=== PATIENT | female | born 1945 | race Caucasian/White ===

== ENCOUNTER → 2017-12-16 12:21 | Outpatient (CLI) | payer OTHER, SELFPAY ==
--- NOTE | 2017-12-16 12:24 | DI.RAD.S_ITS ---
PROCEDURE: XR SHOULDER LT MIN 2V INDICATIONS: 72 year-old female with left shoulder pain. TECHNIQUE: 3 views of the shoulder were acquired. COMPARISON: None. FINDINGS: Bones: No fractures or dislocations. There is minimal acromioclavicular joint degeneration. No suspicious bony lesions. Visualized ribs appear intact. Soft tissues: No suspicious soft tissue calcifications. IMPRESSION: Minimal left acromioclavicular joint degeneration. Dictated by: Adonay Tomlinson M.D. on 12/16/2017 at 12:51 Approved by: Adonay Tomlinson M.D. on 12/16/2017 at 12:53
--- NOTE | 2017-12-16 12:24 | DI.RAD.S_ITS ---
PROCEDURE: XR CERVICAL SPINE 2V OR 3V INDICATIONS: 72 year-old female with neck pain. TECHNIQUE: 3 view(s) of the cervical spine were acquired. COMPARISON: None. FINDINGS: Bones: No fractures or dislocations to the T1 level. The lateral masses of C1 appear intact on the odontoid view. There is mild C4-C5 through C6-C7 disc degeneration. No suspicious bony lesions. Soft tissues: No prevertebral soft tissue swelling. IMPRESSION: Mild mid and lower cervical spine disc degeneration, with normal bony alignment. Dictated by: Adonay Tomlinson M.D. on 12/16/2017 at 12:54 Approved by: Adonay Tomlinson M.D. on 12/16/2017 at 12:55
== END ==
PROVIDERS: PCP Physician Assistant; Visit Provider Physician Assistant
DX: M50.321 Other cervical disc degeneration at C4-C5 level (principal); M19.012 Primary osteoarthritis, left shoulder; M25.512 Pain in left shoulder
CPT/HCPCS: 72040; 73030

== ENCOUNTER → 2018-08-11 15:14 | Outpatient (CLI) | payer OTHER, SELFPAY ==
--- NOTE | 2018-08-11 | DI.MG.S_ITS ---
BILATERAL DIGITAL SCREENING MAMMOGRAM 3D/2D WITH CAD POST LUMPECTOMY: 08/11/2018 CLINICAL: Routine screening. Personal history of right breast cancer. Family history of breast cancer. Comparison is made to exams dated: 07/01/2017 mammogram, 06/19/2016 mammogram, and 06/18/2015 mammogram - [facility]. The tissue of both breasts is heterogeneously dense. This may lower the sensitivity of mammography. Current study was also evaluated with a Computer Aided Detection (CAD) system. There are benign post operative findings in both breasts. No significant masses, calcifications, or other findings are seen in either breast. There has been no significant interval change. IMPRESSION: There is no mammographic evidence of malignancy. A 1 year screening mammogram is recommended. This exam was interpreted at Station ID: [id number]. NOTE: For mammograms, a report in lay terms will be sent to the patient. Approximately 15% of breast malignancies will not be visualized mammographically. In the management of a palpable breast mass, a negative mammogram must not discourage biopsy of a clinically suspicious lesion. Electronically Signed By: Arina calzada/natalie:08/11/2018 16:33:57 letter sent: Normal Exam ACR BI-RADS Category 2: Benign Finding(s) 3342F
== END ==
PROVIDERS: PCP Physician Assistant; Visit Provider Physician Assistant
DX: Z12.31 Encounter for screening mammogram for malignant neoplasm of breast (principal); Z85.3 Personal history of malignant neoplasm of breast; Z80.3 Family history of malignant neoplasm of breast
CPT/HCPCS: 77063; 77067

== ENCOUNTER 2019-08-30 06:29 | Day surgery (SDC) | payer OTHER, SELFPAY ==
--- NOTE | 2019-08-30 | PATH_ITS ---
[facility] Accession Number: [id number] . 01 Material submitted: . gastrointestinal site - POLYP LESIONS OF THE STOMACH . 02 Diagnosis: Stomach, Polyps, Biopsies: Fundic gland polyps. No evidence of Helicobacter organisms on H/E stain. Negative for intestinal metaplasia. Negative for dysplasia and malignancy. [facility] 08/31/2019 1015 Local . 02 Electronically signed: . Tony Gao MD, PhD, Pathologist NPI- [id number] . 01 Gross description: . POLYP LESIONS OF THE STOMACH: Received in formalin are multiple fragment(s) of galvin, soft tissue measuring 0.1 x 0.1 x 0.1 cm to 0.3 x 0.2 x 0.2 cm submitted entirely in 1 cassette(s) [place] [place]/30/2019 1824 Local . 02 Pathologist provided ICD-10: K31.7 . 02 CPT . 225569 Performed at: 01 [facility] [address], [place], [place] [id number] MD Rome Fischer MD Phone: [phone] Performed at: 02 [facility] [address] [place], [place] [id number] MD Asmita Wilkerson MD Phone: [phone]
[2019-08-30 07:17] VITALS: BP 166/86; PULSE 74; RESP 20; TEMP 36.6; O2SAT 98; BMI 20.9
--- NOTE | 2019-08-30 08:17 | PM.PREOP ---
Pre-operative Note Interval Note History & Physical reviewed/Exam performed by Physician: Yes Changes to H&P: Yes H&P completed within 30 days and has changed as indicated here:: Patient had resection of a skin cancer from her nose. Band-Aid in place. ASA Class (for procedural sedation): II
--- NOTE | 2019-08-30 08:38 | PM.OP.ENDO ---
Operative Date/Time/Diagnoses Date of procedure: 08/30/19 Time of procedure: 08:38 Pre-op diagnosis: Upper intestinal epigastric complaints Post-op diagnosis: same (Gastric fundic polyps) Procedure & Clinicians Study performed: EGD with cold biopsy Same procedure as scheduled: Yes Indications: To try to determine cause of patient's symptoms Surgeon: Crispin Calix Procedure Notes SCOAP/Timeout: Perform Procedure in detail: The patient had topical anesthetic applied to oropharynx. She was placed in left lateral decubitus position and underwent IV sedation directed by the surgeon consisting of fentanyl and Versed. A bite block was inserted and the scope was advanced through it into the esophagus. The esophagus was unremarkable. GE junction was noted at 40 cm from the incisors. The stomach insufflated well. There were no lesions seen in the body, antrum or at the incisura except for some polypoid lesions that appeared to be gastric fundic polyps. The pyloric channel was widely patent. The duodenum was unremarkable to the 3rd part. The scope was brought back into the stomach and retroflexed. The proximal stomach normal in appearance. There was no evidence of a hiatal hernia from above or below. Biopsies were taken randomly of several of the polyps to confirm my suspicion that there gastric fundic polyps. The scope was then straightened and brought out through the esophagus again. No lesions were seen. The scope was removed and the patient tolerated the procedure well. Scope withdrawal time: Not applicable Sedation minutes: 10 Findings: polyp (Probable gastric fundic polyps) Specimen(s): other (Polyp biopsies) Complications: none Post-procedure Recommendations: Continue medication(s) Follow up: as needed Disposition: PACU
[2019-08-30] MEDS: MIDAZOLAM 5 MG/ML VIAL IV (08:42)
[2019-08-30 08:43] VITALS: BP 147/66; PULSE 75; RESP 16; TEMP 36.4; O2SAT 96
[2019-08-30] MEDS: fentaNYL 250 MCG/5 ML INJ IV (08:43)
[2019-08-30] MEDS: LIDOCAINE 4% SOLN 50 ML 20 ML TOP (08:45)
[2019-08-30] MEDS: ONDANSETRON 4 MG/2 ML INJ IV (08:47)
[2019-08-30 08:50] VITALS: BP 132/63; PULSE 73; RESP 16; TEMP 36.5; O2SAT 97
== END 2019-08-30 09:04 | disposition home or self-care (01) ==
PROVIDERS: PCP Physician Assistant; Referring Provider Specialist; Visit Provider Specialist
PROC: 0DJ08ZZ Inspection of Upper Intestinal Tract, Via Natural or Artificial Opening Endoscopic (ICD-10-PCS; CPT 43235; principal; 2019-08-30 07:45)
DX: K21.9 Gastro-esophageal reflux disease without esophagitis (principal); K31.7 Polyp of stomach and duodenum
CPT/HCPCS: 43239; 99152; J2250; J2405; J3010

== ENCOUNTER → 2019-08-31 12:19 | Outpatient (CLI) | payer OTHER, SELFPAY ==
[2019-08-31 16:43] LABS: Adenovirus F 40/41 Not Detected (Not Detect); Astrovirus Not Detected (Not Detect); Campylobacter Not Detected (Not Detect); Clostridium difficile toxin AB Not Detected (Not Detect); Cryptosporidium Not Detected (Not Detect); Cyclospora cayetanensis Not Detected (Not Detect); Entamoeba histolytica Not Detected (Not Detect); Enteroaggregative E.coli Not Detected (Not Detect); Enteropathogenic E.coli Not Detected (Not Detect); Enterotoxigenic E.coli It/st Not Detected (Not Detect); Giardia lamblia Not Detected (Not Detect); Norovirus GI/GII Not Detected (Not Detect); Plesiomonsa shigelloides Not Detected (Not Detect); Rotavirus A Not Detected (Not Detect); Salmonella Not Detected (Not Detect); Sapovirus Not Detected (Not Detect); Shiga-like toxin-prod E.coli Not Detected (Not Detect); Shigella/Enteroinvasive E.coli Not Detected (Not Detect); Vibrio Not Detected (Not Detect); Vibrio cholerae Not Detected (Not Detect); Yersinia enterocolitica Not Detected (Not Detect)
== END ==
PROVIDERS: PCP Physician Assistant; Referring Provider Specialist; Visit Provider Specialist
DX: K52.9 Noninfective gastroenteritis and colitis, unspecified (principal)
CPT/HCPCS: 87507

== ENCOUNTER → 2019-09-07 10:31 | Outpatient (CLI) | payer OTHER, SELFPAY ==
--- NOTE | 2019-09-07 10:34 | DI.RAD.S_ITS ---
PROCEDURE: FL BARIUM SWALLOW W SPEECH INDICATIONS: dysphagia, food getting stuck/causing choking TECHNIQUE: Examination was conducted in conjunction with speech pathology per standard protocol. In the lateral projection, filming was performed of the patient swallowing. AP projection filming may also be performed with patient swallowing. COMPARISON: None. FINDINGS: Function: The oral preparatory phase appears normal, with proper containment. The subsequent oral propulsive phase, pharyngeal phase, and esophageal phase of swallowing also appear normal with all proffered substances. Several episodes of slight laryngotracheal penetration of ingested contrast were observed, but no aspiration. No pathologic vallecular pooling. Morphology: No cricopharyngeal bar is identified. No cervical esophageal webs. No Zenker's diverticulum. No strictures. IMPRESSION: Several episodes of slight anterior penetration of ingested contrast were observed but no tracheal aspiration was found. Dictated by: Kole Joseph M.D. on 09/07/2019 at 12:53 Approved by: Kole Joseph M.D. on 09/07/2019 at 12:55
--- NOTE | 2019-09-09 10:57 | ST.SWALLOW ---
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 Calix Reason for Referral dysphagia Setting Setting Outpatient Care Patient Information Identification Type Name,ID Wristband Patient History Precious Gtz was seen for a Modified Barium Swallow Study at the referral of Dr. Calix . According to Precious she has been having difficulty swallowing, at times feeling as though she aspirated. She has a history of GERD, anxiety and asthma for which she is getting treatment. She did note that her GERD was worsening. She also said that she will see a GI specialist in the future. No appointment has been made, she noted. Precious also reported that at times she will regurgitate undigested food into her oropharynx. On 08/29/19, Precious had an esophageal endoscopy procedure . She indicated that there were benign polyps removed, otherwise it was a normal exam . Subjective Observations Precious was seated in the fluoroscopy chair. The directions and description of the procedure were provided. She indicated that she understood and agreed to proceed. Patient Positioning Position View Lateral Imaging Lateral View Textures Administered Trials Presented Thin Liquid via Spoon,Thin Liquid via Cup,Siesta Key Liquid via Spoon,Siesta Key Liquid via Cup,Regular Textures Oral Phase Source: MBSIMP (TM) (C) Bolus Specific Scoring Grid Lip Closure WFL Tongue Control During Bolus Hold WFL Bolus Prep/Mastication WFL Bolus Transport/Lingual Motion Mild Impairment A/P Lingual Propulsion Delay Yes: Premature spillage to the pyriform sinises pre-swallow Number of Seconds Delayed (seconds) 1+sec Oral Residue Minimal Impairment Residue Clearing WFL Nasal Regurgitation No Additional Oral Phase Observations Om exam indicated structures and diadochokinesis to be WNL Pharyngeal Phase Source: MBSIMP (TM) (C) Bolus Specific Scoring Grid Delayed Initiation of Pharyngeal Swallow Yes: Premature spillage to the pyriform sinises pre-swallow Number of Seconds Delayed (seconds) 1+sec Soft Palate Elevation WFL Residue Along the Tongue Base Yes: consistent across all trials Clearance of Residue Along Tongue Base Mild Impairment Laryngeal Elevation WFL Anterior Hyoid Movement WFL Epiglottic Range of Motion Minimal Impairment Vallecular Residue Yes: consistent across all trials Clearance of Vallecular Residue WFL Laryngeal Vestibular Closure Mild Impairment Pharyngeal Stripping Wave WFL Posterior Pharyngeal Wall Residue Yes: Minimal Clearance of Posterior Pharyngeal Wall WFL Residue Upper Esophageal Sphincter Opening Minimal Impairment Residue in the Pyriform Sinuses Yes: consistent across all trials Clearance of Residue in the Pyriform WFL Sinuses Esophageal Clearance Upright Position WFL Pharyngoesophageal Backflow Observed Yes Additional Pharyngeal Phase Observations The swallow response was delayed with premature spillage to the pyriform sinuses pre-swallow. Base of tongue appeared to be weak, resulting in residue in the valeculla. Residue was observed throughout the pharynx and also on the tongue body. Following the initial swallow there was significant pooling within the valeculla and pyriform sinuses as well as thick mucous observed. Most residue was cleared with a second swallow. Small amounts of thin liquid were swallowed with out penetration or aspiration. With larger bolus size (e.g,. cup sip, consecutive swallows ) penetration into the laryngeal vestibule was observed x3. No aspiration observed. Penetration was followed immediately by a cough/throat clear. Penetration also occurred with trial chin tuck with liquids. A/P View Clinical Impressions Dysphagia Type mild oropharyngeal dysphagia Findings The pt presents with a mild dysphagia that can be managed through sip/bite size reduction and not eating fast during meals. The results were discussed with the pt following the study. She was instructed to reduce her liquid boluses and to always follow initial swallows with a second swallow. She c/o PND and feeling a lot of phlegm in her throat. Suggested she drink water throughout the day to thin secretions . It was recommended that she talk to her physician if PND continues . Patient Appropriate for Therapy No Recommendations Diet Liquids Order Thin Diet Order Regular Aspiration Precautions Recommended Precautions Upright at 90 Degrees,Small Bites/Sips
== END ==
PROVIDERS: PCP Family Medicine; Referring Provider Specialist; Visit Provider Specialist
DX: R13.10 Dysphagia, unspecified (principal)
CPT/HCPCS: 74230; 92611

== ENCOUNTER 2020-09-25 10:41 | Emergency (ER) | payer OTHER, SELFPAY ==
[2020-09-25] VITALS (11 sets, daily range): BP systolic 127–154; BP diastolic 57–68; PULSE 65–76; RESP 14–25; TEMP 36.5–36.7; O2SAT 95–99
--- NOTE | 2020-09-25 11:06 | DI.CT.S_ITS ---
PROCEDURE: CT HEAD/BRAIN WO CON INDICATIONS: word searching, headache, difficulty sequencing events. TECHNIQUE: Noncontrast 4.5 mm thick angled axial sections acquired from the foramen magnum to the vertex, with coronal and sagittal reformats. For radiation dose reduction, the following was used: automated exposure control, adjustment of mA and/or kV according to patient size. COMPARISON: None. FINDINGS: Image quality: Excellent. CSF spaces: Basal cisterns are patent. No extra-axial fluid collections. Brain: N there is a large 6.3 x 6.5 by 5.9 centimeter mixed solid-cystic mass in the left frontal lobe. Lesion is causing local mass effect with approximately 1.6 centimeters of [id number] frontal subfalcine herniation. Small 8 millimeter hyperdense focus is associated with the posterior-lateral margin of the left frontal mass concerning for acute intratumoral hemorrhage. Smaller, slightly hyperdense foci are identified in central and posterior solid components of the left frontal mass concerning for subacute intratumoral hemorrhage. There is cerebral volume loss for age, with resultant ventricular and sulcal prominence. There are periventricular and deep white matter chronic small vessel ischemic changes. There is intracranial internal carotid artery atherosclerosis. Skull and face: Calvarium and visualized facial bones appear intact, without suspicious lesions. Sinuses: Visualized sinuses and mastoids are clear. IMPRESSION: 1. 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 Recommend MRI of the brain with and without contrast when clinically feasible. 2. Probable small intratumoral hemorrhage associated with left frontal mass. 3. Approximately 1.6 centimeters of [id number] subfalcine herniation. Recommend neurosurgical consultation. Findings recommendations discussed with Dr. Storm on September 25, 2020 at 11:35 a.m.. Dictated by: Jolene Brown MD, PhD on 09/25/2020 at 11:30 Approved by: Jolene Brown MD, PhD on 09/25/2020 at 11:37
[2020-09-25 11:18] LABS: Add Manual Diff / Slide Review NO; Basophils Absolute Auto 100 /uL (0-100); Eosinophils Absolute Auto 600 /uL (0-450); Eosinophils Percent Auto 8.6 % (2-4); Hematocrit 43.4 % (36-46); Hemoglobin 14.4 g/dL (12.0-16.0); Lymphocytes Absolute Auto 2300 /uL (1100-4500); Lymphocytes Percent Auto 32.2 % (25-40); Mean Corpuscular HGB Conc 33.3 % (30-36); Mean Corpuscular Hemoglobin 29.3 PG (26-34); Mean Corpuscular Volume 88.1 fL (80-100); Monocytes Absolute Auto 400 /uL (0-900); Monocytes Percent Auto 5.1 % (3-14); Neutrophils Absolute Auto 3700 /uL (1500-7000); Neutrophils Percent Auto 53.1 % (50-75); Platelet Count 222 X10^3/uL (150-400); Red Blood Cell Count 4.92 X10^6/uL (4.0-5.2); Red Cell Distribution Width 13.6 % (11.6-14.8)
[2020-09-25 11:23] LABS: Prothrombin Time 11.5 SECONDS (10.1-12.7)
[2020-09-25 11:25] LABS: PTT Partial Thromboplastin Tim 26 SECONDS (26.4-36.2)
[2020-09-25 11:26] LABS: Alanine Aminotransferase 26 IU/L (<35); Albumin 4.5 g/dL (3.5-5.0); Albumin Globulin Ratio 1.7 (1.0-2.8); Alkaline Phosphatase 67 U/L (38-126); Aspartate Aminotransferase 38 IU/L (14-36); BUN Creatinine Ratio 30.9 (6-22); Bilirubin Total 1.1 mg/dL (0.2-1.3); Blood Urea Nitrogen 25 mg/dL (7-17); Calcium 9.7 mg/dL (8.4-10.2); Carbon Dioxide 27 mmol/L (22-32); Chloride 107 mmol/L (98-107); Creatine Kinase 165 U/L (30-135); Estimated Glomerular Filt Rate > 60.0 mL/min (>60); Globulin 2.6 g/dL (1.7-4.1); Glucose 94 mg/dL (80-110); HEMOLYSIS < 15 (0-50); Potassium 4.3 mmol/L (3.4-5.1); Sodium 140 mmol/L (137-145); Total Protein 7.1 g/dL (6.3-8.2)
[2020-09-25 11:35] LABS: COVID19 -Nasal RAPID Negative (Negative)
[2020-09-25 11:38] LABS: Troponin I < 0.012 ng/mL (0.01-0.034)
[2020-09-25 11:42] LABS: CKMB % Relative Index 1.7 % (1.5-5.0); Creatine Kinase MB 2.76 ng/mL (<2.37)
--- NOTE | 2020-09-25 11:45 | ED.AMS ---
HPI - Altered Mental Status General Chief Complaint: Altered Mental Status Stated Complaint: headaches blood coming out nose/ Time Seen by Provider: 09/25/20 11:07 Source: patient and family Mode of arrival: Ambulatory Limitations: altered mental status History of Present Illness HPI narrative: Patient is a 75-year-old female history of hypertension hyperlipidemia and DCIS presenting with 3 weeks of headaches and behavior change. has noticed that she has had difficulty with sequencing events such as getting dressed. He says this morning and took her over an hour just to get dressed. He has noticed some change in her behavior like that is well worried about early onset dementia however couple weeks ago she was at her baseline. He says over the last 2 days it has gotten significantly worse. She has not had any nausea or vomiting he has noticed that yesterday she had a nosebleed but is not on any blood thinners. She has no weakness numbness tingling. No fever chills or sign of infection. MD complaint: altered mental status Related Data Home Medications Medication Instructions Recorded Confirmed montelukast 10 mg tablet 10 mg PO QPM 09/20/18 06/11/20 triamcinolone acetonide 55 mcg 2 spray NASAL DAILY 11/03/18 06/11/20 nasal spray aerosol fluticasone propionate 44 1 inh INHALATION g 06/11/20 06/11/20 mcg/actuation HFA aerosol inhaler mometasone-formoterol HFA 200 1 puff INHALATION BID g 06/11/20 06/11/20 mcg-5 mcg/actuation aerosol inhaler Previous Rx's Medication Instructions Recorded lisinopril 20 mg tablet 20 mg PO DAILY #90 tab 10/24/19 buspirone 10 mg tablet 10 mg PO BID #180 tab 12/27/19 Allergies Allergy/AdvReac Type Severity Reaction Status Date / Time estradiol [ESTRADIOL] AdvReac Severe blood clots Verified 09/25/20 11:12 fluoxetine [FLUOXETINE] AdvReac Severe Nausea, Verified 09/25/20 11:12 vomiting, blurry vision, made IBS worse citalopram AdvReac Intermediate Nausea Verified 09/25/20 11:12 Review of Systems Review of Systems ROS Unobtainable: All systems reviewed & are unremarkable except as noted in HPI and below Constitutional Constitutional: Denies chills, Denies fever(s), Denies lethargy and Denies weakness ENT Ears, Nose, Mouth, and Throat: Reports epistaxis (Yesterday now resolved), Denies nasal congestion and Denies post nasal drip Cardiovascular Cardiovascular: Denies chest pain, Denies irregular heart rhythm, Denies lightheadedness, Denies palpitations, Denies dyspnea, Denies dyspnea on exertion and Denies orthopnea Respiratory Respiratory: Denies cough, Denies dyspnea, Denies dyspnea on exertion and Denies wheezing Gastrointestinal Gastrointestinal: Denies abdominal pain, Denies change in bowel habits, Denies diarrhea, Denies nausea and Denies vomiting Neurologic Neurologic: Denies weakness Endocrine Endocrine: Denies palpitations Allergic/Immunologic Allergic/Immunologic: Denies wheezing Patient History Medical History (Updated 09/25/20 @ 12:13 by Anahy Storm DO) Actinic keratosis Asthma Colon polyps (12/2013) Ductal carcinoma in situ (DCIS) of right breast (2000) GERD (gastroesophageal reflux disease) Hyperlipidemia (11/11/10) Irritable bowel syndrome with diarrhea Mixed anxiety depressive 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) Osteopenia of multiple sites Perineal discomfort in female Rosacea Surgical History (Updated 03/20/18 @ 10:07 by Lucia Darnell LPN) History of tonsillectomy and adenoidectomy (1949) Hx of colonoscopy with polypectomy (12/2013) Hx of left breast biopsy (12/2010) Hx of surgical procedure (2006) Status post breast lumpectomy (2000) Status post cholecystectomy (2004) Status post hysterectomy (1993) Status post knee surgery (1992) Family History (Updated 03/20/18 @ 10:09 by Lucia Darnell LPN) Mother Asthma Sister Age: 71 Diabetes mellitus Hypertension Thyroid disease Sister Age: 70 Asthma Glaucoma Sister Age: 68 Asthma Father No problems noted. Grandfather Stroke Grandmother Cancer Social History (Updated 08/09/19 @ 14:33 by Mindy Navarrete RN) household members: spouse and significant other Smoking Status: Never smoker second hand exposure: No alcohol intake: current substance use type: does not use Smoking Status: Never smoker alcohol intake frequency: 0-2 drinks per day Substance Use Type: does not use Exam Initial Vital Signs Initial Vital Signs: Vital Signs Pulse Rate 76 09/25/20 11:02 Respiratory Rate 21 09/25/20 11:02 Pulse Oximetry 98 09/25/20 11:02 GENERAL: Alert pleasant 75-year-old female and in [no acute] distress. HEENT: Head atraumatic,EOMI, pupils reactive, face symmetric, [moist] mucous membranes CARDIOVASCULAR: Regular rate and rhythm without murmurs, rubs or gallops. RESPIRATORY: Breath sounds equal bilaterally, no wheezes rales or rhonchi. ABDOMEN: Soft, nontender. Normoactive bowel sounds all 4 quadrants. No guarding or rebound. EXTREMITIES: Normal range of motion, no clubbing or edema. Neurovascularly intact NEUROLOGICAL: Alert and oriented x3.Normal gait and speech. Cranial nerves II through XII grossly intact. [Good tylhtx-yp-lacf, good rkmk-jl-aued, strength equal bilaterally, no dysarthria or aphasia, sensation in tact to soft touch bilaterally, no visual changes, no facial droop] able to name objects without difficulty confused on the year SKIN: Warm, dry, no laceration, no petechiae, no rashes or lesions. Scores NIH Stroke Scale Level of Conciousness: Alert, keenly responsive Ask month/age: Answers both questions correctly. Open/close eyes, close hand: Performs both tasks correctly Best gaze horizontal: Normal Visual hogan: No visual loss Facial palsy: Normal symetrical movement Left arm drift: No drift for full 10 sec Right arm drift: No drift for full 10 sec Left leg drift: No drift for full 5 sec Right leg drift: No drift for full 5 sec Limb ataxia: Absent Sensory on face/arms/legs: Normal, no sensory loss Best language: No aphasia, normal Dysarthria: Normal Extinction or inattention: No abnormality Total NIH Stroke scale score: 0 Course Orders Ordered: ED Orders 09/25/20 11:06 CT head/brain wo con Stat EKG-12 Lead Stat 09/25/20 11:07 COVID19 -Nasal swab/Pre-Proc Stat Complete Blood Count AUTO DIFF Stat Comprehensive Metabolic Panel Stat Partial Thromboplastin Time Stat Prothrombin Time INR Stat Troponin & CK Cardiac Panel Stat Vital Signs Vital signs: Vital Signs - 8 hr 09/25/20 11:02 09/25/20 11:03 09/25/20 11:09 Temperature 98.1 F Pulse Rate 76 73 65 Respiratory Rate 21 19 18 Blood Pressure 147/68 H 147/68 H Pulse Oximetry 98 99 09/25/20 11:13 09/25/20 11:19 09/25/20 11:20 Temperature 97.7 F Pulse Rate 69 68 Respiratory Rate 24 24 Blood Pressure 154/68 H Pulse Oximetry 96 98 09/25/20 11:30 09/25/20 11:45 09/25/20 12:00 Temperature Pulse Rate 68 69 69 Respiratory Rate 14 21 24 Blood Pressure 131/63 127/61 136/62 Pulse Oximetry 97 96 95 09/25/20 12:15 09/25/20 12:30 Temperature Pulse Rate 70 69 Respiratory Rate 24 25 H Blood Pressure 134/57 L 137/63 Pulse Oximetry 96 96 MDM - Altered Mental Status Lab Data Attestation: I reviewed the patient's lab results. Result diagrams: 09/25/20 11:07 09/25/20 11:07 Labs: Lab Results 09/25/20 09/25/20 09/25/20 Range/Units 11:07 11:07 11:07 WBC 7.0 (4.5-11.0) X10^3/uL RBC 4.92 (4.0-5.2) X10^6/uL Hgb 14.4 (12.0-16.0) g/dL Hct 43.4 (36-46) % MCV 88.1 (80-100) fL MCH 29.3 (26-34) PG MCHC 33.3 (30-36) % RDW 13.6 (11.6-14.8) % Plt Count 222 (150-400) X10^3/uL Neut % (Auto) 53.1 (50-75) % Lymph % (Auto) 32.2 (25-40) % Spalding % (Auto) 5.1 (3-14) % Eos % (Auto) 8.6 H (2-4) % Baso % (Auto) 1.0 (0-2) % Neut # (Auto) 3700 (1845-6212) /uL Lymph # (Auto) 2300 (6552-9634) /uL Spalding # (Auto) 400 (0-900) /uL Eos # (Auto) 600 H (0-450) /uL Baso # (Auto) 100 (0-100) /uL PT 11.5 (10.1-12.7) SECONDS INR 1.0 (0.9-1.3) APTT 26 L (26.4-36.2) SECONDS Sodium 140 (137-145) mmol/L Potassium 4.3 (3.4-5.1) mmol/L Chloride 107 (98-107) mmol/L Carbon Dioxide 27 (22-32) mmol/L BUN 25 H (7-17) mg/dL Creatinine 0.81 (0.52-1.04) mg/dL Estimated GFR > 60.0 (>60) mL/min BUN/Creatinine Ratio 30.9 H (6-22) Glucose 94 (80-110) mg/dL Calcium 9.7 (8.4-10.2) mg/dL Total Bilirubin 1.1 (0.2-1.3) mg/dL AST 38 H (14-36) IU/L ALT 26 (<35) IU/L Alkaline Phosphatase 67 (38-126) U/L Total Creatine Kinase 165 H (30-135) U/L CK-MB (CK-2) 2.76 H (<2.37) ng/mL CK-MB (CK-2) Rel Index 1.7 (1.5-5.0) % Troponin I < 0.012 (0.01-0.034) ng/mL Total Protein 7.1 (6.3-8.2) g/dL Albumin 4.5 (3.5-5.0) g/dL Globulin 2.6 (1.7-4.1) g/dL Albumin/Globulin Ratio 1.7 (1.0-2.8) SARS-CoV-2 (PCR) (Negative) 09/25/20 Range/Units 11:07 WBC (4.5-11.0) X10^3/uL RBC (4.0-5.2) X10^6/uL Hgb (12.0-16.0) g/dL Hct (36-46) % MCV (80-100) fL MCH (26-34) PG MCHC (30-36) % RDW (11.6-14.8) % Plt Count (150-400) X10^3/uL Neut % (Auto) (50-75) % Lymph % (Auto) (25-40) % Spalding % (Auto) (3-14) % Eos % (Auto) (2-4) % Baso % (Auto) (0-2) % Neut # (Auto) (8933-3176) /uL Lymph # (Auto) (4832-0303) /uL Spalding # (Auto) (0-900) /uL Eos # (Auto) (0-450) /uL Baso # (Auto) (0-100) /uL PT (10.1-12.7) SECONDS INR (0.9-1.3) APTT (26.4-36.2) SECONDS Sodium (137-145) mmol/L Potassium (3.4-5.1) mmol/L Chloride (98-107) mmol/L Carbon Dioxide (22-32) mmol/L BUN (7-17) mg/dL Creatinine (0.52-1.04) mg/dL Estimated GFR (>60) mL/min BUN/Creatinine Ratio (6-22) Glucose (80-110) mg/dL Calcium (8.4-10.2) mg/dL Total Bilirubin (0.2-1.3) mg/dL AST (14-36) IU/L ALT (<35) IU/L Alkaline Phosphatase (38-126) U/L Total Creatine Kinase (30-135) U/L CK-MB (CK-2) (<2.37) ng/mL CK-MB (CK-2) Rel Index (1.5-5.0) % Troponin I (0.01-0.034) ng/mL Total Protein (6.3-8.2) g/dL Albumin (3.5-5.0) g/dL Globulin (1.7-4.1) g/dL Albumin/Globulin Ratio (1.0-2.8) SARS-CoV-2 (PCR) Negative (Negative) Imaging Data CT scan - head: Radiologist's Impression: PROCEDURE: CT HEAD/BRAIN WO CON INDICATIONS: word searching, headache, difficulty sequencing events. TECHNIQUE: Noncontrast 4.5 mm thick angled axial sections acquired from the foramen magnum to the vertex, with coronal and sagittal reformats. For radiation dose reduction, the following was used: automated exposure control, adjustment of mA and/or kV according to patient size. COMPARISON: None. FINDINGS: Image quality: Excellent. CSF spaces: Basal cisterns are patent. No extra-axial fluid collections. Brain: N there is a large 6.3 x 6.5 by 5.9 centimeter mixed solid-cystic mass in the left frontal lobe. Lesion is causing local mass effect with approximately 1.6 centimeters of flew-lw-ypkww frontal subfalcine herniation. Small 8 millimeter hyperdense focus is associated with the posterior-lateral margin of the left frontal mass concerning for acute intratumoral hemorrhage. Smaller, slightly hyperdense foci are identified in central and posterior solid components of the left frontal mass concerning for subacute intratumoral hemorrhage. There is cerebral volume loss for age, with resultant ventricular and sulcal prominence. There are periventricular and deep white matter chronic small vessel ischemic changes. There is intracranial internal carotid artery atherosclerosis. Skull and face: Calvarium and visualized facial bones appear intact, without suspicious lesions. Sinuses: Visualized sinuses and mastoids are clear. IMPRESSION: 1. 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 Recommend MRI of the brain with and without contrast when clinically feasible. 2. Probable small intratumoral hemorrhage associated with left frontal mass. 3. Approximately 1.6 centimeters of fhie-rf-hxeml subfalcine herniation. Recommend neurosurgical consultation. Findings recommendations discussed with Dr. Storm on September 25, 2020 at 11:35 a.m.. Dictated by: Jolene Brown MD, PhD on 09/25/2020 at 11:30 ECG Data Attestation: I personally reviewed and interpreted this ECG as follows: Prior ECG tracings: available for review Interpretation: Normal sinus rhythm rate 67 p.r. interval 158 QRS [address] changes or ischemic changes MDM Narrative Medical decision making narrative: Patient is confused with flat affect but otherwise neurologically intact. Most history is obtained from the . Radiology called to report large frontal mass with hemorrhage. 11:50 Dr. Saint Monk ER physician at [facility] is updated patient's symptoms and test results agrees with emergent transfer. She has herniation and acute bleeding. Due to patient's sign of herniation in active bleeding decision for air lift, and patient agreed. [facility]ane has been updated on patient's symptoms and agrees in approves of transfer to [facility] Critical Care Time Critical Care Time Critical Care Time: Yes Total Critical Care Time: 45 Attestation: The high probability of a clinically significant, sudden or life threatening deterioration of the [cardiovascular] system(s) required my full and direct attention, intervention and personal management. The aggregate critical care time was [45] minutes. This time is in addition to time spent performing reported procedures but includes the following: [x] Data Review and interpretation [x] Patient assessment and monitoring of vital signs [x] Documentation [x] Medication orders and management Discharge Plan Departure Patient Disposition: [facility] Clinical Impression: Brain mass Prescriptions: No Action montelukast [Singulair] 10 mg tablet 10 mg PO QPM RF: 0 lisinopril 20 mg tablet 20 mg PO DAILY Qty: 90 RF: 3 buspirone 10 mg tablet 10 mg PO BID Qty: 180 RF: 1 triamcinolone acetonide [Nasacort] 55 mcg aerosol,spray 2 spray NASAL DAILY RF: 0 Flovent HFA 44 mcg/actuation HFA aerosol inhaler 1 inh inhalation RF: 0 Dulera 200-5 mcg/actuation HFA aerosol inhaler 1 puff INHALATION BID RF: 0 Referrals: Crispin Washington, [Primary Care Provider] -
== END 2020-09-25 12:55 | disposition short-term general hospital (02) ==
PROVIDERS: Emergency Provider Emergency Medicine; PCP Family Medicine
DX: G93.89 Other specified disorders of brain (principal); F03.90 Unspecified dementia, unspecified severity, without behavioral disturbance, psychotic disturbance, mood disturbance, and anxiety; Z20.822 Contact with and (suspected) exposure to COVID-19
CPT/HCPCS: 36415; 70450; 80053; 82550; 82553; 84484; 85025; 85610; 85730; 87635; 93005; 93010; 99284; 99291; C9803

== ENCOUNTER 2020-10-07 14:20 | Emergency (ER) | payer OTHER, SELFPAY ==
[2020-10-07] VITALS (7 sets, daily range): BP systolic 147–188; BP diastolic 65–84; PULSE 67–73; RESP 16–20; TEMP 37.1; O2SAT 97–98; BMI 20.9
--- NOTE | 2020-10-07 14:22 | ED.AMS ---
HPI - Altered Mental Status General Chief Complaint: Neuro Symptoms/Deficit Stated Complaint: Headache & increase confusion Time Seen by Provider: 10/07/20 14:20 Source: patient and family (Has been) Mode of arrival: EMS Limitations: altered mental status History of Present Illness HPI narrative: This is a 75-year-old female comes to the emergency department. Patient comes via EMS with her . Patient was diagnosed with a brain tumor on September 25, she had emergent surgery on the for excision. She spent 3 days in ICU, 3 days on the floor at [facility] and then was transferred home. Patient since then has continued to have short-term memory issues. Patient's states she has been able to ambulate with assistance. Patient has had a headache for several days but is a little bit worse today. Her gave her 2 Tylenol earlier. She describes it is 5/10 in defers any additional medication. Patient was noted to be little bit more confused today. Her describes sort of undulating. He states that she also required a little bit more assistance and is perhaps a little more off balance. She is requiring more verbal direction in how to perform activities which has been worse in the last day. Patient has not had any fevers. Her incision has been healing well. No chest pain, shortness of breath. She has not had any nausea or vomiting. She denies any new issues with bowel movements or urination. Neither or patient appreciate any new weakness, numbness or tingling in your extremities. Patient has not had a formal diagnosis as of the source of her tumor. Her pathology is supposed to be returning in the next week. Dr. Herbert Goldman was her neurosurgeon and she was treated at [facility]. Patient's does note that her heart stopped during the procedure. He is unclear if she had CPR he does states that he was told the restarted her heart. Related Data Home Medications Medication Instructions Recorded Confirmed montelukast 10 mg tablet 10 mg PO QPM 09/20/18 06/11/20 triamcinolone acetonide 55 mcg 2 spray NASAL DAILY 11/03/18 06/11/20 nasal spray aerosol fluticasone propionate 44 1 inh INHALATION g 06/11/20 06/11/20 mcg/actuation HFA aerosol inhaler mometasone-formoterol HFA 200 1 puff INHALATION BID g 06/11/20 06/11/20 mcg-5 mcg/actuation aerosol inhaler Previous Rx's Medication Instructions Recorded lisinopril 20 mg tablet 20 mg PO DAILY #90 tab 10/24/19 buspirone 10 mg tablet 10 mg PO BID #180 tab 12/27/19 dexamethasone 2 mg PO TID #10 tab 10/07/20 Allergies Allergy/AdvReac Type Severity Reaction Status Date / Time estradiol [ESTRADIOL] AdvReac Severe blood clots Verified 09/25/20 11:12 fluoxetine [FLUOXETINE] AdvReac Severe Nausea, Verified 09/25/20 11:12 vomiting, blurry vision, made IBS worse citalopram AdvReac Intermediate Nausea Verified 09/25/20 11:12 Review of Systems Review of Systems ROS Unobtainable: All systems reviewed & are unremarkable except as noted in HPI and below Patient History Medical History Actinic keratosis Asthma Colon polyps (12/2013) Ductal carcinoma in situ (DCIS) of right breast (2000) GERD (gastroesophageal reflux disease) Hyperlipidemia (11/11/10) Irritable bowel syndrome with diarrhea Mixed anxiety depressive 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) Osteopenia of multiple sites Perineal discomfort in female Rosacea Surgical History History of tonsillectomy and adenoidectomy (1949) Hx of colonoscopy with polypectomy (12/2013) Hx of left breast biopsy (12/2010) Hx of surgical procedure (2006) Status post breast lumpectomy (2000) Status post cholecystectomy (2004) Status post hysterectomy (1993) Status post knee surgery (1992) Family History (Updated 03/20/18 @ 10:09 by Lucia Darnell LPN) Mother Asthma Sister Age: 71 Diabetes mellitus Hypertension Thyroid disease Sister Age: 70 Asthma Glaucoma Sister Age: 68 Asthma Father No problems noted. Grandfather Stroke Grandmother Cancer Social History household members: spouse and significant other Smoking Status: Never smoker second hand exposure: No alcohol intake: current substance use type: does not use Smoking Status: Never smoker alcohol intake frequency: 0-2 drinks per day Substance Use Type: does not use Exam Narrative Exam Narrative: GEN: well nourished, well appearing female, alert, patient appears to be in mild distress. Patient tells me the year is 2012, when asked where she is she knows she is [place] but believe she is at and a [facility] which is 1 of the local medical offices. states this is not atypical currently. HEENT: Atraumatic, patient does have a large incision with multiple deidra that appears healing, clean dry and intact. Pupils are equal round reactive to light, extraocular movements are intact, nares are clear, TMs are clear with no fluid, there is no conjunctival pallor. Throat is clear without any exudates, erythema, tonsillar enlargement or uvular deviation HEART: Regular rate and rhythm without murmur, clicks, rubs. No carotid bruits, pulses are equal in upper and lower extremities LUNGS:Lungs clear to auscultation, no wheezes, rales, crackles, chest moves symmetrically ABD:bowel sounds normal, soft, non-tender, no guarding, rebound, rigidity, no masses noted, no hepatosplenomegaly MSCL: Non-tender, no muscle atrophy, muscles strength 5/5 upper and lower extremities, full range of motion, normal gait NEURO:CN 2-12 intact, sensation normal, reflexes 2/4 upper and lower extremities. finger nose finger test normal, heel kc test normal Initial Vital Signs Initial Vital Signs: Vital Signs Temperature 98.8 F 10/07/20 14:23 Pulse Rate 69 10/07/20 14:23 Respiratory Rate 16 10/07/20 14:23 Blood Pressure 147/65 H 10/07/20 14:23 Pulse Oximetry 97 10/07/20 14:23 Scores NIH Stroke Scale Level of Conciousness: Alert, keenly responsive Ask month/age: Answers neither question correctly, aphasic, stuporous, coma Open/close eyes, close hand: Performs both tasks correctly Best gaze horizontal: Normal Visual hogan: No visual loss Facial palsy: Normal symetrical movement Left arm drift: No drift for full 10 sec Right arm drift: No drift for full 10 sec Left leg drift: No drift for full 5 sec Right leg drift: No drift for full 5 sec Limb ataxia: Absent Sensory on face/arms/legs: Normal, no sensory loss Best language: No aphasia, normal Dysarthria: Normal Extinction or inattention: No abnormality Total NIH Stroke scale score: 2 Course Orders Ordered: ED Orders 10/07/20 14:21 CT head/brain wo con Stat Urine Drug Screen, Rapid Stat EKG-12 Lead Stat 10/07/20 14:50 Complete Blood Count AUTO DIFF Stat Comprehensive Metabolic Panel Stat Partial Thromboplastin Time Stat Prothrombin Time INR Stat 10/07/20 16:42 Urine Microscopic Stat Discontinued Medications Sodium Chloride (Normal Saline 0.9%) 1,000 mls @ 150 mls/hr IV CONT MARE Last Infusion: 10/07/20 17:45 Dose: 0 mls/hr Documented by: Admin: 10/07/20 14:54 Dose: 150 mls/hr Documented by: MALA Consultations Consultation #1: Spoke with neurosurgery from [facility]. They were able to review patient's films, she has had improvement in the amount of blood on her head CT. She still has swelling but no increase in no signs of midline shift. Patient appears to have pathology which shows glioblastoma from our discussion. She is currently taking Keppra and they would like to make sure she is still taking this. She is currently on a dexamethasone taper. He reviewed her medication list and recommends increasing her from her 2 mg b.i.d. up to 2 mg t.i.d.. Patient has follow-up on Thursday and they will address her dosage then. We did review her sodium which is 134 today. He asked that they restrict her water to 1.5 L daily. We also discussed her mental changes that the 's appreciating and he states that these are not entirely unexpected in that she can have some waxing and waning of her ability to follow commands and activities. Signs that are concerning are altered mental status, unresponsiveness, seizure activity, acute stroke-like changes or acute neurologic deficits. Vital Signs Vital signs: Vital Signs - 8 hr 10/07/20 14:23 10/07/20 15:00 10/07/20 15:30 Temperature 98.8 F Pulse Rate 69 67 68 Respiratory Rate 16 18 18 Blood Pressure 147/65 H 163/74 H 166/73 H Pulse Oximetry 97 98 97 10/07/20 16:00 10/07/20 16:30 10/07/20 17:00 Temperature Pulse Rate 67 69 70 Respiratory Rate 18 20 18 Blood Pressure 173/76 H 163/71 H 170/74 H Pulse Oximetry 98 98 97 10/07/20 17:30 Temperature Pulse Rate 73 Respiratory Rate 18 Blood Pressure 188/84 H Pulse Oximetry 97 MDM - Altered Mental Status Lab Data Attestation: I reviewed the patient's lab results. Result diagrams: 10/07/20 14:50 10/07/20 14:50 Labs: Lab Results 10/07/20 10/07/20 10/07/20 Range/Units 14:50 14:50 14:50 WBC 14.7 H (4.5-11.0) X10^3/uL RBC 4.12 (4.0-5.2) X10^6/uL Hgb 12.0 (12.0-16.0) g/dL Hct 36.4 (36-46) % MCV 88.3 (80-100) fL MCH 29.1 (26-34) PG MCHC 32.9 (30-36) % RDW 13.8 (11.6-14.8) % Plt Count 277 (150-400) X10^3/uL Neut % (Auto) 88.2 H (50-75) % Lymph % (Auto) 7.5 L (25-40) % [place] % (Auto) 4.0 (3-14) % Eos % (Auto) 0.1 L (2-4) % Baso % (Auto) 0.2 (0-2) % Neut # (Auto) 64350 H (5138-4815) /uL Lymph # (Auto) 1100 (9044-0203) /uL [place] # (Auto) 600 (0-900) /uL Eos # (Auto) 0 (0-450) /uL Baso # (Auto) 0 (0-100) /uL PT 11.9 (10.1-12.7) SECONDS INR 1.1 (0.9-1.3) APTT 21 L D (26.4-36.2) SECONDS Sodium 134 L (137-145) mmol/L Potassium 4.0 (3.4-5.1) mmol/L Chloride 102 (98-107) mmol/L Carbon Dioxide 25 (22-32) mmol/L BUN 15 (7-17) mg/dL Creatinine 0.61 (0.52-1.04) mg/dL Estimated GFR > 60.0 (>60) mL/min BUN/Creatinine Ratio 24.6 H (6-22) Glucose 109 (80-110) mg/dL Calcium 9.3 (8.4-10.2) mg/dL Total Bilirubin 1.0 (0.2-1.3) mg/dL AST 24 (14-36) IU/L ALT 46 H (<35) IU/L Alkaline Phosphatase 70 (38-126) U/L Total Protein 6.2 L (6.3-8.2) g/dL Albumin 3.8 (3.5-5.0) g/dL Globulin 2.4 (1.7-4.1) g/dL Albumin/Globulin Ratio 1.6 (1.0-2.8) Urine Dip Bedside Urine Glucose Negative Bedside Urine Bilirubin - Negative Bedside Urine Ketone - Negative Urine Specific [place] 1.015 Bedside Urine Occult Blood - Negative Bedside Urine pH 7.0 Bedside Urine Protein - Negative Bedside Urine Urobilinogen - Negative Bedside Urine Nitrite - Negative Bedside Urine Leukocytes - Negative Esterase Imaging Data CT scan - head: Radiologist's Impression: [address] [id number] Scan ReportSigned Patient: Precious Gtz SMR#: [id number]: [id number]:[id number]/Sex: 75 / FDate of Service: 10/07/20Loc: EDAccession Number: [id number] Procedure: CT head/brain wo con Ordering Provider: Marva Leary D.O. PROCEDURE: CT HEAD/BRAIN WO CON INDICATIONS: burgos, change in mental status, hx tumor excised 09/26 at [facility] TECHNIQUE: Noncontrast 4.5 mm thick angled axial sections acquired from the foramen magnum to the vertex, with coronal and sagittal reformats. For radiation dose reduction, the following was used: automated exposure control, adjustment of mA and/or kV according to patient size. COMPARISON: [facility], CT, CT HEAD/BRAIN WO CON, 09/25/2020, 11:14. FINDINGS: Image quality: Excellent. CSF spaces: Basal cisterns are patent. Extra-axial fluid can be seen on the left, which is primarily low-density and considered to be chronic, measuring up to 1.4 cm in thickness. A small amount of extra-axial hemorrhage is also seen. The ventricles are symmetric in size and shape. Brain: Interval resection changes can be seen involving the left frontal lobe, with hemorrhage seen within the postsurgical bed. Mass effect can be seen, although the mass effect is reduced since the prior examination, now with midline shift of 6-7 mm. There is cerebral volume loss for age, with resultant ventricular and sulcal prominence. There are periventricular and deep white matter chronic small vessel ischemic changes. There is intracranial internal carotid artery atherosclerosis. Skull and face: Interval left frontal craniotomy change can be seen. Calvarium and visualized facial bones appear intact, without suspicious lesions. Sinuses: Visualized sinuses and mastoids are clear. IMPRESSION: Interval postsurgical change of the left frontal lobe. There is hemorrhage seen within the postoperative bed, which is felt most likely be related to the surgery. However, differential diagnosis includes subsequent, acute hemorrhage into the postoperative bed. If clinically appropriate, please consider short-term follow-up. Correlation with prior postoperative films would also be helpful (not available at the time of this dictation). Reduced mass effect since the preoperative examination, now with midline shift of 6-7 mm. There is no hydrocephalus. Note: Findings and recommendations discussed by telephone with Dr. Leary at 1:47 p.m. [place] time on October 07, 2020. Dictated by: Chai Obando M.D. on 10/07/2020 at 13:44 Approved by: Chai Obando M.D. on 10/07/2020 at 13:49 ECG Data Attestation: I personally reviewed and interpreted this ECG as follows: Interpretation: Sinus rhythm rate of 68 MI 154 QRS of 92 and QTC of 397 MDM Narrative Medical decision making narrative: This is a pleasant 75-year-old female accompanied by her with excision of brain tumor, prelim pathology appears to be a glioblastoma according to Neurosurgery. Patient had excision of the tumor on September 26 and was discharged home approximately week later. Over the last 3 days she has had some increasing headache, some sort of undulating symptoms in terms of difficulty following commands. Patient's was concerned and was brought for evaluation. Head CT does have some postoperative changes and these were reviewed with neuro surgery was able to view the images comparison with her own and she has had improved but does continue to have swelling present. They asked that we confirm she is continuing her Keppra which she is. They also ask us to bump up her dexamethasone from 2 mg b.i.d. to 2 mg t.i.d.. Patient's has her medications with her she is taking 1 mg tablets. Patient was given additional prescription. We also reviewed her sodium is very slightly low. They would like her to restrict her free fluids to 1.5 L daily and I did discuss this with the patient's . We had reviewed exactly how much water this would be. Discharge Plan Departure Patient Disposition: Home Clinical Impression: S/P craniotomy Activity Restrictions/Additional Instructions: Follow up with your neurosurgeon at your appointment on Thursday. The neurosurgeon compared your CT images from today with prior and there has been decrease in amount of blood, there is continued swelling and this is likely related to patients symptoms today. This is not unexpected this shortly after surgery. Increase your dexamethasone from 2mg (2 tablets) twice daily, increase to 2 mg (2 tablets) every 8 hours. Prescription sent to [facility] in [place]. Patient is to continue Keppra and your additional home medications. 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, rapid speech changes, persistent vomiting or other new or concerning changes Prescriptions: New dexamethasone 2 mg tablet 2 mg PO TID Qty: 10 RF: 0 No Action montelukast [Singulair] 10 mg tablet 10 mg PO QPM RF: 0 lisinopril 20 mg tablet 20 mg PO DAILY Qty: 90 RF: 3 buspirone 10 mg tablet 10 mg PO BID Qty: 180 RF: 1 triamcinolone acetonide [Nasacort] 55 mcg aerosol,spray 2 spray NASAL DAILY RF: 0 Flovent HFA 44 mcg/actuation HFA aerosol inhaler 1 inh inhalation RF: 0 Dulera 200-5 mcg/actuation HFA aerosol inhaler 1 puff INHALATION BID RF: 0 Referrals: Crispin Washington, [Primary Care Provider] -
[2020-10-07] MEDS: SODIUM CHLORIDE 0.9% 1,000 ML 150 ML IV (14:54)
[2020-10-07 15:00] LABS: Add Manual Diff / Slide Review NO; Basophils Absolute Auto 0 /uL (0-100); Basophils Percent Auto 0.2 % (0-2); Eosinophils Absolute Auto 0 /uL (0-450); Eosinophils Percent Auto 0.1 % (2-4); Hematocrit 36.4 % (36-46); Lymphocytes Absolute Auto 1100 /uL (1100-4500); Lymphocytes Percent Auto 7.5 % (25-40); Mean Corpuscular HGB Conc 32.9 % (30-36); Mean Corpuscular Hemoglobin 29.1 PG (26-34); Mean Corpuscular Volume 88.3 fL (80-100); Monocytes Absolute Auto 600 /uL (0-900); Neutrophils Absolute Auto 12900 /uL (1500-7000); Neutrophils Percent Auto 88.2 % (50-75); Platelet Count 277 X10^3/uL (150-400); Red Blood Cell Count 4.12 X10^6/uL (4.0-5.2); Red Cell Distribution Width 13.8 % (11.6-14.8); White Blood Cell Count 14.7 X10^3/uL (4.5-11.0)
[2020-10-07 15:07] LABS: INR 1.1 (0.9-1.3); Prothrombin Time 11.9 SECONDS (10.1-12.7)
[2020-10-07 15:09] LABS: PTT Partial Thromboplastin Tim 21 SECONDS (26.4-36.2)
[2020-10-07 15:10] LABS: Alanine Aminotransferase 46 IU/L (<35); Albumin 3.8 g/dL (3.5-5.0); Albumin Globulin Ratio 1.6 (1.0-2.8); Alkaline Phosphatase 70 U/L (38-126); Aspartate Aminotransferase 24 IU/L (14-36); BUN Creatinine Ratio 24.6 (6-22); Blood Urea Nitrogen 15 mg/dL (7-17); Calcium 9.3 mg/dL (8.4-10.2); Carbon Dioxide 25 mmol/L (22-32); Chloride 102 mmol/L (98-107); Estimated Glomerular Filt Rate > 60.0 mL/min (>60); Globulin 2.4 g/dL (1.7-4.1); Glucose 109 mg/dL (80-110); HEMOLYSIS < 15 (0-50); Sodium 134 mmol/L (137-145); Total Protein 6.2 g/dL (6.3-8.2)
== END 2020-10-07 17:55 | disposition home or self-care (01) ==
PROVIDERS: Emergency Provider Emergency Medicine; PCP Family Medicine
DX: C71.9 Malignant neoplasm of brain, unspecified (principal); R51.9 Headache, unspecified; R41.0 Disorientation, unspecified; Z98.890 Other specified postprocedural states
CPT/HCPCS: 36415; 70450; 80053; 81003; 85025; 85610; 85730; 93005; 96360; 96361; 99284

== ENCOUNTER 2020-10-15 15:45 | Observation (INO) | payer OTHER, SELFPAY ==
[2020-10-15] VITALS (34 sets, daily range): BP systolic 102–139; BP diastolic 52–69; PULSE 61–90; RESP 14–27; TEMP 36.7; O2SAT 96–100; BMI 18.0
--- NOTE | 2020-10-15 15:52 | DI.RAD.S_ITS ---
PROCEDURE: XR CHEST 1V INDICATIONS: Possible stroke TECHNIQUE: One view of the chest was acquired. COMPARISON: None. FINDINGS: Surgical changes and devices: None. Lungs and pleura: Peripherally dense, centrally lucent, ovoid nodule projects over the right mid lung measuring roughly 10 mm. Lungs are otherwise clear. No pleural effusions or pneumothorax. Mediastinum: Mediastinal contours appear normal. Heart size is normal. Bones and chest wall: No suspicious bony lesions. Overlying soft tissues appear unremarkable. IMPRESSION: 1. No acute process. 2. Peripherally dense, centrally lucent nodule projecting over the right mid lung of uncertain etiology. When the patient's acute illness resolves, chest CT is recommended on a routine basis. Dictated by: Claudia Chong M.D. on 10/15/2020 at 15:17 Approved by: Claudia Chong M.D. on 10/15/2020 at 15:19
--- NOTE | 2020-10-15 15:52 | DI.CT.S_ITS ---
PROCEDURE: CT STROKE INDICATIONS: worsening weakness, garbled speech TECHNIQUE: Noncontrast 4.5 mm thick angled axial sections acquired from the foramen magnum to the vertex, with coronal reformats. For radiation dose reduction, the following was used: automated exposure control, adjustment of mA and/or kV according to patient size. COMPARISON: [facility], CT, CT HEAD/BRAIN WO CON, 10/07/2020, 14:25. FINDINGS: Image quality: Excellent. CSF spaces: Basal cisterns are patent. No extra-axial fluid collections. The ventricles are symmetric in size and shape. Brain: Surgical resection cavity left frontal lobe is stable. Hemorrhage at the surgical resection cavity is undergone expected evolution interval since prior exam obtained March 09, 2021. No new intracranial hemorrhage identified. Local mass effect in the region of the left frontal surgical resection cavity is noted causing approximately 6 millimeters of vhxf-vu-uvwga frontal subfalcine herniation which is not significantly changed compared to October 07, 2020. There is cerebral volume loss for age, with resultant ventricular and sulcal prominence. There are periventricular and deep white matter chronic small vessel ischemic changes. There is intracranial internal carotid artery atherosclerosis. Skull and face: Postsurgical changes compatible with left frontal-temporal craniotomy stable compared to October 07, 2020 point visualized facial bones appear intact, without suspicious lesions. Sinuses: Visualized sinuses and mastoids are clear. IMPRESSION: 1. Stable postsurgical changes compared to October 07, 2020. 2. Intracranial hemorrhage at the left frontal lobe surgical site has undergone expected evolution in the interval since prior exam obtained October 07, 2020. No new intracranial hemorrhage identified. Findings telephoned to Dr. Molina on October 16, 2019 at 4:18 a.m.. This study fulfills neurological imaging criteria for inclusion or exclusion of acute stroke therapies based on available published neurological guidelines. Dictated by: Jolene Brown MD, PhD on 10/15/2020 at 16:14 Approved by: Jolene Brown MD, PhD on 10/15/2020 at 16:21
--- NOTE | 2020-10-15 16:07 | DI.CT.S_ITS ---
PROCEDURE: CT ANGIO HEAD AND NECK INDICATIONS: right sided weakness/ code stroke TECHNIQUE: Noncontrast images were performed earlier in the day and not repeated. After the administration of intravenous contrast, 1 mm thick sections acquired from the aortic arch through the [place] of [place]. Post-contrast 4.5 mm thick sections then re-acquired from the foramen magnum to the vertex. 3-dimensional wfwdaju-rzpqpftxh-clbxyxvwwz (MIP) and/or volume rendering reformats were acquired of the central intracranial vasculature and neck separately. COMPARISON: [facility], CT, CT HEAD/BRAIN WO CON, 10/07/2020, 14:25. [facility], CT, CT HEAD/BRAIN WO CON, 09/25/2020, 11:14. [facility], CT, CT STROKE, 10/15/2020, 15:49. FINDINGS: Image quality: Excellent. BRAIN: CSF spaces: Ventricles are normal in size and shape. Basal cisterns are patent. 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 Brain: A volume loss can be seen involving the left frontal lobe anteriorly, as previously demonstrated. No midline shift. No intracranial bleeds or masses. [place]-white matter interface appears intact. Skull and face: Left frontal craniotomy changes are seen. Calvarium and facial bones appear intact, without suspicious lesions. Orbits appear normal. Sinuses: Sinuses and mastoids are clear. HEAD CT ANGIOGRAPHY: Anterior circulation: Intracranial internal carotid arteries are normal in size and flow. The flow within the paired anterior cerebral arteries is normal and symmetric. The flow within the middle cerebral arteries is normal and symmetric. The anterior communicating artery is seen. No aneurysms are seen. Posterior circulation: Visualized portions of the vertebral arteries demonstrate normal caliber, and join to form a normal appearing basilar artery. Flow within the posterior cerebral arteries is normal and symmetric. No aneurysms are seen. NECK CT ANGIOGRAPHY: Carotid system: The great vessels demonstrate a conventional anatomy as they arise from the aortic arch. The origins of the common carotid arteries appear patent. The common carotid arteries demonstrate normal caliber and courses. The bifurcation regions are both widely patent. The internal carotid arteries demonstrate normal calibers and courses. Posterior circulation: The origins of the vertebral arteries both appear widely patent. The more superior extracranial portions of both vertebral arteries also demonstrate normal courses and calibers. They join to form a normal appearing basilar artery. Soft tissues: Visualized neck soft tissues demonstrate no suspicious abnormalities. Bones: No suspicious bony lesions. Visualized cervical spine appears normally aligned. Age-appropriate bony degenerative changes are seen. A IMPRESSION: No significant intracranial arterial abnormality is seen. Within the arteries of the neck, no hemodynamically significant stenosis can be seen. Stable left frontal subdural hygroma. Stable left frontal lobe post resection changes. Any quantitative measurements of stenosis were performed using NASCET criteria. Dictated by: Chai Obando M.D. on 10/15/2020 at 15:31 Approved by: Chai Obando M.D. on 10/15/2020 at 15:34
--- NOTE | 2020-10-15 16:17 | ED.NEUROSD ---
HPI - Neuro Symptoms/Deficit <Bettye Molina MD - Last Filed: 10/15/20 17:41> General Chief Complaint: Neuro Symptoms/Deficit Stated Complaint: R side weakness Time Seen by Provider: 10/15/20 15:50 Source: patient and EMS Mode of arrival: EMS History of Present Illness HPI Narrative: 75-year-old woman presents to the emergency department with slurred speech since 02:30 this afternoon. She has also had somewhat slowed responses over the last 24 hours. Her history is significant for recently diagnosed brain tumor are on September 25 with emergency surgery on September 26 for excision. This was done at [facility] and follow-up neurosurgical visit was done on Thursday with sutures removed. She was seen again on October 07 with altered mental status. Workup at that time showed some postoperative changes that were reviewed with Neurosurgery. Was confirmed that she was taking her Keppra and her dexamethasone was increased from 2 b.i.d. up to 2 t.i.d.. She was slightly hyponatremic at the time and was asked to restrict free fluids to 1.5 L per day. She comes in today with concerns for progressive symptoms. Her has been trying to schedule an appointment with [facility] for continued care. The decision as to chemotherapy and radiation verses palliative care and hospice has not been made and is awaiting consultation with Oncology first. On Anticoagulants: No Related Data Home Medications Medication Instructions Recorded Confirmed montelukast 10 mg tablet 10 mg PO QPM 09/20/18 10/15/20 triamcinolone acetonide 55 mcg 2 spray NASAL DAILY 11/03/18 10/15/20 nasal spray aerosol fluticasone propionate 44 1 inh INHALATION DAILY g 06/11/20 10/15/20 mcg/actuation HFA aerosol inhaler mometasone-formoterol HFA 200 1 puff INHALATION BID g 06/11/20 10/15/20 mcg-5 mcg/actuation aerosol inhaler levetiracetam 1,000 mg PO BID 10/15/20 10/15/20 Previous Rx's Medication Instructions Recorded lisinopril 20 mg tablet 20 mg PO DAILY #90 tab 10/24/19 buspirone 10 mg tablet 10 mg PO BID #180 tab 12/27/19 dexamethasone 2 mg PO TID #10 tab 10/07/20 Allergies Allergy/AdvReac Type Severity Reaction Status Date / Time estradiol [ESTRADIOL] AdvReac Severe blood clots Verified 10/15/20 16:10 fluoxetine [FLUOXETINE] AdvReac Severe Nausea, Verified 10/15/20 16:10 vomiting, blurry vision, made IBS worse citalopram AdvReac Intermediate Nausea Verified 10/15/20 16:10 Review of Systems <Bettye Molina MD - Last Filed: 10/15/20 17:41> Constitutional Constitutional: Reports fatigue, Reports headache(s), Reports lethargy and Reports weakness (Increasing on the right side with difficulty with transfers) ENT Ears, Nose, Mouth, and Throat: Reports headache(s) Cardiovascular Cardiovascular: Reports system reviewed and no additional complaints, except as documented Respiratory Respiratory: Reports system reviewed and no additional complaints, except as documented Gastrointestinal Gastrointestinal: Reports other (Decreased appetite) Genitourinary Genitourinary: Reports system reviewed and no additional complaints, except as documented Musculoskeletal Musculoskeletal: Reports muscle weakness Comments: Easy bruising Neurologic Neurologic: Reports behavioral changes, Reports headache(s) and Reports weakness (Increasing on the right side with difficulty with transfers) Psychiatric Psychiatric: Reports behavioral changes Endocrine Endocrine: Reports fatigue Hematologic/Lymphatic On Anticoagulants: No Patient History <Bettye Molina MD - Last Filed: 10/15/20 17:41> Medical History Actinic keratosis Asthma Colon polyps (12/2013) Ductal carcinoma in situ (DCIS) of right breast (2000) GERD (gastroesophageal reflux disease) Hyperlipidemia (11/11/10) Irritable bowel syndrome with diarrhea 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 Grandfather Stroke Grandmother Cancer Social History household members: spouse and significant other Smoking Status: Never smoker second hand exposure: No alcohol intake: current substance use type: does not use Smoking Status: Never smoker alcohol intake frequency: 0-2 drinks per day Substance Use Type: does not use Exam <Bettye Molina MD - Last Filed: 10/15/20 17:41> Narrative Exam Narrative: General: Healthy appearing, flat affect and in no acute distress. HEENT: Moist mucous membranes, normal sclera with reactive pupils, craniotomy incision is healing nicely Neck: supple Respiratory: Lungs are clear to auscultation, no wheezing no rales no rhonchi. Full and symmetrical air movement Cardiac: Regular rate and rhythm no murmurs no bruits Abdomen: Soft, nontender, good bowel tones, no flank pain Skin: Warm and dry, no rashes, multiple bruises over extremities in various stages of healing Neurologic: Slight right-sided weakness, some word-finding difficulties. Very careful enunciation to avoid dysarthria, Extremities: No trauma, well perfused Psych: Flat affect Initial Vital Signs Initial Vital Signs: Vital Signs Pulse Rate 65 10/15/20 16:02 Respiratory Rate 14 10/15/20 16:02 Blood Pressure 139/62 10/15/20 16:02 Pulse Oximetry 99 10/15/20 16:02 <Sanket Jones DO - Last Filed: 10/16/20 00:57> Initial Vital Signs Initial Vital Signs: Vital Signs Pulse Rate 65 10/15/20 16:02 Respiratory Rate 14 10/15/20 16:02 Blood Pressure 139/62 10/15/20 16:02 Pulse Oximetry 99 10/15/20 16:02 Course <Bettye Molina MD - Last Filed: 10/15/20 17:41> Orders Ordered: ED Orders 10/15/20 16:07 CT angio head and neck Stat 10/15/20 16:16 C-Reactive Protein Quant Stat COVID19 -Nasal swab/Pre-Proc Stat Complete Blood Count AUTO DIFF Stat Comprehensive Metabolic Panel Stat Erythrocyte Sedimentation Rate Stat Partial Thromboplastin Time Stat Prothrombin Time INR Stat Troponin & CK Cardiac Panel Stat 10/15/20 18:47 COVID19 - ADMIT (CENTER DIRECTOR swab/PCR) Stat Aspirin (Aspirin Ec 81 Mg Tablet) 81 mg PO DAILY [facility] Atorvastatin Calcium (Atorvastatin 20 Mg Tablet) 20 mg PO BEDTIME [facility] Bisacodyl (Bisacodyl 10 Mg Supp) 10 mg IN DAILY PRN PRN Reason: Constipation Buspirone HCl (Buspirone 5 Mg Tablet) 10 mg PO BID [facility] Last Admin: 10/15/20 22:04 Dose: 10 mg Documented by: MAGGIE Dexamethasone (Dexamethasone 1 Mg Tablet) 2 mg PO TID [facility] Last Admin: 10/15/20 22:01 Dose: 2 mg Documented by: MAGGIE Enoxaparin Sodium (Enoxaparin 40 Mg/0.4 Ml Syringe) 40 mg SUBCUT DAILY [facility] Fluticasone Propionate (Fluticasone 44 Mcg Hfa 120 Puff Inh) 1 puff INH RTBID [facility] Sodium Chloride (Normal Saline 0.9%) 1,000 mls @ 125 mls/hr IV CONT [facility] Last Admin: 10/15/20 22:01 Dose: 125 mls/hr Documented by: MAGGIE Levetiracetam (Levetiracetam 250 Mg Tablet) 1,000 mg PO BID [facility] Last Admin: 10/15/20 22:59 Dose: 1,000 mg Documented by: MAGGIE Lisinopril (Lisinopril 20 Mg Tablet) 20 mg PO DAILY [facility] Morphine Sulfate (Morphine 2 Mg/Ml Inj) 2 mg IV Q4HR PRN PRN Reason: Pain, Moderate (4-6) Morphine Sulfate (Morphine 4 Mg/Ml Inj) 4 mg IV Q4HR PRN PRN Reason: Pain, Severe (7-10) Naloxone HCl (Naloxone 0.4 Mg/Ml Vial) 0.2 mg IV Q2MIN PRN PRN Reason: Opiate Reversal Mometasone- Formoterol [Dulera] 200-5 Mcg/Actuation Hfa Aerosol I 1 puff INH BID [facility] Ondansetron HCl (Ondansetron 4 Mg/2 Ml Inj) 4 mg IV Q8HR PRN PRN Reason: Nausea And Vomiting Vital Signs Vital signs: Vital Signs - 8 hr 10/15/20 17:00 10/15/20 17:05 10/15/20 17:10 Temperature Pulse Rate 61 61 61 Respiratory Rate 24 24 24 Blood Pressure 125/60 115/55 L 117/59 L Pulse Oximetry 99 99 99 10/15/20 17:15 10/15/20 17:20 10/15/20 17:25 Temperature Pulse Rate 61 64 61 Respiratory Rate 24 24 23 Blood Pressure 113/59 L 116/56 L 113/66 Pulse Oximetry 99 98 98 10/15/20 17:30 10/15/20 17:35 10/15/20 17:40 Temperature Pulse Rate 72 61 62 Respiratory Rate 22 24 25 H Blood Pressure 117/53 L 110/55 L 103/52 L Pulse Oximetry 99 99 98 10/15/20 17:45 10/15/20 18:00 10/15/20 18:15 Temperature Pulse Rate 62 62 61 Respiratory Rate 24 24 24 Blood Pressure 113/54 L 110/57 L 125/61 Pulse Oximetry 98 99 99 10/15/20 18:20 10/15/20 18:30 10/15/20 18:40 Temperature Pulse Rate 61 62 62 Respiratory Rate 26 H 24 19 Blood Pressure 118/58 L 108/58 L Pulse Oximetry 99 98 99 10/15/20 18:45 10/15/20 19:00 10/15/20 19:15 Temperature Pulse Rate 61 61 61 Respiratory Rate 25 H 24 24 Blood Pressure 125/58 L Pulse Oximetry 98 98 98 10/15/20 19:20 10/15/20 19:30 10/15/20 19:40 Temperature Pulse Rate 61 62 61 Respiratory Rate 21 25 H 24 Blood Pressure 115/56 L 113/58 L Pulse Oximetry 98 98 99 10/15/20 19:45 10/15/20 20:20 Temperature 98.0 F Pulse Rate 61 63 Respiratory Rate 19 18 Blood Pressure 117/69 Pulse Oximetry 98 97 <Sanket Jones, DO - Last Filed: 10/16/20 00:57> Course Course Narrative: I have received patient in sign-out from daytime provider. I have performed an independent history and physical exam. Patient has had various right-sided neurologic symptoms including facial weakness, slurred speech, right upper extremity weakness and right lower extremity weakness over the past few days. She has multiple contraindications to tPA including outside the window, recent neurosurgical procedure, and resolution of symptoms. I have spoken with the neurosurgical team at [facility] and I have reviewed the case, labs and imaging and states there is no change in imaging, no evidence of a need for intervention and no need for transfer. Additionally, I have spoken with oncology from [facility] and they state the patient is on the books for a consultation next week and nothing in today story would warrant the need for immediate intervention. Patient will stay here at [facility] and undergo traditional TIA workup including echo and MRI Orders Ordered: ED Orders 10/15/20 16:07 CT angio head and neck Stat 10/15/20 16:16 C-Reactive Protein Quant Stat COVID19 -Nasal swab/Pre-Proc Stat Complete Blood Count AUTO DIFF Stat Comprehensive Metabolic Panel Stat Erythrocyte Sedimentation Rate Stat Partial Thromboplastin Time Stat Prothrombin Time INR Stat Troponin & CK Cardiac Panel Stat 10/15/20 18:47 COVID19 - ADMIT (CENTER DIRECTOR swab/PCR) Stat Aspirin (Aspirin Ec 81 Mg Tablet) 81 mg PO DAILY [facility] Atorvastatin Calcium (Atorvastatin 20 Mg Tablet) 20 mg PO BEDTIME [facility] Bisacodyl (Bisacodyl 10 Mg Supp) 10 mg IN DAILY PRN PRN Reason: Constipation Buspirone HCl (Buspirone 5 Mg Tablet) 10 mg PO BID [facility] Last Admin: 10/15/20 22:04 Dose: 10 mg Documented by: MAGGIE Dexamethasone (Dexamethasone 1 Mg Tablet) 2 mg PO TID [facility] Last Admin: 10/15/20 22:01 Dose: 2 mg Documented by: MAGGIE Enoxaparin Sodium (Enoxaparin 40 Mg/0.4 Ml Syringe) 40 mg SUBCUT DAILY [facility] Fluticasone Propionate (Fluticasone 44 Mcg Hfa 120 Puff Inh) 1 puff INH RTBID [facility] Sodium Chloride (Normal Saline 0.9%) 1,000 mls @ 125 mls/hr IV CONT [facility] Last Admin: 10/15/20 22:01 Dose: 125 mls/hr Documented by: MAGGIE Levetiracetam (Levetiracetam 250 Mg Tablet) 1,000 mg PO BID [facility] Last Admin: 10/15/20 22:59 Dose: 1,000 mg Documented by: MAGGIE Lisinopril (Lisinopril 20 Mg Tablet) 20 mg PO DAILY [facility] Morphine Sulfate (Morphine 2 Mg/Ml Inj) 2 mg IV Q4HR PRN PRN Reason: Pain, Moderate (4-6) Morphine Sulfate (Morphine 4 Mg/Ml Inj) 4 mg IV Q4HR PRN PRN Reason: Pain, Severe (7-10) Naloxone HCl (Naloxone 0.4 Mg/Ml Vial) 0.2 mg IV Q2MIN PRN PRN Reason: Opiate Reversal Mometasone- Formoterol [Dulera] 200-5 Mcg/Actuation Hfa Aerosol I 1 puff INH BID [facility] Ondansetron HCl (Ondansetron 4 Mg/2 Ml Inj) 4 mg IV Q8HR PRN PRN Reason: Nausea And Vomiting Vital Signs Vital signs: Vital Signs - 8 hr 10/15/20 17:00 10/15/20 17:05 10/15/20 17:10 Temperature Pulse Rate 61 61 61 Respiratory Rate 24 24 24 Blood Pressure 125/60 115/55 L 117/59 L Pulse Oximetry 99 99 99 10/15/20 17:15 10/15/20 17:20 10/15/20 17:25 Temperature Pulse Rate 61 64 61 Respiratory Rate 24 24 23 Blood Pressure 113/59 L 116/56 L 113/66 Pulse Oximetry 99 98 98 10/15/20 17:30 10/15/20 17:35 10/15/20 17:40 Temperature Pulse Rate 72 61 62 Respiratory Rate 22 24 25 H Blood Pressure 117/53 L 110/55 L 103/52 L Pulse Oximetry 99 99 98 10/15/20 17:45 10/15/20 18:00 10/15/20 18:15 Temperature Pulse Rate 62 62 61 Respiratory Rate 24 24 24 Blood Pressure 113/54 L 110/57 L 125/61 Pulse Oximetry 98 99 99 10/15/20 18:20 10/15/20 18:30 10/15/20 18:40 Temperature Pulse Rate 61 62 62 Respiratory Rate 26 H 24 19 Blood Pressure 118/58 L 108/58 L Pulse Oximetry 99 98 99 10/15/20 18:45 10/15/20 19:00 10/15/20 19:15 Temperature Pulse Rate 61 61 61 Respiratory Rate 25 H 24 24 Blood Pressure 125/58 L Pulse Oximetry 98 98 98 10/15/20 19:20 10/15/20 19:30 10/15/20 19:40 Temperature Pulse Rate 61 62 61 Respiratory Rate 21 25 H 24 Blood Pressure 115/56 L 113/58 L Pulse Oximetry 98 98 99 10/15/20 19:45 10/15/20 20:20 Temperature 98.0 F Pulse Rate 61 63 Respiratory Rate 19 18 Blood Pressure 117/69 Pulse Oximetry 98 97 MDM - Neuro Symptoms/Deficit <Bettye Molina MD - Last Filed: 10/15/20 17:41> Medical Records Attestation: I reviewed the patient's medical records. Lab Data Attestation: I reviewed the patient's lab results. Result diagrams: 10/15/20 16:16 10/15/20 16:16 Labs: Lab Results 10/15/20 10/15/20 10/15/20 Range/Units 16:16 16:16 16:16 WBC 10.3 (4.5-11.0) X10^3/uL RBC 3.69 L (4.0-5.2) X10^6/uL Hgb 11.0 L (12.0-16.0) g/dL Hct 32.8 L (36-46) % MCV 89.0 (80-100) fL MCH 29.8 (26-34) PG MCHC 33.5 (30-36) % RDW 14.0 (11.6-14.8) % Plt Count 172 (150-400) X10^3/uL Neut % (Auto) 87.3 H (50-75) % Lymph % (Auto) 7.4 L (25-40) % [place] % (Auto) 4.9 (3-14) % Eos % (Auto) 0.1 L (2-4) % Baso % (Auto) 0.3 (0-2) % Neut # (Auto) 9000 H (2770-5298) /uL Lymph # (Auto) 800 L (8208-6142) /uL [place] # (Auto) 500 (0-900) /uL Eos # (Auto) 0 (0-450) /uL Baso # (Auto) 0 (0-100) /uL ESR (0-20) MM/HR PT 12.4 (10.1-12.7) SECONDS INR 1.1 (0.9-1.3) APTT 22 L (26.4-36.2) SECONDS Sodium 131 L (137-145) mmol/L Potassium 4.7 (3.4-5.1) mmol/L Chloride 101 (98-107) mmol/L Carbon Dioxide 26 (22-32) mmol/L BUN 34 H (7-17) mg/dL Creatinine 0.73 (0.52-1.04) mg/dL Estimated GFR > 60.0 (>60) mL/min BUN/Creatinine Ratio 46.6 H (6-22) Glucose 106 (80-110) mg/dL Calcium 8.8 (8.4-10.2) mg/dL Magnesium (1.6-2.3) mg/dL Total Bilirubin 0.5 (0.2-1.3) mg/dL AST 15 (14-36) IU/L ALT 19 (<35) IU/L Alkaline Phosphatase 79 (38-126) U/L Total Creatine Kinase < 20 L (30-135) U/L CK-MB (CK-2) TNP CK-MB (CK-2) Rel Index TNP Troponin I < 0.012 (0.01-0.034) ng/mL C-Reactive Protein (<1.0) mg/dL Total Protein 5.2 L (6.3-8.2) g/dL Albumin 3.0 L (3.5-5.0) g/dL Globulin 2.2 (1.7-4.1) g/dL Albumin/Globulin Ratio 1.4 (1.0-2.8) SARS-CoV-2 (PCR) (Negative) 10/15/20 10/15/20 10/15/20 Range/Units 16:16 16:16 16:16 WBC (4.5-11.0) X10^3/uL RBC (4.0-5.2) X10^6/uL Hgb (12.0-16.0) g/dL Hct (36-46) % MCV (80-100) fL MCH (26-34) PG MCHC (30-36) % RDW (11.6-14.8) % Plt Count (150-400) X10^3/uL Neut % (Auto) (50-75) % Lymph % (Auto) (25-40) % [place] % (Auto) (3-14) % Eos % (Auto) (2-4) % Baso % (Auto) (0-2) % Neut # (Auto) (3133-6337) /uL Lymph # (Auto) (7686-5461) /uL [place] # (Auto) (0-900) /uL Eos # (Auto) (0-450) /uL Baso # (Auto) (0-100) /uL ESR 5 (0-20) MM/HR PT (10.1-12.7) SECONDS INR (0.9-1.3) APTT (26.4-36.2) SECONDS Sodium (137-145) mmol/L Potassium (3.4-5.1) mmol/L Chloride (98-107) mmol/L Carbon Dioxide (22-32) mmol/L BUN (7-17) mg/dL Creatinine (0.52-1.04) mg/dL Estimated GFR (>60) mL/min BUN/Creatinine Ratio (6-22) Glucose (80-110) mg/dL Calcium (8.4-10.2) mg/dL Magnesium (1.6-2.3) mg/dL Total Bilirubin (0.2-1.3) mg/dL AST (14-36) IU/L ALT (<35) IU/L Alkaline Phosphatase (38-126) U/L Total Creatine Kinase (30-135) U/L CK-MB (CK-2) CK-MB (CK-2) Rel Index Troponin I (0.01-0.034) ng/mL C-Reactive Protein < 0.5 (<1.0) mg/dL Total Protein (6.3-8.2) g/dL Albumin (3.5-5.0) g/dL Globulin (1.7-4.1) g/dL Albumin/Globulin Ratio (1.0-2.8) SARS-CoV-2 (PCR) Negative (Negative) 10/15/20 10/15/20 Range/Units 16:16 18:47 WBC (4.5-11.0) X10^3/uL RBC (4.0-5.2) X10^6/uL Hgb (12.0-16.0) g/dL Hct (36-46) % MCV (80-100) fL MCH (26-34) PG MCHC (30-36) % RDW (11.6-14.8) % Plt Count (150-400) X10^3/uL Neut % (Auto) (50-75) % Lymph % (Auto) (25-40) % [place] % (Auto) (3-14) % Eos % (Auto) (2-4) % Baso % (Auto) (0-2) % Neut # (Auto) (7205-5108) /uL Lymph # (Auto) (5220-3324) /uL [place] # (Auto) (0-900) /uL Eos # (Auto) (0-450) /uL Baso # (Auto) (0-100) /uL ESR (0-20) MM/HR PT (10.1-12.7) SECONDS INR (0.9-1.3) APTT (26.4-36.2) SECONDS Sodium (137-145) mmol/L Potassium (3.4-5.1) mmol/L Chloride (98-107) mmol/L Carbon Dioxide (22-32) mmol/L BUN (7-17) mg/dL Creatinine (0.52-1.04) mg/dL Estimated GFR (>60) mL/min BUN/Creatinine Ratio (6-22) Glucose (80-110) mg/dL Calcium (8.4-10.2) mg/dL Magnesium 2.2 (1.6-2.3) mg/dL Total Bilirubin (0.2-1.3) mg/dL AST (14-36) IU/L ALT (<35) IU/L Alkaline Phosphatase (38-126) U/L Total Creatine Kinase (30-135) U/L CK-MB (CK-2) CK-MB (CK-2) Rel Index Troponin I (0.01-0.034) ng/mL C-Reactive Protein (<1.0) mg/dL Total Protein (6.3-8.2) g/dL Albumin (3.5-5.0) g/dL Globulin (1.7-4.1) g/dL Albumin/Globulin Ratio (1.0-2.8) SARS-CoV-2 (PCR) Negative (Negative) Point of Care Testing Glucose POC 125 Urine Dip Bedside Urine Glucose Negative Bedside Urine Bilirubin - Negative Bedside Urine Ketone - Negative Urine Specific [place] 1.015 Bedside Urine Occult Blood - Negative Bedside Urine pH 6 Bedside Urine Protein - Negative Bedside Urine Urobilinogen - Negative Bedside Urine Nitrite - Negative Bedside Urine Leukocytes - Negative Esterase MDM Narrative Medical decision making narrative: Care is reveiwed with Dr Kojuri, oncology at [facility]. Pt has new oncology apt 10/[address] Carroll. Path: glioblastoma Apt is appropriate 4 weeks post op. Will need chemo and radiation. Dr Chinchilla will do radiation consult today to see if concurrent visits can be arranged. Asked about increased weakness and difficulties with transfers, he recommended home health and physical therapy. He returns call after having had an opportunity did look through recent imaging studies and records. Last MRI was just after her surgery. He recommended contacting the Neuro Surgical group, Dr. Herbert Goldman was the original neurosurgeon. Will discuss progression of symptoms and see what suggestions they have regarding workup. In discussing home health and care with her , he does have eaten home health arranged with home health nursing she has already had occupational therapy evaluation and physical therapy evaluation. He does have a gait belt but still notes that transfers are getting more and more difficult with her increasing weakness and then seeming pain as he tries to lift her. 532pm Neurosurgery through [facility] has been paged [phone] neurosurgical PA return the call. She requested an ESR/CRP. She will review imaging. Not entirely clear that there was neurosurgical options are suggestions to add. May still need hospital admission simply for weakness and may need earlier hospice consult. <Sanket Jones, DO - Last Filed: 10/16/20 00:57> Lab Data Labs: Lab Results 10/15/20 10/15/20 10/15/20 Range/Units 16:16 16:16 16:16 WBC 10.3 (4.5-11.0) X10^3/uL RBC 3.69 L (4.0-5.2) X10^6/uL Hgb 11.0 L (12.0-16.0) g/dL Hct 32.8 L (36-46) % MCV 89.0 (80-100) fL MCH 29.8 (26-34) PG MCHC 33.5 (30-36) % RDW 14.0 (11.6-14.8) % Plt Count 172 (150-400) X10^3/uL Neut % (Auto) 87.3 H (50-75) % Lymph % (Auto) 7.4 L (25-40) % [place] % (Auto) 4.9 (3-14) % Eos % (Auto) 0.1 L (2-4) % Baso % (Auto) 0.3 (0-2) % Neut # (Auto) 9000 H (1185-1368) /uL Lymph # (Auto) 800 L (6726-2134) /uL [place] # (Auto) 500 (0-900) /uL Eos # (Auto) 0 (0-450) /uL Baso # (Auto) 0 (0-100) /uL ESR (0-20) MM/HR PT 12.4 (10.1-12.7) SECONDS INR 1.1 (0.9-1.3) APTT 22 L (26.4-36.2) SECONDS Sodium 131 L (137-145) mmol/L Potassium 4.7 (3.4-5.1) mmol/L Chloride 101 (98-107) mmol/L Carbon Dioxide 26 (22-32) mmol/L BUN 34 H (7-17) mg/dL Creatinine 0.73 (0.52-1.04) mg/dL Estimated GFR > 60.0 (>60) mL/min BUN/Creatinine Ratio 46.6 H (6-22) Glucose 106 (80-110) mg/dL Calcium 8.8 (8.4-10.2) mg/dL Magnesium (1.6-2.3) mg/dL Total Bilirubin 0.5 (0.2-1.3) mg/dL AST 15 (14-36) IU/L ALT 19 (<35) IU/L Alkaline Phosphatase 79 (38-126) U/L Total Creatine Kinase < 20 L (30-135) U/L CK-MB (CK-2) TNP CK-MB (CK-2) Rel Index TNP Troponin I < 0.012 (0.01-0.034) ng/mL C-Reactive Protein (<1.0) mg/dL Total Protein 5.2 L (6.3-8.2) g/dL Albumin 3.0 L (3.5-5.0) g/dL Globulin 2.2 (1.7-4.1) g/dL Albumin/Globulin Ratio 1.4 (1.0-2.8) SARS-CoV-2 (PCR) (Negative) 10/15/20 10/15/20 10/15/20 Range/Units 16:16 16:16 16:16 WBC (4.5-11.0) X10^3/uL RBC (4.0-5.2) X10^6/uL Hgb (12.0-16.0) g/dL Hct (36-46) % MCV (80-100) fL MCH (26-34) PG MCHC (30-36) % RDW (11.6-14.8) % Plt Count (150-400) X10^3/uL Neut % (Auto) (50-75) % Lymph % (Auto) (25-40) % [place] % (Auto) (3-14) % Eos % (Auto) (2-4) % Baso % (Auto) (0-2) % Neut # (Auto) (4598-1804) /uL Lymph # (Auto) (7762-1729) /uL [place] # (Auto) (0-900) /uL Eos # (Auto) (0-450) /uL Baso # (Auto) (0-100) /uL ESR 5 (0-20) MM/HR PT (10.1-12.7) SECONDS INR (0.9-1.3) APTT (26.4-36.2) SECONDS Sodium (137-145) mmol/L Potassium (3.4-5.1) mmol/L Chloride (98-107) mmol/L Carbon Dioxide (22-32) mmol/L BUN (7-17) mg/dL Creatinine (0.52-1.04) mg/dL Estimated GFR (>60) mL/min BUN/Creatinine Ratio (6-22) Glucose (80-110) mg/dL Calcium (8.4-10.2) mg/dL Magnesium (1.6-2.3) mg/dL Total Bilirubin (0.2-1.3) mg/dL AST (14-36) IU/L ALT (<35) IU/L Alkaline Phosphatase (38-126) U/L Total Creatine Kinase (30-135) U/L CK-MB (CK-2) CK-MB (CK-2) Rel Index Troponin I (0.01-0.034) ng/mL C-Reactive Protein < 0.5 (<1.0) mg/dL Total Protein (6.3-8.2) g/dL Albumin (3.5-5.0) g/dL Globulin (1.7-4.1) g/dL Albumin/Globulin Ratio (1.0-2.8) SARS-CoV-2 (PCR) Negative (Negative) 10/15/20 10/15/20 Range/Units 16:16 18:47 WBC (4.5-11.0) X10^3/uL RBC (4.0-5.2) X10^6/uL Hgb (12.0-16.0) g/dL Hct (36-46) % MCV (80-100) fL MCH (26-34) PG MCHC (30-36) % RDW (11.6-14.8) % Plt Count (150-400) X10^3/uL Neut % (Auto) (50-75) % Lymph % (Auto) (25-40) % [place] % (Auto) (3-14) % Eos % (Auto) (2-4) % Baso % (Auto) (0-2) % Neut # (Auto) (2086-1982) /uL Lymph # (Auto) (3711-0743) /uL [place] # (Auto) (0-900) /uL Eos # (Auto) (0-450) /uL Baso # (Auto) (0-100) /uL ESR (0-20) MM/HR PT (10.1-12.7) SECONDS INR (0.9-1.3) APTT (26.4-36.2) SECONDS Sodium (137-145) mmol/L Potassium (3.4-5.1) mmol/L Chloride (98-107) mmol/L Carbon Dioxide (22-32) mmol/L BUN (7-17) mg/dL Creatinine (0.52-1.04) mg/dL Estimated GFR (>60) mL/min BUN/Creatinine Ratio (6-22) Glucose (80-110) mg/dL Calcium (8.4-10.2) mg/dL Magnesium 2.2 (1.6-2.3) mg/dL Total Bilirubin (0.2-1.3) mg/dL AST (14-36) IU/L ALT (<35) IU/L Alkaline Phosphatase (38-126) U/L Total Creatine Kinase (30-135) U/L CK-MB (CK-2) CK-MB (CK-2) Rel Index Troponin I (0.01-0.034) ng/mL C-Reactive Protein (<1.0) mg/dL Total Protein (6.3-8.2) g/dL Albumin (3.5-5.0) g/dL Globulin (1.7-4.1) g/dL Albumin/Globulin Ratio (1.0-2.8) SARS-CoV-2 (PCR) Negative (Negative) Point of Care Testing Glucose POC 125 Urine Dip Bedside Urine Glucose Negative Bedside Urine Bilirubin - Negative Bedside Urine Ketone - Negative Urine Specific [place] 1.015 Bedside Urine Occult Blood - Negative Bedside Urine pH 6 Bedside Urine Protein - Negative Bedside Urine Urobilinogen - Negative Bedside Urine Nitrite - Negative Bedside Urine Leukocytes - Negative Esterase Discharge Plan Departure Patient Disposition: Admitted as Observation Clinical Impression: Brain TIA Admit Date/Time: 10/15/20 20:30 Admit Provider: Sadiq Sharif
[2020-10-15 16:30] LABS: Add Manual Diff / Slide Review NO; Basophils Absolute Auto 0 /uL (0-100); Basophils Percent Auto 0.3 % (0-2); Eosinophils Absolute Auto 0 /uL (0-450); Eosinophils Percent Auto 0.1 % (2-4); Hematocrit 32.8 % (36-46); Lymphocytes Absolute Auto 800 /uL (1100-4500); Lymphocytes Percent Auto 7.4 % (25-40); Mean Corpuscular HGB Conc 33.5 % (30-36); Mean Corpuscular Hemoglobin 29.8 PG (26-34); Monocytes Absolute Auto 500 /uL (0-900); Monocytes Percent Auto 4.9 % (3-14); Neutrophils Absolute Auto 9000 /uL (1500-7000); Neutrophils Percent Auto 87.3 % (50-75); Platelet Count 172 X10^3/uL (150-400); Red Blood Cell Count 3.69 X10^6/uL (4.0-5.2); White Blood Cell Count 10.3 X10^3/uL (4.5-11.0)
[2020-10-15 16:38] LABS: COVID19 -Nasal RAPID Negative (Negative)
[2020-10-15 16:42] LABS: INR 1.1 (0.9-1.3); Prothrombin Time 12.4 SECONDS (10.1-12.7)
[2020-10-15 16:44] LABS: PTT Partial Thromboplastin Tim 22 SECONDS (26.4-36.2)
[2020-10-15 16:50] LABS: Alanine Aminotransferase 19 IU/L (<35); Albumin Globulin Ratio 1.4 (1.0-2.8); Alkaline Phosphatase 79 U/L (38-126); Aspartate Aminotransferase 15 IU/L (14-36); BUN Creatinine Ratio 46.6 (6-22); Bilirubin Total 0.5 mg/dL (0.2-1.3); Blood Urea Nitrogen 34 mg/dL (7-17); Calcium 8.8 mg/dL (8.4-10.2); Carbon Dioxide 26 mmol/L (22-32); Chloride 101 mmol/L (98-107); Creatine Kinase < 20 U/L (30-135); Estimated Glomerular Filt Rate > 60.0 mL/min (>60); Globulin 2.2 g/dL (1.7-4.1); Glucose 106 mg/dL (80-110); HEMOLYSIS < 15 (0-50); Potassium 4.7 mmol/L (3.4-5.1); Sodium 131 mmol/L (137-145); Total Protein 5.2 g/dL (6.3-8.2)
[2020-10-15 17:02] LABS: Troponin I < 0.012 ng/mL (0.01-0.034)
[2020-10-15 17:58] LABS: C-Reactive Protein Quant < 0.5 mg/dL (<1.0)
[2020-10-15 18:14] LABS: Erythrocyte Sedimentation Rate 5 MM/HR (0-20)
[2020-10-15 19:43] LABS: COVID19 - ADMIT (NP swab/PCR) Negative (Negative)
--- NOTE | 2020-10-15 21:20 | DI.ECHO.S_ITS ---
[place] +---------+ Hospital +---------+ : : [address] : : : : [id number] : : : : Phone: [phone] Echocardiogram Report + + :Name: FRANCESCA BLUM Study Date: 10/16/2020 Height: 67 in : :[facility] ReadingLocation: Weight: 120 lb : : Gender: Female BSA: 1.6 m2 : :: 1945 Age: 75 yrs BP: 114/65 mmHg: :Reason For Study: TIA : :Ordering Physician: SARY, : :ENOC Performed By: Sejal Estrada : :Referring: ENOC OKEEFE : + + Interpretation Summary Sinus rhythm with heart rate fluctuating between 54 up to 61 bpm. Normal LV size with mild concentric LVH. Normal wall motion and left ventricular systolic function. Ejection fraction is 60-65%. Normal chamber sizes. No significant valvular abnormalities. No source of embolism identified. There is no evidence of PFO based on color flow Doppler. No prior study available for comparison. Procedure: A two-dimensional transthoracic echocardiogram with color flow and Doppler was performed. The study quality was technically adequate. There is no prior echocardiogram noted for this patient. The patient was in sinus bradycardia with heart rates between 54-61 bpm during the exam. Left Ventricle: The left ventricle is normal in size. There is mild concentric left ventricular hypertrophy. The ejection fraction is estimated to be 60-65%. Right Ventricle: The right ventricle is normal in size and function. Atria: The left atrial size is normal. Right atrial size is normal. There is no Doppler evidence for an interatrial shunt. Mitral Valve: The mitral valve is normal in structure and function. There is trace mitral regurgitation. Aortic Valve: The aortic valve is trileaflet. The aortic valve opens well. There is no aortic valve stenosis. No aortic regurgitation is present. Tricuspid Valve: The tricuspid valve is normal in structure and function. There is mild to moderate tricuspid regurgitation. Pulmonic Valve: The pulmonic valve is not well seen, but is grossly normal. There is no pulmonic valvular regurgitation. Great Vessels: The aortic root is normal size. The ascending aorta could not be visualized. The IVC is of normal diameter and collapses greater than 50% with a sniff. This suggests a low right atrial pressure of 3 mm Hg. Pericardium/ Pleura There is no pericardial effusion. There is no pleural effusion. MMode/2D Measurements & Calculations LVIDd: 3.8 cm LVOT diam: 2.0 cm LVIDs: 2.4 cm Ao root diam: 3.1 cm FS: 38.4 % IVSd: 1.1 cm LVPWd: 1.0 cm LV brantley. diameter/BSA (cm/m^2): 2.4 LV sys. diameter/BSA (cm/m^2): 1.5 LA A2 area: 14.0 cm2 RA long axis: 4.3 cm LA A4 area: 13.6 cm2 RA area: 13.3 cm2 LA length (vol): 4.5 cm RA vol: 35.0 ml LA vol: 36.3 ml RA : 21.5 ml/m2 LA vol index: 22.3 ml/m2 IVC diam: 1.5 cm RVD1 (basal): 2.5 cm TAPSE: 2.0 cm Doppler Measurements & Calculations Ao V2 max: 128.4 cm/sec LVOT Max Nnamdi: 116.4 cm/sec Ao V2 mean: 89.6 cm/sec LV V1 max P.4 mmHg Ao max P.6 mmHg LV V1 VTI: 24.6 cm Ao mean P.6 mmHg WES(I,D): 2.6 cm2 Ao V2 VTI: 28.7 cm WES(V,D): 2.8 cm2 sev ratio: 0.86 WES indexed to BSA (cm^2/m^2): 1.6 MV E max nnamdi: 93.6 cm/sec TR max nnamdi: 253.1 cm/sec MV A max nnamdi: 90.3 cm/sec TR max P.6 mmHg MV E/A: 1.0 PA V2 max: 96.7 cm/sec Med Peak E' Nnamdi: 6.4 cm/sec PA V2 mean: 73.0 cm/sec E/E' med: 14.6 PA mean P.3 mmHg Lat Peak E' Nnamdi: 7.7 cm/sec PA pr(Accel): 37.9 mmHg E/E' lat: 12.2 E/e' average: 13.4 MV dec time: 0.25 sec SV(FABIEN): 75.6 ml Electronically signed by: Sherry Chao M.D. on Reading Physician:10/16/2020 12:50 PM
[2020-10-15 21:31] LABS: Magnesium 2.2 mg/dL (1.6-2.3)
[2020-10-15] MEDS: SODIUM CHLORIDE 0.9% 1,000 ML 125 ML IV (22:01)
[2020-10-15] MEDS: dexAMETHasone 1 MG TABLET 2 MG PO (22:01)
[2020-10-15] MEDS: BUSPIRONE 5 MG TABLET 10 MG PO (22:04)
--- NOTE | 2020-10-15 22:43 | P.HP_ITS ---
History of Present Illness History of Present Illness Date Patient Seen: 10/15/20 Time Patient Seen: 22:27 Chief complaint: R side weakness Narrative: Ms. Precious Gtz is a 75-year-old female with past medical history of brain cancer status post resection at [facility] (09/26/2020), breast cancer, hypertension, hyperlipidemia, GERD, irritable bowel syndrome and anxiety with depression presents to the ER with her significant other with Devon with complaints worsening right-sided weakness. The patient underwent a brain tumor resection 3 weeks ago at [facility] number presents with a residual right-sided weakness at baseline. The patient reports experiencing increased weakness noticed by her significant other Devon at approximately 2:30 p.m. today. The patient appeared to be more confused and was not noticing the change and had garbled speech and facial droop. It appears the patient has had a waxing and waning course since her surgery evaluated [facility] ER on 10/07/2020 with some similar clinical features and then again today. The patient's symptoms were improving upon arrival to the emergency department. The patient denies complaints of fevers or chills, headaches or dizziness. Patient states she has sustained no falls or trauma. Denies complaints of neck or back pain has no chest pain, palpitations, shortness of breath, cough or wheezing. She denies epigastric or abdominal pain and reports no nausea or vomiting. She reports no change and bowel or bladder habits and has no urgency, frequency or burning on voiding. When asked the patient states she is not quite at her baseline. Upon arrival the patient is afebrile with temperature of 98.0?, heart rate of 65, blood pressure 139/62, respirations 14 saturating 99% on room air. A CT the head brain stroke protocols obtain finding stable postsurgical changes, intracranial hemorrhage at the left frontal load surgical site has undergone expected evolution in the interval since prior exam obtained October 07, 2020, no new intracranial hemorrhage identified. A CT angio of the head finds no significant intracranial arterial abnormalities, no hemodynamically significant stenoses are seen in the arteries neck, stable left frontal subdural hydroma, stable left frontal lobe post resection changes. Chest x-ray is obtained finding no acute process, noting peripherally dense central lucid nodule projecting over the right lung of uncertain etiology. On laboratory analysis he has white count 6.3, hemoglobin of 11.0 and hematocrit of 32.8 with platelets 172. Neutrophils ordered mildly elevated at 9000. Her coags are within normal limits. Her chemistry significant for hyponatremia at 131. She has a BUN of 34 and a creatinine of 0.73 with a BUN creatinine ratio 46.6. Her nonfasting glucose is 106. Her liver functions are also within normal limits and she has an albumin of 3.0. Her total CK is less than 20, troponin is unremarkable and CRP is less than 0.5. For COVID screening is negative. NH is documented by nursing at 3:52 p.m. at 0. The ER provider consulted [facility] who both reviewed imaging and felt there was no acute change or need for intervention and or transfer. The patient is admitted to the hospitalist service for TIA. Neuro surgery: Dr. 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 Grandfather Stroke Grandmother Cancer Social History: household members spouse,significant other Safety & Behavioral: Feels Safe in Current Yes Environment Been Physically Hurt or No Threatened By a Person Suicidal Ideation Description None Suicide Plan Description No Plan Tobacco & Substance use: Smoking Status Never smoker alcohol intake current alcohol intake frequency 0-2 drinks per day Substance Use Type does not use Meds Home Medications and Allergies Home Medications Medication Instructions Recorded Confirmed Type montelukast 10 mg tablet 10 mg PO QPM 09/20/18 10/15/20 History triamcinolone acetonide 55 mcg 2 spray NASAL DAILY 11/03/18 10/15/20 History nasal spray aerosol lisinopril 20 mg tablet 20 mg PO DAILY #90 tab 10/24/19 10/15/20 Rx buspirone 10 mg tablet 10 mg PO BID #180 tab 12/27/19 10/15/20 Rx fluticasone propionate 44 1 inh INHALATION DAILY g 06/11/20 10/15/20 History mcg/actuation HFA aerosol inhaler mometasone-formoterol HFA 200 1 puff INHALATION BID g 06/11/20 10/15/20 History mcg-5 mcg/actuation aerosol inhaler dexamethasone 2 mg PO TID #10 tab 10/07/20 10/15/20 Rx levetiracetam 1,000 mg PO BID 10/15/20 10/15/20 History Allergies Allergy/AdvReac Type Severity Reaction Status Date / Time estradiol [ESTRADIOL] AdvReac Severe blood clots Verified 10/15/20 16:10 fluoxetine [FLUOXETINE] AdvReac Severe Nausea, Verified 10/15/20 16:10 vomiting, blurry vision, made IBS worse citalopram AdvReac Intermediate Nausea Verified 10/15/20 16:10 Review of Systems Review of Systems ROS: Yes All systems reviewed with the patient and are negative except as otherwise documented Exam Vital Signs (past 8 hours): - 10/15/20 16:02 10/15/20 16:15 10/15/20 16:27 Temperature Pulse Rate 65 62 62 Respiratory Rate 14 27 H Blood Pressure 139/62 139/62 117/59 L Pulse Oximetry 99 99 99 10/15/20 16:30 10/15/20 16:31 10/15/20 16:35 Temperature Pulse Rate 71 90 61 Respiratory Rate 25 H 24 24 Blood Pressure 133/60 124/60 Pulse Oximetry 99 99 10/15/20 16:40 10/15/20 16:45 10/15/20 16:50 Temperature Pulse Rate 61 62 61 Respiratory Rate 24 24 24 Blood Pressure 135/63 125/58 L 119/58 L Pulse Oximetry 99 99 100 10/15/20 16:55 10/15/20 17:00 10/15/20 17:05 Temperature Pulse Rate 68 61 61 Respiratory Rate 24 24 24 Blood Pressure 102/53 L 125/60 115/55 L Pulse Oximetry 98 99 99 10/15/20 17:10 10/15/20 17:15 10/15/20 17:20 Temperature Pulse Rate 61 61 64 Respiratory Rate 24 24 24 Blood Pressure 117/59 L 113/59 L 116/56 L Pulse Oximetry 99 99 98 10/15/20 17:25 10/15/20 17:30 10/15/20 17:35 Temperature Pulse Rate 61 72 61 Respiratory Rate 23 22 24 Blood Pressure 113/66 117/53 L 110/55 L Pulse Oximetry 98 99 99 10/15/20 17:40 10/15/20 17:45 10/15/20 18:00 Temperature Pulse Rate 62 62 62 Respiratory Rate 25 H 24 24 Blood Pressure 103/52 L 113/54 L 110/57 L Pulse Oximetry 98 98 99 10/15/20 18:15 10/15/20 18:20 10/15/20 18:30 Temperature Pulse Rate 61 61 62 Respiratory Rate 24 26 H 24 Blood Pressure 125/61 118/58 L Pulse Oximetry 99 99 98 10/15/20 18:40 10/15/20 18:45 10/15/20 19:00 Temperature Pulse Rate 62 61 61 Respiratory Rate 19 25 H 24 Blood Pressure 108/58 L 125/58 L Pulse Oximetry 99 98 98 10/15/20 19:15 10/15/20 19:20 10/15/20 19:30 Temperature Pulse Rate 61 61 62 Respiratory Rate 24 21 25 H Blood Pressure 115/56 L Pulse Oximetry 98 98 98 10/15/20 19:40 10/15/20 19:45 10/15/20 20:20 Temperature 98.0 F Pulse Rate 61 61 63 Respiratory Rate 24 19 18 Blood Pressure 113/58 L 117/69 Pulse Oximetry 99 98 97 10/15/20 21:20 Temperature Pulse Rate Respiratory Rate Blood Pressure Pulse Oximetry 96 Oxygen Delivery Method Room Air Oxygen Flow Rate 0 Narrative Exam Narrative: GENERAL APPEARANCE: well developed, well nourished, in no acute distress. HEENT: Right facial droop, no ptosis, PERRLA, conjunctiva clear, EOMs intact without nystagmus, no rhinorrhea, dysarthria, mucous membranes are moist and pink NECK/THYROID: neck supple, no JVD, no carotid bruit, no thyromegaly, trachea midline. LYMPH NODES: no cervical or supraclavicular lymphadenopathy. SKIN: [place], warm and dry, multiple bruising of extremities. HEART: regular rate and rhythm, S1-S2, no murmur, no rubs or gallops, brisk capillary refill, no edema LUNGS: clear to auscultation bilaterally, no coarseness crackles or wheezing, no cough present CHEST: Symmetrical movement, no accessory muscle use, good tidal volume. ABDOMEN: Soft, no distention, no abdominal tenderness, no organomegaly, no fla nk or suprapubic tenderness, active bowel tones. EXTREMITIES: moves all extremities, strength is 5/5 and symmetrical, no deformities or joint effusions, no clubbing or cyanosis. NEUROLOGIC: AAO to person and place, difficulty with multiple step directions, slow verbal karma, dysarthria, right facial droop, no ptosis, no extremity drift or ataxia, sensation is intact symmetrically without extinction. PSYCH: Good eye contact, flat affect, cooperative Objective Labs Result Diagrams: 10/15/20 16:16 10/15/20 16:16 Labs: Laboratory Results - last 24 hr 10/15/20 10/15/20 10/15/20 16:16 16:16 16:16 WBC 10.3 RBC 3.69 L Hgb 11.0 L Hct 32.8 L MCV 89.0 MCH 29.8 MCHC 33.5 RDW 14.0 Plt Count 172 Neut % (Auto) 87.3 H Lymph % (Auto) 7.4 L [place] % (Auto) 4.9 Eos % (Auto) 0.1 L Baso % (Auto) 0.3 Neut # (Auto) 9000 H Lymph # (Auto) 800 L [place] # (Auto) 500 Eos # (Auto) 0 Baso # (Auto) 0 ESR PT 12.4 INR 1.1 APTT 22 L Sodium 131 L Potassium 4.7 Chloride 101 Carbon Dioxide 26 BUN 34 H Creatinine 0.73 Estimated GFR > 60.0 BUN/Creatinine Ratio 46.6 H Glucose 106 Calcium 8.8 Magnesium Total Bilirubin 0.5 AST 15 ALT 19 Alkaline Phosphatase 79 Total Creatine Kinase < 20 L CK-MB (CK-2) TNP CK-MB (CK-2) Rel Index TNP Troponin I < 0.012 C-Reactive Protein Total Protein 5.2 L Albumin 3.0 L Globulin 2.2 Albumin/Globulin Ratio 1.4 SARS-CoV-2 (PCR) 10/15/20 10/15/20 10/15/20 16:16 16:16 16:16 WBC RBC Hgb Hct MCV MCH MCHC RDW Plt Count Neut % (Auto) Lymph % (Auto) [place] % (Auto) Eos % (Auto) Baso % (Auto) Neut # (Auto) Lymph # (Auto) [place] # (Auto) Eos # (Auto) Baso # (Auto) ESR 5 PT INR APTT Sodium Potassium Chloride Carbon Dioxide BUN Creatinine Estimated GFR BUN/Creatinine Ratio Glucose Calcium Magnesium Total Bilirubin AST ALT Alkaline Phosphatase Total Creatine Kinase CK-MB (CK-2) CK-MB (CK-2) Rel Index Troponin I C-Reactive Protein < 0.5 Total Protein Albumin Globulin Albumin/Globulin Ratio SARS-CoV-2 (PCR) Negative 10/15/20 10/15/20 16:16 18:47 WBC RBC Hgb Hct MCV MCH MCHC RDW Plt Count Neut % (Auto) Lymph % (Auto) [place] % (Auto) Eos % (Auto) Baso % (Auto) Neut # (Auto) Lymph # (Auto) [place] # (Auto) Eos # (Auto) Baso # (Auto) ESR PT INR APTT Sodium Potassium Chloride Carbon Dioxide BUN Creatinine Estimated GFR BUN/Creatinine Ratio Glucose Calcium Magnesium 2.2 Total Bilirubin AST ALT Alkaline Phosphatase Total Creatine Kinase CK-MB (CK-2) CK-MB (CK-2) Rel Index Troponin I C-Reactive Protein Total Protein Albumin Globulin Albumin/Globulin Ratio SARS-CoV-2 (PCR) Negative Assessment & Plan Assessment & Plan narrative: This is a 75-year-old female with past medical history of brain cancer status post resection at [facility] (09/26/2020), breast cancer, hypertension, hyperlipidemia, GERD, irritable bowel syndrome and anxiety with depression presents to the ER with increased right-si ded weakness over her baseline weakness following craniotomy for brain cancer. 1. TIA, present on admission, active -patient with a acute symptoms improving upon arrival to the ER and resolving completely and back to her baseline function. Upon arrival to the floor the patient presents with dysarthria and right facial droop with no further manifestation of right-sided weakness. NIH score is 2. The patient endorses that she does not believe she has back to baseline. Patient presented previou sly with similar neurological features following her surgery. -ER physician consulted with [facility] who reviewed images and both felt the patient was stable with no need for intervention or transfer. -CT of identifies intracranial hemorrhage the left frontal lobe surgical site undergoing expected evolution since prior exam on October 07, 2020, CTA finds no hemodynamically significant stenoses than the arteries the neck or intracranial abnormalities. In considering of the specialist review of the aforementioned imaging will not order MRI at this time. -Patient's symptoms are felt to be postsurgical sequelae and not related to and atherosclerotic process will obtain a lipid panel but will defer at this time on statin therapy. -in light of the intracranial hemorrhage will defer aspirin therapy. -ordered TSH and hemoglobin A1c. -request PT, OT and ST to consult, evaluate and treat. 2. Status post craniotomy, resection of brain tumor, stable -patient with well-healing craniotomy wound, no complaints of headaches. -pathology is not yet available. -will continue Keppra 1 g p.o. twice daily. -will continue dexamethasone 2 mg 3 times daily. 3. Hyponatremia, acute, present on admission, active -believed to be related to dehydration. -serum sodium is 131, BUN is 3 4 with a creatinine 0.73 with a BUN creatinine ratio 46.6. -ordered normal saline 125 cc decreased down to 75 cc/hour 4. Hypertension, chronic, stable -patient with a blood pressure 139/62 upon admission to the ER. -will continue lisinopril 20 mg daily. 5. Asthma, unknown persistence, chronic, stable -ordered Flovent 2 puffs twice daily. -ordered albuterol MDI 2 puffs every 4 hours as needed. -requested RT to consult, evaluate and treat 6. Anxiety and depression, chronic, stable. -continue home regimen of buspirone 10 mg twice daily. VTE prophylaxis: Enoxaparin IV fluid: Normal saline 75 cc/hour Diet: Regular with Ensure Code status: Patient states her wish to be full code and designates her significant other Devon to be her surrogate decision maker. The patient is admitted to the hospital related to the severity of her symptoms and need for further evaluation and monitoring to prevent complications or adverse events. The patient is admitted as observation with expected length of stay to be less than 2 midnights. COVID-19 COVID-19 status: Negative Result date/Date tested (Pos, Neg/Pending): 10/15/20 Scores GCS [place] coma scale eye opening: Spontaneous Anyi coma scale verbal response: Confused Anyi coma scale motor response: Obey commands Anyi coma scale total score: 14 NIHSS Level of Conciousness: Alert, keenly responsive Ask month/age: Answers both questions correctly. Open/close eyes, close hand: Performs both tasks correctly Best gaze horizontal: Normal Visual hogan: No visual loss Facial palsy: Minor paralysis, flattened nasolabial fold, asymmetry on smiling Left arm drift: No drift for full 10 sec Right arm drift: No drift for full 10 sec Left leg drift: No drift for full 5 sec Right leg drift: No drift for full 5 sec Limb ataxia: Absent Sensory on face/arms/legs: Normal, no sensory loss Best language: No aphasia, normal Dysarthria: Mild to mod,some slurring Extinction or inattention: No abnormality Total NIH Stroke scale score: 2 Quality VTE Deep Vein Thrombosis/Pulmonary Embolism Present on Admission: No MIPS - Admit I confirm the patient?s Advance Care Plan is present, Code status is documented, Surrogate decision maker is in patient?s record [If Yes, STOP here]: Yes
[2020-10-15] MEDS: levETIRAcetam 250 MG TABLET 1000 MG PO (22:59)
--- NOTE | 2020-10-15 23:25 | PC.NURSE ---
Pt arrived from [facility] @2019 Denies discomfort at this time. ' Pt A/O, Presents w/healing scar on top of head, Some bruising to lower extremities. IVF infusing into RAC as per orders. SpO2 98% RA Call light w/in reach, bed alarm on for pt safety. Continue w/plan of care.
[2020-10-16] VITALS: BP 108/70; PULSE 59; RESP 16; TEMP 36.4; O2SAT 99
[2020-10-16 05:00] VITALS: BP 108/61; PULSE 57; RESP 16; TEMP 36; O2SAT 100
[2020-10-16 05:32] LABS: Add Manual Diff / Slide Review NO; Basophils Absolute Auto 0 /uL (0-100); Eosinophils Absolute Auto 0 /uL (0-450); Eosinophils Percent Auto 0.1 % (2-4); Hematocrit 34.2 % (36-46); Hemoglobin 11.3 g/dL (12.0-16.0); Lymphocytes Absolute Auto 800 /uL (1100-4500); Lymphocytes Percent Auto 10.4 % (25-40); Mean Corpuscular HGB Conc 33.1 % (30-36); Mean Corpuscular Hemoglobin 29.4 PG (26-34); Mean Corpuscular Volume 88.8 fL (80-100); Monocytes Absolute Auto 300 /uL (0-900); Monocytes Percent Auto 3.1 % (3-14); Neutrophils Absolute Auto 7000 /uL (1500-7000); Neutrophils Percent Auto 86.4 % (50-75); Platelet Count 161 X10^3/uL (150-400); Red Blood Cell Count 3.85 X10^6/uL (4.0-5.2); Red Cell Distribution Width 13.7 % (11.6-14.8); White Blood Cell Count 8.1 X10^3/uL (4.5-11.0)
[2020-10-16 05:49] LABS: BUN Creatinine Ratio 41.1 (6-22); Blood Urea Nitrogen 23 mg/dL (7-17); Calcium 8.7 mg/dL (8.4-10.2); Carbon Dioxide 25 mmol/L (22-32); Chloride 106 mmol/L (98-107); Cholesterol 205 mg/dL (140-199); Estimated Glomerular Filt Rate > 60.0 mL/min (>60); Glucose 96 mg/dL (80-110); HDL Cholesterol 54 mg/dL (40-60); HEMOLYSIS < 15 (0-50); LDL Cholesterol Calculated 132 mg/dL (<100); Potassium 4.5 mmol/L (3.4-5.1); Sodium 134 mmol/L (137-145); Triglycerides 95 mg/dL (35-150)
[2020-10-16 05:52] LABS: Hemoglobin A1C% w Est Avg Glu 5.2 % (4.0-6.0)
[2020-10-16 06:28] LABS: TSH w/ Reflex to FT4 0.92 uIU/mL (0.47-4.68)
[2020-10-16] MEDS: SODIUM CHLORIDE 0.9% 1,000 ML 75 ML IV (06:40)
[2020-10-16 07:30] VITALS: BP 114/65; PULSE 67; RESP 19; TEMP 36.3; O2SAT 97
--- NOTE | 2020-10-16 07:53 | DI.MRI.S_ITS ---
PROCEDURE: MR HEAD/BRAIN WO CON INDICATIONS: TIA? TECHNIQUE: Non-contrast axial T1 spin echo, axial T2 fast spin echo, sagittal and axial FLAIR, coronal T2 fast spin echo, axial gradient echo, axial diffusion and ADC through the brain. COMPARISON: [facility], CT, CT HEAD/BRAIN WO CON, 09/25/2020, 11:14. [facility], CT, CT ANGIO HEAD AND NECK, 10/15/2020, 16:08. [facility], CT, CT STROKE, 10/15/2020, 15:49. [facility], CT, CT HEAD/BRAIN WO CON, 10/07/2020, 14:25. FINDINGS: Image quality: Excellent. CSF spaces: Grossly stable appearance of the ventricles, there is mild 4 mm of rightward midline shift which is grossly unchanged since CT dated yesterday. Brain: Postsurgical changes again noted involving the anterior left frontal lobe. There is surrounding hemosiderin rim, although at the posterior margin, there is a focus of T1/T2 hyperintensity demonstrating restricted diffusion which is confirmed on the ADC map. Additional smaller satellite areas of similar signal changes are present along the posterior margin of the operative bed. Surrounding white matter edema. Skull and face: Calvarial bone marrow is normal in signal. Orbits are normal. Sinuses: Sinuses and mastoids are clear. IMPRESSION: Subcentimeter focus of acute ischemia involving the medial left parietal lobe Left anterior frontal lobe postoperative changes. At the posterior margin of the operative bed, prominent signal changes probably reflect evolving blood products/hematoma. Especially, given the similar shape and configuration of the acute blood seen on the prior CT from 10/07/20, and the hypointense appearance on the gradient echo pulse sequence. However, differential includes infected hematoma/abscess, infarct or residual active tumor. Further evaluation with contrast-enhanced examination could be performed as clinically warranted, and or continued surveillance with serial head CT. Unchanged rightward midline shift Dictated by: Jorge Carroll M.D. on 10/16/2020 at 10:16 Approved by: Jorge Carroll M.D. on 10/16/2020 at 10:36
--- NOTE | 2020-10-16 08:17 | PC.NURSE ---
Day shift: Pt off unit for MRI at approx 0815.
[2020-10-16 09:06] VITALS: BP 114/64; PULSE 83
[2020-10-16] MEDS: dexAMETHasone 1 MG TABLET 2 MG PO ×2 (09:06→14:23)
[2020-10-16] MEDS: lisinopriL 20 MG TABLET PO (09:06)
[2020-10-16] MEDS: levETIRAcetam 250 MG TABLET 1000 MG PO (09:09)
[2020-10-16] MEDS: BUSPIRONE 5 MG TABLET 10 MG PO (09:09)
--- NOTE | 2020-10-16 10:05 | PT.IIE ---
Surgical History (Last Reviewed 10/16/20 @ 00:59 by BLAS Sue) History of tonsillectomy and adenoidectomy (1949) Hx of colonoscopy with polypectomy (12/2013) Hx of left breast biopsy (12/2010) Hx of surgical procedure (2006) Status post breast lumpectomy (2000) Status post cholecystectomy (2004) Status post hysterectomy (1993) Status post knee surgery (1992) Medical History (Last Reviewed 10/16/20 @ 00:59 by BLAS Sue) Actinic keratosis Asthma Colon polyps (12/2013) Ductal carcinoma in situ (DCIS) of right breast (2000) GERD (gastroesophageal reflux disease) Hyperlipidemia (11/11/10) Irritable bowel syndrome with diarrhea Mixed anxiety depressive 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) Osteopenia of multiple sites Perineal discomfort in female Rosacea Physical Therapy Inpatient Evaluation/Re-Eval M1 PT/OT-IP Prior Functional Status Start: 10/16/20 13:20 Freq: NEEDED Status: Active Protocol: Document 10/16/20 10:05 AB (Rec: 10/16/20 13:37 AB [id number]) Medical Review Prior Functional Status Medical History Reviewed Yes Communication able to answer questions but needs time to respond Mobility and Gait spouse stated that prior to craniotomy, pt was indpeendent with all mobilities and ambulation without AD; pt s/p craniotomy september 26 and spouse stated that since that time, pt was needing max A with mobility and towards the end, pt was having R sided weakness and increase R sided leaning and he has to lift pt up to transfer to a chair. Social History Household Members spouse Living Arrangements House Number of Floors (Floors) One Floor Number of Stairs To Enter/Railing? 16 steps R rail ascending Home Environment Standard Height Toilet,Walk in Shower Home Equipment Raised Toilet Seat w/Armrests, Shower Seat without Backrest, Hand Held Shower,Grab Bars In Shower Additional Social History Comment spouse stated that he ordered a bed cane and will install on L side of bed M2 PT-IP Current Condition Start: 10/16/20 13:20 Freq: NEEDED Status: Active Protocol: Document 10/16/20 10:05 AB (Rec: 10/16/20 13:37 AB [id number]) Physical Therapy Current Condition Current Condition Evaluation Date 10/16/20 Treatment Diagnosis brain TIA; s/p craniotomy; difficulty in walking Onset Date 10/15/20 Precautions Other Precautions falls M3 PT-IP Subjective Start: 10/16/20 13:20 Freq: NEEDED Status: Active Protocol: Document 10/16/20 10:05 AB (Rec: 10/16/20 13:37 AB [id number]) Subjective Physical Therapy Visit Type Type Initial Evaluation Visit Start Time 10:05 Visit Stop Time 10:56 Total Visit Minutes 33 Notes pt seen for split visits: 1005am to 1014 am and 1032 am to 1056 am Number of FUNCTIONAL ANALYST Visits 0 Physical Therapy Visit Comments Patient Comments pt is agreeable to do PT; requested to use the toilet Therapy Pain Assessment Pain Present Pain Present Denied Pain M4 PT-IP Mobility and Gait Start: 10/16/20 13:20 Freq: NEEDED Status: Active Protocol: Document 10/16/20 10:05 AB (Rec: 10/16/20 13:37 AB [id number]) PT-Bed Mobility Assessment Supine to Sit Supine to Sit Contact Guard Assistance,1 Person Assistance PT-Transfer Assessment Sit to and From Stand Sit to and from Stand Contact Guard Assistance,1 Person Assistance Equipment Transfer Assistive Device Gait Belt,Front Wheeled Walker Orthotic/Prosthetic Devices or Brace: No Transfers Transfer Destination Toilet Transfer Technique ambulated using FWW Transfer Ability Level of Assist Contact Guard Assistance,1 Person Assistance,Use of Upper Extremities Comments Mobility Comments completed supine to sit CGA. pt was able to sit on EOB CGA. completed sit to stand CGA and ambulated to the toilet using FWW CGA. pt with increase R sided leaning on the toilet after a few minutes of sitting and cues to correct and able to but after a few minutes drifts to the R again. spouse has questions regarding pt care and how to assist pt with transfers when pt is needing more assistance. stated that pt was doing fine and able to stand with assist but was then having increase R sided leaning and arm falling on R and unable to stand and was still transferring pt to a chair with max to total A. informed pt that if that happens, he is to call the doctor or emergency since it is a big change in status. informed spouse on how to transfer pt if needing increase assistance but it is not time for training him with said technique since pt is only requiring CGA at this time with use of FWW. also informed spouse that HHPT can also do training with him if needed and should be more appropriate considering pt's level and home environment set up. NAC assist pt with toileting needs. pt agreed to sit up on chair and ambulated using FWW to the chair. positioned pt on chair. call light and table placed within reach. Gait Assessment Gait Gait Assistance Required: Contact Guard Assist Distance (Feet) 20 Able to Maintain Weight Bearing Status Yes During Gait Assistive Devices Assistive Device Gait Belt,Front Wheeled Walker Orthotic/Prosthetic Devices or Brace: No Factors Limiting Gait Function Factors Limiting Gait Function Poor Balance,Poor Safety Awareness PT-Balance Assessment Sitting Balance and Reactions Static Sitting Balance Ability Good Dynamic Sitting Balance Ability Good Standing Balance and Reactions Static Standing Balance Ability Fair Dynamic Standing Balance Ability Fair Device Used FWW M5 PT-IP Objective Assessments Start: 10/16/20 13:20 Freq: NEEDED Status: Active Protocol: Document 10/16/20 10:05 AB (Rec: 10/16/20 13:37 AB [id number]) Orientation Orientation/Cognition Level of Alertness Alert Orientation Name,Place,Situation Safety Awareness Decreased Safety Awareness Memory Description Short Term Impaired Comments needs increase timet o respond to questions Gross Range of Motion Lower Extremity ROM Assessment Within Functional Limits Strength Lower Extremity Strength Assessment Within Functional Limits Muscle Tone Muscle Tone WNL Yes M6 PT-IP Treatment Start: 10/16/20 13:20 Freq: NEEDED Status: Active Protocol: Document 10/16/20 10:05 AB (Rec: 10/16/20 13:37 AB [id number]) Physical Therapy Treatment Education Education Provided Safety M7 PT-IP Assessment and Plan Start: 10/16/20 13:20 Freq: NEEDED Status: Active Protocol: Document 10/16/20 10:05 AB (Rec: 10/16/20 13:37 AB [email or web address]) PT Summary Assessment and Plan Potential Rehabilitation Potential Good Status of Condition at Evaluation Stable Summary Impairments Pain,ROM,Strength,Balance, Coordination,Sensation,Tone, Cognition,Bed Mobility, Transfers,Gait,Activity Tolerance Assessment Summary pt requiring CGA with mobility using FWW. will conduct caregiver training when appropriate. will continue to assess progress. pt will benefit from HHPT and eventually out pt PT. Goals Bed Mobility Goal Independent Transfer Goal Independent,Front Wheeled Walker Gait Goal Independent,Front Wheel Walker Gait Distance 100 Other Goals improve ambulation using least restrictive AD/without AD 150 ft SBA up/down 16 steps R rail SBA Days to Meet Goals 10 Frequency of Treatment Frequency Of Treatment Once a Day Treatment Plan Physical Therapy Treatment Plan Bed Mobility Training,Transfer Training,Gait Training, Therapeutic Exercise,Balance Retraining,Discharge Planning, Neuromuscular Re-ed, Coordination Retraining Precautions Other Precautions falls Recommendations To Nursing Amount of Assist Needed 1 Person Assist Discharge Recommendations PT Discharge Recommendations Home with 02/02 Assist Available,Home Health, Outpatient PT Equipment Needed for Home Before FWW if not safe without AD Discharge Transportation Needs at Discharge Private Vehicle
[2020-10-16] MEDS: FLUTICASONE 44 MCG HFA 120 PUFF INH INH (11:06)
--- NOTE | 2020-10-16 11:17 | ST.IPSCREEN ---
Screened pt's swallowing during breakfast meal. No overt s/sx dysphagia. WIll return for assessment of language.
--- NOTE | 2020-10-16 11:40 | OT.IP.EVAL ---
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) Osteopenia of multiple sites Perineal discomfort in female Rosacea Surgical History (Last Reviewed 10/16/20 @ 00:59 by BLAS Sue) History of tonsillectomy and adenoidectomy (1949) Hx of colonoscopy with polypectomy (12/2013) Hx of left breast biopsy (12/2010) Hx of surgical procedure (2006) Status post breast lumpectomy (2000) Status post cholecystectomy (2004) Status post hysterectomy (1993) Status post knee surgery (1992) Occupational Therapy Inpatient Evaluation/Re-Eval M1 PT/OT-IP Prior Functional Status Start: 10/16/20 14:45 Freq: NEEDED Status: Active Protocol: Document 10/16/20 14:46 [facility] (Rec: 10/16/20 15:01 [facility] [id number]) Medical Review Prior Functional Status Medical History Reviewed Yes Communication able to answer questions but needs time to respond Mobility and Gait spouse stated that prior to craniotomy, pt was indpeendent with all mobilities and ambulation without AD; pt s/p craniotomy september 26 and spouse stated that since that time, pt was needing max A with mobility and towards the end, pt was having R sided weakness and increase R sided leaning and he has to lift pt up to transfer to a chair. Activities of Daily Living and IADL's Prior pt;s assist for all ADl and IADl needs. Social History Household Members spouse Living Arrangements House Number of Floors (Floors) One Floor Number of Stairs To Enter/Railing? 16 steps R rail ascending Home Environment Standard Height Toilet,Walk in Shower Home Equipment Raised Toilet Seat w/Armrests, Shower Seat without Backrest, Hand Held Shower,Grab Bars In Shower Additional Social History Comment spouse stated that he ordered a bed cane and will install on L side of bed M2 OT-IP Current Condition Start: 10/16/20 14:45 Freq: Status: Active Protocol: Document 10/16/20 14:46 [facility] (Rec: 10/16/20 15:01 [facility] [id number]) Occupational Therapy Current Condition Current Condition Evaluation Date 10/16/20 Treatment Diagnosis Ari TIA/CVA, s/p craniotomy Diagnosis Onset Date 10/15/20 M3 OT- IP Subjective and Pain Start: 10/16/20 14:45 Freq: Status: Active Protocol: Document 10/16/20 14:46 [facility] (Rec: 10/16/20 15:01 [facility] [id number]) OT- Subjective Occupational Therapy Visit Type Type Initial Evaluation Visit Start Time 10:55 Visit Stop Time 11:40 Total Visit Minutes 45 Occupational Therapy Visit Comments Patient Comments Pt after encouragement from her agreed to shower. Patient/Caregiver Goals TO go home. OT Pain Assessment Pain When Pain Assessed At Rest Pain Present Pain Present Denied Pain M4 OT- IP ADL's Start: 10/16/20 14:45 Freq: Status: Active Protocol: Document 10/16/20 14:46 [facility] (Rec: 10/16/20 15:01 [facility] [id number]) OT [id number] Comments OT Self-Feeding Comments Not at meal time. OT ADL-Grooming General Evaluation Grooming Ability Moderate Assistance Areas Needing Assistance Retrieving/Set-up of Grooming Items,Combing/Brushing Hair Comments OT Grooming Comments Assist to brush her hair for completeness. OT ADL-Oral Care Comments Oral Care Comments NOt performed. OT ADL-Dressing General Eval Upper Body Dressing Ability Moderate Assistance Lower Body Dressing Ability Moderate Assistance,Maximum Assistance Areas Needing Assistance Pull-Over Shirt,Underpants/ Brief,Socks,Shoes Comments OT Dressing Comments Assist to get shirt sleeves untwisted. Pt needing orientation for underwear as initially putting it on backwards, and assist to help get over her feet. Assist for socks and slip on shoes. OT ADL-Toileting Comments OT Toileting Comments Pt already went earlier. OT ADL-Bathing Bathing Type Bathing Type Shower General Evaluation Bathing Ability Minimal Assistance Areas Needing Assistance Wash/Dry Back Comments OT Bathing Comments Pt able to do most of her shower seated. Pt has a shower stool at home and has been assisting her at home for showers. M5 OT- IP IADL's Start: 10/16/20 14:45 Freq: Status: Active Protocol: Document 10/16/20 14:46 [facility] (Rec: 10/16/20 15:01 [facility] [id number]) OT-Instrumental Activities of Daily Living Deficits IADL Deficits Identified Deficits Home Safety Awareness Awareness of Need for Assistance at Home Decreased Awareness Ability to Problem Solve Emergency Unable to Problem Solve Situations Medication Management Medication Management Caregiver Administers Money Management Money Management Caregiver Provides Assistance Meal Preparation Meal Preparation Caregiver Provides Assist Pharmaceutical Physician Pharmaceutical Physician Caregiver Provides Assist Driving Driving Comments Pt's aware no driving but pt has decreased insight and states will drive again after she gets stronger. M6 OT- IP Functional Cognition Start: 10/16/20 14:45 Freq: Status: Active Protocol: Document 10/16/20 14:46 [facility] (Rec: 10/16/20 15:01 [facility] [id number]) Cognitive Factors Limiting Selfcare Function Cognitive Ability Level of Alertness Alert Patient Orientation Name Attention Span Ability Capable of Focused Attention, Capable of Sustained Attention Ability to Follow Commands Able to Follow One Step Commands with Increased Time, Able to Follow One Step Commands with Repetition Memory Description Short Term Impaired,Working Impaired Safety Awareness Underestimates Need for Assistance Problem Solving Ability Unable to Identify Errors, Needs Assist to Identify Solutions Cognitive Comments Cognitive Assessment Comments Pt having difficulty with initiation of tasks. Pt having trouble with orientation of clothing items during dressing needs. Pt has decreased insight of her situation and needs. OT- Vision and Hearing OT- Hearing Assessment OT- Hearing Assessment WFL OT- Vision Assessment Vision Assessment Comments Pt states not seeing well at this time. Pt states vision is blurred at times. M7 OT- IP Mobility and Balance Start: 10/16/20 14:45 Freq: Status: Active Protocol: Document 10/16/20 14:46 [facility] (Rec: 10/16/20 15:01 [facility] [id number]) OT-Transfer Assessment Sit to and From Stand Sit to and from Stand Contact Guard Assistance, Minimal Assistance Transfers Transfer Ability Contact Guard Assistance, Minimal Assistance Technique Transfer Destination Bed,Chair,Shower Stall Transfer Technique Stand Step Pivot Devices Transfer Assistive Devices None,Gait Belt,Front Wheeled Walker Comments Mobility Comments Pt needing more assist for balance when stepping over the threshold of the shower for balance. Pt at times needing increased time for right hand to place on the handle of FWW. OT- Balance Assessment Sitting Balance and Reactions Static Sitting Balance Ability Good Dynamic Sitting Balance Ability Good Standing Balance and Reactions Static Standing Balance Ability Fair M8 OT- IP Objective Assessments Start: 10/16/20 14:45 Freq: Status: Active Protocol: Document 10/16/20 14:46 [facility] (Rec: 10/16/20 15:01 [facility] [id number]) OT Gross Range of Motion Upper Extremity Range of Motion ROM Impairments grossly WFL OT Strength Upper Extremity Strength Assessment Right Impaired OT-Muscle Tone Assessment Muscle Tone WNL Yes M9 OT- IP Assessment and Plan Start: 10/16/20 14:45 Freq: Status: Active Protocol: Document 10/16/20 14:46 [facility] (Rec: 10/16/20 15:01 [facility] [id number]) OT Summary Assessment and Plan Potential Rehabilitation Potential Good Analytic Complexity at Evaluation Low Summary OT Impairments Strength,Balance,Coordination, Functional Cognition, Functional Mobility,Self- Feeding,Grooming,Dressing, Toileting,Bathing,Toilet Transfers,Shower Transfers, Activity Tolerance Progress Towards Goals Progressing Toward Goals Assessment Summary Pt low complexity and here due to subcentimeter focus of acute ischemia involving medial left partietal lobe. Pt has a very supportive that is able to safely assist to for all needs. Pt would also benefit from home health. Only concerns is pt's states that pt if lifted up the stairs in order to get into the house. Goals Grooming Goal Standby Assistance Dressing Goal Standby Assistance Toileting Goal Standby Assistance Bathing Goal Standby Assistance Toilet Transfer Goal Standby Assistance Shower Transfer Goal Standby Assistance Days to Meet Goals 7 Frequency of Treatment Frequency Of Treatment Once a Day Treatment Plan OT Treatment Plan ADL Training,Functional Cognition Training,Functional Mobility Discharge Recommendations OT Discharge Recommendations Home with 02/02 Assist Available,Home Health Transportation Needs at Discharge Private Vehicle
--- NOTE | 2020-10-16 12:28 | CM.DPNOTE ---
DCP HH Planning JUANPABLO called [facility] and confirmed that they are open with pt currently for RN/PT/OT/PROCESSING ASSISTANT. JUANPABLO faxed H&P to [facility] to review and alerted them that pt may be stable for d/c back to home later today pending MRI results. Per ST, initially were recommending HH ST for discharge but after more indepth conversation with pt, her prognosis is guarded and Oncologist discussed with cancer tx she may only have 2-12 months. Therefore pt remains agreeable for PT/OT for strengthening but declines ST at this time. JUANPABLO updated [facility] on ST discussion and [facility] will follow up with pt after discharge to confirm she still is not interested in ST at this time. No new order placed for ST as pt declines ST at home. PT and OT to work with ambulation and showering today. Per MD, having MRI reviewed by neurology to determine if new changes to her scan since brain surgery a few weeks ago. Plan: SW to follow closely for possible plan of d/c home later today via spouse POV and Resume [facility] and any further identified discharge planning needs. Gillian Angeles MSW
--- NOTE | 2020-10-16 13:47 | CM.DANOTE ---
Addendum entered by Jenny Cruz 10/16/20 15:06: aluminum container tester met with patient and spouse at bedside. Spouse reports he has raised bed rails, transfer chair, and wheelchair at home for patient. Patient has upcoming outpatient appt. Per RN and MD, patient is medically stable to discharge home. Per PT and OT, patient is safe to d/c with HH. Gillian NEWELL provided patient and spouse with senior guide book and discussed caregiver options. Patient and spouse were agreeable and understood, and will move forward with d/c with HH. Spouse reported that they have 15 stairs at home and patient and spouse will rely on family and friend support with assisting patient up the stairs. Plan: patient will d/c to home today with [facility]. REECE Cherry Original Note: Patient is 75 female with [employer]. Patient present at hospital due to right side weakness and possible TIA. aluminum container tester met with patient and spouse Devon during bedside rounds. Patient presents as A/Ox4. Per RN, patient is back to baseline and ate breakfast. Patient's spouse reports that patient is set up with [facility]. Spouse reports concerns of when patient falls and her weakness on her right side and he has to pick her up when she falls. Spouse states that they have a transfer chair at home. Patient is awaiting MRI results Plan: follow OT and PT eval, d/c to home with [facility] when medically stable. REECE Cherry Discharge Planning/Care Management CM Discharge Assessment Start: 10/16/20 13:43 Freq: Status: Active Protocol: Document 10/16/20 13:43 LN (Rec: 10/16/20 13:46 LN [id number]) Discharge Planning Assessment Assigned Credit Administrator REECE Cherry Advance Directives? Yes Advance Directives on File No History Provided By Patient Has Patient been admitted in last 30 No days? Prior Living Arrangements House Household Members spouse Type of transporation used prior to Relies on Others admit Independent with ADL's Yes Is patient alert and oriented? Yes Patient/Family Preference Home with Home Health Discharge Plan Home with Home Health Community [facility] Physical Therapy,Occupational Therapy,Home Health Nurse, Social Work Transportation Arrangement Spouse Referrals Initiated Home Health Additional Comment Spouse set up [facility] prior to [facility] stay. SNF/HH Preference Patient is already set up with [facility] Please Provide Date Initial DC 10/16/20 Assessment Was Performed
[2020-10-16] MEDS: ASPIRIN EC 81 MG TABLET PO (14:08)
[2020-10-16] MEDS: BISACODYL 10 MG SUPP PR (14:16)
--- NOTE | 2020-10-16 14:17 | PC.NURSE ---
Day shift: Per Pt's spouse she has not had a BM in 3 days. At this time will give SUP per MAR and continue to monitor.
--- NOTE | 2020-10-16 14:32 | ST.IPSLE ---
Visit Care Team Role Provider Type Crispin Washington DO Primary Care Provider Physician Specialty: Family Practice Address: [address] [place] [address], [id number] Email: [email or web address] Sanket Jones DO Emergency Provider Physician Specialty: Emergency Medicine Address: [address] [place] [address], [id number] Email: [email or web address] BLAS Sue Admit Provider Physician Attending Provider Specialty: Internal Medicine Address: [address] [place] [address], [id number] Email: [email or web address] Past Medical History (Last Reviewed 10/16/20 @ 00:59 by BLAS Sue) Actinic keratosis (Medical) Asthma (Medical) Colon polyps (Medical 12/2013) 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) GERD (gastroesophageal reflux disease) (Medical) Hyperlipidemia (Medical 11/11/10) Irritable bowel syndrome with diarrhea (Medical) Mixed anxiety depressive disorder (Medical 09/04/15) Resolved December 2015 Osteopenia of multiple sites (Medical) Perineal discomfort in female (Medical) Rosacea (Medical) Speech-Language Pathology Speech/Language Eval FACSIMILE OPERATOR Adult Cognitive Linguistic Eval Start: 10/16/20 13:06 Freq: Status: Active Protocol: Document 10/16/20 13:07 KISHOREK (Rec: 10/16/20 13:34 KISHOREK [email or web address]) Adult Cognitive Linguistic Evaluation Session Time Visit Start Time 11:45 Visit Stop Time 12:15 Total Visit Minutes 30 Setting Assessment Location Acute Care Visit Type Note Type Initial evaluation Patient Information Identification Type Name,Wristband Medical History Ms. Precious Gtz is a 75-year- old female with past medical history of brain cancer status post resection at [facility] (2020). She presented to the ER with her significant other with Devon with complaints worsening right-sided weakness . The patient underwent a brain tumor resection 3 weeks ago at [facility] and presents with a residual right-sided weakness at baseline. The patient reports experiencing increased weakness noticed by her significant other Devon at approximately 2:30 p.m. today. The patient appeared to be more confused and was not noticing the change and had garbled speech and facial droop. It appears the patient has had a waxing and waning course since her surgery evaluated [facility] ER on 10/07/2020 with some similar clinical features and then again today. The patient 's symptoms were improving upon arrival to the emergency department. Assessment Oral Motor Examination Completed No: Informal observation indicated OM structures/ function WFL Informal Assessment Receptive Language Normal No: Slow processing, confusion Receptive Language Impairment(s) Following 3-step commands, Comprehension of conversation Expressive Language Normal No: mild word-finding difficulty Pragmatic Language Normal No: Flat affect Pragmatic Language Impairment(s) Flat affect Cognitive Impairment(s) Attention,Executive functioning Formal Assessment Results Informal assessment of pt's language secondary to discussion with the pt's significant other, Devon. According to Devon, the pt and he were told the medical options following her brain tumor removel. According to Devon, the pt's surgeon told them that the pt has between 2 -12 months to live even with treatment.They are meeting with the oncologist and radiologist next week to discuss the pt's options. Devon reported that he and the pt had discussed these options, but he was unsure of her processing and understanding of the information. When asked if she could list the options and what the DrLacey's prognosis meant, Precious stated that in 12 months I will start my treatment. Findings/Results Cognitive Function Mild-moderately impaired Findings The information gathered dueing the informal assessment indicated that there was auditory/linguistic processing deficits. This was presented to the pt who stated that she did not want speech therapy, stating I would not want that to happen. She was clear in her statement which was corroborated by her spouse, Devon. Cognitive Communication Deficits Self-awareness of Cognitive- Situational awareness ( Communication Deficits recognition of problem in context;in real time) Impact on Functioning Activity Limits/Particip.Rest. Mild: Household Tasks Interpersonal Interactions Safety Risks Mod: Being Left Alone at Home Reacting to Emergency Managing Medication Traveling Alone in Community Plan of Care Speech-Language Treatment No Patient/Caregiver Education Described results of evaluation,Patient expressed understanding of evaluation, Family/caregivers expressed understanding of evaluation, Patient expressed understanding of eval, but refused treatment Discharge Recommendations Home with Home Health
--- NOTE | 2020-10-16 15:53 | PC.NURSE ---
Discharge orders recieved. HL D/C'd intact. ' Home instructuion given to pt & spouse w/understanding. Pt escorted via W/C by staff to waiting vehicle. D/C'd in stable condition.
--- NOTE | 2020-10-16 21:36 | PM.DS.1 ---
History of Present Illness History of Present Illness Chief complaint: R side weakness Narrative: Per H and P by Sadiq Sharif on 10/15/20: Ms. Precious Gtz is a 75-year-old female with past medical history of brain cancer status post resection at [facility] (09/26/2020), breast cancer, hypertension, hyperlipidemia, GERD, irritable bowel syndrome and anxiety with depression presents to the ER with her significant other with Devon with complaints worsening right-sided weakness. The patient underwent a brain tumor resection 3 weeks ago at [facility] number presents with a residual right-sided weakness at baseline. The patient reports experiencing increased weakness noticed by her significant other Devon at approximately 2:30 p.m. today. The patient appeared to be more confused and was not noticing the change and had garbled speech and facial droop. It appears the patient has had a waxing and waning course since her surgery evaluated [facility] ER on 10/07/2020 with some similar clinical features and then again today. The patient's symptoms were improving upon arrival to the emergency department. The patient denies complaints of fevers or chills, headaches or dizziness. Patient states she has sustained no falls or trauma. Denies complaints of neck or back pain has no chest pain, palpitations, shortness of breath, cough or wheezing. She denies epigastric or abdominal pain and reports no nausea or vomiting. She reports no change and bowel or bladder habits and has no urgency, frequency or burning on voiding. When asked the patient states she is not quite at her baseline. Upon arrival the patient is afebrile with temperature of 98.0?, heart rate of 65, blood pressure 139/62, respirations 14 saturating 99% on room air. A CT the head brain stroke protocols obtain finding stable postsurgical changes, intracranial hemorrhage at the left frontal load surgical site has undergone expected evolution in the interval since prior exam obtained October 07, 2020, no new intracranial hemorrhage identified. A CT angio of the head finds no significant intracranial arterial abnormalities, no hemodynamically significant stenoses are seen in the arteries neck, stable left frontal subdural hydroma, stable left frontal lobe post resection changes. Chest x-ray is obtained finding no acute process, noting peripherally dense central lucid nodule projecting over the right lung of uncertain etiology. On laboratory analysis he has white count 6.3, hemoglobin of 11.0 and hematocrit of 32.8 with platelets 172. Neutrophils ordered mildly elevated at 9000. Her coags are within normal limits. Her chemistry significant for hyponatremia at 131. She has a BUN of 34 and a creatinine of 0.73 with a BUN creatinine ratio 46.6. Her nonfasting glucose is 106. Her liver functions are also within normal limits and she has an albumin of 3.0. Her total CK is less than 20, troponin is unremarkable and CRP is less than 0.5. For COVID screening is negative. NH is documented by nursing at 3:52 p.m. at 0. The ER provider consulted [facility] Neurology and [facility] neuro surgery who both reviewed imaging and felt there was no acute change or need for intervention and or transfer. The patient is admitted to the hospitalist service for TIA. Neuro surgery: Dr. Herbert Goldman at [facility] Discharge Providers Provider Date of admission: 10/15/20 20:30 Discharge Date: 10/16/20 Primary care physician: Crispin Washington DO Consults: 10/15/20 21:20 Consult to Occupational Therapy Evaluate & Treat Comment: Physician Instructions: Evaluate and treat Consult to Physical Therapy Evaluate & Treat Comment: Physician Instructions: Evaluate and Treat Consult to Speech Therapy Evaluate & Treat Comment: TIA, status post resection brain CA, swallow eval Physician Instructions: Evaluate and treat 10/15/20 22:40 Consult to Dietitian, Adult Routine Comment: Reason For Exam: Brain cancer, BMI 18.1 10/16/20 01:23 Consult to Respiratory Therapy Evaluate & Treat Comment: Asthma Physician Instructions: Evaluate and treat 10/16/20 14:58 Consult to Home Health Routine Comment: brain resection/brain cancer, TIA Reason For Exam: Resume Torrie JONES RN/PT/OT/CENTRAL OFFICE OPERATOR SUPERVISOR for d/c home today Discharge provider: Tab Cleaning MD Summary Hospital Course Discharge Diagnosis: 1. Acute ischemic parietal CVA 2. s/p craniotomy, stable 3. Hyponatremia 4. Hypertension 5. Hyperlipidemia 6. Asthma 7. Chronic anxiety and depression 8. Lung nodule Hospital Course: Ms. Gtz was admitted with worsening R sided weakness. This resolved while in the hospital. She worked with PT and was recommended outpatient PT/OT. Imaging initially with CT head showed chronic changes from recent craniotomy for a brain mass. MRI head was then done that showed a small ischemic stroke. Discussion with [facility] and neurosurgery recommended she be started on aspirin. Did discuss with patient benefits of ischemic stroke reduction, but risk of bleeding, especially with recent craniotomy. They agreed to start with aspirin. She also had elevated lipids and was started on high dose atorvastatin. She was noted to have a questionable right lung nodule on chest xray and should be followed as an outpatient with PCP for resolution or changes. ECHO showed no acute process. She is recommended to have outpatient holter monitor to eval for possible arrhythmia, but did not have any evidence of arrhythmia on cardiac monitoring. The rest of her medical issues were stable in the hospital. Status at Discharge Cognitive/behavioral status at discharge: oriented Functional status at discharge: uses cane/walker Overall status at discharge: patient is back to baseline Time Spent with Patient Time spent: Greater than 30 minutes Exam Vital Signs (past 8 hours): Oxygen Delivery Method Room Air Oxygen Flow Rate 0 Narrative Exam Narrative: GENERAL APPEARANCE: well developed, well nourished, in no acute distress. HEENT: Right facial droop, no ptosis, PERRLA, conjunctiva clear, EOMs intact without nystagmus, no rhinorrhea, dysarthria, mucous membranes are moist and pink SKIN: Heber, warm and dry, multiple bruising of extremities. HEART: regular rate and rhythm, S1-S2, no murmur, no rubs or gallops, brisk capillary refill, no edema LUNGS: clear to auscultation bilaterally, no coarseness crackles or wheezing, no cough present CHEST: Symmetrical movement, no accessory muscle use, good tidal volume. ABDOMEN: Soft, no distention, no abdominal tenderness, no organomegaly, no flank or suprapubic tenderness, active bowel tones. EXTREMITIES: moves all extremities, strength is 5/5 and symmetrical, no deformities or joint effusions, no clubbing or cyanosis. NEUROLOGIC: AAO to person and place, difficulty with multiple step directions, slow verbal karma, dysarthria, right facial droop, no ptosis, no extremity drift or ataxia, sensation is intact symmetrically without extinction. PSYCH: Good eye contact, flat affect, cooperative Objective Labs Result Diagrams: 10/16/20 05:00 10/16/20 05:00 Labs: Laboratory Results - last 24 hr 10/16/20 10/16/20 10/16/20 05:00 05:00 05:00 WBC 8.1 RBC 3.85 L Hgb 11.3 L Hct 34.2 L MCV 88.8 MCH 29.4 MCHC 33.1 RDW 13.7 Plt Count 161 Neut % (Auto) 86.4 H Lymph % (Auto) 10.4 L [place] % (Auto) 3.1 Eos % (Auto) 0.1 L Baso % (Auto) 0.0 Neut # (Auto) 7000 Lymph # (Auto) 800 L [place] # (Auto) 300 Eos # (Auto) 0 Baso # (Auto) 0 Sodium 134 L Potassium 4.5 Chloride 106 Carbon Dioxide 25 BUN 23 H Creatinine 0.56 Estimated GFR > 60.0 BUN/Creatinine Ratio 41.1 H Glucose 96 Hemoglobin A1c 5.2 Calcium 8.7 Triglycerides 95 Cholesterol 205 H LDL Cholesterol, Calc 132 H HDL Cholesterol 54 TSH 10/16/20 05:00 WBC RBC Hgb Hct MCV MCH MCHC RDW Plt Count Neut % (Auto) Lymph % (Auto) [place] % (Auto) Eos % (Auto) Baso % (Auto) Neut # (Auto) Lymph # (Auto) [place] # (Auto) Eos # (Auto) Baso # (Auto) Sodium Potassium Chloride Carbon Dioxide BUN Creatinine Estimated GFR BUN/Creatinine Ratio Glucose Hemoglobin A1c Calcium Triglycerides Cholesterol LDL Cholesterol, Calc HDL Cholesterol TSH 0.92 [facility] Medical History Actinic keratosis Asthma Colon polyps (12/2013) Ductal carcinoma in situ (DCIS) of right breast (2000) GERD (gastroesophageal reflux disease) Hyperlipidemia (11/11/10) Irritable bowel syndrome with diarrhea 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 Grandfather Stroke Grandmother Cancer Social History household members: spouse Smoking Status: Never smoker second hand exposure: No alcohol intake: current substance use type: does not use Discharge Plan Discharge Plan Patient Disposition: Home Provider Discharge Comment: Ms. Gtz was admitted with worse weakness on her right side. She was found on MRI of the brain to have a small stroke. She had slightly high cholesterol. She was started on aspirin and atorvastatin to prevent another stroke. She had a small abnormality noted on her chest xray which was unclear in cause. She should have a follow up image of her chest to see if it is gone or if there are any changes. She should have an outpatient holter monitor to look for abnormal heart rhythms that may have increase the risk of stroke. Her echocardiogram and satellite project site monitor in the hospital showed no abnormal rhythms. Discharge orders & Medications Prescriptions: New atorvastatin [Lipitor] 20 mg Tablet 80 mg PO BEDTIME 30 Days RF: 0 aspirin 81 mg Tablet,Delayed Release (Dr/Ec) 81 mg PO DAILY 30 Days RF: 0 Continued montelukast [Singulair] 10 mg tablet 10 mg PO QPM RF: 0 lisinopril 20 mg tablet 20 mg PO DAILY Qty: 90 RF: 3 buspirone 10 mg tablet 10 mg PO BID Qty: 180 RF: 1 triamcinolone acetonide [Nasacort] 55 mcg aerosol,spray 2 spray NASAL DAILY RF: 0 fluticasone propionate 44 mcg/actuation HFA aerosol inhaler 1 inh inhalation DAILY RF: 0 Dulera 200-5 mcg/actuation HFA aerosol inhaler 1 puff INHALATION BID RF: 0 dexamethasone 2 mg tablet 2 mg PO TID Qty: 10 RF: 0 levetiracetam 1,000 mg tablet 1,000 mg PO BID RF: 0 Follow up/Referrals: Crispin Washington, [Primary Care Provider] - Diet/Activity/Treatments Diet: Low-cholesterol Visit Report/Discharge Packet Instructions: DI for Stroke-Ischemic Discharge Data Primary Care Provider: Crispin Washington Attending Provider: Sadiq Sharif VTE Deep Vein Thrombosis/Pulmonary Embolism Present on Admission: No
== END 2020-10-16 15:55 | disposition home or self-care (01) ==
LOC: ED 18:16 → AC 20:31
PROVIDERS: Emergency Medicine; Admitting Provider Nurse Practitioner Adult Health; Emergency Provider Emergency Medicine; PCP Family Medicine; Visit Provider Nurse Practitioner Adult Health
DX: I63.89 Other cerebral infarction (principal); R53.1 Weakness; C71.9 Malignant neoplasm of brain, unspecified; E87.1 Hypo-osmolality and hyponatremia; I10 Essential (primary) hypertension; E78.5 Hyperlipidemia, unspecified; J45.909 Unspecified asthma, uncomplicated; F41.9 Anxiety disorder, unspecified; F32.9 Major depressive disorder, single episode, unspecified; R91.1 Solitary pulmonary nodule; K21.9 Gastro-esophageal reflux disease without esophagitis; K58.9 Irritable bowel syndrome, unspecified; Z98.890 Other specified postprocedural states; Z20.822 Contact with and (suspected) exposure to COVID-19
CPT/HCPCS: 36415; 70450; 70496; 70498; 70551; 71045; 80048; 80053; 80061; 81003; 82550; 82962; 83036; 83735; 84443; 84484; 85025; 85610; 85651; 85730; 86140; 87635; 92523; 93005; 93306; 94640; 97162; 97165; 97535; 99285; C9803; G0378; A9270

== ENCOUNTER → 2021-01-02 13:36 | Outpatient (CLI) | payer OTHER, SELFPAY ==
[2020-10-15 20:40] VITALS: BMI 18.0
[2021-01-02 13:43] LABS: Bacteria Urine None Seen; WBC Urine None Seen (0-5/HPF)
[2021-01-02 14:17] LABS: Basophils Percent Auto 0.9 % (0-2); Eosinophils Percent Auto 3.9 % (2-4); Hematocrit 39.8 % (36-46); Hemoglobin 13.4 g/dL (12.0-16.0); Lymphocytes Percent Auto 21.4 % (25-40); Mean Corpuscular HGB Conc 33.8 % (30-36); Mean Corpuscular Hemoglobin 29.5 PG (26-34); Mean Corpuscular Volume 87.4 fL (80-100); Monocytes Percent Auto 7.9 % (3-14); Neutrophils Percent Auto 65.9 % (50-75); Platelet Count 202 X10^3/uL (150-400); Red Blood Cell Count 4.55 X10^6/uL (4.0-5.2); Red Cell Distribution Width 13.4 % (11.6-14.8); White Blood Cell Count 5.8 X10^3/uL (4.5-11.0)
[2021-01-02 14:18] LABS: Add Manual Diff / Slide Review NO; Basophils Absolute Auto 100 /uL (0-100); Eosinophils Absolute Auto 200 /uL (0-450); Lymphocytes Absolute Auto 1200 /uL (1100-4500); Monocytes Absolute Auto 500 /uL (0-900); Neutrophils Absolute Auto 3800 /uL (1500-7000)
[2021-01-02 15:34] LABS: Appearance Urine UA CLEAR; Bilirubin Urine UA 2+ (NEGATIVE); Color Urine UA YELLOW; Glucose Urine UA NEGATIVE (Negative); Ketones Urine UA 1+ (NEGATIVE); Leukocyte Esterase Urine UA NEGATIVE (NEGATIVE); Nitrite Urine UA NEGATIVE (Negative); Occult Blood Urine UA 1+ (Negative); Protein Urine UA 3+ (Negative); Specific Gravity Urine UA >=1.030 (1.000-1.035)
[2021-01-02 16:04] LABS: Ictotest Urine Negative (Negative); Squamous Epithelial Cell Urine 0-1 /HPF (0-5/HPF)
[2021-01-02 16:05] LABS: Calcium Oxalate Crystals Urine Few; Culture Indicated Urine Cult Not Indicated; RBC Urine 0-1/HPF (0-5/HPF); Uric Acid Crystals Urine Moderate
== END ==
PROVIDERS: PCP Family Medicine; Referring Provider Family Medicine; Visit Provider Family Medicine
DX: R10.9 Unspecified abdominal pain (principal)
CPT/HCPCS: 36415; 81001; 85025

== ENCOUNTER → 2021-01-21 07:27 | Outpatient (CLI) | payer OTHER, SELFPAY ==
[2020-10-15 20:40] VITALS: BMI 18.0
--- NOTE | 2021-01-21 07:29 | DI.MRI.S_ITS ---
PROCEDURE: MR HEAD/BRAIN WO/W CON INDICATIONS: 75-year-old female with intracranial neoplasm resected September 2020 TECHNIQUE: Noncontrast axial T1 spin echo, axial T2 fast spin echo, sagittal and axial FLAIR, coronal T2 fast spin echo, axial gradient echo, axial diffusion and ADC through the brain. After the administration of contrast, axial and coronal T1 spin echo with fat saturation through the brain. COMPARISON: Outside Film, CT, CT HEAD WITHOUT CONTRAST, 09/26/2020, 15:37. Outside Film, MR, MR BRAIN WITH/WITHOUT CONTRAST, 09/26/2020, 4:04. [facility], MR, MR HEAD/BRAIN WO CON, 10/16/2020, 8:18. FINDINGS: Cerebrum, Cerebellum and Brainstem: Left frontal resection cavity is similar in size, and layering blood products have contracted dependently in the cavity. Just deep to the resection cavity, there are 2 separate enhancing 6 mm nodules with adjacent edema, consistent with recurrent or residual disease. There is a 3rd focus of enhancement along the resection capsule measuring 1.8 x 0.6 x 1.2 cm, also suspicious for neoplastic disease. Enhancement of the external capsule is otherwise largely linear. No significant mass effect or midline shift present. Old left frontal lacunar infarct noted near the precentral gyrus. Ventricles: Appropriate in size and position. No hydrocephalus. Skull Base: The bony sella, pituitary gland and infundibulum are unremarkable. Clivus and craniovertebral relationships are appropriate. Visualized portions of the seventh and eighth cranial nerve complexes and internal auditory canals are within normal limits. Scalp and Calvarium: Left frontal craniotomy secured with round plate. Remaining calvarium has an appropriate marrow signal. Paranasal Sinuses: Visualized sinuses are clear. Mastoids: Unremarkable as visualized. No mastoid effusion present. Orbits: Bilateral intraocular lens replacements noted. The orbits, globes and ocular muscles are otherwise unremarkable. IMPRESSION: 1. Evidence of nodular enhancing recurrent or residual disease. There are 3 separate foci of nodular enhancement along the left frontal resection capsule consistent with recurrence or residual neoplastic disease. 2. Left frontal resection cavity with layering old blood products is similar in size to the prior 3. Old left frontal white matter lacunar infarct. Dictated by: Anibal Almaraz M.D. on 01/21/2021 at 9:49 Approved by: Anibal Almaraz M.D. on 01/21/2021 at 10:36
== END ==
PROVIDERS: PCP Family Medicine; Referring Provider Radiology Radiation Oncology; Visit Provider Radiology Radiation Oncology
DX: C71.1 Malignant neoplasm of frontal lobe (principal); Z86.73 Personal history of transient ischemic attack (TIA), and cerebral infarction without residual deficits
CPT/HCPCS: 70553

== ENCOUNTER → 2021-01-22 10:00 | Outpatient (CLI) | payer OTHER, SELFPAY ==
[2020-10-15 20:40] VITALS: BMI 18.0
[2021-01-22 10:38] LABS: Alanine Aminotransferase 20 IU/L (<35); Albumin 3.9 g/dL (3.5-5.0); Albumin Globulin Ratio 1.7 (1.0-2.8); Alkaline Phosphatase 55 U/L (38-126); Aspartate Aminotransferase 21 IU/L (14-36); BUN Creatinine Ratio 13.8 (6-22); Bilirubin Total 0.6 mg/dL (0.2-1.3); Blood Urea Nitrogen 8 mg/dL (7-17); Calcium 9.6 mg/dL (8.4-10.2); Carbon Dioxide 25 mmol/L (22-32); Chloride 108 mmol/L (98-107); Cholesterol 205 mg/dL (140-199); Estimated Glomerular Filt Rate > 60.0 mL/min (>60); Globulin 2.3 g/dL (1.7-4.1); Glucose 102 mg/dL (80-110); HDL Cholesterol 61 mg/dL (40-60); HEMOLYSIS < 15 (0-50); LDL Cholesterol Calculated 125 mg/dL (<100); Potassium 3.9 mmol/L (3.4-5.1); Sodium 141 mmol/L (137-145); Total Protein 6.2 g/dL (6.3-8.2); Triglycerides 93 mg/dL (35-150)
[2021-01-22 11:18] LABS: Thyroid Stimulating Hormone 2.55 uIU/mL (0.47-4.68)
[2021-01-22 12:00] LABS: Hemoglobin 12.6 g/dL (12.0-16.0); Mean Corpuscular Hemoglobin 29.6 PG (26-34); Mean Corpuscular Volume 89.6 fL (80-100); Platelet Count 124 X10^3/uL (150-400); Red Blood Cell Count 4.24 X10^6/uL (4.0-5.2); Red Cell Distribution Width 13.8 % (11.6-14.8); White Blood Cell Count 3.1 X10^3/uL (4.5-11.0)
[2021-01-22 12:01] LABS: Lymphocytes Percent Auto 30.7 % (25-40); Neutrophils Percent Auto 61.4 % (50-75)
[2021-01-22 12:02] LABS: Add Manual Diff / Slide Review NO; Basophils Absolute Auto 0 /uL (0-100); Basophils Percent Auto 0.5 % (0-2); Eosinophils Absolute Auto 0 /uL (0-450); Eosinophils Percent Auto 2.4 % (2-4); Lymphocytes Absolute Auto 1 /uL (1100-4500); Monocytes Absolute Auto 0 /uL (0-900); Neutrophils Absolute Auto 2 /uL (1500-7000)
== END ==
PROVIDERS: PCP Family Medicine; Referring Provider Family Medicine; Visit Provider Family Medicine
DX: E78.5 Hyperlipidemia, unspecified (principal)
CPT/HCPCS: 36415; 80053; 80061; 84443; 85025

== ENCOUNTER → 2021-01-23 09:37 | Outpatient (CLI) | payer OTHER, SELFPAY ==
[2020-10-15 20:40] VITALS: BMI 18.0
--- NOTE | 2021-01-23 10:35 | DI.CT.S_ITS ---
PROCEDURE: CT ABDOMEN PELVIS W CON INDICATIONS: Abdominal pain. TECHNIQUE: After the administration of oral and intravenous contrast, axial sections were acquired from the lung bases to the pubic symphysis. Coronal and sagittal reformats were performed. For radiation dose reduction, the following was used: automated exposure control, adjustment of mA and/or kV according to patient size. COMPARISON:[facility], CT, ABDOMEN/PELVIS WITH CONTRAST, 03/09/2017, 9:42. CT, KIDNEY/ URETER/BLADDER, 05/29/2017, 20:25. Outside Film, CT, CT CHEST ABDOMEN PELVIS WITH CONTRAST, 09/25/2020, 17:28. [facility], MR, MR HEAD/BRAIN WO/W CON, 01/21/2021, 8:01. [facility], MR, MR HEAD/BRAIN WO CON, 10/16/2020, 8:18. FINDINGS: Image quality: Excellent. Lung bases: Bibasilar scars and atelectasis. Heart: Heart size is normal. There is a small pericardial effusion or mild pericardial thickening. ABDOMEN: Liver: There is a 7 mm low-density nodule in the posterior segment of the right hepatic lobe near hepatic dome, most likely a cyst. It was present on 03/09/2017 and appears unchanged. Gallbladder: Gallbladder is surgically absent Biliary ducts: Mild intrahepatic biliary dilation. Common bile duct is normal in caliber. Pancreas: Unremarkable. Spleen: Unremarkable. Adrenal Glands: There is a 7 mm left adrenal nodule. Kidneys and Ureters: Unremarkable. Stomach and Bowel: Stomach, small bowel loops, and colon are unremarkable. There is a large amount of stool in colon. Few colonic diverticula are present in sigmoid colon. No diverticulitis. Peritoneum: No abnormal intraperitoneal fluid. No free air. Ventral Wall: No hernia. Abdominal Nodes: No retroperitoneal or mesenteric adenopathy by size criteria. Vessels: Aorta and inferior vena cava are normal in size. PELVIS: Pelvic Organs: Unremarkable. Bladder: Unremarkable. Pelvic Nodes: No enlarged lymph nodes. Miscellaneous: No inguinal hernias are seen. Bones: There is grade 1 anterolisthesis of L4 on L5. Degenerative disc and facet disease in the lower lumbar spine. IMPRESSION: 1. No acute abnormalities in abdomen or pelvis. 2. A large amount of stool in colon. 3. Mild diverticulosis without diverticulitis. 4. Small pericardial effusion or mild pericardial thickening. Dictated by: Yash Batista M.D. on 01/23/2021 at 15:46 Approved by: Yash Batista M.D. on 01/23/2021 at 17:40
== END ==
PROVIDERS: PCP Family Medicine; Referring Provider Family Medicine; Visit Provider Family Medicine
DX: R10.84 Generalized abdominal pain (principal); K57.30 Diverticulosis of large intestine without perforation or abscess without bleeding; E27.9 Disorder of adrenal gland, unspecified; M43.16 Spondylolisthesis, lumbar region; M51.36 Other intervertebral disc degeneration, lumbar region
CPT/HCPCS: 74177; Q9967

== ENCOUNTER → 2021-01-26 10:28 | Outpatient (CLI) | payer OTHER, SELFPAY ==
[2020-10-15 20:40] VITALS: BMI 18.0
[2021-01-26 12:05] LABS: COVID19 -Nasal RAPID Negative (Negative)
== END ==
PROVIDERS: PCP Family Medicine; Visit Provider Physician Assistant
DX: Z01.812 Encounter for preprocedural laboratory examination (principal); Z20.822 Contact with and (suspected) exposure to COVID-19
CPT/HCPCS: 87635

== ENCOUNTER → 2021-05-24 17:10 | Outpatient (CLI) | payer OTHER, SELFPAY ==
[2020-10-15 20:40] VITALS: BMI 18.0
[2021-05-24 17:58] LABS: COVID19 -Nasal RAPID Negative (Negative)
== END ==
PROVIDERS: PCP Family Medicine; Visit Provider Physician Assistant
DX: Z20.822 Contact with and (suspected) exposure to COVID-19 (principal)
CPT/HCPCS: 87635

== ENCOUNTER 2021-05-24 17:33 | Emergency (ER) | payer OTHER, SELFPAY ==
[2020-10-15 20:40] VITALS: BMI 18.0
[2021-05-24 17:40] VITALS: BP 168/79; PULSE 85; RESP 15; TEMP 36.9; O2SAT 98; BMI 16.4
--- NOTE | 2021-05-24 17:48 | DI.RAD.S_ITS ---
PROCEDURE: XR CHEST 2V INDICATIONS: cough TECHNIQUE: 2 views of the chest were acquired. COMPARISON: [facility], CR, XR CHEST 1V, 10/15/2020, 15:54. FINDINGS: Surgical changes and devices: Left chest wall Port-A-Cath tip is in SVC. Lungs and pleura: Lungs are clear. Mild hyperinflation is seen. No pleural effusions or pneumothorax. Mediastinum: Mediastinal contours are normal. Heart size is normal. Bones and chest wall: No suspicious bony abnormalities. Soft tissues appear unremarkable. IMPRESSION: Mild hyperinflation. No focal infiltrate, pleural effusion or pneumothorax. Dictated by: Fredrick Batres M.D. on 05/24/2021 at 18:07 Approved by: Fredrick Batres M.D. on 05/24/2021 at 18:07
[2021-05-24 20:52] VITALS: BP 198/92; PULSE 94; O2SAT 97
--- NOTE | 2021-05-24 21:03 | PC.NURSE ---
Patient was staying in a home with a pellet stove and developed a cough which was initially with sputum production but has now improved and is a dry cough. Also early on had some nausea with vomiting but patient reports might have been related to cancer treatment more than cough and illness. Denies chest pain or shortness of breath.
--- NOTE | 2021-05-24 22:08 | ED_ITS ---
HPI - General Adult General Chief complaint: Upper Respiratory Symptoms Stated complaint: LOW OXYGEN Time Seen by Provider: 05/24/21 21:27 Source: patient Mode of arrival: Ambulatory Limitations: no limitations History of Present Illness HPI narrative: 76-year-old woman with a history of a glioblastoma post surgical resection, chemotherapy and radiation, hypertension, with history of mild intermittent asthma was visiting family and exposed to smoke for a fireplace to heat the home and began having more coughing and nasal discharge. She and her came home to make sure that she did get worse and present today for COVID testing. She is vaccinated. She has been having slight cough, no fevers no productivity. Minor nasal discharge without loss of taste. No chest pain, palpitations or orthopnea. No abdominal pain or diarrhea. Related Data Home Medications Medication Instructions Recorded Confirmed triamcinolone acetonide 55 mcg 2 spray NASAL DAILY 11/03/18 05/24/21 nasal spray aerosol (Nasacort) fluticasone propionate 44 1 inh INHALATION DAILY g 06/11/20 05/24/21 mcg/actuation HFA aerosol inhaler mometasone-formoterol HFA 200 1 puff INHALATION BID g 06/11/20 05/24/21 mcg-5 mcg/actuation aerosol inhaler (Dulera) ondansetron HCl 8 mg tablet 8 mg PO PRN tab 11/06/20 05/24/21 lisinopril 10 mg tablet 10 mg PO DAILY tab 01/02/21 05/24/21 temozolomide 100 mg capsule 200 mg PO cap 01/02/21 05/24/21 temozolomide 20 mg capsule 40 mg PO cap 01/02/21 05/24/21 Previous Rx's Medication Instructions Recorded sulfamethoxazole 800 1 tab PO BID #14 tab 01/04/21 mg-trimethoprim 160 mg tablet (Bactrim DS) Allergies Allergy/AdvReac Type Severity Reaction Status Date / Time estradiol [ESTRADIOL] AdvReac Severe blood clots Verified 05/24/21 17:43 fluoxetine [FLUOXETINE] AdvReac Severe Nausea, Verified 05/24/21 17:43 vomiting, blurry vision, made IBS worse citalopram AdvReac Intermediate Nausea Verified 05/24/21 17:43 Review of Systems Review of Systems Narrative: Remainder of complete review of systems is otherwise unremarkable except for that included in the HPI. 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 Grandfather Stroke Grandmother Cancer Social History household members: spouse Smoking Status: Never smoker second hand exposure: No alcohol intake: current substance use type: does not use Smoking Status: Never smoker alcohol intake frequency: holidays/special occasions only Substance Use Type: does not use Exam Narrative Exam Narrative: General: Healthy appearing, in no acute distress. Able to give a complete and coherent history. Well-nourished well-developed HEENT: Moist mucous membranes, normal sclera with reactive pupils, Respiratory: Lungs are clear to auscultation, no wheezing no rales no rhonchi. Full and symmetrical air movement Cardiac: Regular rate and rhythm no murmurs no bruits Abdomen: Soft, nontender, good bowel tones, no flank pain Skin: Warm and dry, no rashes Neurologic: Grossly neurologically intact with no obvious asymmetries or abnormalities Extremities: No trauma, well perfused Psych: Cooperative, appropriate insight and affect Initial Vital Signs Initial Vital Signs: Vital Signs Temperature 98.5 F 05/24/21 17:40 Pulse Rate 85 05/24/21 17:40 Respiratory Rate 15 11/12/21 17:40 Blood Pressure 168/79 H 05/24/21 17:40 Pulse Oximetry 98 05/24/21 17:40 Course Orders Ordered: ED Orders 05/24/21 17:48 Chest [XR chest 2V] Stat Vital Signs Vital signs: Vital Signs - 8 hr 05/24/21 17:40 05/24/21 20:52 Temperature 98.5 F Pulse Rate 85 94 H Respiratory Rate 15 Blood Pressure 168/79 H 198/92 H Pulse Oximetry 98 97 Medical Decision Making Imaging Data Chest x-ray: Radiologist's Impression: FINDINGS:? ? Surgical changes and devices:? Left chest wall Port-A-Cath tip is in SVC. ? Lungs and pleura:? Lungs are clear.? Mild hyperinflation is seen.? No pleural effusions or pneumothorax.? ? Mediastinum:? Mediastinal contours are normal.? Heart size is normal.? ? Bones and chest wall:? No suspicious bony abnormalities.? Soft tissues appear unremarkable.? ? IMPRESSION:? Mild hyperinflation.? No focal infiltrate, pleural effusion or pneumothorax. ? ? Dictated by: Fredrick Batres M.D. on 05/24/2021 at 18:07 ? ? [facility] Narrative Medical decision making narrative: 76-year-old woman with history of glioblastoma and mild cough for the last couple of days. COVID test is unremarkable. Chest x-ray is equally unremarkable. I believe she has a mild upper respiratory infection there is no evidence of pneumonia, significant respiratory distress, acute coronary syndrome or sepsis. Findings reviewed with her. She did feel that her cough was symptomatic enough to warrant a prescription for Tessalon Perles. She and her are reassured and she is safe for home discharge Discharge Plan Departure Patient Disposition: Home Clinical Impression: URI (upper respiratory infection) Instructions: DI for Viral Upper Respiratory Infection -- Adult Activity Restrictions/Additional Instructions: Thank you for coming in today Fortunately your COVID test is negative and your chest x-ray is reassuring. Your clinical exam does not suggest an acute pneumonia and your oxygen levels are in the normal range. I suspect that this is some minor irritation from a virus and that is causing the cough is well as the slight production. Reasons to return for additional evaluation would be fevers, a change to what you are coughing up, increasing pain in her chest or significant shortness of breath. Prescriptions: No Action temozolomide 20 mg capsule 40 mg PO RF: 0 sulfamethoxazole-trimethoprim [Bactrim DS] 800-160 mg tablet 1 tab PO BID Qty: 14 RF: 0 triamcinolone acetonide [Nasacort] 55 mcg aerosol,spray 2 spray NASAL DAILY RF: 0 lisinopril 10 mg tablet 10 mg PO DAILY RF: 0 fluticasone propionate 44 mcg/actuation HFA aerosol inhaler 1 inh inhalation DAILY RF: 0 ondansetron HCl 8 mg tablet 8 mg PO PRN (Reason: nausea and vomiting) RF: 0 temozolomide 100 mg capsule 200 mg PO RF: 0 Dulera 200-5 mcg/actuation HFA aerosol inhaler 1 puff INHALATION BID RF: 0 Referrals: Crispin Washington, [Primary Care Provider] -
[2021-05-24 22:19] VITALS: BP 175/75; PULSE 78; RESP 20; O2SAT 96
== END 2021-05-24 22:20 | disposition home or self-care (01) ==
PROVIDERS: Emergency Provider Emergency Medicine; PCP Family Medicine
DX: J06.9 Acute upper respiratory infection, unspecified (principal); Z20.822 Contact with and (suspected) exposure to COVID-19
CPT/HCPCS: 71046; 87635; 99283

== ENCOUNTER → 2021-06-03 11:34 | Outpatient (CLI) | payer OTHER, SELFPAY ==
[2020-10-15 20:40] VITALS: BMI 18.0
--- NOTE | 2021-06-03 11:35 | DI.MRI.S_ITS ---
PROCEDURE: MR HEAD/BRAIN WO/W CON INDICATIONS: Malignant neoplasm of frontal lobe TECHNIQUE: Noncontrast axial T1 spin echo, axial T2 fast spin echo, sagittal and axial FLAIR, coronal T2 fast spin echo, axial gradient echo, axial diffusion and ADC through the brain. After the administration of contrast, axial and coronal T1 spin echo with fat saturation through the brain. COMPARISON: [facility], MR, MR BRAIN WITH/WITHOUT CONTRAST, 03/28/2021, 12:46. [facility], MR, MR BRAIN WITH/WITHOUT CONTRAST, 09/26/2020, 4:04. Outside Film, MR, MR BRAIN WITH/WITHOUT CONTRAST, 09/26/2020, 21:36. [facility], MR, MR HEAD/BRAIN WO/W CON, 01/21/2021, 8:01. [facility], MR, MR HEAD/BRAIN WO CON, 10/16/2020, 8:18. [facility], CT, CT STROKE, 10/15/2020, 15:49. [facility], CT, CT HEAD/BRAIN WO CON, 10/07/2020, 14:25. Outside Film, CT, CT HEAD WITHOUT CONTRAST, 09/26/2020, 22:09. FINDINGS: Image quality: Excellent. CSF spaces: Basal cisterns are patent. No extra-axial fluid collections. Ventricles are normal in size and shape. Brain: Left anterior frontal lobe resection changes are seen. Surrounding encephalomalacia can be seen. A mild degree of hemosiderin deposition can be seen along the margins of the resection cavity. On prior scans, there was a small amount of enhancement seen along the posterior margin of the resection cavity. On the current study, there is a slight minimal amount of enhancement seen, as on series 13 image 113, which is similar to the prior examination. No midline shift. There is cerebral volume loss for age. There is periventricular white matter chronic small vessel ischemic change. The brainstem appears normal. Diffusion-weighted images demonstrate no acute ischemic insults. No chronic ischemic insults. Normal intravascular flow voids are present. Skull and face: Left-sided craniotomy changes are seen. Calvarial marrow is normal in signal. Orbits appear normal. Note is made of bilateral lens replacements. Sinuses: Moderate mucosal thickening is seen involving the right maxillary sinus, with [id number] mucosal thickening seen elsewhere within the paranasal sinuses. No abnormal fluid is seen within the mastoid air cells. IMPRESSION: Left frontal resection change. Along the posterior margin of the resection cavity, there is a slight minimal amount of parenchymal enhancement seen, which is stable compared to the prior examination. No new masses or areas of abnormal enhancement can be seen. No findings of acute or subacute infarction can be seen. Focal right maxillary sinus disease. Dictated by: Chai Obando M.D. on 06/03/2021 at 12:42 Approved by: Chai Obando M.D. on 06/03/2021 at 12:45
== END ==
PROVIDERS: PCP Family Medicine; Referring Provider Internal Medicine Hematology & Oncology; Visit Provider Internal Medicine Hematology & Oncology
DX: C71.1 Malignant neoplasm of frontal lobe (principal); J32.0 Chronic maxillary sinusitis
CPT/HCPCS: 70553; A9579

== ENCOUNTER → 2021-08-15 08:50 | Outpatient (CLI) | payer OTHER, SELFPAY ==
[2020-10-15 20:40] VITALS: BMI 18.0
--- NOTE | 2021-08-15 | DI.MRI.S_ITS ---
PROCEDURE: MR HEAD/BRAIN WO/W CON INDICATIONS: Malignant neoplasm of frontal lobe TECHNIQUE: Noncontrast axial T1 spin echo, axial T2 fast spin echo, sagittal and axial FLAIR, coronal T2 fast spin echo, axial gradient echo, axial diffusion and ADC through the brain. After the administration of contrast, axial and coronal 3D VIBE or T1 spin echo with fat saturation through the brain. COMPARISON: [facility], MR, MR BRAIN WITH/WITHOUT CONTRAST, 03/28/2021, 12:46. [facility], MR, MR HEAD/BRAIN WO/W CON, 06/03/2021, 11:54. FINDINGS: Postsurgical changes of left frontal craniectomy for resection left frontal lobe mass. The resection cavity is unchanged in size. No suspicious enhancement along the margin of the resection cavity. Mildly increased conspicuity and extent of FLAIR signal hyperintensity in the white matter adjacent to the resection cavity, most notably in the genu of the corpus callosum and in the right deep and periventricular white matter adjacent to the frontal horn. There is also slightly increase in white matter within the left superior braden radiata (series 7, image 16). No restricted diffusion to indicate recent ischemia. The major intracranial vascular flow-related signal voids are maintained. No new or unexpected intracranial susceptibility. There is no evidence of mass effect or midline shift. Moderate global cerebral volume loss and chronic microvascular ischemic changes. Paranasal sinuses and mastoid air cells are clear. IMPRESSION: No suspicious enhancement in the resection cavity or along the resection cavity margin to suggest disease recurrence. No suspicious intracranial enhancement otherwise. Mildly increased conspicuity and extent of nonenhancing FLAIR signal abnormality adjacent to the resection cavity and also in the right frontal lobe deep white matter, genu of the corpus callosum, and left superior braden radiata. These findings could be related to progression of chronic microvascular ischemic change or radiation changes, although they raise concern for nonenhancing tumor disease progression. Dictated by: Latrell Perez M.D. on 08/15/2021 at 9:40 Approved by: Latrell Perez M.D. on 08/15/2021 at 9:44
== END ==
PROVIDERS: PCP Family Medicine; Referring Provider Internal Medicine Hematology & Oncology; Visit Provider Internal Medicine Hematology & Oncology
DX: C71.1 Malignant neoplasm of frontal lobe (principal)
CPT/HCPCS: 70553; A9579

== ENCOUNTER → 2021-08-22 15:45 | Outpatient (CLI) | payer OTHER, SELFPAY ==
[2020-10-15 20:40] VITALS: BMI 18.0
--- NOTE | 2021-08-22 15:49 | DI.MG.S_ITS ---
BILATERAL DIGITAL SCREENING MAMMOGRAM 3D/2D WITH CAD: 08/22/2021 CLINICAL: Routine screening. Personal history of right breast cancer. Family history of breast cancer. Comparison is made to exams dated: 08/11/2018 mammogram, 07/01/2017 mammogram, and 06/19/2016 mammogram - [facility]. The tissue of both breasts is heterogeneously dense. This may lower the sensitivity of mammography. Current study was also evaluated with a Computer Aided Detection (CAD) system. There are benign post operative findings in both breasts. No significant masses, calcifications, or other findings are seen in either breast. There has been no significant interval change. IMPRESSION: BENIGN There is no mammographic evidence of malignancy. A 1 year screening mammogram is recommended. This exam was interpreted at Station ID: [id number]. NOTE: For mammograms, a report in lay terms will be sent to the patient. Approximately 15% of breast malignancies will not be visualized mammographically. In the management of a palpable breast mass, a negative mammogram must not discourage biopsy of a clinically suspicious lesion. Electronically Signed By: Latrell Perez M.D., jr/natalie:08/22/2021 16:53:36 letter sent: Normal Exam ACR BI-RADS Category 2: Benign Finding(s) [id number]
== END ==
PROVIDERS: PCP Family Medicine; Referring Provider Family Medicine; Visit Provider Family Medicine
DX: Z12.31 Encounter for screening mammogram for malignant neoplasm of breast (principal); Z85.3 Personal history of malignant neoplasm of breast; Z80.3 Family history of malignant neoplasm of breast
CPT/HCPCS: 77063; 77067

== ENCOUNTER → 2021-09-27 11:29 | Outpatient (CLI) | payer OTHER, SELFPAY ==
[2020-10-15 20:40] VITALS: BMI 18.0
== END ==
PROVIDERS: PCP Family Medicine; Referring Provider Family Medicine; Visit Provider Family Medicine
DX: M81.0 Age-related osteoporosis without current pathological fracture (principal); Z78.0 Asymptomatic menopausal state
CPT/HCPCS: 77080

== ENCOUNTER 2021-11-06 13:18 | Emergency (ER) | payer OTHER, SELFPAY ==
[2020-10-15 20:40] VITALS: BMI 18.0
[2021-11-06 13:25] VITALS: BP 149/64; PULSE 83; RESP 16; TEMP 36.7; O2SAT 94; BMI 17.2
--- NOTE | 2021-11-06 13:29 | DI.RAD.S_ITS ---
PROCEDURE: XR CHEST 1V INDICATIONS: chest pain TECHNIQUE: One view of the chest was acquired. COMPARISON: [facility], CR, XR CHEST 2V, 05/24/2021, 17:43. FINDINGS: Surgical changes and devices: Left Port-A-Cath is unchanged. Lungs and pleura: Lungs are clear. No pleural effusions or pneumothorax. Mediastinum: Mediastinal contours appear normal. Heart size is normal. Bones and chest wall: No suspicious bony lesions. Overlying soft tissues appear unremarkable. IMPRESSION: No acute pulmonary process. Dictated by: Veronika Madison M.D. on 11/06/2021 at 13:55 Approved by: Veronika Madison M.D. on 11/06/2021 at 13:55
[2021-11-06 13:52] LABS: Add Manual Diff / Slide Review NO; Basophils Absolute Auto 0 /uL (0-100); Basophils Percent Auto 0.6 % (0-2); Eosinophils Absolute Auto 200 /uL (0-450); Eosinophils Percent Auto 3.8 % (2-4); Hematocrit 38.1 % (36-46); Hemoglobin 12.6 g/dL (12.0-16.0); Lymphocytes Absolute Auto 1100 /uL (1100-4500); Lymphocytes Percent Auto 21.1 % (25-40); Mean Corpuscular HGB Conc 33.2 % (30-36); Mean Corpuscular Hemoglobin 30.2 PG (26-34); Mean Corpuscular Volume 91.2 fL (80-100); Monocytes Absolute Auto 300 /uL (0-900); Monocytes Percent Auto 5.7 % (3-14); Neutrophils Absolute Auto 3700 /uL (1500-7000); Neutrophils Percent Auto 68.8 % (50-75); Platelet Count 156 X10^3/uL (150-400); Red Blood Cell Count 4.18 X10^6/uL (4.0-5.2); Red Cell Distribution Width 13.7 % (11.6-14.8); White Blood Cell Count 5.4 X10^3/uL (4.5-11.0)
--- NOTE | 2021-11-06 13:58 | DI.CT.S_ITS ---
PROCEDURE: CT HEAD/BRAIN WO CON INDICATIONS: Hx of glioblastoma with presyncope TECHNIQUE: Noncontrast 4.5 mm thick angled axial sections acquired from the foramen magnum to the vertex, with coronal and sagittal reformats. For radiation dose reduction, the following was used: automated exposure control, adjustment of mA and/or kV according to patient size. COMPARISON: [facility], MR, MR HEAD/BRAIN WO/W CON, 06/03/2021, 11:54. [facility], MR, MR BRAIN WITH/WITHOUT CONTRAST, 03/28/2021, 12:46. [facility], CT, CT STROKE, 10/15/2020, 15:49. [facility], CT, CT HEAD/BRAIN WO CON, 10/07/2020, 14:25. FINDINGS: Image quality: Excellent. CSF spaces: Basal cisterns are patent. No extra-axial fluid collections. The ventricles are symmetric in size and shape. Brain: Again noted are postop changes from left anterior frontal resection with surrounding encephalomalacia not significantly changed from recent CT and MR studies. No intracranial bleeds or masses. There is cerebral volume loss for age, with resultant ventricular and sulcal prominence. There are periventricular and deep white matter chronic small vessel ischemic changes. There is intracranial internal carotid artery atherosclerosis. Skull and face: Postsurgical changes are seen in left frontal calvarium. No acute skull fracture. No gross facial bone abnormalities. Sinuses: Visualized sinuses and mastoids are clear. IMPRESSION: 1. No CT evidence of acute intracranial abnormalities. 2. No significant changes from recent MRI study. Dictated by: Fredrick Batres M.D. on 11/06/2021 at 14:15 Approved by: Fredrick Batres M.D. on 11/06/2021 at 14:21
--- NOTE | 2021-11-06 13:58 | ED_ITS ---
HPI - General Adult General Chief complaint: Syncope Stated complaint: Near syncope Time Seen by Provider: 11/06/21 13:40 Source: patient Mode of arrival: EMS History of Present Illness HPI narrative: Patient is a 76-year-old female. Has a history of glioblastoma. Has had surgery. Is currently under the care of Oncology but is not receiving immunotherapy nor chemotherapy. Has had a TIA in the past. Not on anticoagulation. Patient states that earlier today she had an episode where she became very lightheaded. She was unsure exactly how long it lasted but she thought that it was approximately 30 minutes. She denied any chest pain or shortness of breath nor vision changes at the time. Has some nausea but no vomiting. When the patient's partner arrived in the room he stated that it was a little more involved than that. He states that the patient was taking a shower. When she came out of the shower she was standing next to the bed when she visibly became very unsteady on her feet. He laid her down on the bed. She did have an episode of bowel incontinence. After she had been on the bed for period of time he helped her up to go to the bathroom to get her cleaned up when she was very unsteady on her feet and slumped onto the ground. She did not fall. She did not hit her head. There is no reports of any loss of consciousness. Patient's partner stated that he helped her get back into bed. The whole event lasted a couple hours. Patient feels like she is back to normal again. Related Data Home Medications Medication Instructions Recorded Confirmed triamcinolone acetonide 55 mcg 2 spray NASAL DAILY 11/03/18 05/24/21 nasal spray aerosol (Nasacort) fluticasone propionate 44 1 inh INHALATION DAILY g 06/11/20 05/24/21 mcg/actuation HFA aerosol inhaler mometasone-formoterol HFA 200 1 puff INHALATION BID g 06/11/20 05/24/21 mcg-5 mcg/actuation aerosol inhaler (Dulera) ondansetron HCl 8 mg tablet 8 mg PO PRN tab 11/06/20 05/24/21 lisinopril 10 mg tablet 10 mg PO DAILY tab 01/02/21 05/24/21 temozolomide 100 mg capsule 200 mg PO cap 01/02/21 05/24/21 temozolomide 20 mg capsule 40 mg PO cap 01/02/21 05/24/21 Previous Rx's Medication Instructions Recorded sulfamethoxazole 800 1 tab PO BID #14 tab 01/04/21 mg-trimethoprim 160 mg tablet (Bactrim DS) clopidogrel 75 mg tablet (Plavix) 75 mg PO DAILY 21 Days #21 tab 11/06/21 Allergies Allergy/AdvReac Type Severity Reaction Status Date / Time estradiol [ESTRADIOL] AdvReac Severe blood clots Verified 11/06/21 13:30 fluoxetine [FLUOXETINE] AdvReac Severe Nausea, Verified 11/06/21 13:30 vomiting, blurry vision, made IBS worse citalopram AdvReac Intermediate Nausea Verified 11/06/21 13:30 Review of Systems Constitutional Constitutional: Denies fatigue, Denies fever(s) and Denies headache(s) Eyes Eyes: Denies change in vision ENT Ears, Nose, Mouth, and Throat: Denies vertigo, Reports dizziness, Denies headache(s), Reports disequilibrium and Denies sore throat Cardiovascular Cardiovascular: Denies chest pain, Denies rapid heart rate, Reports lightheadedness and Denies dyspnea Respiratory Respiratory: Denies cough and Denies dyspnea Gastrointestinal Gastrointestinal: Denies abdominal pain, Reports diarrhea, Reports nausea and Denies vomiting Genitourinary Genitourinary: Denies dysuria Musculoskeletal Comments: No joint pain or back pain Integumentary/Breasts Comments: No rashes Neurologic Neurologic: Denies vertigo, Reports dizziness, Denies headache(s), Reports lack of coordination, Denies convulsions and Reports disequilibrium Endocrine Endocrine: Denies fatigue Hematologic/Lymphatic On Anticoagulants: No Allergic/Immunologic Allergic/Immunologic: Reports system reviewed and no additional complaints, e xcept as documented Patient History Medical History Abdominal pain Actinic keratosis Asthma Colon polyps (12/2013) Ductal carcinoma in situ (DCIS) of right breast (2000) GERD (gastroesophageal reflux disease) Glioblastoma multiforme of brain Hyperlipidemia (11/11/10) Hypertension Irritable bowel syndrome with diarrhea 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 Grandfather Stroke Grandmother Cancer Social History household members: spouse Smoking Status: Never smoker second hand exposure: No alcohol intake: current substance use type: does not use Smoking Status: Never smoker alcohol intake frequency: holidays/special occasions only Substance Use Type: does not use Exam Initial Vital Signs Initial Vital Signs: Vital Signs Temperature 98.1 F 11/06/21 13:25 Pulse Rate 83 11/06/21 13:25 Respiratory Rate 16 11/06/21 13:25 Blood Pressure 149/64 H 11/06/21 13:25 Pulse Oximetry 94 11/06/21 13:25 Const General: cooperative, healthy appearing and comfortable HENW[place] Head: normal to inspection and normocephalic Face and sinus: normal facial exam Mouth: oral mucosae normal Eyes Pupils: PERRL EOM: EOM intact bilaterally Resp Effort & Inspection: normal respiratory effort Auscultation: clear to auscultation bilaterally Cardio Rate: regular rate Rhythm: regular rhythm GI Palpation: soft and No tender Skin General: no rashes or lesions noted Neuro General: patient alert, patient awake, patient oriented x3 and moves all extremities Cranial Nerves: CN's II-XI intact bilaterally Cognition: normal cognition Speech: speech normal Motor: muscle tone normal throughout Sensory Exam: no sensory deficits noted Extrem General: normal to inspection and capillary refill normal Psych Appearance: grossly normal and well kempt Scores ABCD2 Age >= 60 years: yes Initial BP. Either SBP >= 140 or DBP >= 90.: yes Clinical features of the TIA: unilateral weakness Duration of symptoms: >= 60 minutes History of diabetes: no ABCD2 Score: 6 GCS Schaller coma scale eye opening: Spontaneous Schaller coma scale verbal response: Orientated Schaller coma scale motor response: Obey commands Anyi coma scale total score: 15 Course Orders Ordered: ED Orders 11/06/21 13:29 XR chest 1V Stat EKG-12 Lead Stat 11/06/21 13:40 Complete Blood Count AUTO DIFF Stat Comprehensive Metabolic Panel Stat Lipase Stat Magnesium Stat Partial Thromboplastin Time Stat Prothrombin Time INR Stat Troponin & CK Cardiac Panel Stat 11/06/21 13:58 CT head/brain wo con Stat 11/06/21 14:54 MR stroke Stat Discontinued Medications Aspirin (Aspirin 325 Mg Tablet) 325 mg PO NOW ONE Stop: 11/06/21 17:01 Last Admin: 11/06/21 17:24 Dose: 325 mg Documented by: RUT Clopidogrel Bisulfate (Clopidogrel 75 Mg Tablet) 300 mg PO NOW ONE Stop: 11/06/21 17:01 Last Admin: 11/06/21 17:23 Dose: 300 mg Documented by: RUT Vital Signs Vital signs: Vital Signs - 8 hr 11/06/21 13:25 11/06/21 18:56 Temperature 98.1 F Pulse Rate 83 69 Respiratory Rate 16 18 Blood Pressure 149/64 H 142/77 H Pulse Oximetry 94 97 Medical Decision Making Lab Data Lab results reviewed: Yes I reviewed the patient's lab results. Result diagrams: 11/06/21 13:40 11/06/21 13:40 Labs: Lab Results 11/06/21 11/06/21 11/06/21 Range/Units 13:40 13:40 13:40 WBC 5.4 (4.5-11.0) X10^3/uL RBC 4.18 (4.0-5.2) X10^6/uL Hgb 12.6 (12.0-16.0) g/dL Hct 38.1 (36-46) % MCV 91.2 (80-100) fL MCH 30.2 (26-34) PG MCHC 33.2 (30-36) % RDW 13.7 (11.6-14.8) % Plt Count 156 (150-400) X10^3/uL Neut % (Auto) 68.8 (50-75) % Lymph % (Auto) 21.1 L (25-40) % Paul[place] % (Auto) 5.7 (3-14) % Eos % (Auto) 3.8 (2-4) % Baso % (Auto) 0.6 (0-2) % Neut # (Auto) 3700 (6658-9654) /uL Lymph # (Auto) 1100 (5187-2366) /uL Paul[place] # (Auto) 300 (0-900) /uL Eos # (Auto) 200 (0-450) /uL Baso # (Auto) 0 (0-100) /uL PT 11.3 (10.1-12.7) SECONDS INR 1.0 (0.9-1.3) APTT 26 L D (26.4-36.2) SECONDS Sodium 141 (137-145) mmol/L Potassium 4.5 (3.4-5.1) mmol/L Chloride 110 H (98-107) mmol/L Carbon Dioxide 24 (22-32) mmol/L BUN 21 H (7-17) mg/dL Creatinine 0.87 (0.52-1.04) mg/dL Estimated GFR > 60 (>60) mL/min BUN/Creatinine Ratio 24.1 H (6-22) Glucose 95 (80-110) mg/dL Calcium 9.2 (8.4-10.2) mg/dL Magnesium 2.1 (1.6-2.3) mg/dL Total Bilirubin 0.8 (0.2-1.3) mg/dL AST 31 (14-36) IU/L ALT 37 H (<35) IU/L Alkaline Phosphatase 69 (38-126) U/L Total Creatine Kinase 37 (30-135) U/L CK-MB (CK-2) TNP CK-MB (CK-2) Rel Index TNP Troponin I < 0.012 (0.01-0.034) ng/mL Total Protein 6.3 (6.3-8.2) g/dL Albumin 3.9 (3.5-5.0) g/dL Globulin 2.4 (1.7-4.1) g/dL Albumin/Globulin Ratio 1.6 (1.0-2.8) Lipase 106 (23-300) U/L Imaging Data Chest x-ray: Radiologist's Impression: [address] [address] XRay Report Signed Patient: Precious Gtz MR#: [id number] : 1945 Acct:[id number] Age/Sex: 76 / F Date of Service: 11/06/21 Loc: ED Accession Number: [id number] ?? Procedure: XR chest 1V Ordering Provider: Freddie Sanchez D.O. PROCEDURE:? XR CHEST 1V ? INDICATIONS:? chest pain ? TECHNIQUE:? One view of the chest was acquired.? ? COMPARISON:? [facility], CR, XR CHEST 2V, 05/24/2021, 17:43. ? FINDINGS:? ? Surgical changes and devices:? Left Port-A-Cath is unchanged. ? Lungs and pleura:? Lungs are clear.? No pleural effusions or pneumothorax.? ? Mediastinum:? Mediastinal contours appear normal.? Heart size is normal.? ? Bones and chest wall:? No suspicious bony lesions.? Overlying soft tissues appear unremarkable.? ? IMPRESSION:? No acute pulmonary process. ? ? Dictated by: Veronika Madison M.D. on 11/06/2021 at 13:55 ? ? Approved by: Veronika Madison M.D. on 11/06/2021 at 13:55 CT scan - head: Radiologist's Impression: [place] [address] CT Scan Report Signed Patient: Precious Gtz MR#: [id number] : 1945 Acct:[id number] Age/Sex: 76 / F Date of Service: 11/06/21 Loc: ED Accession Number: [id number] ?? Procedure: CT head/brain wo con Ordering Provider: Freddie Sanchez D.O. PROCEDURE:? CT HEAD/BRAIN WO CON ? INDICATIONS:? Hx of glioblastoma with presyncope ? TECHNIQUE:? Noncontrast 4.5 mm thick angled axial sections acquired from the foramen magnum to the vertex, with coronal and sagittal reformats.? For radiation dose reduction, the following was used:? automated exposure control, adjustment of mA and/or kV according to patient size.? ? COMPARISON:? [facility], MR, MR HEAD/BRAIN WO/W CON, 06/03/2021, 11:54.? [facility], MR, MR BRAIN WITH/WITHOUT CONTRAST, 03/28/2021, 12:46.? [facility], CT, CT STROKE, 10/15/2020, 15:49.? [facility], CT, CT HEAD/BRAIN WO CON, 10/07/2020, 14:25. ? FINDINGS:? Image quality:? Excellent.? ? CSF spaces:? Basal cisterns are patent.? No extra-axial fluid collections.? The ventricles are symmetric in size and shape.? ? Brain:? Again noted are postop changes from left anterior frontal resection with surrounding encephalomalacia not significantly changed from recent CT and MR studies.? No intracranial bleeds or masses.? There is cerebral volume loss for age, with resultant ventricular and sulcal prominence.? There are periventricular and deep white matter chronic small vessel ischemic changes.? There is intracranial internal carotid artery atherosclerosis.? ? Skull and face:? Postsurgical changes are seen in left frontal calvarium.? No acute skull fracture.? No gross facial bone abnormalities. ? Sinuses:? Visualized sinuses and mastoids are clear.? ? IMPRESSION:? 1. No CT evidence of acute intracranial abnormalities. 2.? No significant changes from recent MRI study.? ? ? Dictated by: Fredrick Batres M.D. on 11/06/2021 at 14:15 ? ? Approved by: Fredrick Batres M.D. on 11/06/2021 at 14:21? MRi stroke: Radiologist's Impression: [place] [address] Magnetic Resonance Report Signed Patient: Precious Gtz MR#: [id number] : 1945 Acct:[id number] Age/Sex: 76 / F Date of Service: 11/06/21 Loc: ED Accession Number: [id number] ?? Procedure: MR stroke Ordering Provider: Freddie Sanchez D.O. PROCEDURE:? MR STROKE Pre- and post-contrast brain MRI, non-contrast brain MR angiogram, pre- and postcontrast neck MR angiogram ? INDICATIONS:? stroke ? TECHNIQUE:? Brain:? Noncontrast axial T1 spin echo, axial T2 fast spin echo, sagittal and axial FLAIR, coronal T2 fast spin echo, axial gradient echo, axial diffusion and ADC through the brain.? After the administration of contrast, axial 3D VIBE of the cranial vasculature and brain.? Brain MRA:? Non-contrast 3-D time of flight MR angiogram, with multiple jpnojmi-twptdcyxq-icoatovahw (MIP) reformats performed.? Neck MRA:? Axial and sagittal TruFISP through the neck.? Coronal dynamic MR angiogram during administration of contrast in the arterial and venous phases, with 3- dimenstional idgscgi-gffjuvqbc-jcfqncezri (MIP) reformats constructed from subtraction images.? ? COMPARISON:? [facility], MR, MR BRAIN WITH/WITHOUT CONTRAST, 03/28/2021, 12:46.? [facility], MR, MR HEAD/BRAIN WO/W CON, 01/21/2021, 8:01.? [facility], CT, CT HEAD/BRAIN WO CON, 11/06/2021, 14:04.? [facility], MR, MR HEAD/BRAIN WO/W CON, 08/15/2021, 9:12.? [facility], MR, MR HEAD/BRAIN WO/W CON, 06/03/2021, 11:54. ? FINDINGS:? Image quality:? Excellent.? ? BRAIN:? CSF spaces:? Ventricles are normal in size and shape.? Basal cisterns are patent.? No extra-axial fluid collections.? Brain:? Remote left frontal resection change can be seen, with volume loss and encephalomalacia.? No abnormal enhancement can be seen along the margins of the resection cavity.? No intracranial bleeds or mass effects.? Lemos-white matter interface is normal.? Diffusion weighted images show no acute ischemic insults.? Brainstem appears normal.? Normal intravascular flow voids are present.? No abnormal intracranial enhancement.? Skull and face:? Left frontal craniotomy changes are seen. Note is made of bilateral lens replacements.? Calvarial marrow signal is normal.? Orbits appear normal.? Sinuses:? Sinuses and mastoids are clear.? ? BRAIN MR ANGIOGRAM:? Anterior circulation:? Intracranial internal carotid arteries are normal in size and enhancement.? The flow within the paired anterior cerebral arteries is normal and symmetric.? The flow within the middle cerebral arteries is normal and symmetric.? The anterior communicating artery is seen.? No stenoses, occlusions, or aneurysms.? Posterior circulation:? The visualized portions of the vertebral arteries demonstrate normal caliber, and join to form a normal appearing basilar artery. There is a prominent right posterior communicating artery seen, with an accompanying diminutive right P1 segment. This is attributed to a type origin of the right posterior cerebral artery, which is considered to be a normal developmental variant of typically no clinical consequence.? The flow within the posterior cerebral arteries is normal and symmetric.? No stenoses, occlusions, or aneurysms.? ? NECK MR ANGIOGRAM:? Carotids:? Great vessels demonstrate a conventional anatomy as they arise from the aortic arch.? The origins of the common carotid arteries appear patent.? The calibers and courses of both common carotid arteries are normal.? The bifurcation regions appear normal bilaterally.? The internal carotid arteries demonstrate normal course and caliber. ? Posterior circulation:? The origins of the vertebral arteries appear patent.? More superior portions of both vertebral arteries demonstrate normal course and caliber.? The left vertebral artery is dominant to the right. Miscellaneous:? Subclavian arteries appear patent.? Pre-contrast images through the neck show no soft tissue abnormalities.? ? ? IMPRESSION:? ? BRAIN MRI:? Stable left frontal resection change. ? No abnormal enhancement can be seen adjacent to the resection cavity. ? No findings of acute or subacute infarction can be seen. ? ? BRAIN MR ANGIOGRAM:? No significant intracranial arterial abnormality is seen.? ? ? NECK MR ANGIOGRAM:? Within the arteries of the neck, no hemodynamically significant stenosis can be seen. ? ? ? Dictated by: Chai Obnado M.D. on 11/06/2021 at 15:23 ? ? Approved by: Chai Obando M.D. on 11/06/2021 at 15:27? MDM Narrative Medical decision making narrative: Patient's symptoms have resolved. Head CT and MRI brain showed no acute findings. ABCD 2 score is 6 so will start on aspirin and Plavix. Low suspicion for seizure. No signs of CVA. I do suspect this was TIA. Patient has had TIA in the past after a surgery and presented very similar to symptoms she had today. An e-mail was sent to the patient's primary doctor and also her oncologist to let them know of the findings here in the emergency department and for follow-up. The patient and her partner were given return precautions. They expressed understanding and agreement. Discharge Plan Departure Patient Disposition: Home Clinical Impression: Brain TIA Instructions: Transient Ischemic Attack Activity Restrictions/Additional Instructions: I do recommend that you continue to take all of your medications as directed. I also recommend that you start taking 2 baby aspirin a day and also the Plavix as directed for the next 21 days. Tomorrow contact your primary doctor's office for follow-up. Return to the emergency department for any new or worsening symptoms. Prescriptions: New clopidogrel [Plavix] 75 mg tablet 75 mg PO DAILY 21 Days Qty: 21 0RF No Action temozolomide 20 mg capsule 40 mg PO 0RF Rx Instructions: 240mg total x5 days/month sulfamethoxazole-trimethoprim [Bactrim DS] 800-160 mg tablet 1 tab PO BID Qty: 14 0RF triamcinolone acetonide [Nasacort] 55 mcg aerosol,spray 2 spray NASAL DAILY 0RF lisinopril 10 mg tablet 10 mg PO DAILY 0RF Rx Instructions: Do not take if BP below 120 fluticasone propionate 44 mcg/actuation HFA aerosol inhaler 1 inh inhalation DAILY 0RF ondansetron HCl 8 mg tablet 8 mg PO PRN (Reason: nausea and vomiting) 0RF temozolomide 100 mg capsule 200 mg PO 0RF Rx Instructions: 240 mg total x5 days/month Dulera 200-5 mcg/actuation HFA aerosol inhaler 1 puff INHALATION BID 0RF Referrals: Crispin Washington, [Primary Care Provider] -
[2021-11-06 14:03] LABS: Alanine Aminotransferase 37 IU/L (<35); Albumin 3.9 g/dL (3.5-5.0); Albumin Globulin Ratio 1.6 (1.0-2.8); Alkaline Phosphatase 69 U/L (38-126); Aspartate Aminotransferase 31 IU/L (14-36); BUN Creatinine Ratio 24.1 (6-22); Bilirubin Total 0.8 mg/dL (0.2-1.3); Blood Urea Nitrogen 21 mg/dL (7-17); Calcium 9.2 mg/dL (8.4-10.2); Carbon Dioxide 24 mmol/L (22-32); Chloride 110 mmol/L (98-107); Creatine Kinase 37 U/L (30-135); Estimated Glomerular Filt Rate > 60 mL/min (>60); Globulin 2.4 g/dL (1.7-4.1); Glucose 95 mg/dL (80-110); HEMOLYSIS < 15 (0-50); Lipase 106 U/L (23-300); Magnesium 2.1 mg/dL (1.6-2.3); Potassium 4.5 mmol/L (3.4-5.1); Sodium 141 mmol/L (137-145); Total Protein 6.3 g/dL (6.3-8.2)
[2021-11-06 14:05] LABS: Prothrombin Time 11.3 SECONDS (10.1-12.7)
[2021-11-06 14:08] LABS: PTT Partial Thromboplastin Tim 26 SECONDS (26.4-36.2)
[2021-11-06 14:14] LABS: Troponin I < 0.012 ng/mL (0.01-0.034)
--- NOTE | 2021-11-06 14:54 | DI.MRI.S_ITS ---
PROCEDURE: MR STROKE Pre- and post-contrast brain MRI, non-contrast brain MR angiogram, pre- and postcontrast neck MR angiogram INDICATIONS: stroke TECHNIQUE: Brain: Noncontrast axial T1 spin echo, axial T2 fast spin echo, sagittal and axial FLAIR, coronal T2 fast spin echo, axial gradient echo, axial diffusion and ADC through the brain. After the administration of contrast, axial 3D VIBE of the cranial vasculature and brain. Brain MRA: Non-contrast 3-D time of flight MR angiogram, with multiple yztqtez-pzgdjbzek-tdtcbfjsxc (MIP) reformats performed. Neck MRA: Axial and sagittal TruFISP through the neck. Coronal dynamic MR angiogram during administration of contrast in the arterial and venous phases, with 3-dimenstional brugmid-lweampzqp-fsksnvktkp (MIP) reformats constructed from subtraction images. COMPARISON: [facility], MR, MR BRAIN WITH/WITHOUT CONTRAST, 03/28/2021, 12:46. [facility], MR, MR HEAD/BRAIN WO/W CON, 01/21/2021, 8:01. [facility], CT, CT HEAD/BRAIN WO CON, 11/06/2021, 14:04. [facility], MR, MR HEAD/BRAIN WO/W CON, 08/15/2021, 9:12. [facility], MR, MR HEAD/BRAIN WO/W CON, 06/03/2021, 11:54. FINDINGS: Image quality: Excellent. BRAIN: CSF spaces: Ventricles are normal in size and shape. Basal cisterns are patent. No extra-axial fluid collections. Brain: Remote left frontal resection change can be seen, with volume loss and encephalomalacia. No abnormal enhancement can be seen along the margins of the resection cavity. No intracranial bleeds or mass effects. Lmeos-white matter interface is normal. Diffusion weighted images show no acute ischemic insults. Brainstem appears normal. Normal intravascular flow voids are present. No abnormal intracranial enhancement. Skull and face: Left frontal craniotomy changes are seen. Note is made of bilateral lens replacements. Calvarial marrow signal is normal. Orbits appear normal. Sinuses: Sinuses and mastoids are clear. BRAIN MR ANGIOGRAM: Anterior circulation: Intracranial internal carotid arteries are normal in size and enhancement. The flow within the paired anterior cerebral arteries is normal and symmetric. The flow within the middle cerebral arteries is normal and symmetric. The anterior communicating artery is seen. No stenoses, occlusions, or aneurysms. Posterior circulation: The visualized portions of the vertebral arteries demonstrate normal caliber, and join to form a normal appearing basilar artery. There is a prominent right posterior communicating artery seen, with an accompanying diminutive right P1 segment. This is attributed to a type origin of the right posterior cerebral artery, which is considered to be a normal developmental variant of typically no clinical consequence. The flow within the posterior cerebral arteries is normal and symmetric. No stenoses, occlusions, or aneurysms. NECK MR ANGIOGRAM: Carotids: Great vessels demonstrate a conventional anatomy as they arise from the aortic arch. The origins of the common carotid arteries appear patent. The calibers and courses of both common carotid arteries are normal. The bifurcation regions appear normal bilaterally. The internal carotid arteries demonstrate normal course and caliber. Posterior circulation: The origins of the vertebral arteries appear patent. More superior portions of both vertebral arteries demonstrate normal course and caliber. The left vertebral artery is dominant to the right. Miscellaneous: Subclavian arteries appear patent. Pre-contrast images through the neck show no soft tissue abnormalities. IMPRESSION: BRAIN MRI: Stable left frontal resection change. No abnormal enhancement can be seen adjacent to the resection cavity. No findings of acute or subacute infarction can be seen. BRAIN MR ANGIOGRAM: No significant intracranial arterial abnormality is seen. NECK MR ANGIOGRAM: Within the arteries of the neck, no hemodynamically significant stenosis can be seen. Dictated by: Chai Obando M.D. on 11/06/2021 at 15:23 Approved by: Chai Obando M.D. on 11/06/2021 at 15:27
[2021-11-06] MEDS: CLOPIDOGREL 75 MG TABLET 300 MG PO (17:23)
[2021-11-06] MEDS: ASPIRIN 325 MG TABLET PO (17:24)
[2021-11-06 18:56] VITALS: BP 142/77; PULSE 69; RESP 18; O2SAT 97
== END 2021-11-06 18:56 | disposition home or self-care (01) ==
PROVIDERS: Emergency Provider Emergency Medicine; PCP Family Medicine
DX: G45.9 Transient cerebral ischemic attack, unspecified (principal); I10 Essential (primary) hypertension
CPT/HCPCS: 70450; 70548; 70553; 71045; 80053; 82550; 83690; 83735; 84484; 85025; 85610; 85730; 93005; 99283; 99284; A9579

== ENCOUNTER → 2022-01-16 08:28 | Outpatient (CLI) | payer OTHER, SELFPAY ==
[2020-10-15 20:40] VITALS: BMI 18.0
--- NOTE | 2022-01-16 08:29 | DI.US.S_ITS ---
PROCEDURE: US ABDOMEN COMPLETE INDICATIONS: Persistent palpable and positional left upper quadrant abdom TECHNIQUE: Real-time scanning was performed of the abdominal and retroperitoneal organs, with image documentation. COMPARISON: [facility], CT, CT ABDOMEN PELVIS W CON, 01/23/2021, 10:49. [facility], US, ABDOMEN COMPLETE, 02/12/2010, 9:30. FINDINGS: Liver: Liver is normal in size and homogeneous in echotexture. Gallbladder: Absent. Biliary ducts: Intrahepatic bile ducts are non-dilated. Extrahepatic bile duct caliber measures 5 mm. Normal is 6-7 mm or less in diameter, or 10 mm or less post-cholecystectomy. Pancreas: Visualized portions of the pancreas are sonographically normal where visualized. Spleen: Spleen is normal in size and homogeneous in echotexture. Kidneys: Kidneys are normal in size and echotexture. Right kidney measures 10.2 cm long; left kidney measures 9.2 cm long. No hydronephrosis or nephrolithiasis. Echogenic focus at the left kidney superior pole measuring 1 cm. Right kidney inferior pole simple cyst measuring 0.9 cm. Aorta: Visualized aorta is normal in caliber at less than 3 cm. Iliacs: Proximal common iliac arteries are normal in caliber at less than 2.5 cm. IVC: Intrahepatic inferior vena cava is patent. IMPRESSION: 1. No abnormality identified in the region of pain in the left upper quadrant. 2. No hydronephrosis. 3. Left kidney superior pole echogenic focus measuring 1 cm. This could represent a AML or complicated cyst. It is difficult to exclude other neoplasm. This is not seen on the prior CT from 2020. Consider further evaluation with renal MRI. Recommend follow-up ultrasound in 6-12 months. Dictated by: Ambrocio Reyez M.D. on 01/16/2022 at 9:44 Approved by: Ambrocio Reyez M.D. on 01/16/2022 at 10:11
== END ==
PROVIDERS: PCP Family Medicine; Referring Provider Family Medicine; Visit Provider Family Medicine
DX: R10.9 Unspecified abdominal pain (principal)
CPT/HCPCS: 76700

== ENCOUNTER → 2022-02-03 11:36 | Outpatient (CLI) | payer OTHER, SELFPAY ==
[2020-10-15 20:40] VITALS: BMI 18.0
--- NOTE | 2022-02-03 11:38 | DI.MRI.S_ITS ---
PROCEDURE: MR ABDOMEN WO/W CON INDICATIONS: GLIOBLASTOMA;RENAL MASS TECHNIQUE: Coronal HASTE through abdomen and pelvis; axial 2D FLASH in- and [id number] (with and without fat saturation), and breath-hold T2 FSE from the hepatic dome to the bottom of the kidneys. Coronal HASTE MR urogram of kidneys and bladder. Dynamic coronal VIBE during IV gadolinium administration; postgadolinium axial VIBE or 2D FLASH with fat saturation from the hepatic dome through the kidneys. COMPARISON: , US, US ABDOMEN COMPLETE, 01/16/2022, 8:47. 01/16/2022 ultrasound FINDINGS: Image quality: Genitourinary system: No hydronephrosis. Right lower pole cyst. Right renal simple cysts are present. There are also subcentimeter left renal cysts. No lymphadenopathy. No enhancing mass identified in the kidneys. Other solid organs: Scattered liver cysts. Gallbladder is absent. Pancreas, spleen, adrenals are unremarkable. Biliary tree is unremarkable. Nodes and vessels: No lymphadenopathy. No abdominal aortic aneurysm. The renal veins are patent. Bowel and peritoneum: No obstruction. No significant ascites. Lung bases: Unremarkable Bones and soft tissues: Suspected vertebral hemangiomas. IMPRESSION: No renal mass identified. There are small renal cysts. Other incidental findings above. Dictated by: Devon Chris M.D. on 02/03/2022 at 13:43 Approved by: Devon Chris M.D. on 02/03/2022 at 13:56
--- NOTE | 2022-02-03 11:38 | DI.MRI.S_ITS ---
PROCEDURE: MR HEAD/BRAIN WO/W CON INDICATIONS: GLIOBLASTOMA;RENAL MASS TECHNIQUE: Noncontrast axial T1 spin echo, axial T2 fast spin echo, sagittal and axial FLAIR, coronal T2 fast spin echo, axial gradient echo, axial diffusion and ADC through the brain. After the administration of contrast, axial and coronal and sagittal T1 spin echo with fat saturation through the brain. COMPARISON: [facility], MR, MR HEAD/BRAIN WO/W CON, 08/15/2021, 9:12. [facility], MR, MR HEAD/BRAIN WO/W CON, 06/03/2021, 11:54. [facility], MR, MR BRAIN WITH/WITHOUT CONTRAST, 03/28/2021, 12:46. [facility], CT, CT HEAD/BRAIN WO CON, 11/06/2021, 14:04. [facility], MR, MR STROKE, 11/06/2021, 15:09. FINDINGS: Image quality: Excellent. CSF spaces: Basal cisterns are patent. No extra-axial fluid collections. Ventricles are normal in size and shape. Brain: Left frontal lobe resection change is seen anteriorly. Encephalomalacia can be seen adjacent to the resection cavity and there is mild FLAIR signal seen involving the anterior aspects of both frontal lobes, as before. There is hemosiderin deposition seen along the margins of the resection cavity, which is similar to the prior. Scrutiny is given to the margins of the left frontal lobe resection cavity. There is a small amount of enhancement seen within this region within the left basal ganglia, as on series 21 images 84-96. This enhancement is new compared to the 11/06/2021 examination. No new masses are seen elsewhere within the brain. No midline shift. There is cerebral volume loss for age. There is periventricular white matter chronic small vessel ischemic change. The brainstem appears normal. Diffusion-weighted images demonstrate no acute ischemic insults. Normal intravascular flow voids are present. Skull and face: Left frontal craniotomy changes are seen. Calvarial marrow is normal in signal. Orbits appear normal. Note is made of bilateral lens replacements. Sinuses: Sinuses and mastoids appear clear. IMPRESSION: Prior left frontal lobe resection, with abnormal enhancement seen adjacent to the resection cavity within the left basal ganglia. The appearance is highly suspicious for local recurrence. Dictated by: Chai Obando M.D. on 02/03/2022 at 12:07 Approved by: Chai Obando M.D. on 02/03/2022 at 12:11
== END ==
PROVIDERS: PCP Family Medicine; Referring Provider Internal Medicine Hematology & Oncology; Visit Provider Family Medicine
DX: C71.1 Malignant neoplasm of frontal lobe (principal); G93.89 Other specified disorders of brain; N28.89 Other specified disorders of kidney and ureter; N28.1 Cyst of kidney, acquired
CPT/HCPCS: 70553; 74183; A9579

== ENCOUNTER → 2022-03-31 08:33 | Outpatient (CLI) | payer OTHER, SELFPAY ==
[2020-10-15 20:40] VITALS: BMI 18.0
--- NOTE | 2022-03-31 | DI.MRI.S_ITS ---
PROCEDURE: MR HEAD/BRAIN WO/W CON INDICATIONS: GLIOBLASTOMA MULTIFORME OF FRONTAL LOBE TECHNIQUE: Noncontrast axial T1 spin echo, axial T2 fast spin echo, sagittal and axial FLAIR, coronal T2 fast spin echo, axial gradient echo, axial diffusion and ADC through the brain. After the administration of contrast, axial and coronal and sagittal T1 spin echo with fat saturation through the brain. COMPARISON: [facility], MR, MR HEAD/BRAIN WO/W CON, 02/03/2022, 11:46. [facility], MR, MR STROKE, 11/06/2021, 15:09. [facility], MR, MR HEAD/BRAIN WO/W CON, 06/03/2021, 11:54. [facility], MR, MR HEAD/BRAIN WO/W CON, 08/15/2021, 9:12. FINDINGS: Image quality: Excellent. CSF spaces: Basal cisterns are patent. No extra-axial fluid collections. Ventricles are normal in size and shape. Brain: Left frontal resection changes are seen. Hemosiderin deposition can be seen along the margins of the resection cavity. Adjacent to the resection cavity, there is a minimal amount of enhancement seen, which is clearly improved compared to the prior examination. Along the dura adjacent to the resection cavity, there is a [id number] amount enhancement seen, which is similar to the prior examination. No new masses or areas of abnormal enhancement can be seen elsewhere. No midline shift. There is cerebral volume loss for age. There is periventricular white matter chronic small vessel ischemic change. The brainstem appears normal. Diffusion-weighted images demonstrate no acute ischemic insults. Normal intravascular flow voids are present. Skull and face: Left frontal craniotomy changes are seen. Calvarial marrow is normal in signal. Orbits appear normal. Note is made of bilateral lens replacements. Sinuses: Sinuses and mastoids appear clear. IMPRESSION: The abnormal enhancement seen within the brain parenchyma adjacent to the left frontal resection cavity is clearly improved compared to the 02/03/2022 examination. Stable enhancement of the dura adjacent to the resection cavity. No new masses or areas of abnormal enhancement can be seen. Dictated by: Chai Obando M.D. on 03/31/2022 at 9:25 Approved by: Chai Obando M.D. on 03/31/2022 at 9:29
== END ==
PROVIDERS: PCP Family Medicine; Referring Provider Internal Medicine Hematology & Oncology; Visit Provider Internal Medicine Hematology & Oncology
DX: C71.1 Malignant neoplasm of frontal lobe (principal)
CPT/HCPCS: 70553

== ENCOUNTER → 2022-07-29 12:23 | Outpatient (CLI) | payer OTHER, SELFPAY ==
[2020-10-15 20:40] VITALS: BMI 18.0
--- NOTE | 2022-07-29 12:27 | DI.MRI.S_ITS ---
PROCEDURE: MR HEAD/BRAIN WO/W CON INDICATIONS: Malignant neoplasm of frontal lobe TECHNIQUE: Noncontrast axial T1 spin echo, axial T2 fast spin echo, sagittal and axial FLAIR, coronal T2 fast spin echo, axial gradient echo, axial diffusion and ADC through the brain. After the administration of contrast, axial and coronal and sagittal T1 spin echo with fat saturation through the brain. COMPARISON: [facility], MR, MR HEAD/BRAIN WO/W CON, 02/03/2022, 11:46. [facility], MR, MR STROKE, 11/06/2021, 15:09. [facility], MR, MR HEAD/BRAIN WO/W CON, 08/15/2021, 9:12. [facility], MR, MR HEAD/BRAIN WO/W CON, 06/03/2021, 11:54. [facility], MR, MR BRAIN WITH/WITHOUT CONTRAST, 03/28/2021, 12:46. [facility], MR, MR HEAD/BRAIN WO/W CON, 01/21/2021, 8:01. FINDINGS: Image quality: Excellent. CSF spaces: Basal cisterns are patent. No extra-axial fluid collections. Ventricles are normal in size and shape. Brain: Postoperative changes are seen, with resection of the anterior left frontal lobe. Volume loss and adjacent encephalomalacia can be seen. Hemosiderin deposition can be seen along the margins of the resection cavity. Along the posterior aspect of the resection cavity there is again seen a small focus of enhancement within the adjacent brain parenchyma measuring 3-4 mm, as on series 13, image 94. This is not significantly changed compared to the prior examination. There is stable enhancement seen along the dural lateral to the resection cavity. No new areas of enhancement are seen. No new masses. No midline shift. There is cerebral volume loss for age. There is periventricular white matter chronic small vessel ischemic change. The brainstem appears normal. Diffusion-weighted images demonstrate no acute ischemic insults. Normal intravascular flow voids are present. Skull and face: Prior left-sided craniotomy changes are seen. Calvarial marrow is normal in signal. Note is made of bilateral lens replacements. Both globes appear somewhat elongated. Sinuses: Sinuses and mastoids appear clear. IMPRESSION: There is a stable mild focus of parenchymal enhancement seen posterior to the resection cavity within the left frontal lobe, which is not significantly changed compared to the prior MRI. Stable dural enhancement can be seen, which is attributed to a normal postoperative finding. No new masses are seen. No new areas of enhancement can be seen. Dictated by: Chai Obando M.D. on 07/29/2022 at 13:59 Approved by: Chai Obando M.D. on 07/29/2022 at 14:02
== END ==
PROVIDERS: PCP Family Medicine; Referring Provider Internal Medicine Hematology & Oncology; Visit Provider Internal Medicine Hematology & Oncology
DX: C71.1 Malignant neoplasm of frontal lobe (principal)
CPT/HCPCS: 70553; A9579

== ENCOUNTER 2022-08-15 14:40 | Inpatient (IN) | payer OTHER, SELFPAY ==
[2020-10-15 20:40] VITALS: BMI 18.0
[2022-08-15] VITALS (21 sets, daily range): BP systolic 158–225; BP diastolic 74–100; PULSE 76–98; RESP 15–28; TEMP 36.9–38.5; O2SAT 95–97; BMI 17.7
--- NOTE | 2022-08-15 14:54 | ED_ITS ---
HPI - General Adult General Chief complaint: Weakness Stated complaint: Lethargy Time Seen by Provider: 08/15/22 14:47 Source: patient and EMS Mode of arrival: EMS Limitations: altered mental status History of Present Illness HPI narrative: Patient is a 77-year-old female. Has a history of a glioblastoma. Is brought in by EMS for evaluation of mental status changes. Is reported by EMS that the patient does live by herself. Unsure how they were contacted today but fairly the patient has not been as active nor answering questions as readily as she has been in the past. Here in the emergency department patient has no specific complaints although she does not answer all of the HPI or review of systems ques tions. She did denied chest pain and shortness of breath. She denied any pain in her arms or legs. There is no signs of trauma. Related Data Home Medications Medication Instructions Recorded Confirmed triamcinolone acetonide 55 mcg 2 spray intranasal DAILY 11/03/18 12/13/21 nasal spray aerosol (Nasacort) fluticasone propionate 44 1 inh inhalation DAILY 06/11/20 12/13/21 mcg/actuation HFA aerosol inhaler mometasone-formoterol HFA 200 1 puff inhalation BID 06/11/20 12/13/21 mcg-5 mcg/actuation aerosol inhaler (Dulera) ondansetron HCl 8 mg tablet 8 mg PO PRN nausea and vomiting 11/06/20 12/13/21 aspirin 81 mg tablet,delayed 81 mg PO DAILY 12/13/21 12/13/21 release (Adult Aspirin Regimen) Previous Rx's Medication Instructions Recorded lidocaine 5 % topical patch 1 patch topical DAILY #30 ea 02/19/22 Allergies Allergy/AdvReac Type Severity Reaction Status Date / Time estradiol [ESTRADIOL] AdvReac Severe blood clots Verified 08/15/22 14:50 fluoxetine [FLUOXETINE] AdvReac Severe Nausea, Verified 08/15/22 14:50 vomiting, blurry vision, made IBS worse citalopram AdvReac Intermediate Nausea Verified 08/15/22 14:50 Review of Systems Review of Systems Narrative: See HPI, somewhat limited secondary to patient's ability/willingness to answer questions. 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 Grandfather Stroke Grandmother Cancer Social History household members: spouse Smoking Status: Never smoker second hand exposure: No alcohol intake: current substance use type: does not use Smoking Status: Never smoker alcohol intake frequency: holidays/special occasions only Substance Use Type: does not use Exam Initial Vital Signs Initial Vital Signs: Vital Signs Temperature 100.8 F H 08/15/22 14:45 Pulse Rate 95 H 08/15/22 14:45 Respiratory Rate 15 08/15/22 14:45 Blood Pressure 215/100 H 08/15/22 14:45 Pulse Oximetry 96 08/15/22 14:45 Oxygen Delivery Method 08/15/22 14:45 Const General: comfortable and No ill appearing [facility] Head: normal to inspection and normocephalic Resp Effort & Inspection: normal respiratory effort Auscultation: clear to auscultation bilaterally Cardio Rate: regular rate Rhythm: regular rhythm GI Palpation: soft, No firm and No tender Skin General: no rashes or lesions noted Neuro General: patient alert, patient awake, patient oriented x3 and moves all extremities Extrem General: normal to inspection and capillary refill normal Psych Appearance: well kempt Scores GCS Anyi coma scale eye opening: Spontaneous Conway coma scale verbal response: Words Anyi coma scale motor response: Obey commands Conway coma scale total score: 13 Course Orders Ordered: ED Orders 08/15/22 14:56 CT head/brain wo con Stat XR chest 1V Stat 08/15/22 14:57 Urine Drug Screen, Rapid Stat 08/15/22 15:00 Complete Blood Count AUTO DIFF Stat Comprehensive Metabolic Panel Stat Ethanol (ETOH) Stat Lactate (Lactic Acid) Stat Lipase Stat Magnesium Stat Procalcitonin Stat Troponin & CK Cardiac Panel Stat 08/15/22 15:41 COVID19 -Nasal RAPID/Pre-Proc Stat 08/15/22 15:47 Blood Culture Stat EKG-12 Lead Stat Sodium Chloride (Normal Saline 0.9%) 1,000 mls @ 125 mls/hr IV CONT MARE Last Admin: 08/15/22 16:23 Dose: 125 mls/hr Documented By: AT Discontinued Medications Ceftriaxone Sodium 1,000 mg/ (Sodium Chloride) 100 mls @ 200 mls/hr IV NOW ONE Stop: 08/15/22 15:56 Last Infusion: 08/15/22 16:55 Dose: 0 mls/hr Documented By: Admin: 08/15/22 16:23 Dose: 200 mls/hr Documented By: AT Vital Signs Vital signs: Vital Signs - 8 hr 08/15/22 14:45 08/15/22 14:46 08/15/22 14:46 Temperature 100.8 F H Pulse Rate 95 H 95 H Respiratory Rate 15 Blood Pressure 215/100 H 215/100 H Pulse Oximetry 96 Oxygen Delivery Method Room Air 08/15/22 15:00 08/15/22 15:00 08/15/22 15:30 Temperature Pulse Rate 90 Respiratory Rate 23 Blood Pressure 201/91 H 215/94 H Pulse Oximetry 95 Oxygen Delivery Method Room Air 08/15/22 16:00 08/15/22 16:30 08/15/22 17:00 Temperature Pulse Rate 89 89 91 H Respiratory Rate 22 19 Blood Pressure 189/88 H 187/90 H 187/90 H Pulse Oximetry 96 96 96 Oxygen Delivery Method Room Air Room Air Room Air 08/15/22 17:30 Temperature Pulse Rate 98 H Respiratory Rate 28 H Blood Pressure 184/88 H Pulse Oximetry Oxygen Delivery Method Medical Decision Making Medical Records Medical records reviewed: Yes I reviewed the patient's medical records. Lab Data Lab results reviewed: Yes I reviewed the patient's lab results. 08/15/22 15:00 08/15/22 15:00 Labs: Lab Results 08/15/22 08/15/22 08/15/22 Range/Units 15:00 15:00 15:00 WBC 4.0 L (4.5-11.0) X10^3/uL RBC 4.62 (4.0-5.2) X10^6/uL Hgb 13.7 (12.0-16.0) g/dL Hct 41.0 (36-46) % MCV 88.8 (80-100) fL MCH 29.6 (26-34) PG MCHC 33.4 (30-36) % RDW 13.0 (11.6-14.8) % Plt Count 116 L (150-400) X10^3/uL Neut % (Auto) 74.5 (50-75) % Lymph % (Auto) 15.9 L (25-40) % Sumter % (Auto) 9.1 (3-14) % Eos % (Auto) 0.0 L (2-4) % Baso % (Auto) 0.5 (0-2) % Neut # (Auto) 3000 (9740-9592) /uL Lymph # (Auto) 600 L (7314-9580) /uL Sumter # (Auto) 400 (0-900) /uL Eos # (Auto) 0 (0-450) /uL Baso # (Auto) 0 (0-100) /uL Sodium 134 L (137-145) mmol/L Potassium 4.2 (3.4-5.1) mmol/L Chloride 101 (98-107) mmol/L Carbon Dioxide 24 (22-32) mmol/L BUN 12 (7-17) mg/dL Creatinine 0.59 (0.52-1.04) mg/dL Estimated GFR > 60 (>60) mL/min BUN/Creatinine Ratio 20.3 (6-22) Glucose 86 (80-110) mg/dL Lactate 0.8 (0.7-2.1) mmol/L Calcium 8.5 (8.4-10.2) mg/dL Magnesium 1.7 (1.6-2.3) mg/dL Total Bilirubin 0.9 (0.2-1.3) mg/dL AST 40 H (14-36) IU/L ALT 40 H (<35) IU/L Alkaline Phosphatase 71 (38-126) U/L Total Creatine Kinase 58 (30-135) U/L CK-MB (CK-2) TNP CK-MB (CK-2) Rel Index TNP Troponin I < 0.012 (0.01-0.034) ng/mL Total Protein 6.2 L (6.3-8.2) g/dL Albumin 3.7 (3.5-5.0) g/dL Globulin 2.5 (1.7-4.1) g/dL Albumin/Globulin Ratio 1.5 (1.0-2.8) Lipase 103 (23-300) U/L Procalcitonin 0.07 (<0.5) ng/mL Ethyl Alcohol < 10 ( - 10) mg/dL SARS-CoV-2 (PCR) (Negative) 08/15/22 Range/Units 15:41 WBC (4.5-11.0) X10^3/uL RBC (4.0-5.2) X10^6/uL Hgb (12.0-16.0) g/dL Hct (36-46) % MCV (80-100) fL MCH (26-34) PG MCHC (30-36) % RDW (11.6-14.8) % Plt Count (150-400) X10^3/uL Neut % (Auto) (50-75) % Lymph % (Auto) (25-40) % Sumter % (Auto) (3-14) % Eos % (Auto) (2-4) % Baso % (Auto) (0-2) % Neut # (Auto) (1932-6784) /uL Lymph # (Auto) (1410-4998) /uL Sumter # (Auto) (0-900) /uL Eos # (Auto) (0-450) /uL Baso # (Auto) (0-100) /uL Sodium (137-145) mmol/L Potassium (3.4-5.1) mmol/L Chloride (98-107) mmol/L Carbon Dioxide (22-32) mmol/L BUN (7-17) mg/dL Creatinine (0.52-1.04) mg/dL Estimated GFR (>60) mL/min BUN/Creatinine Ratio (6-22) Glucose (80-110) mg/dL Lactate (0.7-2.1) mmol/L Calcium (8.4-10.2) mg/dL Magnesium (1.6-2.3) mg/dL Total Bilirubin (0.2-1.3) mg/dL AST (14-36) IU/L ALT (<35) IU/L Alkaline Phosphatase (38-126) U/L Total Creatine Kinase (30-135) U/L CK-MB (CK-2) CK-MB (CK-2) Rel Index Troponin I (0.01-0.034) ng/mL Total Protein (6.3-8.2) g/dL Albumin (3.5-5.0) g/dL Globulin (1.7-4.1) g/dL Albumin/Globulin Ratio (1.0-2.8) Lipase (23-300) U/L Procalcitonin (<0.5) ng/mL Ethyl Alcohol ( - 10) mg/dL SARS-CoV-2 (PCR) Positive H (Negative) Imaging Data Chest x-ray: Radiologist's Impression: [place] [address] XRay Report Signed Patient: Precious Gtz MR#: [id number] : 1945 Acct:[id number] Age/Sex: 77 / F Date of Service: 08/15/22 Loc: ED Accession Number: [id number] ?? Procedure: XR chest 1V Ordering Provider: Freddie Sanchez D.O. PROCEDURE:? XR CHEST 1V ? INDICATIONS:? Eval for pneumonia ? TECHNIQUE:? One view of the chest was acquired.? ? COMPARISON:? [facility], , XR CHEST 1V, 11/06/2021, 13:29. ? FINDINGS:? ? Surgical changes and devices:? Left-sided Port-A-Cath tip in the mid SVC ? Lungs and pleura:? Lungs are clear.? No pleural effusions or pneumothorax.? Hyperinflation chronic interstitial changes present. ? Mediastinum:? Mediastinal contours appear normal.? Heart size is normal.? Generalized decrease in osseous mineralization noted. ? Bones and chest wall:? No suspicious bony lesions.? Overlying soft tissues appear unremarkable.? ? IMPRESSION:? ? Hyperinflation without acute cardiopulmonary findings ? ? ? Approved by: Anibal Almaraz M.D. on 08/15/2022 at 14:51? CT scan - head: Radiologist's Impression: [address] [address] [address] Scan Report Signed Patient: Precious Gtz MR#: [id number] : 1945 Acct:[id number] Age/Sex: 77 / F Date of Service: 08/15/22 Loc: ED Accession Number: [id number] ?? Procedure: CT head/brain wo con Ordering Provider: Freddie Sanchez D.O. PROCEDURE:? CT HEAD/BRAIN WO CON ? INDICATIONS:? 77-year-old female with altered mental status and history of glioblastoma ? TECHNIQUE:? Noncontrast 4.5 mm thick angled axial sections acquired from the foramen magnum to the vertex, with coronal and sagittal reformats.? For radiation dose reduction, the following was used:? automated exposure control, adjustment of mA and/or kV according to patient size.? ? COMPARISON:? [facility], MR, MR HEAD/BRAIN WO/W CON, 07/29/2022, 12:39.? [facility], CT, CT HEAD/BRAIN WO CON, 11/06/2021, 14:04. ? FINDINGS:? Image quality:? Excellent.? ? CSF spaces:? Basal cisterns are patent.? No extra-axial fluid collections.? Ventricles are normal in size and shape.? ? Brain:? There has been resection of the inferior left frontal lobe associated with peripheral gliosis and dystrophic punctate calcification, without change from the prior exam.? No mass effect or midline shift.? No evidence of parenchymal hemorrhage. ? Skull and face:? Left frontal craniotomy secured by 4 round and 1 dog bone straight plates. ? Sinuses:? Visualized sinuses and mastoids are clear.? ? IMPRESSION:? ? No acute findings.? No intracranial hemorrhage or mass effect ? Stable left frontal lobe resection without evidence of recurrent or residual disease ? ? ? Approved by: Anibal Almaraz M.D. on 08/15/2022 at 14:47? ECG Data Attestation: I personally reviewed and interpreted this ECG as follows: Interpretation: Sinus rhythm Ventricular rate 90 Left axis deviation Normal QRS Normal QTC No ST T changes MDM Narrative Medical decision making narrative: Patient did arrive by EMS. She was able to follow commands but was confused and just saying words when asked about her HPI and review of systems. She is COVID positive. Potentially this has been the result of her decline over the past couple days. Family friends eventually arrived at bedside and stated that the patient does have home Health but they check on her frequently and she is been declining over the past couple days. There is no signs of any trauma. Her head CT is unremarkable. She was febrile but is also positive for COVID. We were unable to get a urine sample as she urinated as they were putting in the Becker catheter. Blood cultures were obtained. She was given Rocephin. Has not been hypotensive. She is not at her baseline mental status per her family friends at bedside. She does not have any localizing signs would make me concern for CVA. Given presentation and labs and altered mental status and COVID status will admit to the hospital for further evaluation. Discussed case with Dr. Cabello on- call with hospitalist who will admit for further evaluation and treatment. Discuss the need for admission with the patient and family friends at bedside. They expressed understanding agreement as well. Discharge Plan Departure Patient Disposition: Admitted As Inpatient Clinical Impression: COVID-19, Altered mental status Admit Date/Time: 08/15/22 17:59 Admit Provider: Tony Cabello
--- NOTE | 2022-08-15 14:56 | DI.RAD.S_ITS ---
PROCEDURE: XR CHEST 1V INDICATIONS: Eval for pneumonia TECHNIQUE: One view of the chest was acquired. COMPARISON: [facility], CR, XR CHEST 1V, 11/06/2021, 13:29. FINDINGS: Surgical changes and devices: Left-sided Port-A-Cath tip in the mid SVC Lungs and pleura: Lungs are clear. No pleural effusions or pneumothorax. Hyperinflation chronic interstitial changes present. Mediastinum: Mediastinal contours appear normal. Heart size is normal. Generalized decrease in osseous mineralization noted. Bones and chest wall: No suspicious bony lesions. Overlying soft tissues appear unremarkable. IMPRESSION: Hyperinflation without acute cardiopulmonary findings Approved by: Anibal Almaraz M.D. on 08/15/2022 at 14:51
--- NOTE | 2022-08-15 14:56 | DI.CT.S_ITS ---
PROCEDURE: CT HEAD/BRAIN WO CON INDICATIONS: 77-year-old female with altered mental status and history of glioblastoma TECHNIQUE: Noncontrast 4.5 mm thick angled axial sections acquired from the foramen magnum to the vertex, with coronal and sagittal reformats. For radiation dose reduction, the following was used: automated exposure control, adjustment of mA and/or kV according to patient size. COMPARISON: [facility], MR, MR HEAD/BRAIN WO/W CON, 07/29/2022, 12:39. [facility], CT, CT HEAD/BRAIN WO CON, 11/06/2021, 14:04. FINDINGS: Image quality: Excellent. CSF spaces: Basal cisterns are patent. No extra-axial fluid collections. Ventricles are normal in size and shape. Brain: There has been resection of the inferior left frontal lobe associated with peripheral gliosis and dystrophic punctate calcification, without change from the prior exam. No mass effect or midline shift. No evidence of parenchymal hemorrhage. Skull and face: Left frontal craniotomy secured by 4 round and 1 dog bone straight plates. Sinuses: Visualized sinuses and mastoids are clear. IMPRESSION: No acute findings. No intracranial hemorrhage or mass effect Stable left frontal lobe resection without evidence of recurrent or residual disease Approved by: Anibal Almaraz M.D. on 08/15/2022 at 14:47
[2022-08-15 15:16] LABS: Add Manual Diff / Slide Review NO; Basophils Absolute Auto 0 /uL (0-100); Basophils Percent Auto 0.5 % (0-2); Eosinophils Absolute Auto 0 /uL (0-450); Hemoglobin 13.7 g/dL (12.0-16.0); Lymphocytes Absolute Auto 600 /uL (1100-4500); Lymphocytes Percent Auto 15.9 % (25-40); Mean Corpuscular HGB Conc 33.4 % (30-36); Mean Corpuscular Hemoglobin 29.6 PG (26-34); Mean Corpuscular Volume 88.8 fL (80-100); Monocytes Absolute Auto 400 /uL (0-900); Monocytes Percent Auto 9.1 % (3-14); Neutrophils Absolute Auto 3000 /uL (1500-7000); Neutrophils Percent Auto 74.5 % (50-75); Platelet Count 116 X10^3/uL (150-400); Red Blood Cell Count 4.62 X10^6/uL (4.0-5.2)
[2022-08-15 15:31] LABS: Alanine Aminotransferase 40 IU/L (<35); Albumin 3.7 g/dL (3.5-5.0); Albumin Globulin Ratio 1.5 (1.0-2.8); Alkaline Phosphatase 71 U/L (38-126); Aspartate Aminotransferase 40 IU/L (14-36); BUN Creatinine Ratio 20.3 (6-22); Bilirubin Total 0.9 mg/dL (0.2-1.3); Blood Urea Nitrogen 12 mg/dL (7-17); Calcium 8.5 mg/dL (8.4-10.2); Carbon Dioxide 24 mmol/L (22-32); Chloride 101 mmol/L (98-107); Creatine Kinase 58 U/L (30-135); Estimated Glomerular Filt Rate > 60 mL/min (>60); Ethanol (ETOH) < 10 mg/dL; Globulin 2.5 g/dL (1.7-4.1); Glucose 86 mg/dL (80-110); HEMOLYSIS < 15 (0-50); Lipase 103 U/L (23-300); Magnesium 1.7 mg/dL (1.6-2.3); Potassium 4.2 mmol/L (3.4-5.1); Sodium 134 mmol/L (137-145); Total Protein 6.2 g/dL (6.3-8.2)
[2022-08-15 15:43] LABS: Troponin I < 0.012 ng/mL (0.01-0.034)
[2022-08-15 15:47] LABS: Procalcitonin 0.07 ng/mL (<0.5)
[2022-08-15] MEDS: cefTRIAXone 1,000 MG in SODIUM CHLORIDE 0.9% 100 ML 200 MG IV (16:23)
[2022-08-15] MEDS: SODIUM CHLORIDE 0.9% 1,000 ML 125 ML IV (16:23)
[2022-08-15 16:34] LABS: COVID19 -Nasal RAPID POSITIVE (Negative)
--- NOTE | 2022-08-15 16:35 | PC.NURSE ---
Patient friends who called EMS are at bedside, they have notes from the caregivers which report pt fell yesterday at 0300 and has become less responsive since, speaking in shorter sentences, now only answering basic, yes and no questions. Pt has also new onset incontinence in the past couple days. Dr. Sanchez notified.
[2022-08-15 16:41] LABS: Lactate (Lactic Acid) 0.8 mmol/L (0.7-2.1)
[2022-08-15 20:56] LABS: Appearance Urine UA CLEAR; Bilirubin Urine UA NEGATIVE (NEGATIVE); Color Urine UA YELLOW; Glucose Urine UA NEGATIVE (Negative); Ketones Urine UA 2+ (NEGATIVE); Leukocyte Esterase Urine UA NEGATIVE (NEGATIVE); Nitrite Urine UA NEGATIVE (Negative); Occult Blood Urine UA 2+ (Negative); Protein Urine UA 2+ (Negative); Specific Gravity Urine UA >=1.030 (1.000-1.035); Urobilinogen Urine UA 0.2 E.U./dL (0.2)
[2022-08-15] MEDS: HEPARIN 5,000 UNIT/ML VIAL 5000 UNIT SUBCUT (20:58)
[2022-08-15 21:00] LABS: UR Morphine/Opiate cutoff 300 Negative (Negative); Ur Creatinine Normal (Normal); Ur Specific Gravity Normal (Normal); Urine Amphetamines Negative (Negative); Urine Barbiturates Negative (Negative); Urine Benzodiazepines Negative (Negative); Urine Cocaine Negative (Negative); Urine MDMA Negative (Negative); Urine Methadone Negative (Negative); Urine Methamphetamines Negative (Negative); Urine Oxycodone Negative (Negative); Urine Phencyclidine Negative (Negative); Urine Tetrahydrocannabinol Negative (Negative); Urine Tricyclic Antidepressant Negative (Negative); Urine pH Normal (Normal)
[2022-08-15 21:07] LABS: Bacteria Urine None Seen; Culture Indicated Urine Cult Not Indicated; RBC Urine 0-1/HPF (0-5/HPF); Squamous Epithelial Cell Urine 0-1 /HPF (0-5/HPF); WBC Urine None Seen (0-5/HPF)
[2022-08-15] MEDS: LABETALOL 20 MG/4 ML SYRINGE 10 MG IV (21:47)
--- NOTE | 2022-08-15 21:55 | P.HP_ITS ---
History of Present Illness History of Present Illness Date Patient Seen: 08/15/22 Time Patient Seen: 21:56 Chief complaint: Lethargy Narrative: Precious Gtz is a 77 y.o. female undergoing monitoring for a glioblastoma reportedly brought into the ED for evaluation of mental status changes. Per the ED provider's notes, Is reported by EMS that the patient does live by herself.? Unsure how they were contacted today but fairly the patient has not been as active nor answering questions as readily as she has been in the past.? Here in the emergency department patient has no specific complaints although she does not answer all of the HPI or review of systems questions.? She did denied chest pain and shortness of breath.? She denied any pain in her arms or legs.? There is no signs of trauma. Patient is unable to provide a meaningful history or review of systems. She is under the care of Dr. Arreola oncologist, appearing to having seen him last in October of last year. Chest x-ray was negative for any acute cardiopulmonary process. Head CT did not identify any acute findings noted a stable left frontal lobe resection without evidence of recurrent or residual disease. She is febrile with a T-max of 101.3? blood pressure 196/96 heart rate 76 respiratory rate 19 oxygen saturation of 97% on room air she weighs 48 kg with a BMI of 17.7 WBC is actually low at 4.0 platelet count 116 she has lymphopenia sodium was 134 AST 40 ALT 40 UA was negative for UTI and COVID-19 PCR is positive. She was administered a prophylactic dose of IV ceftriaxone in the case that she developed a positive UA which turns out it is negative. 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 Grandfather Stroke Grandmother Cancer Social History: household members spouse Safety & Behavioral: Feels Safe in Current Yes Environment Been Physically Hurt or No Threatened By a Person Tobacco & Substance use: Smoking Status Never smoker alcohol intake current alcohol intake frequency holiday/special occasion Substance Use Type does not use Meds Home Medications and Allergies Home Medications Medication Instructions Recorded Confirmed Type triamcinolone acetonide 55 mcg 2 spray intranasal DAILY 11/03/18 12/13/21 History nasal spray aerosol (Nasacort) fluticasone propionate 44 1 inh inhalation DAILY 06/11/20 12/13/21 History mcg/actuation HFA aerosol inhaler mometasone-formoterol HFA 200 1 puff inhalation BID 06/11/20 12/13/21 History mcg-5 mcg/actuation aerosol inhaler (Dulera) ondansetron HCl 8 mg tablet 8 mg PO PRN nausea and vomiting 11/06/20 12/13/21 History aspirin 81 mg tablet,delayed 81 mg PO DAILY 12/13/21 12/13/21 History release (Adult Aspirin Regimen) lidocaine 5 % topical patch 1 patch topical DAILY #30 ea 02/19/22 02/19/22 Rx Allergies Allergy/AdvReac Type Severity Reaction Status Date / Time estradiol [ESTRADIOL] AdvReac Severe blood clots Verified 08/15/22 14:50 fluoxetine [FLUOXETINE] AdvReac Severe Nausea, Verified 08/15/22 14:50 vomiting, blurry vision, made IBS worse citalopram AdvReac Intermediate Nausea Verified 08/15/22 14:50 Review of Systems Review of Systems ROS: Yes unobtainable due to mental status Exam Vital Signs (past 8 hours): - 08/15/22 14:45 08/15/22 14:46 08/15/22 14:46 Temperature 100.8 F H Pulse Rate 95 H 95 H Respiratory Rate 15 Blood Pressure 215/100 H 215/100 H Pulse Oximetry 96 Oxygen Delivery Method Room Air Oxygen Flow Rate 08/15/22 15:00 08/15/22 15:00 08/15/22 15:30 Temperature Pulse Rate 90 Respiratory Rate 23 Blood Pressure 201/91 H 215/94 H Pulse Oximetry 95 Oxygen Delivery Method Room Air Oxygen Flow Rate 08/15/22 16:00 08/15/22 16:30 08/15/22 17:00 Temperature Pulse Rate 89 89 91 H Respiratory Rate 22 19 Blood Pressure 189/88 H 187/90 H 187/90 H Pulse Oximetry 96 96 96 Oxygen Delivery Method Room Air Room Air Room Air Oxygen Flow Rate 08/15/22 17:30 08/15/22 18:00 08/15/22 18:30 Temperature Pulse Rate 98 H 93 H 92 H Respiratory Rate 28 H 21 22 Blood Pressure 184/88 H 188/92 H 181/91 H Pulse Oximetry Oxygen Delivery Method Oxygen Flow Rate 08/15/22 19:00 08/15/22 18:00 08/15/22 20:15 Temperature 98.5 F 101.3 F H Pulse Rate 93 H 91 H Respiratory Rate 18 21 Blood Pressure 179/82 H 207/98 H Pulse Oximetry 97 Oxygen Delivery Method Oxygen Flow Rate 0 08/15/22 21:47 Temperature Pulse Rate Respiratory Rate Blood Pressure 225/100 H Pulse Oximetry Oxygen Delivery Method Oxygen Flow Rate Oxygen Delivery Method Room Air Oxygen Flow Rate 0 Narrative Exam Narrative: Gen: Arousable and very thin 77 y.o. female, she appears uncomfortable HEENT: normocephalic, atraumatic, conjunctiva clear, sclera non-icteric, oral mucosa pink and moist Neck: supple, full ROM, no JVD, trachea is midline Resp: Lungs CTA, non-labored breathing Chest: She has a port on the left side of her chest appears to be intact with no signs of infection CV: RRR, no murmur or rubs Abd: soft, non-tender, normoactive BTs Skin: no lesions or rashes, dry and intact Neuro: Lethargic with slow verbal response. GCS of 13 Extremities: moves all 4 extremities, is ambulatory, negative Aristeo?s sign Psyche: Depressed affect Objective Labs 08/15/22 15:00 08/15/22 15:00 Labs: Laboratory Results - last 24 hr 08/15/22 08/15/2208/15/23 15:00 15:00 15:00 WBC 4.0 L RBC 4.62 Hgb 13.7 Hct 41.0 MCV 88.8 MCH 29.6 MCHC 33.4 RDW 13.0 Plt Count 116 L Neut % (Auto) 74.5 Lymph % (Auto) 15.9 L [place] % (Auto) 9.1 Eos % (Auto) 0.0 L Baso % (Auto) 0.5 Neut # (Auto) 3000 Lymph # (Auto) 600 L [place] # (Auto) 400 Eos # (Auto) 0 Baso # (Auto) 0 Sodium 134 L Potassium 4.2 Chloride 101 Carbon Dioxide 24 BUN 12 Creatinine 0.59 Estimated GFR > 60 BUN/Creatinine Ratio 20.3 Glucose 86 Lactate 0.8 Calcium 8.5 Magnesium 1.7 Total Bilirubin 0.9 AST 40 H ALT 40 H Alkaline Phosphatase 71 Total Creatine Kinase 58 CK-MB (CK-2) TNP CK-MB (CK-2) Rel Index TNP Troponin I < 0.012 Total Protein 6.2 L Albumin 3.7 Globulin 2.5 Albumin/Globulin Ratio 1.5 Lipase 103 Procalcitonin 0.07 Urine Color Urine Appearance Urine pH Ur Specific Sarah Urine Protein Urine Glucose (UA) Urine Ketones Urine Occult Blood Urine Nitrate Urine Bilirubin Urine Urobilinogen Ur Leukocyte Esterase Urine RBC Urine WBC Ur Squamous Epith Cells Urine Bacteria Ur Culture Indicated? U Opiates 300ng/mL cut Ur Oxycodone Screen Urine Methadone Screen Ur Barbiturates Screen U Tricyclic Antidepress Ur Phencyclidine Scrn Ur Amphetamines Screen U Methamphetamines Scrn Ur MDMA Scrn (Ecstasy) U Benzodiazepines Scrn Urine Cocaine Screen U Marijuana (THC) Screen Ethyl Alcohol < 10 SARS-CoV-2 (PCR) 08/15/22 08/15/22 08/15/22 15:41 20:50 20:50 WBC RBC Hgb Hct MCV MCH MCHC RDW Plt Count Neut % (Auto) Lymph % (Auto) [place] % (Auto) Eos % (Auto) Baso % (Auto) Neut # (Auto) Lymph # (Auto) [place] # (Auto) Eos # (Auto) Baso # (Auto) Sodium Potassium Chloride Carbon Dioxide BUN Creatinine Estimated GFR BUN/Creatinine Ratio Glucose Lactate Calcium Magnesium Total Bilirubin AST ALT Alkaline Phosphatase Total Creatine Kinase CK-MB (CK-2) CK-MB (CK-2) Rel Index Troponin I Total Protein Albumin Globulin Albumin/Globulin Ratio Lipase Procalcitonin Urine Color Yellow Urine Appearance Clear Urine pH 6.0 Ur Specific Sarah >=1.030 H Urine Protein 2+ H Urine Glucose (UA) Negative Urine Ketones 2+ H Urine Occult Blood 2+ H Urine Nitrate Negative Urine Bilirubin Negative Urine Urobilinogen 0.2 Ur Leukocyte Esterase Negative Urine RBC 0-1/hpf Urine WBC None seen Ur Squamous Epith Cells 0-1 /hpf Urine Bacteria None seen Ur Culture Indicated? Cult not indicated U Opiates 300ng/mL cut Negative Ur Oxycodone Screen Negative Urine Methadone Screen Negative Ur Barbiturates Screen Negative U Tricyclic Antidepress Negative Ur Phencyclidine Scrn Negative Ur Amphetamines Screen Negative U Methamphetamines Scrn Negative Ur MDMA Scrn (Ecstasy) Negative U Benzodiazepines Scrn Negative Urine Cocaine Screen Negative U Marijuana (THC) Screen Negative Ethyl Alcohol SARS-CoV-2 (PCR) Positive H Assessment & Plan Assessment & Plan narrative: Chioma Gtz is is placed into an observation bed for further evaluation of what appears to be some level of encephalopathy from her baseline. Acute encephalopathy, present on admission * Patient has a very slow verbal response and speaks in one-word phrases, does not complete or spontaneously speak in sentences. * Suspect may have something to do with her glioblastoma and will contact Dr. Carroll in the morning to advise of her admission * Repeat labs and procalcitonin to see if she is developed any more obvious sign of infection History of glioblastoma unknown if acute or chronic * See above will contact her oncologist for further evaluation * It was recommended the patient undergo an MRI of her head however there was 1 done on July 29 of this year which indicated a ?stable mild focus of parenchymal enhancement seen posterior to the resection cavity within the left frontal lobe which is not significantly changed compared to prior MRI. ? No new masses or lesions seen. Hypertensive urgency, acute, present on admission * Her blood pressure is currently 196/96 and has been given IV hydralazine * She is also ordered for troponin series Other independent historians: None Discussion of results, plan of care with independent HCP/other daytime hospitalist Reviewed outside records: Oncology notes and outpatient notes VTE Prophylaxis: Wells risk score 2.5 she is written for heparin 5000 units subQ twice daily X Bilateral SCDs Patient is placed into observation as her stay is not expected to exceed 2 midnights. FEN: IV fluids: NS at 125 ml/hr, diet: general when she is more awake, labs: CBC, C/BMP, liver enzymes, Mag, PT/INR Consultants None, but will contact oncology in the am Social determinants of health: unknown Dispo: probable d/c to home Code status: full code [X] I have utilized all available immediate resources to obtain, update, or review of the patient's current medications VTE Deep Vein Thrombosis/Pulmonary Embolism Present on Admission: No COVID-19 COVID-19 status: Positive Result date/Date tested (Pos, Neg/Pending): 08/15/22 Time Spent With Patient Critical Care time: I spent a total of [] minutes of critical care time on this patient's care today; this time is exclusive of procedural time. Scores GCS Rives coma scale eye opening: Spontaneous Rives coma scale verbal response: Words Anyi coma scale motor response: Obey commands Anyi coma scale total score: 13 Wells' Criteria for PE Clinical signs and symptoms of DVT: No PE is #1 Dx or equally likely: No Heart rate > 100: No Immobilization at least 3 days or surg in previous 4 weeks: Yes History of PE or DVT: No Hemoptysis: No Malignancy w/Treatment within 6 months or palliative: Yes Wells' PE Score total: 2.5 Quality VTE Deep Vein Thrombosis/Pulmonary Embolism Present on Admission: No MIPS - Admit The patient?s Advance Care plan is not present because I confirmed today that t he patient does not wish or was not able to name a surrogate decision maker or provide an Advance Care Plan.: Yes MIPS - DC The patient has a history of heart transplant or Left Ventricular Assist Device (LVAD). If yes, STOP here.: No
[2022-08-15] MEDS: ACETAMINOPHEN 650 MG SUPP PR (23:02)
[2022-08-15] MEDS: HYDRALAZINE 20 MG/ML VIAL 10 MG IV (23:03)
[2022-08-15] MEDS: KETOROLAC 30 MG/ML VIAL 15 MG IV (23:04)
[2022-08-15 23:31] LABS: Add Manual Diff / Slide Review NO; Basophils Absolute Auto 0 /uL (0-100); Basophils Percent Auto 0.6 % (0-2); Eosinophils Absolute Auto 0 /uL (0-450); Eosinophils Percent Auto 0.3 % (2-4); Hematocrit 39.8 % (36-46); Hemoglobin 13.4 g/dL (12.0-16.0); Lymphocytes Absolute Auto 800 /uL (1100-4500); Lymphocytes Percent Auto 23.1 % (25-40); Mean Corpuscular HGB Conc 33.6 % (30-36); Mean Corpuscular Hemoglobin 29.7 PG (26-34); Mean Corpuscular Volume 88.6 fL (80-100); Monocytes Absolute Auto 300 /uL (0-900); Monocytes Percent Auto 8.6 % (3-14); Neutrophils Absolute Auto 2400 /uL (1500-7000); Neutrophils Percent Auto 67.4 % (50-75); Platelet Count 101 X10^3/uL (150-400); Red Blood Cell Count 4.49 X10^6/uL (4.0-5.2); Red Cell Distribution Width 12.6 % (11.6-14.8); White Blood Cell Count 3.6 X10^3/uL (4.5-11.0)
[2022-08-15 23:43] LABS: Alanine Aminotransferase 36 IU/L (<35); Albumin 3.3 g/dL (3.5-5.0); Albumin Globulin Ratio 1.4 (1.0-2.8); Alkaline Phosphatase 62 U/L (38-126); Aspartate Aminotransferase 38 IU/L (14-36); Bilirubin Total 0.8 mg/dL (0.2-1.3); Blood Urea Nitrogen 11 mg/dL (7-17); Calcium 7.9 mg/dL (8.4-10.2); Carbon Dioxide 22 mmol/L (22-32); Chloride 104 mmol/L (98-107); Estimated Glomerular Filt Rate > 60 mL/min (>60); Globulin 2.3 g/dL (1.7-4.1); Glucose 86 mg/dL (80-110); HEMOLYSIS < 15 (0-50); Sodium 133 mmol/L (137-145); Total Protein 5.6 g/dL (6.3-8.2)
[2022-08-16] VITALS (63 sets, daily range): BP systolic 148–242; BP diastolic 65–116; PULSE 65–89; RESP 12–29; TEMP 36.5–37.8; O2SAT 90–97
[2022-08-16] LABS: Procalcitonin 0.07 ng/mL (<0.5)
[2022-08-16 04:23] LABS: Add Manual Diff / Slide Review NO; Basophils Absolute Auto 0 /uL (0-100); Basophils Percent Auto 0.5 % (0-2); Eosinophils Absolute Auto 0 /uL (0-450); Eosinophils Percent Auto 0.1 % (2-4); Hematocrit 36.9 % (36-46); Hemoglobin 12.4 g/dL (12.0-16.0); Lymphocytes Absolute Auto 900 /uL (1100-4500); Lymphocytes Percent Auto 29.3 % (25-40); Mean Corpuscular HGB Conc 33.7 % (30-36); Mean Corpuscular Hemoglobin 29.9 PG (26-34); Mean Corpuscular Volume 88.8 fL (80-100); Monocytes Absolute Auto 300 /uL (0-900); Monocytes Percent Auto 9.8 % (3-14); Neutrophils Absolute Auto 1800 /uL (1500-7000); Neutrophils Percent Auto 60.3 % (50-75); Platelet Count 102 X10^3/uL (150-400); Red Blood Cell Count 4.15 X10^6/uL (4.0-5.2); Red Cell Distribution Width 13.1 % (11.6-14.8); White Blood Cell Count 3.1 X10^3/uL (4.5-11.0)
[2022-08-16 04:39] LABS: Alanine Aminotransferase 34 IU/L (<35); Albumin 2.9 g/dL (3.5-5.0); Albumin Globulin Ratio 1.3 (1.0-2.8); Alkaline Phosphatase 56 U/L (38-126); Aspartate Aminotransferase 35 IU/L (14-36); BUN Creatinine Ratio 18.5 (6-22); Bilirubin Total 0.7 mg/dL (0.2-1.3); Blood Urea Nitrogen 12 mg/dL (7-17); Calcium 7.9 mg/dL (8.4-10.2); Carbon Dioxide 24 mmol/L (22-32); Chloride 105 mmol/L (98-107); Estimated Glomerular Filt Rate > 60 mL/min (>60); Globulin 2.2 g/dL (1.7-4.1); Glucose 76 mg/dL (80-110); HEMOLYSIS < 15 (0-50); Magnesium 1.7 mg/dL (1.6-2.3); Potassium 3.8 mmol/L (3.4-5.1); Sodium 134 mmol/L (137-145); Total Protein 5.1 g/dL (6.3-8.2)
--- NOTE | 2022-08-16 06:24 | PC.NURSE ---
Pt BG on morning labs 76, rechecked on glucometer BG 70. Pt NPO following failed bedside swallow eval, awaiting speech consult. Provider notified of BG 70, recommended D50 amp or D5 fluids, no new orders.
[2022-08-16] MEDS: SODIUM CHLORIDE 0.45% 1,000 ML 125 ML IV (06:37)
[2022-08-16] MEDS: ENALAPRILAT 2.5 MG/ 2 ML VIAL 0.625 MG IV ×2 (06:37→11:54)
[2022-08-16] MEDS: DEXTROSE 5%-0.45% NS 1,000 ML 125 ML IV (07:00)
[2022-08-16] MEDS: HEPARIN 5,000 UNIT/ML VIAL 5000 UNIT SUBCUT ×2 (08:19→20:52)
[2022-08-16] MEDS: DEXTROSE 50 % IN WATER 25 GM/50 ML SYRINGE IV (08:20)
[2022-08-16] MEDS: REMDESIVIR 200 MG in SODIUM CHLORIDE 0.9% 210 ML 250 MG IV (09:12)
[2022-08-16] MEDS: TETRACAINE/BENZOCAINE/BUTAMBEN (CETACAINE) BOTTLE 1 SPRAY TOP (11:46)
[2022-08-16] MEDS: MAGNESIUM SULFATE 2 GM/50 ML PIGGYBACK IV (11:53)
[2022-08-16] MEDS: LABETALOL 20 MG/4 ML SYRINGE 10 MG IV ×2 (13:15→18:07)
--- NOTE | 2022-08-16 14:04 | SLP.IPNOTE ---
TREE GIRDLER attempted swallow evaluation 08/16/22 at ~1:20pm. Pt was extremely somnolent with limited response to commands or TREE GIRDLER questions, and presented with very wet vocal quality/ wet respiratory sounds. TREE GIRDLER determined she is inappropriate for PO trials at this time due to aspiration risk. Recommended to nursing and physician that suctioning be available to remove secretions from the oral cavity as they are expelled. Plan is to re-evaluate pt status on Thursday to determine if appropriate for swallow evaluation with PO trials.
--- NOTE | 2022-08-16 15:19 | CM.DANOTE ---
Initial DCP Assessment Note Pt is a 77 yo female, resident of [place] , undergoing monitoring for a glioblastoma reportedly brought into the ED for evaluation of mental status changes. Inpatient status per UR review today PCP: Crispin Washington Payer: [facility] Patient w/known COVID + infection. This initial assessment completed w/data available on the chart and from conversation w/ VALVE MECHANICZEINAB Ascencio. Additional information needed from DPOA/sister Angle Bonita [phone] re PLOF, home environment, caregivers etc According to ZEINAB Ascencio, upon patient's admission to the acute care floor, RN received multiple calls from friends and family members checking in on patient's welfare. ZEINAB Ascencio anticipates patient will return home w/friends and family to assist. Silva further explains patient appears to have made all recent medical appts and seems to be well cared for at home. Patient's SO Devon of a sudden NH w/in the last 6 months, patient currently living alone. CM team will plan to follow closely, assess needs further and assist in coordination of DCP as needed REECE Olivares Discharge Planning/Care Management CM Discharge Assessment Start: 08/16/22 14:41 Freq: Status: Active Protocol: Document 08/16/22 14:41 LISSETT (Rec: 08/16/22 15:19 LISSETT [id number]) Discharge Planning Assessment Assigned Arts Therapist REECE Vides DPSHAHNAZ/Assigned Designee Name Angle Randhawa, sister ([place]) Contact Information [phone] Advance Directives? Yes: DPOA Angle Randhawa Advance Directives on File Yes: Scanned History Provided By Medical Record Prior Living Arrangements House Household Members none Comment Has friends and caregivers that assist Type of transporation used prior to Relies on Others admit Independent with ADL's No Is patient alert and oriented? No Comment Information about PLOF needed from family, possibly from friend at bedside Caregiver for Another No Patient/Family Preference Home with Home Health Barriers to Discharge No Comment Anticipate home w/friends, family, caregivers, r/o need for HH Discharge Plan Home with Home Health Transportation Arrangement Friends, family or caregiver Referrals Initiated Home Health Additional Comment hx w/nidia HH
--- NOTE | 2022-08-16 16:01 | P.PN_ITS ---
Subjective Subjective Date Patient Seen: 08/16/22 Interval history: 77 year old female admitted with lethargy, decreased swallow. She complains of sore throat today, slightly improved with cetacaine spray. She remains hypertensive. NIH 0 today. Exam Vital Signs (past 8 hours): Oxygen Delivery Method Room Air Oxygen Flow Rate 0 Narrative Exam Narrative: Gen: Arousable and very thin 77 y.o. female, she appears uncomfortable HEENT: normocephalic, atraumatic, conjunctiva clear, sclera non-icteric, oral mucosa pink and moist. Posterior pharyngeal erythema. Neck: supple, full ROM, no JVD, trachea is midline. R tender supraclavicular lymphadenopathy. Resp: Lungs CTA, non-labored breathing Chest: She has a port on the left side of her chest appears to be intact with no signs of infection CV: RRR, no murmur or rubs Abd: soft, non-tender, normoactive BTs Skin: no lesions or rashes, dry and intact Neuro: Lethargic with slow verbal response, but appropriate and appears due to sore throat today. Tremulous. Extremities: moves all 4 extremities, is ambulatory, negative Aristeo?s sign Psyche: Depressed affect Objective Labs 08/16/22 04:15 08/16/22 04:15 Labs: Laboratory Results - last 24 hr 08/15/22 08/15/22 08/15/22 15:00 15:41 20:50 WBC RBC Hgb Hct MCV MCH MCHC RDW Plt Count Neut % (Auto) Lymph % (Auto) Yell % (Auto) Eos % (Auto) Baso % (Auto) Neut # (Auto) Lymph # (Auto) Yell # (Auto) Eos # (Auto) Baso # (Auto) Sodium Potassium Chloride Carbon Dioxide BUN Creatinine Estimated GFR BUN/Creatinine Ratio Glucose Lactate 0.8 Calcium Magnesium Total Bilirubin AST ALT Alkaline Phosphatase Total Protein Albumin Globulin Albumin/Globulin Ratio Procalcitonin Urine Color Yellow Urine Appearance Clear Urine pH 6.0 Ur Specific [place] >=1.030 H Urine Protein 2+ H Urine Glucose (UA) Negative Urine Ketones 2+ H Urine Occult Blood 2+ H Urine Nitrate Negative Urine Bilirubin Negative Urine Urobilinogen 0.2 Ur Leukocyte Esterase Negative Urine RBC 0-1/hpf Urine WBC None seen Ur Squamous Epith Cells 0-1 /hpf Urine Bacteria None seen Ur Culture Indicated? Cult not indicated U Opiates 300ng/mL cut Ur Oxycodone Screen Urine Methadone Screen Ur Barbiturates Screen U Tricyclic Antidepress Ur Phencyclidine Scrn Ur Amphetamines Screen U Methamphetamines Scrn Ur MDMA Scrn (Ecstasy) U Benzodiazepines Scrn Urine Cocaine Screen U Marijuana (THC) Screen SARS-CoV-2 (PCR) Positive H 08/15/22 08/15/22 08/15/22 20:50 23:26 23:26 WBC 3.6 L RBC 4.49 Hgb 13.4 Hct 39.8 MCV 88.6 MCH 29.7 MCHC 33.6 RDW 12.6 Plt Count 101 L Neut % (Auto) 67.4 Lymph % (Auto) 23.1 L Yell % (Auto) 8.6 Eos % (Auto) 0.3 L Baso % (Auto) 0.6 Neut # (Auto) 2400 Lymph # (Auto) 800 L Yell # (Auto) 300 Eos # (Auto) 0 Baso # (Auto) 0 Sodium 133 L Potassium 4.0 Chloride 104 Carbon Dioxide 22 BUN 11 Creatinine 0.58 Estimated GFR > 60 BUN/Creatinine Ratio 19.0 Glucose 86 Lactate Calcium 7.9 L Magnesium Total Bilirubin 0.8 AST 38 H ALT 36 H Alkaline Phosphatase 62 Total Protein 5.6 L Albumin 3.3 L Globulin 2.3 Albumin/Globulin Ratio 1.4 Procalcitonin 0.07 Urine Color Urine Appearance Urine pH Ur Specific [place] Urine Protein Urine Glucose (UA) Urine Ketones Urine Occult Blood Urine Nitrate Urine Bilirubin Urine Urobilinogen Ur Leukocyte Esterase Urine RBC Urine WBC Ur Squamous Epith Cells Urine Bacteria Ur Culture Indicated? U Opiates 300ng/mL cut Negative Ur Oxycodone Screen Negative Urine Methadone Screen Negative Ur Barbiturates Screen Negative U Tricyclic Antidepress Negative Ur Phencyclidine Scrn Negative Ur Amphetamines Screen Negative U Methamphetamines Scrn Negative Ur MDMA Scrn (Ecstasy) Negative U Benzodiazepines Scrn Negative Urine Cocaine Screen Negative U Marijuana (THC) Screen Negative SARS-CoV-2 (PCR) 08/16/22 08/16/22 04:15 04:15 WBC 3.1 L RBC 4.15 Hgb 12.4 Hct 36.9 MCV 88.8 MCH 29.9 MCHC 33.7 RDW 13.1 Plt Count 102 L Neut % (Auto) 60.3 Lymph % (Auto) 29.3 Yell % (Auto) 9.8 Eos % (Auto) 0.1 L Baso % (Auto) 0.5 Neut # (Auto) 1800 Lymph # (Auto) 900 L Yell # (Auto) 300 Eos # (Auto) 0 Baso # (Auto) 0 Sodium 134 L Potassium 3.8 Chloride 105 Carbon Dioxide 24 BUN 12 Creatinine 0.65 Estimated GFR > 60 BUN/Creatinine Ratio 18.5 Glucose 76 L Lactate Calcium 7.9 L Magnesium 1.7 Total Bilirubin 0.7 AST 35 ALT 34 Alkaline Phosphatase 56 Total Protein 5.1 L Albumin 2.9 L Globulin 2.2 Albumin/Globulin Ratio 1.3 Procalcitonin Urine Color Urine Appearance Urine pH Ur Specific [place] Urine Protein Urine Glucose (UA) Urine Ketones Urine Occult Blood Urine Nitrate Urine Bilirubin Urine Urobilinogen Ur Leukocyte Esterase Urine RBC Urine WBC Ur Squamous Epith Cells Urine Bacteria Ur Culture Indicated? U Opiates 300ng/mL cut Ur Oxycodone Screen Urine Methadone Screen Ur Barbiturates Screen U Tricyclic Antidepress Ur Phencyclidine Scrn Ur Amphetamines Screen U Methamphetamines Scrn Ur MDMA Scrn (Ecstasy) U Benzodiazepines Scrn Urine Cocaine Screen U Marijuana (THC) Screen SARS-CoV-2 (PCR) [facility] Medical History Abdominal pain Actinic keratosis Asthma Colon polyps (12/2013) Ductal carcinoma in situ (DCIS) of right breast (2000) GERD (gastroesophageal reflux disease) Glioblastoma multiforme of brain Hyperlipidemia (11/11/10) Hypertension Impaired cognition Irritable bowel syndrome with diarrhea 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 Grandfather Stroke Grandmother Cancer Social History household members: none Smoking Status: Never smoker second hand exposure: No alcohol intake: current substance use type: does not use Assessment & Plan Assessment & Plan narrative: 77 year old female admitted with an acute encephalopathy and hypertension, encephalopathy likely in the setting of COVID 19 infeciton. Acute encephalopathy, present on admission - improved today with fluids, likely in setting of underlying glioblastoma with prior brain resection, cognitive impairment based on outpatient records. - likely COVID contributing to encephalopathy. Also she was mildly hypoglycemic which was contributory. - continue treatments noted below COVID 19 infection - patient with inability to swallow, has difficulties at baseline and now with sore throat in setting of COVID infection. If difficulties with swallow continue, will obtain MRI of her brain to rule out infarct or new disease from her glioblastoma. NIH is currently 0 and CVA highly unlikely based on exam today. - started on remdesevir for 3 days to see if faster improvement, hospital does not have alternative therapies in stock and she is unable to tolerate oral intake. No respiratory failure. History of glioblastoma unknown if acute or chronic * from outpatient records, disease has been stable, most recent MRI form 07/29 showed no new processes and stable disease. * consider MRI depending on symptom progress. Hypertensive urgency, acute, present on admission * continue IV enalapril as prn labetalol given inability to tolerate oral intake currently. Thrombocytopenia, acute on chronic - suspect in setting of infection with COVID 19, continue to monitor. Hypogylcemia - CBG of 70 this AM. started on D5 1/2 NS. Reviewed outside records: Oncology notes and outpatient notes VTE Prophylaxis: Wells risk score 2.5 she is written for heparin 5000 units subQ twice daily X Bilateral SCDs Dispo: inpatient. patient with ongoing encephalopathy, stay is expected to exceed two midnights. PT/OT will be needed prior to discharge. Surrogate DPOA is listed as friend Martin Scott. Code status: full code COVID-19 COVID-19 status: Positive Result date/Date tested (Pos, Neg/Pending): 08/15/22 Time Spent With Patient Critical Care time: I spent a total of [] minutes of critical care time on this patient's care today; this time is exclusive of procedural time. Quality VTE Deep Vein Thrombosis/Pulmonary Embolism Present on Admission: No MIPS - Admit I confirm the patient?s Advance Care Plan is present, Code status is documented, Surrogate decision maker is in patient?s record [If Yes, STOP here]: Yes
--- NOTE | 2022-08-16 17:13 | PC.NURSE ---
NIH 0 at 0800, patient waxes & wanes but A&Ox4. Delayed responses and tremulous, patient states tremors are worse than baseline presently. HTN, continued PRN labetalol & scheduled vasotec. RA. [place]. BM x2. Update given to daughter and sister, POA.
[2022-08-17] VITALS (47 sets, daily range): BP systolic 146–204; BP diastolic 71–108; PULSE 70–93; RESP 17–20; TEMP 37.2–37.9; O2SAT 90–96
[2022-08-17] MEDS: DEXTROSE 5%-0.45% NS 1,000 ML 125 ML IV ×3 (01:42→18:28)
[2022-08-17 05:46] LABS: Add Manual Diff / Slide Review NO; Basophils Absolute Auto 0 /uL (0-100); Basophils Percent Auto 0.4 % (0-2); Eosinophils Absolute Auto 0 /uL (0-450); Hematocrit 39.1 % (36-46); Hemoglobin 13.4 g/dL (12.0-16.0); Lymphocytes Absolute Auto 1300 /uL (1100-4500); Lymphocytes Percent Auto 19.6 % (25-40); Mean Corpuscular HGB Conc 34.3 % (30-36); Mean Corpuscular Hemoglobin 29.9 PG (26-34); Mean Corpuscular Volume 87.2 fL (80-100); Monocytes Absolute Auto 300 /uL (0-900); Monocytes Percent Auto 5.2 % (3-14); Neutrophils Absolute Auto 4800 /uL (1500-7000); Neutrophils Percent Auto 74.8 % (50-75); Platelet Count 94 X10^3/uL (150-400); Red Blood Cell Count 4.48 X10^6/uL (4.0-5.2); Red Cell Distribution Width 12.9 % (11.6-14.8); White Blood Cell Count 6.5 X10^3/uL (4.5-11.0)
[2022-08-17 05:51] LABS: Alanine Aminotransferase 37 IU/L (<35); Albumin 2.7 g/dL (3.5-5.0); Albumin Globulin Ratio 1.2 (1.0-2.8); Alkaline Phosphatase 52 U/L (38-126); Aspartate Aminotransferase 57 IU/L (14-36); BUN Creatinine Ratio 21.2 (6-22); Bilirubin Total 0.5 mg/dL (0.2-1.3); Blood Urea Nitrogen 11 mg/dL (7-17); Calcium 7.4 mg/dL (8.4-10.2); Carbon Dioxide 26 mmol/L (22-32); Chloride 102 mmol/L (98-107); Estimated Glomerular Filt Rate > 60 mL/min (>60); Globulin 2.3 g/dL (1.7-4.1); Glucose 98 mg/dL (80-110); HEMOLYSIS 34 (0-50); Magnesium 1.9 mg/dL (1.6-2.3); Potassium 3.4 mmol/L (3.4-5.1); Sodium 132 mmol/L (137-145)
--- NOTE | 2022-08-17 06:10 | PC.NURSE ---
shift commander: Plt count 102 2/4. Discussed with TAMMY Carroll and heparin subQ continued per order.
[2022-08-17] MEDS: REMDESIVIR 100 MG in SODIUM CHLORIDE 0.9% 230 ML 250 MG IV (08:46)
[2022-08-17] MEDS: POTASSIUM CHLORIDE IN WATER 10 MEQ/100 ML PIGGYBACK 100 MEQ IV ×4 (08:46→12:16)
[2022-08-17] MEDS: HEPARIN 5,000 UNIT/ML VIAL 5000 UNIT SUBCUT ×2 (08:46→20:25)
[2022-08-17] MEDS: ENALAPRILAT 2.5 MG/ 2 ML VIAL 0.625 MG IV (09:45)
--- NOTE | 2022-08-17 13:00 | PC.NURSE ---
Addendum entered by Lissa Prince R.N. 08/17/22 15:11: Pt daughter Vida updated on pt day Original Note: Dayshift note: Pt continues to have an extremely sore throat, unable/unwilling to swallow, failed speech eval yesterday, will return to re-evaluate on thursday. Per Dr Edward if pt is still not able to swallow on Thursday he will order an MRI to further investigate. Pt sister Angle updated on pt. Bed low and locked, call light within reach will continue to monitor.
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
--- NOTE | 2022-08-17 14:22 | P.PN_ITS ---
Subjective Subjective Date Patient Seen: 08/17/22 Interval history: 77 year old female admitted with lethargy, decreased swallow. She complains of sore throat today, slightly improved with cetacaine spray. She remains hypertensive. Exam Vital Signs (past 8 hours): - 08/17/22 07:00 08/17/22 09:45 08/17/22 06:30 Temperature 99.0 F Pulse Rate 78 78 Respiratory Rate 20 Blood Pressure 204/83 H Pulse Oximetry 96 95 Oxygen Delivery Method Room Air Oxygen Flow Rate 0 08/17/22 07:00 08/17/22 07:30 08/17/22 08:00 Temperature Pulse Rate 82 79 75 Respiratory Rate Blood Pressure Pulse Oximetry 95 95 94 Oxygen Delivery Method Oxygen Flow Rate 08/17/22 08:30 08/17/22 09:00 08/17/22 09:30 Temperature Pulse Rate 77 83 78 Respiratory Rate Blood Pressure Pulse Oximetry 95 94 96 Oxygen Delivery Method Oxygen Flow Rate 08/17/22 09:42 08/17/22 09:42 08/17/22 10:00 Temperature Pulse Rate 78 74 Respiratory Rate Blood Pressure 204/83 H Pulse Oximetry 96 92 Oxygen Delivery Method Oxygen Flow Rate 08/17/22 10:30 08/17/22 11:00 08/17/22 11:07 Temperature Pulse Rate 70 70 Respiratory Rate Blood Pressure 178/78 H Pulse Oximetry 93 94 Oxygen Delivery Method Oxygen Flow Rate 08/17/22 11:07 08/17/22 11:24 08/17/22 11:24 Temperature Pulse Rate 74 77 Respiratory Rate Blood Pressure 179/82 H Pulse Oximetry 93 95 Oxygen Delivery Method Oxygen Flow Rate 08/17/22 11:22 08/17/22 11:00 Temperature 99.6 F Pulse Rate 77 Respiratory Rate Blood Pressure 179/82 H Pulse Oximetry 95 Oxygen Delivery Method Oxygen Flow Rate 0 Oxygen Delivery Method Room Air Oxygen Flow Rate 0 Narrative Exam Narrative: Gen: Arousable and very thin 77 y.o. female, she appears uncomfortable HEENT: normocephalic, atraumatic, conjunctiva clear, sclera non-icteric, oral mucosa pink and moist. Posterior pharyngeal erythema. Neck: supple, full ROM, no JVD, trachea is midline. R tender supraclavicular lymphadenopathy. Resp: Lungs CTA, non-labored breathing Chest: She has a port on the left side of her chest appears to be intact with no signs of infection CV: RRR, no murmur or rubs Abd: soft, non-tender, normoactive BTs Skin: no lesions or rashes, dry and intact Neuro: Lethargic with slow verbal response, but appropriate and appears due to sore throat today. Tremulous. Extremities: moves all 4 extremities, is ambulatory, negative Aristeo?s sign Psyche: Depressed affect Objective Labs 08/17/22 05:31 08/17/22 05:31 Labs: Laboratory Results - last 24 hr 08/17/22 08/17/22 05:31 05:31 WBC 6.5 D RBC 4.48 Hgb 13.4 Hct 39.1 MCV 87.2 MCH 29.9 MCHC 34.3 RDW 12.9 Plt Count 94 L Neut % (Auto) 74.8 Lymph % (Auto) 19.6 L [place] % (Auto) 5.2 Eos % (Auto) 0.0 L Baso % (Auto) 0.4 Neut # (Auto) 4800 Lymph # (Auto) 1300 [place] # (Auto) 300 Eos # (Auto) 0 Baso # (Auto) 0 Sodium 132 L Potassium 3.4 Chloride 102 Carbon Dioxide 26 BUN 11 Creatinine 0.52 Estimated GFR > 60 BUN/Creatinine Ratio 21.2 Glucose 98 Calcium 7.4 L Magnesium 1.9 Total Bilirubin 0.5 AST 57 H ALT 37 H Alkaline Phosphatase 52 Total Protein 5.0 L Albumin 2.7 L Globulin 2.3 Albumin/Globulin Ratio 1.2 PFSH Medical History Abdominal pain Actinic keratosis Asthma Colon polyps (12/2013) Ductal carcinoma in situ (DCIS) of right breast (2000) GERD (gastroesophageal reflux disease) Glioblastoma multiforme of brain Hyperlipidemia (11/11/10) Hypertension Impaired cognition Irritable bowel syndrome with diarrhea 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 Grandfather Stroke Grandmother Cancer Social History household members: none Smoking Status: Never smoker second hand exposure: No alcohol intake: current substance use type: does not use Assessment & Plan Assessment & Plan narrative: 77 year old female admitted with an acute encephalopathy and hypertension, encephalopathy likely in the setting of COVID 19 infeciton. Acute meatbolic encephalopathy, present on admission - improved with fluids, likely due to COVID infection but also with underlying glioblastoma with prior brain resection, cognitive impairment based on outpatient records. - likely COVID contributing to encephalopathy. Also she was mildly hypoglycemic which was contributory. - continue treatments noted below COVID 19 infection - patient with inability to swallow, has difficulties at baseline and now with sore throat in setting of COVID infection. If difficulties with swallow continue, will obtain MRI of her brain and neck to rule out infarct or new disease in her neck from her glioblastoma. NIH is currently 0 and CVA highly unlikely based on exam today. - started on remdesevir for 3 days to see if faster improvement, hospital does not have alternative therapies in stock and she is unable to tolerate oral intake. No respiratory failure. - also will need to consider alternative forms of nutrition if she continues to be unable to swallow. History of glioblastoma unknown if acute or chronic * from outpatient records, disease has been stable, most recent MRI form 07/29 showed no new processes and stable disease. * consider MRI depending on symptom progression as noted above. Hypertensive urgency, acute, present on admission * continue IV enalapril as prn labetalol given inability to tolerate oral intake currently. Thrombocytopenia, acute on chronic - suspect in setting of infection with COVID 19, continue to monitor. Hypogylcemia - CBG of 70 yesterday AM. started on D5 1/2 NS to continue. Reviewed outside records: Oncology records VTE Prophylaxis: Wells risk score 2.5 she is written for heparin 5000 units subQ twice daily X Bilateral SCDs Dispo: inpatient. patient with ongoing encephalopathy and inability to tolerated or intake, stay is expected to exceed two midnights. PT/OT will be needed prior to discharge. Surrogate DPOA is listed as friend Martin Scott. Code status: full code COVID-19 COVID-19 status: Positive Result date/Date tested (Pos, Neg/Pending): 08/15/22 Time Spent With Patient Critical Care time: I spent a total of [] minutes of critical care time on this patient's care today; this time is exclusive of procedural time. Quality VTE Deep Vein Thrombosis/Pulmonary Embolism Present on Admission: No
[2022-08-17] MEDS: LABETALOL 20 MG/4 ML SYRINGE 10 MG IV (20:25)
[2022-08-18] VITALS (36 sets, daily range): BP systolic 134–221; BP diastolic 63–113; PULSE 47–88; RESP 18–24; TEMP 36.6–38.8; O2SAT 0–98
[2022-08-18] MEDS: ACETAMINOPHEN 650 MG SUPP PR
[2022-08-18] MEDS: ENALAPRILAT 2.5 MG/ 2 ML VIAL 0.625 MG IV (00:31)
[2022-08-18] MEDS: HEPARIN 5,000 UNIT/ML VIAL 5000 UNIT SUBCUT ×2 (09:21→21:13)
[2022-08-18] MEDS: DEXTROSE 5%-0.45% NS 1,000 ML 125 ML IV ×2 (09:24→19:17)
[2022-08-18] MEDS: REMDESIVIR 100 MG in SODIUM CHLORIDE 0.9% 230 ML 250 MG IV (10:10)
--- NOTE | 2022-08-18 11:23 | CM.DPC ---
DCP Cont: Per MD, if pt continues to have swallow issues today then MRI will be ordered to r/o any other medical concerns beyond her COVID extreme sore throat symptom. PT/OT ordered today and no PT but OT will eval towards assist in determining if pt remains safe for d/c back home with 24/7 PP CGs and likely need of HH vs possible SNF. Pt and family preference is home if safe and agreeable with HH and no HH preferences at this time. Plan: SW to follow closely for OT eval today and PT eval tomorrow and possible need for MRI to confirm safe plan of home with 24/7 CGs and likely need for HH referral. REECE Fink
--- NOTE | 2022-08-18 12:11 | ST.IPCSEOM ---
Visit Care Team Role Provider Type Crispin Washington DO Primary Care Provider Physician Specialty: Family Practice Address: [address] [place] [address], [address] Email: [email or web address] Other Providers Physician Specialty: Oncology Address: [address] [place] [address], [address] Email: [email or web address] Freddie Sanchez DO Emergency Provider Physician Referring Provider Specialty: Emergency Medicine Address: [address] [place] [address], [address] Email: [email or web address] DO Admit Provider Physician Attending Provider Specialty: Internal Medicine Address: [address] [address], [address] Email: [email or web address] Diagnoses COVID-19 (08/15/22) Past Medical History (Last Reviewed 08/15/22 @ 15:39 by Freddie Sanchez DO) Abdominal pain (Medical) Actinic keratosis (Medical) Asthma (Medical) Colon polyps (Medical 12/2013) 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) GERD (gastroesophageal reflux disease) (Medical) Glioblastoma multiforme of brain (Medical) Hyperlipidemia (Medical 11/11/10) Hypertension (Medical) Impaired cognition (Medical) Irritable bowel syndrome with diarrhea (Medical) Mixed anxiety depressive disorder (Medical 09/04/15) Resolved December 2015 Osteopenia of multiple sites (Medical) Perineal discomfort in female (Medical) Rosacea (Medical) Speech-Language Pathology Swallow Evaluation LOG HAUL OPERATOR Clinical Swallow Evaluation Start: 08/18/22 11:04 Freq: Status: Active Protocol: Document 08/18/22 11:05 MARANDA (Rec: 08/18/22 11:22 MARANDA [id number]) Clinical Swallow Evaluation Session Time Visit Start Time 10:30 Visit Stop Time 11:00 Total Visit Minutes 30 Setting Assessment Location Acute Care Visit Type Note Type Initial evaluation Next Note Type Next Note Type Treatment Note Patient Information Identification Type Name,Wristband History Per H&P: Precious Gtz is a 77 y.o. female undergoing monitoring for a glioblastoma reportedly brought into the ED for evaluation of mental status changes. Per the ED provider's notes, Is reported by EMS that the patient does live by herself.? Unsure how they were contacted today but fairly the patient has not been as active nor answering questions as readily as she has been in the past.? Here in the emergency department patient has no specific complaints although she does not answer all of the HPI or review of systems questions.? She did denied chest pain and shortness of breath.? She denied any pain in her arms or legs.? There is no signs of trauma. Patient is unable to provide a meaningful history or review of systems. She is under the care of Dr. Arreola oncologist, appearing to having seen him last in October of last year. Chest x-ray was negative for any acute cardiopulmonary process. Head CT did not identify any acute findings noted a stable left frontal lobe resection without evidence of recurrent or residual disease. Subjective Observations Pt was asleep with mouth open, reclined in bed when LOG HAUL OPERATOR arrived. She opened eyes to verbal greeting and was alert and oriented x2 (pt did not respond to time orientation question). NSG reported pt is very slow to respond and will sometimes close her eyes rather than responding, but does respond to direct questions when prompted. Pt agreed to participate in swallow evaluation and was repositioned to upright position for OME and PO trials . Reported by Patient Other Symptoms Coughing Current Diet Nothing by mouth Objective Assessment Mental Status Alert,Cooperative Oral Integrity WFL Dentition Within normal limits Lip Function Mild impairment Observation of Lips at Rest Symmetrical Pucker Reduced range of motion, Reduced strength Lip Retraction Reduced range of motion Alternating Pucker/Lip Retraction Reduced range of motion, Incoordination Tongue Function Mild impairment Observations of Tongue at Rest Within normal limits Tongue Protrusion Within normal limits Tongue Lateralization Reduced strength Jaw Function Within normal limits Observations of Jaw at Rest Within normal limits Jaw Opening Within normal limits Jaw Closing Within normal limits Hard/Soft Palate Function Within normal limits Observations of Hard/Soft Palate Within normal limits Comment Pt exhibited reduced strength and ROM with tongue and lip movement as well as slowed movements. Dentition was present and WNL. Pt reported no sore throat today. Sustained ah had broken phonation and was very quiet, but clear. Pt observed to have tremors in both hands, though used suction spontaneously today. She completed OME with tactile cues to respond to instructions. Food and Liquid Trials Position During Assessment Upright (90 degrees),In bed Liquids Trialed Ice chips,Thin,Poynor Administration Type Tea spoon,Dependent feeding Oral Impairment Moderately impaired Oral Phase Comments Pt exhibited prolonged holding of bolus across all PO trials . No anterior loss of bolus or oral residue observed following trials. Completed PO trials with ice chips, thin liquid via teaspoon, and nectar thick liquids via teaspoon. Pt refused trials of solids, so mastication was not evaluated. Pharyngeal Impairment Moderately impaired Pharyngeal Phase Comments Pt exhibited coughing following thin liquid trials and spontaneously used suction to clear. Coughing reduced with nectar thick liquids, though still present with larger bolus sizes. Smaller bolus (about 1/4 of a teaspoon ) of nectar thick liquid and use of chin tuck with verbal prompts reduced coughing, but did not eliminate it. No coughing observed with ice chips. Silent aspiration cannot be assessed with clinical swallow evaluation and pt is not able to participate in MBS at this time. Comment Difficult to differentiate between fatigue and closing of eyes with pt, though fatigue may be of concern. Will continue to monitor with increased PO trials. Strategies Attempted Chin tuck Findings Comment The pt presents with moderately severe pharyngeal phase dysphagia characterized by impaired airway protection. Coughing was observed following all thin liquid trials despite small bolus size provided via teaspoon. Coughing was reduced with nectar thick liquids via teaspoon (about 1/4 of a teaspoon full) and verbal prompts to tuck her chin. She refused solid PO trials at this time, so unable to evaluate solids. Recommend nectar thick liquids with 1:1 feeding assistance to provide small bolus sizes via teaspoon and verbal prompts to tuck chin down. Will continue to monitor and assess with diet advancements as indicated. Impact on Safety and Functioning Risk for aspiration,Risk for inadequate nutrition/hydration Recommendations Instrumental Assessment No Swallowing Treatment Yes Recommended Solids Nothing by Mouth Recommended Liquids Poynor Other Recommendations Poynor thick liquids via teaspoon (about 1/4 of a teaspoon full) with cues to tuck chin downwards. Safety Precautions/Swallowing Supervision needed for all Recommendations meals,Feed only when alert, Reduce distractions,Remain upright (90 degrees) during all oral intake,Needs verbal cues to use recommended strategies,Upright position at least 30 minutes after meals, Small bites and sips when eating,Slow rate; swallow between bites,1 to 1 feeding assistance Medication Recommendations Not Recommended by Mouth Discharge Recommendations retirement facility Education Patient/Caregiver Education Described results of evaluation,Patient expressed understanding of evaluation, Patient expressed agreement with goals & treatment plans, Patient expressed understanding of safety precautions,Patient expressed understanding of feeding recommendations,Patient requires further education/ training Goals Short-term Goals 1. Assess solids to inform diet recommendations. 2. Monitor and advance liquid diet recommendations as indicated. Long-term Goals The pt will safely tolerate least restrictive diet to meet her nutrition and hydration needs.
--- NOTE | 2022-08-18 13:32 | P.PN_ITS ---
Subjective Subjective Date Patient Seen: 08/18/22 Interval history: 77 year old female admitted with lethargy, decreased swallow from COVID 19 infection. Her pain is improved today, was able to tolerate small amount of dysphagia diet with speech. Exam Vital Signs (past 8 hours): - 08/18/22 09:30 08/18/22 06:00 08/18/22 06:00 Temperature 98.9 F Pulse Rate 47 L 74 Respiratory Rate 24 Blood Pressure 166/81 H 149/66 H Pulse Oximetry 92 92 Oxygen Delivery Method Oxygen Flow Rate 0 08/18/22 08:00 08/18/22 09:26 08/18/22 09:26 Temperature Pulse Rate 68 75 Respiratory Rate Blood Pressure 166/81 H Pulse Oximetry 94 95 Oxygen Delivery Method Oxygen Flow Rate 08/18/22 09:41 08/18/22 09:41 08/18/22 10:00 Temperature Pulse Rate 74 Respiratory Rate Blood Pressure 154/72 H 152/68 H Pulse Oximetry 95 Oxygen Delivery Method Oxygen Flow Rate 08/18/22 10:00 08/18/22 07:00 Temperature Pulse Rate 68 Respiratory Rate Blood Pressure Pulse Oximetry 93 Oxygen Delivery Method Room Air Oxygen Flow Rate Oxygen Delivery Method Room Air Oxygen Flow Rate 0 Narrative Exam Narrative: Gen: Arousable and very thin 77 y.o. female, HEENT: normocephalic, atraumatic, conjunctiva clear, sclera non-icteric, oral mucosa pink and moist. Posterior pharyngeal erythema. Neck: supple, full ROM, no JVD, trachea is midline. neck feels full without obvious discernable mass. tender lymphadenopathy has improved today. Resp: Lungs CTA, non-labored breathing Chest: She has a port on the left side of her chest appears to be intact with no signs of infection CV: RRR, no murmur or rubs Abd: soft, non-tender, normoactive BTs Skin: no lesions or rashes, dry and intact Neuro: Lethargic with slow verbal response, but appropriate. Mildly tremulous but improved with application of warm blanket. Extremities: no edema or joint effusions. Psyche: Depressed affect Objective Labs 08/17/22 05:31 08/17/22 05:31 Labs: Laboratory Results - last 24 hr 08/17/22 20:40 Nasal Screen MRSA (PCR) Negative for mrsa [facility] Medical History Abdominal pain Actinic keratosis Asthma Colon polyps (12/2013) Ductal carcinoma in situ (DCIS) of right breast (2000) GERD (gastroesophageal reflux disease) Glioblastoma multiforme of brain Hyperlipidemia (11/11/10) Hypertension Impaired cognition Irritable bowel syndrome with diarrhea 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 Grandfather Stroke Grandmother Cancer Social History household members: none Smoking Status: Never smoker second hand exposure: No alcohol intake: current substance use type: does not use Assessment & Plan Assessment & Plan narrative: 77 year old female admitted with an acute encephalopathy and hypertension, encephalopathy likely in the setting of COVID 19 infeciton. Acute meatbolic encephalopathy, present on admission - improved with fluids, likely due to COVID infection but also with underlying glioblastoma with prior brain resection, cognitive impairment based on outpatient records. - likely COVID contributing to encephalopathy. Also she was mildly hypoglycemic which was contributory. - continue treatments noted below COVID 19 infection - patient with inability to swallow, has difficulties at baseline and now with sore throat in setting of COVID infection. She is improving today, still need to consider MRI or CT imaging of her neck depending on symptom progression. - started on remdesevir for 3 days to see if faster improvement, hospital does not have alternative therapies in stock and she is unable to tolerate oral intake. No respiratory failure. - consider alternative nutrtition sources should she not be able to tolerated adequate intake in the coming days. History of glioblastoma unknown if acute or chronic * from outpatient records, disease has been stable, most recent MRI form 07/29 showed no new processes and stable disease. * consider MRI depending on symptom progression as noted above. Hypertensive urgency, acute, present on admission * continue IV enalapril as prn labetalol given limited ability to tolerated oral intake currently. Thrombocytopenia, acute on chronic - suspect in setting of infection with COVID 19, continue to monitor. Hypogylcemia - CBG of 70 early in hospital course. started on D5 1/2 NS to continue until tolerating more of a diet. Reviewed outside records: Oncology records VTE Prophylaxis: Wells risk score 2.5 she is written for heparin 5000 units subQ twice daily X Bilateral SCDs Dispo: inpatient. PT/OT will be needed prior to discharge and was ordered today. Surrogate DPOA is listed as friend Martin Scott. Code status: full code COVID-19 COVID-19 status: Positive Result date/Date tested (Pos, Neg/Pending): 08/15/22 Time Spent With Patient Critical Care time: I spent a total of [] minutes of critical care time on this patient's care today; this time is exclusive of procedural time. Quality VTE Deep Vein Thrombosis/Pulmonary Embolism Present on Admission: No
--- NOTE | 2022-08-18 15:25 | OT.IPNOTE ---
Attempted to see pt for OT services. Pt is so sleepy that she isn't able to participate in therapy services today. Per nursing, pt is often very sleepy. Will hold and continue to follow.
[2022-08-18] MEDS: LABETALOL 20 MG/4 ML SYRINGE 10 MG IV (21:47)
[2022-08-19] VITALS (24 sets, daily range): BP systolic 142–200; BP diastolic 69–92; PULSE 67–84; RESP 14–19; TEMP 36.7–37.4; O2SAT 81–98
[2022-08-19] MEDS: DEXTROSE 5%-0.45% NS 1,000 ML 125 ML IV (02:34)
[2022-08-19] MEDS: LABETALOL 20 MG/4 ML SYRINGE 10 MG IV (04:34)
--- NOTE | 2022-08-19 04:36 | PC.NURSE ---
Patient with blood pressure at 200 systolic, medicated with labetolol slow IV push and awaiting results.,
--- NOTE | 2022-08-19 09:25 | DI.MRI.S_ITS ---
PROCEDURE: MR HEAD/BRAIN WO/W CON INDICATIONS: continued dysphagia, hx glioblastoma TECHNIQUE: Noncontrast axial T1 spin echo, axial T2 fast spin echo, sagittal and axial FLAIR, coronal T2 fast spin echo, axial gradient echo, axial diffusion and ADC through the brain. After the administration of contrast, axial and coronal and sagittal T1 spin echo with fat saturation through the brain. COMPARISON: [facility], MR, MR HEAD/BRAIN WO/W CON, 07/29/2022, 12:39. [facility], MR, MR HEAD/BRAIN WO/W CON, 02/03/2022, 11:46. [facility], MR, MR HEAD/BRAIN WO/W CON, 03/31/2022, 9:05. [facility], CT, CT SOFT TISSUE NECK W CON, 08/19/2022, 15:06. [facility], CT, CT HEAD/BRAIN WO CON, 08/15/2022, 15:12. FINDINGS: Image quality: This examination is limited by involuntary motion artifact. CSF spaces: Basal cisterns are patent. No extra-axial fluid collections. Ventricles are normal in size and shape. Brain: Left frontal resection change can be seen, with volume loss and encephalomalacia. There is hemosiderin deposition seen along the margins of the resection cavity. Just deep to the resection cavity within the left frontal lobe, there is a tiny amount of increased enhancement seen within the left frontal lobe, as seen on series 13 image is 95 and 96. This is similar to the 07/29/2022 MRI. There is stable [id number] dural enhancement seen anteriorly. No midline shift. No intracranial bleeds or masses. No abnormal intracranial enhancement. There is cerebral volume loss for age. There is periventricular white matter chronic small vessel ischemic change. The brainstem appears normal. Diffusion-weighted images demonstrate no acute ischemic insults. Normal intravascular flow voids are present. Skull and face: Left-sided craniotomy change can be seen. Calvarial marrow is normal in signal. Note is made of bilateral lens replacements. Both globes appear elongated. Sinuses: Zzre-hj-doptmqwx mucosal thickening is seen within the ethmoid air cells. Milder mucosal thickening is seen elsewhere within paranasal sinuses. IMPRESSION: Study similar to the recent prior, with a left frontal lobe resection cavity. There is a minimal amount enhancement seen within the left frontal lobe just deep to the resection cavity, which is poorly seen on the current study, yet not significantly changed compared to the 07/29/2022 examination. Stable enhancement seen along the dura anteriorly adjacent to the resection cavity, which is considered to within postoperative limits. Dictated by: Chai Obando M.D. on 08/19/2022 at 14:48 Approved by: Chai Obando M.D. on 08/19/2022 at 14:53
--- NOTE | 2022-08-19 09:26 | DI.CT.S_ITS ---
PROCEDURE: CT SOFT TISSUE NECK W CON INDICATIONS: dysphagia, throat fullness TECHNIQUE: After the administration of intravenous contrast, 3.0 mm axial sections acquired from the sella to the aortic arch. Additional oblique axial 3.0 mm sections acquired through the pharynx. 3 mm thick coronal and sagittal reformats were generated. For radiation dose reduction, the following was used: automated exposure control. COMPARISON: [facility], MR, MR HEAD/BRAIN WO/W CON, 08/19/2022, 14:37. [facility], CT, CT HEAD/BRAIN WO CON, 08/15/2022, 15:12. [facility], CT, CT ANGIO HEAD AND NECK, 10/15/2020, 16:08. FINDINGS: Image quality: There is artifact associated with the metallic hardware. Artifact from the metallic hardware is reduced by metal reconstruction algorithm. Lymph nodes: No enlarged lymph nodes seen throughout the neck. Vessels: Visualized vasculature appears patent. Neck spaces: There is generalized fullness seen of the lymph tissue within the tongue base, yet without a focal mass seen. The oropharynx, nasopharynx, and pharynx demonstrate no mucosal lesions. The vocal cords, false vocal cords, pyriform sinuses, epiglottis, and the vallecula all appear normal. Extramucosal spaces appear unremarkable. Glands: The parotid and submandibular glands appear normal. Thyroid gland demonstrates no significant abnormality. Miscellaneous: Visualized brain and orbits appear normal. Bilateral pleural effusions are partially seen, left worse than right. Mild dependent ground-glass opacity can be seen. There is partial visualization of a left-sided chest port. Superficial soft tissues appear normal. Bones: No suspicious bony lesions. Moderate mucosal thickening is seen within the ethmoid air cells. There is an air-fluid level seen within the sphenoid sinus. There is milder mucosal thickening seen elsewhere within the paranasal sinuses. IMPRESSION: Generalized fullness seen of the lymph tissue at the base of the tongue. No mucosal masses are seen. Bilateral pleural effusions are partially seen, left worse than right. Mild dependent lung glass opacity can be seen within the lung apices, which is most likely related to mild pulmonary edema. Paranasal sinus disease is seen, including an air-fluid level within the sphenoid sinus. Additional findings: Left-sided chest port Dictated by: Chai Obando M.D. on 08/19/2022 at 14:54 Approved by: Chai Obando M.D. on 08/19/2022 at 14:58
--- NOTE | 2022-08-19 10:43 | ST.IPDYTX ---
Visit Care Team Role Provider Type Crispin Washington DO Primary Care Provider Physician Specialty: Family Practice Address: [address] [place] [address], [address] Email: [email or web address] Other Providers Physician Specialty: Oncology Address: [address] [place] [address], [address] Email: [email or web address] Freddie Sanchez DO Emergency Provider Physician Referring Provider Specialty: Emergency Medicine Address: [address] [place] [address], [address] Email: [email or web address] Admit Provider Physician Attending Provider Specialty: Internal Medicine Address: [address] [place] [address], [address] Email: [email or web address] Dysphagia Treatment LATEX DIPPER Dysphagia Treatment Start: 08/19/22 10:20 Freq: Status: Active Protocol: Document 08/19/22 10:21 MARANDA (Rec: 08/19/22 10:25 MARANDA [id number]) Dysphagia Treatment Session Time Visit Start Time 09:00 Visit Stop Time 09:30 Total Visit Minutes 30 Visit Information Visit Number 1 Setting Assessment Location Acute Care Visit Type Note Type Treatment Note Next Note Type Next Note Type Treatment Note Patient Information Identification Type Name,ID Wristband Subjective Observations Precious was seated upright in chair watching TV when LATEX DIPPER arrived. She agreed to participate in PO trials with morning meal and LATEX DIPPER turned TV off to limit environmental distractions. Treatment Solids Trialed Puree Administration Type Tea Spoon,Dependent Feeding Oral Strategies Upright at 90 degrees, Controlled Bite/Sip Size Treatment Activities PO trials to evaluate puree solids with pt. Completed 3 trials of cream of wheat. Pt refused liquids today. Assessment Patient Response to Treatment Fair Rehab Potential Poor Assessment of Improvement Cream of wheat was provided via small quantities (about a 1/4 teaspoon full) on a teaspoon. When larger bolus was provided, pt exhibited cough. She accepted three 1/4- full spoonfuls of cream of wheat and began to fall asleep while eating the last spoonful. LATEX DIPPER provided tactile cues to keep pt awake until bite was swallowed. Aspiration risk is high due to high fatigue levels and prolonged oral holding, which result in pt falling asleep with bolus in her mouth. Additionally, pt is at risk for inadequate nutrition and hydration due to small bolus size (which reduces aspiration risk) and small PO intake with meals. Recommend continued assessment and monitoring of diet with advancement as indicated. Recommend continued nectar thick liquids via teaspoon (1/ 4 full) and puree solids via teaspoon (1/4 full). Diet Recommendations Recommendations Upgrade Diet Order Liquids Order [place] Diet Order Dysphagia Blenderized Medication Recommendations Crushed in Carrier Additional Dietary Needs 1:1 Assistance Aspiration Precautions Recommended Precautions Upright at 90 Degrees,Small Bites/Sips,Chin Tuck,Liquids from Spoon Additional Precautions Tactile cues to keep pt awake until food is swallowed. Treatment Plan Placement Recommendation after Discharge Alf Facility Appropriate for Continued Therapy Yes Dysphagia Goals The pt will safely tolerate least restrictive diet to meet her nutrition and hydration needs.
[2022-08-19] MEDS: lisinopriL 20 MG TABLET PO (11:20)
[2022-08-19] MEDS: HEPARIN 5,000 UNIT/ML VIAL 5000 UNIT SUBCUT ×2 (11:21→21:25)
--- NOTE | 2022-08-19 12:25 | PT.IIE ---
Current Diagnoses COVID-19 (08/15/22) Surgical History (Last Reviewed 02/19/22 @ 09:57 by Crispin Washington, DO) History of tonsillectomy and adenoidectomy (1949) Hx of colonoscopy with polypectomy (12/2013) Hx of left breast biopsy (12/2010) Hx of surgical procedure (2006) Status post breast lumpectomy (2000) Status post cholecystectomy (2004) Status post hysterectomy (1993) Status post knee surgery (1992) Medical History (Last Reviewed 08/15/22 @ 15:39 by Freddie Sanchez DO) Abdominal pain Actinic keratosis Asthma Colon polyps (12/2013) Ductal carcinoma in situ (DCIS) of right breast (2000) GERD (gastroesophageal reflux disease) Glioblastoma multiforme of brain Hyperlipidemia (11/11/10) Hypertension Impaired cognition Irritable bowel syndrome with diarrhea Mixed anxiety depressive 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) Osteopenia of multiple sites Perineal discomfort in female Rosacea Physical Therapy Inpatient Evaluation/Re-Eval M1 PT/OT-IP Prior Functional Status Start: 08/19/22 14:19 Freq: NEEDED Status: Active Protocol: Document 08/19/22 12:25 AB (Rec: 08/19/22 14:38 AB [id number]) Medical Review Prior Functional Status Medical History Reviewed Yes Communication pt unable to verbalize much; able to respond occasionally using one word; able to nod to agree with questions Mobility and Gait EMR reviewed: pt admitted to the hospital 10/15/20 for braing TIA. spouse has been assisting pt at that time but per EMR pt's spouse recently passed. per pt: she is independent with all mobilities and ambulation without AD Activities of Daily Living and IADL's Pt agreed that she was able to ADL's on her own and has assist for IADL needs. Social History Household Members none Living Arrangements House Number of Floors (Floors) One Floor Number of Stairs To Enter/Railing? Home set up obtained from 11/30 admission EMR info: 16 steps with right rail to enter Home Environment Standard Height Toilet,Walk in Shower Home Equipment Raised Toilet Seat w/Armrests, Shower Seat without Backrest, Hand Held Shower,Grab Bars In Shower Additional Social History Comment per chart: pt has 24/7 caregiver available M2 PT-IP Current Condition Start: 08/19/22 14:19 Freq: NEEDED Status: Active Protocol: Document 08/19/22 12:25 AB (Rec: 08/19/22 14:38 AB [id number]) Physical Therapy Current Condition Current Condition Evaluation Date 08/19/22 Treatment Diagnosis Covid; metabolic encephalopathy; difficulty in walking Onset Date 08/18/22 M3 PT-IP Subjective Start: 08/19/22 14:19 Freq: NEEDED Status: Active Protocol: Document 08/19/22 12:25 AB (Rec: 08/19/22 14:38 AB [id number]) Subjective Physical Therapy Visit Type Type Initial Evaluation Visit Start Time 12:25 Visit Stop Time 13:00 Total Visit Minutes 35 Number of BEFORE AND AFTER SCHOOL DAYCARE WORKER Visits 0 Physical Therapy Visit Comments Patient Comments agreeable to do PT M4 PT-IP Mobility and Gait Start: 08/19/22 14:19 Freq: NEEDED Status: Active Protocol: Document 08/19/22 12:25 AB (Rec: 08/19/22 14:38 AB [id number]) PT-Bed Mobility Assessment Sit to Supine Sit to Supine Maximum Assistance,1 Person Assistance,2 Person Assistance PT-Transfer Assessment Sit to and From Stand Sit to and from Stand Maximum Assistance,2 Person Assistance,Use of Upper Extremities Equipment Transfer Assistive Device Gait Belt,Front Wheeled Walker Orthotic/Prosthetic Devices or Brace: No Transfers Transfer Destination Bed Transfer Technique Stand Step Pivot Transfer Ability Level of Assist Maximum Assistance,2 Person Assistance,Use of Upper Extremities Comments Mobility Comments nurse informed that pt will be getting an MRI soon and pt has to be back in bed after therapy. pt sitting up on the chair. pt unable to verbalize much but nods when she agrees and able to follow directions. completed sit to stand max A x 2 and max cues. attempted to ambulate but pt was only able to take 2 small steps towards the bed max A x 2 and max cues using FWW and instructed to return to bed and completed step transfer to bed using FWW max A x 2 and max cues. presents with NBOS, increase posterior and lateral trunk leaning to the L. completed sit to supine max A x 1-2 and max cues. positioned pt in bed. pt needing to be cleaned up. informed NAC. left pt with NAC and OT. Gait Assessment Comments Gait Comments steps during transfers PT-Balance Assessment Sitting Balance and Reactions Static Sitting Balance Ability Fair Dynamic Sitting Balance Ability Fair Standing Balance and Reactions Static Standing Balance Ability Poor Dynamic Standing Balance Ability Poor Device Used FWW M5 PT-IP Objective Assessments Start: 08/19/22 14:19 Freq: NEEDED Status: Active Protocol: Document 08/19/22 12:25 AB (Rec: 08/19/22 14:38 AB [id number]) Orientation Orientation/Cognition Level of Alertness Alert Orientation Name Safety Awareness Decreased Safety Awareness Memory Description Short Term Impaired Gross Range of Motion Lower Extremity ROM Assessment Within Functional Limits Strength Lower Extremity Strength Hip 4-/5 Knee 4-/5 Muscle Tone Muscle Tone WNL Yes M6 PT-IP Treatment Start: 08/19/22 14:19 Freq: NEEDED Status: Active Protocol: Document 08/19/22 12:25 AB (Rec: 08/19/22 14:38 AB [id number]) Physical Therapy Treatment Education Education Provided Safety M7 PT-IP Assessment and Plan Start: 08/19/22 14:19 Freq: NEEDED Status: Active Protocol: Document 08/19/22 12:25 AB (Rec: 08/19/22 14:38 AB [id number]) PT Summary Assessment and Plan Potential Rehabilitation Potential Fair Status of Condition at Evaluation Evolving Summary Impairments Pain,ROM,Strength,Balance, Coordination,Sensation,Tone, Cognition,Bed Mobility, Transfers,Gait,Activity Tolerance Assessment Summary pt requiring max A x 2 with mobility using FWW and will require SNF rehab at this time to improve overall strength and mobility. pt will require 24/7 care availability at this time. will continue to assess progress. Goals Bed Mobility Goal Moderate Assistance Transfer Goal Moderate Assistance,Front Wheeled Walker Gait Goal Moderate Assistance,Front Wheel Walker Gait Distance 25 Other Goals improve bed mobility, transfers, ambulation using FWW CGA 100 ft up/down 16 steps R rail ascending CGA Days to Meet Goals 10 Frequency of Treatment Frequency Of Treatment Once a Day Treatment Plan Physical Therapy Treatment Plan Bed Mobility Training,Transfer Training,Gait Training, Therapeutic Exercise,Balance Retraining,Post Op Education, Discharge Planning,Hot or Cold Pack,Neuromuscular Re-ed, Coordination Retraining,Manual Therapy Precautions Other Precautions Covid Recommendations To Nursing Amount of Assist Needed 2 Person Assist Discharge Recommendations PT Discharge Recommendations SNF Rehab Transportation Needs at Discharge Wheelchair/Cabulance
--- NOTE | 2022-08-19 12:59 | OT.IP.EVAL ---
Current Diagnoses COVID-19 (08/15/22) Past Medical History (Last Reviewed 08/15/22 @ 15:39 by Freddie Sanchez, DO) Abdominal pain Actinic keratosis Asthma Colon polyps (12/2013) Ductal carcinoma in situ (DCIS) of right breast (2000) GERD (gastroesophageal reflux disease) Glioblastoma multiforme of brain Hyperlipidemia (11/11/10) Hypertension Impaired cognition Irritable bowel syndrome with diarrhea Mixed anxiety depressive 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) Osteopenia of multiple sites Perineal discomfort in female Rosacea Surgical History (Last Reviewed 02/19/22 @ 09:57 by Crispin Washington DO) History of tonsillectomy and adenoidectomy (1949) Hx of colonoscopy with polypectomy (12/2013) Hx of left breast biopsy (12/2010) Hx of surgical procedure (2006) Status post breast lumpectomy (2000) Status post cholecystectomy (2004) Status post hysterectomy (1993) Status post knee surgery (1992) Occupational Therapy Inpatient Evaluation/Re-Eval M1 PT/OT-IP Prior Functional Status Start: 08/19/22 13:09 Freq: NEEDED Status: Active Protocol: Document 08/19/22 12:25 [facility] (Rec: 08/19/22 13:29 [facility] [id number]) Medical Review Prior Functional Status Communication Pt not able to talk much on OTeval but able to nod her head yes and no to answer questions. Mobility and Gait Pt states walked without a device but has a walker at home. Activities of Daily Living and IADL's Pt agreed that she was able to ADL's on her own and has assist for IADL needs by caregiver. Social History Household Members none Living Arrangements House Number of Floors (Floors) One Floor Number of Stairs To Enter/Railing? 16 steps with right rail to get in, information from last admit on 10/15/20 Home Environment Standard Height Toilet Home Equipment Hand Held Shower,Grab Bars In Shower M2 OT-IP Current Condition Start: 08/19/22 13:09 Freq: Status: Active Protocol: Document 08/19/22 12:25 [facility] (Rec: 08/19/22 13:29 [facility] [id number]) Occupational Therapy Current Condition Current Condition Evaluation Date 08/19/22 Treatment Diagnosis COVID+, encephalopathy Diagnosis Onset Date 08/15/22 M3 OT- IP Subjective and Pain Start: 08/19/22 13:09 Freq: Status: Active Protocol: Document 08/19/22 12:25 [facility] (Rec: 08/19/22 13:29 [facility] [id number]) OT- Subjective Occupational Therapy Visit Type Type Initial Evaluation Visit Start Time 12:25 Visit Stop Time 12:59 Total Visit Minutes 34 Occupational Therapy Visit Comments Patient Comments Pt agreed to get up for OT eval. PT present for part of the session. Patient/Caregiver Goals Pt did not state. M4 OT- IP ADL's Start: 08/19/22 13:09 Freq: Status: Active Protocol: Document 08/19/22 12:25 [facility] (Rec: 08/19/22 13:29 [facility] [id number]) OT [id number] Comments OT Self-Feeding Comments NOt at meal time. Pt having difficulty to use her hand take off and put on her glasses and will probably end of needing assist for set-up at this time and possibly more assist for meals, unable to assess as getting ready to go down for MRI soon. OT ADL-Grooming Comments OT Grooming Comments Pt able to wash her face after set-up of wash cloth. OT ADL-Oral Care Comments Oral Care Comments NOt performed. OT ADL-Dressing General Eval Lower Body Dressing Ability Moderate Assistance Comments OT Dressing Comments MODA to help get her socks on over her feet, while seated on the edge of the recliner. OT ADL-Toileting General Evaluation Toileting Ability Total Assistance Areas Needing Assistance Manage Clothing,Perform Perineal Hygiene Comments OT Toileting Comments Pt soiled and dependent at this time for brief change and hygiene needs. OT ADL-Bathing Comments OT Bathing Comments Sponge bath more appropriate at this time. M5 OT- IP IADL's Start: 08/19/22 13:09 Freq: Status: Active Protocol: Document 08/19/22 12:25 [facility] (Rec: 08/19/22 13:29 [facility] [id number]) OT-Instrumental Activities of Daily Living Deficits IADL Deficits Identified Deficits Medication Management Medication Management Caregiver Administers Money Management Money Management Caregiver Provides Assistance Meal Preparation Meal Preparation Caregiver Provides Assist Ceramic Saw Tender Ceramic Saw Tender Caregiver Provides Assist M6 OT- IP Functional Cognition Start: 08/19/22 13:09 Freq: Status: Active Protocol: Document 08/19/22 12:25 [facility] (Rec: 08/19/22 13:29 [facility] [id number]) Cognitive Factors Limiting Selfcare Function Cognitive Ability Level of Alertness Alert Patient Orientation Name Attention Span Ability Capable of Focused Attention, Capable of Sustained Attention Ability to Follow Commands Able to Follow One Step Commands with Increased Time, Able to Follow One Step Commands with Repetition Memory Description Short Term Impaired Cognitive Comments Cognitive Assessment Comments Pt able to follow simple concrete commands for ADl and mobility needs. Pt having difficulty to get her words out when asking her about home set-up. OT- Vision and Hearing OT- Hearing Assessment OT- Hearing Assessment WFL OT- Vision Assessment Visual Acuity Glasses All The Time M7 OT- IP Mobility and Balance Start: 08/19/22 13:09 Freq: Status: Active Protocol: Document 08/19/22 12:25 [facility] (Rec: 08/19/22 13:29 [facility] [id number]) OT- Bed Mobility Assessment Rolling Type of Rolling Bilateral Level of Assistance Maximum Assistance,1 Person Assistance Supine to Sit Supine to Sit Assist Maximum Assistance,1 Person Assistance Sit to Supine Sit to Supine Assist Maximum Assistance,1 Person Assistance OT-Transfer Assessment Sit to and From Stand Sit to and from Stand Maximum Assistance,2 Person Assistance Transfers Transfer Ability Maximum Assistance,2 Person Assistance Technique Transfer Destination Bed,Chair Transfer Technique Stand Step Pivot Devices Transfer Assistive Devices Gait Belt,Front Wheeled Walker Comments Mobility Comments MAXA for bed mobilty. MAXA 1-2 to stand and assist for transfer as pt tends to lean posteriorly and needign assist to help guide the FWW. OT- Gait Assessment Comments Gait Ability Comments Transfer only at this time. OT- Balance Assessment Sitting Balance and Reactions Static Sitting Balance Ability Fair Dynamic Sitting Balance Ability Poor Standing Balance and Reactions Static Standing Balance Ability Poor Dynamic Standing Balance Ability Poor Comments Other Balance Tests/Deviations/Treatment Pt heavily leans to the left : while sitting upright. M8 OT- IP Objective Assessments Start: 08/19/22 13:09 Freq: Status: Active Protocol: Document 08/19/22 12:25 [facility] (Rec: 08/19/22 13:29 [facility] [id number]) OT Gross Range of Motion Upper Extremity Range of Motion Assessment Bilaterally Impaired OT Strength Upper Extremity Strength Assessment Bilaterally Impaired Comments Strength Comments Decreased AROM at end ROM R> LUE and BUE strength 4-/5 to 4/5 M9 OT- IP Assessment and Plan Start: 08/19/22 13:09 Freq: Status: Active Protocol: Document 08/19/22 12:25 [facility] (Rec: 08/19/22 13:29 [facility] [id number]) OT Summary Assessment and Plan Potential Rehabilitation Potential Good Analytic Complexity at Evaluation Moderate Summary OT Impairments Range of Motion,Strength, Balance,Functional Cognition, Functional Mobility,Self- Feeding,Grooming,Dressing, Toileting,Bathing,Toilet Transfers,Shower Transfers, Activity Tolerance Progress Towards Goals Slow Progress due to Medical Issues,Slow Progress due to Activity Tolerance,Slow Progress due to Cognition Assessment Summary Pt MOD complexity and main barriers are steps, now needing 1-2 person assist for all ADl and mobility needs. Pt nodding in agreement prior able to do her ADL's and mobility without at device. To clarify her prior level of care with family. Pt will benefit from skilled rehab prior to going home. Pt does have a 24/7 caregiver but seems to just assist for IADl needs. Goals Self-Feeding Goal Independent Grooming Goal Independent Dressing Goal Independent Toileting Goal Independent Bathing Goal Standby Assistance Toilet Transfer Goal Independent Shower Transfer Goal Independent Days to Meet Goals 20 Frequency of Treatment Frequency Of Treatment Once a Day Treatment Plan OT Treatment Plan ADL Training,Functional Cognition Training,Functional Mobility,Patient/Family Education,Discharge Planning Other Treatment Recommendations and Next Transfer to [facility] with MODA X1 Treatment Focus Discharge Recommendations OT Discharge Recommendations SNF Rehab Transportation Needs at Discharge Wheelchair/Cabulance
--- NOTE | 2022-08-19 13:25 | P.PN_ITS ---
Subjective Subjective Date Patient Seen: 08/19/22 Interval history: 77 year old female admitted with lethargy, decreased swallow from COVID 19 infection. Her pain is improved today, was able to tolerate more diet today with speech but still slow. Some neck fullness noted, MRI and CT neck ordered to further evaluate given slow but continued decline from baseline swallow. Exam Vital Signs (past 8 hours): - 08/19/22 06:00 08/19/22 06:00 08/19/22 07:00 Pulse Rate 71 Blood Pressure 148/86 H 156/79 H Pulse Oximetry 96 08/19/22 07:00 08/19/22 07:57 08/19/22 08:00 Pulse Rate 70 82 Blood Pressure 162/76 H Pulse Oximetry 96 93 Oxygen Delivery Method Room Air Oxygen Flow Rate 0 Narrative Exam Narrative: Gen: Arousable and very thin 77 y.o. female, HEENT: normocephalic, atraumatic, conjunctiva clear, sclera non-icteric, oral mucosa pink and moist. Posterior pharyngeal erythema. Neck: supple, full ROM, no JVD, trachea is midline. neck feels full without obvious discernable mass. tender lymphadenopathy has improved today. Resp: Lungs CTA, non-labored breathing Chest: She has a port on the left side of her chest appears to be intact with no signs of infection CV: RRR, no murmur or rubs Abd: soft, non-tender, normoactive BTs Skin: no lesions or rashes, dry and intact Neuro: Lethargic with slow verbal response, but appropriate. Mildly tremulous but improved with application of warm blanket. Extremities: no edema or joint effusions. 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 Grandfather Stroke Grandmother Cancer Social History household members: none Smoking Status: Never smoker second hand exposure: No alcohol intake: current substance use type: does not use Assessment & Plan Assessment & Plan narrative: 77 year old female admitted with an acute encephalopathy and hypertension, encephalopathy likely in the setting of COVID 19 infeciton. Acute metabolic encephalopathy, present on admission, improving - improved with fluids, likely due to COVID infection but also with underlying glioblastoma with prior brain resection, cognitive impairment based on outpatient records. - likely COVID contributing to encephalopathy. Also she was mildly hypoglycemic which was contributory. - continue treatments noted below COVID 19 infection - patient with inability to swallow, has difficulties at baseline and now with sore throat in setting of COVID infection. She is improving though slowly, Will obtain MRI of her head and CT imaging of her neck to evaluated for possible CVA, recurrence of maligancy, or significant lymphadenopathy or other neck pathology causing difficulties with swallow (neck enlarged on exam) - remdesevir given for 3 days to see if faster improvement, hospital does not have alternative therapies in stock and she is unable to tolerate oral intake. No respiratory failure. - consider alternative nutrtition sources should she not be able to tolerated adequate intake in the coming days. History of glioblastoma * from outpatient records, disease has been stable, most recent MRI form 07/29 showed no new processes and stable disease. * consider MRI depending on symptom progression as noted above. Hypertensive urgency, acute, present on admission * increase home lisinopril now that she is able to take crushed pills. Has been on IV enaprilat and as needed labetalol. Will start lisinopril 20 mg daily. Thrombocytopenia, acute on chronic - suspect in setting of infection with COVID 19, continue to monitor. Hypogylcemia - CBG of 70 early in hospital course. started on D5 1/2 NS to continue until tolerating more of a diet. Reviewed outside records: Oncology records VTE Prophylaxis: Wells risk score 2.5 she is written for heparin 5000 units subQ twice daily X Bilateral SCDs Dispo: inpatient. PT/OT will be needed prior to discharge and was ordered today. Surrogate DPOA is listed as friend Martin Scott. Code status: full code COVID-19 COVID-19 status: Positive Result date/Date tested (Pos, Neg/Pending): 08/15/22 Time Spent With Patient Critical Care time: I spent a total of [] minutes of critical care time on this patient's care today; this time is exclusive of procedural time. Quality VTE Deep Vein Thrombosis/Pulmonary Embolism Present on Admission: No
--- NOTE | 2022-08-19 13:38 | CM.DPC ---
DCP Cont: Discussed patient during team rounds. Patient was able to tolerate some nectar thick, blenderized food, worked with speech today. Hospitalist is ordering an MRI for patient today to evaluate if there have been any acute changes, due to swallowing issues, cognitive status. Patient working with O.T, and P.T. today. P: DCP to continue to follow closely. Plan is home with home health versus [facility], as long as caregivers can manage patient at home. Sara Dodson RN/[employer]
[2022-08-19] MEDS: LORazepam 2 MG/ML INJ 0.5 MG IV (13:59)
[2022-08-20] VITALS (13 sets, daily range): BP systolic 163–194; BP diastolic 76–86; PULSE 34–87; RESP 16–17; TEMP 36.4–36.8; O2SAT 91–98
[2022-08-20] MEDS: DEXTROSE 5%-0.45% NS 1,000 ML 125 ML IV ×2 (02:28→12:12)
[2022-08-20 05:15] LABS: Add Manual Diff / Slide Review NO; Basophils Absolute Auto 100 /uL (0-100); Basophils Percent Auto 2.3 % (0-2); Eosinophils Absolute Auto 100 /uL (0-450); Eosinophils Percent Auto 3.2 % (2-4); Hematocrit 32.9 % (36-46); Hemoglobin 11.2 g/dL (12.0-16.0); Lymphocytes Absolute Auto 900 /uL (1100-4500); Lymphocytes Percent Auto 29.4 % (25-40); Mean Corpuscular Hemoglobin 29.5 PG (26-34); Monocytes Absolute Auto 300 /uL (0-900); Monocytes Percent Auto 9.5 % (3-14); Neutrophils Absolute Auto 1700 /uL (1500-7000); Neutrophils Percent Auto 55.6 % (50-75); Platelet Count 102 X10^3/uL (150-400); Red Blood Cell Count 3.78 X10^6/uL (4.0-5.2); Red Cell Distribution Width 12.8 % (11.6-14.8); White Blood Cell Count 3.1 X10^3/uL (4.5-11.0)
[2022-08-20 05:25] LABS: BUN Creatinine Ratio 14.9 (6-22); Blood Urea Nitrogen 7 mg/dL (7-17); Calcium 7.3 mg/dL (8.4-10.2); Carbon Dioxide 26 mmol/L (22-32); Chloride 105 mmol/L (98-107); Estimated Glomerular Filt Rate > 60 mL/min (>60); Glucose 96 mg/dL (80-110); HEMOLYSIS < 15 (0-50); Potassium 3.1 mmol/L (3.4-5.1); Sodium 135 mmol/L (137-145)
--- NOTE | 2022-08-20 06:08 | PC.NURSE ---
Patient sleeping throughout shift, expected discharge today.
[2022-08-20] MEDS: lisinopriL 20 MG TABLET PO (09:14)
[2022-08-20] MEDS: HEPARIN 5,000 UNIT/ML VIAL 5000 UNIT SUBCUT ×2 (09:14→21:48)
--- NOTE | 2022-08-20 10:09 | ST.IPDYTX ---
Visit Care Team Role Provider Type Crispin Washington DO Primary Care Provider Physician Specialty: Family Practice Address: [address] [place] [address], [id number] Email: [email or web address] MD Other Providers Physician Specialty: Oncology Address: [address] [place] [address], [id number] Email: [email or web address] Freddie Sanchez DO Emergency Provider Physician Referring Provider Specialty: Emergency Medicine Address: [address] [place] [address], [id number] Email: [email or web address] DO Admit Provider Physician Attending Provider Specialty: Internal Medicine Address: [address] [place] [address], [id number] Email: [email or web address] Dysphagia Treatment BAND NAILER Dysphagia Treatment Start: 08/19/22 10:20 Freq: Status: Active Protocol: Document 08/20/22 10:04 MARANDA (Rec: 08/20/22 10:09 MARANDA [id number]) Dysphagia Treatment Session Time Visit Start Time 09:30 Visit Stop Time 10:00 Total Visit Minutes 30 Visit Information Visit Number 2 Setting Assessment Location Acute Care Visit Type Note Type Treatment Note Next Note Type Next Note Type Treatment Note Patient Information Identification Type Name,ID Wristband Subjective Observations Precious was seated upright in chair with morning meal next to her when BAND NAILER arrived. She agreed to participate in PO trials with nectar thick cranberry juice and nectar thick water, but refused solids at this time. Treatment Liquids Trialed [place] Solids Trialed Puree Administration Type Tea Spoon,Dependent Feeding Oral Strategies Upright at 90 degrees, Controlled Bite/Sip Size Treatment Activities Observed NSG provide medications crushed in applesauce to pt. PO trials to determine if pt can advance from 1/4 teaspoon full to full teaspoon for PO intake. Completed 1 trial of nectar thick cranberry juice and 1 trial of nectar thick water. Pt refused additional trials. Assessment Patient Response to Treatment Fair Rehab Potential Poor Assessment of Improvement Pt accepted 4 teaspoons of applesauce with medication with no overt signs or symptoms of aspiration. She exhibited coughing when full teaspoon of nectar thick liquids was provided. Pt exhibited strong cough. With 1 /4 teaspoon, no overt signs or sypmtoms of aspiration were observed. BAND NAILER provided tactile cues to keep pt awake until bite was swallowed. Aspiration risk is high due to high fatigue levels and prolonged oral holding, which result in pt falling asleep with bolus in her mouth. Additionally, pt is at risk for inadequate nutrition and hydration due to small bolus size (which reduces aspiration risk) and small PO intake with meals. Recommend continued assessment and monitoring of diet with advancement as indicated. Recommend continued nectar thick liquids via teaspoon (1/ 4 full) and puree solids via teaspoon (1/4 full). Diet Recommendations Recommendations Continue Current Diet Liquids Order [place] Diet Order Dysphagia Blenderized Medication Recommendations Crushed in Carrier Additional Dietary Needs 1:1 Assistance Aspiration Precautions Recommended Precautions Upright at 90 Degrees,Small Bites/Sips,Chin Tuck,Liquids from Spoon Additional Precautions Tactile cues to keep pt awake until food is swallowed. Treatment Plan Placement Recommendation after Discharge Long-Term Facility Appropriate for Continued Therapy Yes Dysphagia Goals The pt will safely tolerate least restrictive diet to meet her nutrition and hydration needs.
--- NOTE | 2022-08-20 11:19 | CM.DPC ---
Addendum entered by REECE Fink 08/20/22 15:43: ADD: JUANPABLO spoke with Elyse at [facility] and discussed pt care needs and ambulation assist level etc and she confirms that they can meet her needs at home and very thankful for HH referral. Elyse states plan right now is pt's local friends will provide transport home and stay until 1800 when evening PP CG comes on shift and then [facility] will continue providing / and will assist with getting additional adult briefs as pt was not incontinent much before. Elyse recommends calling sister/DPOA when discharge orders placed tomorrow so that they can all coordinate the d/c plan for pt to home. JUANPABLO made [facility] referral based on [facility] Calendar and F2F completed but not faxed yet. JUANPABLO updated Madelyn at [facility] that currently plan is home but not to shred the request for SNF auth yet. [facility] pt in a couple days if SNF needed due to her COVID+ status. [facility] and [facility] cannot accept. BF Addendum entered by REECE Fink 08/20/22 13:46: ADD: Message left for SW from Elyse, CG coordinator from [facility], stating she has been in contact with sister/DPOA and aware pt likely discharging soon and they have their caregivers in the wings waiting for her to come home. JUANPABLO tried to call Elyse back [phone] and left msg to determine if any clinicals or further info needed. BF Original Note: DCP SNF vs HH Per MD, pt making medical progress and getting close to being medically stable to discharge. Per PT/OT, pt below baseline and currently recommending SNF rehab. Per RN, pt currently a 1PA and cueing for use of FWW but not heavy physical assist and seems somewhat confused. JUANPABLO attempted to call pt in room due to COVID precautions but no answer. JUANPABLO called local [facility] contracted SNF facilities to determine if her COVID+ status would be a barrier. [facility] cannot accept isolation pts right now. Left msg for [facility]. [facility] willing to review to determine if they can accept. JUANPABLO faxed clinicals to [facility] for SNF auth in case pt needs SNF at d/c. JUANPABLO called pt's DPOA/sister Angle and discussed pt's current care needs and SNF recommendation and she states pt, herself, and pt's Dtr preference is to return home with her 24/7 Caregiver rather than SNF and would be agreeable to HH. SW discussed need for CG agency [facility] to confirm they can meet pt's needs and requested sister/DPOA call the agency today as she has kept in close contact with them. Sister agreeable and SW provided contact for SW in case CG agency needs clinical information to make their determination if they can safely support pt at home. Sister aware that pt close to being ready to d/c. Plan: SW to follow for confirmation from pt's sister/DPOA that pt's current CG agency can meet her needs at home or if SNF needed. [facility] reviewing for SNF auth in case needed. [facility] reviewing in case SNF needed. If home, HH referral will be needed. REECE Fink
[2022-08-20] MEDS: POTASSIUM CHLORIDE IN WATER 10 MEQ/100 ML PIGGYBACK 100 MEQ IV ×4 (12:10→15:40)
--- NOTE | 2022-08-20 15:08 | OT.IP.TRT ---
Current Diagnoses COVID-19 (08/15/22) Occupational Therapy Treatment Note M2 OT-IP Current Condition Start: 08/19/22 13:09 Freq: Status: Active Protocol: Document 08/19/22 12:25 [facility] (Rec: 08/19/22 13:29 [facility] [id number]) Occupational Therapy Current Condition Current Condition Evaluation Date 08/19/22 Treatment Diagnosis COVID+, encephalopathy Diagnosis Onset Date 08/15/22 M3 OT- IP Subjective and Pain Start: 08/19/22 13:09 Freq: Status: Active Protocol: Document 08/20/22 15:48 [facility] (Rec: 08/20/22 16:00 [facility] [id number]) OT- Subjective Occupational Therapy Visit Type Type Treatment Note Visit Start Time 14:30 Visit Stop Time 15:08 Total Visit Minutes 38 Occupational Therapy Visit Comments Patient Comments Pt agreed to get back to bed, able to see pt with MID LEVEL GAME DESIGNER due to pt needing extensive skilled assist for mobility at this time. Patient/Caregiver Goals To go home. OT Pain Assessment Pain When Pain Assessed At Rest Pain Present Pain Present Denied Pain General Evaluation Toileting Ability Total Assistance Areas Needing Assistance Manage Clothing,Perform Perineal Hygiene Comments OT Toileting Comments Pt soiled and dependent at this time for brief change and hygiene needs. OT ADL-Bathing Comments OT Bathing Comments Sponge bath more appropriate at this time. M5 OT- IP IADL's Start: 08/19/22 13:09 Freq: Status: Active Protocol: Document 08/19/22 12:25 [facility] (Rec: 08/19/22 13:29 [facility] [id number]) OT-Instrumental Activities of Daily Living Deficits IADL Deficits Identified Deficits Medication Management Medication Management Caregiver Administers Money Management Money Management Caregiver Provides Assistance Meal Preparation Meal Preparation Caregiver Provides Assist Food And Beverage Server Food And Beverage Server Caregiver Provides Assist M6 OT- IP Functional Cognition Start: 08/19/22 13:09 Freq: Status: Active Protocol: Document 08/20/22 15:48 [facility] (Rec: 08/20/22 16:00 [facility] [id number]) Cognitive Factors Limiting Selfcare Function Cognitive Ability Level of Alertness Alert,Confusional State Patient Orientation Name,Place Attention Span Ability Capable of Focused Attention, Capable of Sustained Attention Ability to Follow Commands Able to Follow One Step Commands with Increased Time, Able to Follow One Step Commands with Repetition Memory Description Short Term Impaired Cognitive Comments Cognitive Assessment Comments Pt needing increased time to process directions at times today. Pt able to talk more today and admits to having needing more assist at home lately. Pt however a bit confused and was talking abut having gone on a field trip. M7 OT- IP Mobility and Balance Start: 08/19/22 13:09 Freq: Status: Active Protocol: Document 08/20/22 15:48 [facility] (Rec: 08/20/22 16:00 [facility] [id number]) OT- Bed Mobility Assessment Sit to Supine Sit to Supine Assist Moderate Assistance,2 Person Assistance OT-Transfer Assessment Sit to and From Stand Sit to and from Stand Maximum Assistance,2 Person Assistance Transfers Transfer Ability Maximum Assistance,2 Person Assistance Technique Transfer Destination Bed,Chair Transfer Technique Stand Step Pivot Devices Transfer Assistive Devices Gait Belt,Front Wheeled Walker Comments Mobility Comments MAXA AX 2 to stand, pt posteriorly lean back and also to the right when standing to FWW. Pt needing assist to stay upright and guide the FWW . OT- Gait Assessment Comments Gait Ability Comments Transfer only at this time. OT- Balance Assessment Sitting Balance and Reactions Static Sitting Balance Ability Poor Dynamic Sitting Balance Ability Poor Standing Balance and Reactions Static Standing Balance Ability Poor Dynamic Standing Balance Ability Poor Comments Other Balance Tests/Deviations/Treatment Today pt is leaning to the : right while seated. M8 OT- IP Objective Assessments Start: 08/19/22 13:09 Freq: Status: Active Protocol: Document 08/19/22 12:25 [facility] (Rec: 08/19/22 13:29 [facility] [id number]) OT Gross Range of Motion Upper Extremity Range of Motion Assessment Bilaterally Impaired OT Strength Upper Extremity Strength Assessment Bilaterally Impaired Comments Strength Comments Decreased AROM at end ROM R> LUE and BUE strength 4-/5 to 4/5 M9 OT- IP Assessment and Plan Start: 08/19/22 13:09 Freq: Status: Active Protocol: Document 08/20/22 15:48 [facility] (Rec: 08/20/22 16:00 [facility] [id number]) OT Summary Assessment and Plan Potential Rehabilitation Potential Good Analytic Complexity at Evaluation Moderate Summary OT Impairments Range of Motion,Strength, Balance,Functional Cognition, Functional Mobility,Self- Feeding,Grooming,Dressing, Toileting,Bathing,Toilet Transfers,Shower Transfers, Activity Tolerance Progress Towards Goals Slow Progress due to Medical Issues,Slow Progress due to Activity Tolerance,Slow Progress due to Cognition Assessment Summary Pt more talkative today and able to work on trunk control and gentle stretching to her legs prior to working on standing balance and transfer with MID LEVEL GAME DESIGNER. Pt continues to have decreased trunk control and body awareness and needing cues for hand and feet placement during transitions. Pt will benefit from skilled rehab . Goals Self-Feeding Goal Independent Grooming Goal Independent Dressing Goal Independent Toileting Goal Independent Bathing Goal Standby Assistance Toilet Transfer Goal Independent Shower Transfer Goal Independent Days to Meet Goals 30 Frequency of Treatment Frequency Of Treatment Once a Day Treatment Plan OT Treatment Plan ADL Training,Functional Cognition Training,Functional Mobility,Patient/Family Education,Discharge Planning Discharge Recommendations OT Discharge Recommendations SNF Rehab Transportation Needs at Discharge Wheelchair/Cabulance
--- NOTE | 2022-08-20 15:14 | PC.NURSE ---
Day Shift Note Pt sleeping most of day, oriented to self and to place, is forgetful but pleasant. RA with SpO2 in the high 90s. Up to chair most of shift, 1-2 person assist, leans back when standing and needs lots of cues to sit and then stand at side of bed, steadier when taking steps and transferring to chair, used FWW. Denies pain. Incontinent of urine, purewick in place. Pt eating very few bites of each meal (about 5-10 bites). Feeding self with 1:1 supervision. Update to Angle PHILLIPS this shift. Call light within reach. Bed alarm is on.
--- NOTE | 2022-08-20 16:43 | P.PN_ITS ---
Subjective Subjective Date Patient Seen: 08/20/22 Time Patient Seen: 08:00 Interval history: She feels quite weak. Difficult for her to get out of bed by herself. Requires quite a bit of assistance. No shortness of breath currently. Exam Vital Signs (past 8 hours): - 08/20/22 09:00 08/20/22 14:06 Temperature 98.2 F Pulse Rate 78 70 Respiratory Rate 16 17 Blood Pressure 187/86 H 163/76 H Pulse Oximetry 97 98 Oxygen Flow Rate 0 0 Oxygen Delivery Method Room Air Oxygen Flow Rate 0 Narrative Exam Narrative: Resp: clear bilaterally Chest: She has a port on the left side of her chest appears to be intact with no signs of infection CV: regular rate and rhythm, no murmurs Neuro: awake, alert, slow verbal response Objective Labs 08/20/22 04:30 08/20/22 04:30 Labs: Laboratory Results - last 24 hr 08/20/22 08/20/22 04:30 04:30 WBC 3.1 L RBC 3.78 L Hgb 11.2 L Hct 32.9 L MCV 87.0 MCH 29.5 MCHC 34.0 RDW 12.8 Plt Count 102 L Neut % (Auto) 55.6 Lymph % (Auto) 29.4 [place] % (Auto) 9.5 Eos % (Auto) 3.2 Baso % (Auto) 2.3 H Neut # (Auto) 1700 Lymph # (Auto) 900 L [place] # (Auto) 300 Eos # (Auto) 100 Baso # (Auto) 100 Sodium 135 L Potassium 3.1 L Chloride 105 Carbon Dioxide 26 BUN 7 Creatinine 0.47 L Estimated GFR > 60 BUN/Creatinine Ratio 14.9 Glucose 96 Calcium 7.3 L [facility] Medical History Abdominal pain Actinic keratosis Asthma Colon polyps (12/2013) Ductal carcinoma in situ (DCIS) of right breast (2000) GERD (gastroesophageal reflux disease) Glioblastoma multiforme of brain Hyperlipidemia (11/11/10) Hypertension Impaired cognition Irritable bowel syndrome with diarrhea 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 Grandfather Stroke Grandmother Cancer Social History household members: none Smoking Status: Never smoker second hand exposure: No alcohol intake: current substance use type: does not use Assessment & Plan Assessment & Plan narrative: 77 year old female admitted with an acute encephalopathy and hypertension, encephalopathy likely in the setting of COVID 19 infeciton. Acute metabolic encephalopathy, present on admission, improving - improved likely due to COVID infection in setting of cognitive impairment with history of glioblastoma resection - continue treatments noted below COVID 19 infection - remdesevir given for 3 days to see if faster improvement, hospital does not have alternative therapies in stock and she is unable to tolerate oral intake. No respiratory failure. History of glioblastoma -from outpatient records, disease has been stable, most recent MRI form showed no new processes and stable disease. Hypertensive urgency, acute, present on admission -increase home lisinopril now that she is able to take crushed pills. Has been on IV enaprilat and as needed labetalol. Will start lisinopril 20 mg daily. Thrombocytopenia, acute on chronic - suspect in setting of infection with COVID 19, continue to monitor. Dispo: Patient pending discharge to home or SNF once arranged by case management COVID-19 COVID-19 status: Positive Result date/Date tested (Pos, Neg/Pending): 08/15/22 Time Spent With Patient Critical Care time: I spent a total of [] minutes of critical care time on this patient's care today; this time is exclusive of procedural time. Quality VTE Deep Vein Thrombosis/Pulmonary Embolism Present on Admission: No
--- NOTE | 2022-08-20 16:47 | PT.IPTN ---
Current Diagnoses COVID-19 (08/15/22) Physical Therapy Treatment Note M2 PT-IP Current Condition Start: 08/19/22 14:19 Freq: NEEDED Status: Active Protocol: Document 08/19/22 12:25 [facility] (Rec: 08/19/22 14:38 [facility] [id number]) Physical Therapy Current Condition Current Condition Evaluation Date 08/19/22 Treatment Diagnosis Covid; metabolic encephalopathy; difficulty in walking Onset Date 08/18/22 M3 PT-IP Subjective Start: 08/19/22 14:19 Freq: NEEDED Status: Active Protocol: Document 08/20/22 16:05 LJ (Rec: 08/20/22 16:47 L[facility] [id number]) Subjective Physical Therapy Visit Type Type Treatment Note Visit Start Time 14:30 Visit Stop Time 15:08 Total Visit Minutes 38 Notes Co-treat with OT Number of SALES SPECIALIST Visits 1 Physical Therapy Visit Comments Patient Comments agreeable to do PT M4 PT-IP Mobility and Gait Start: 08/19/22 14:19 Freq: NEEDED Status: Active Protocol: Document 08/20/22 16:05 LJ (Rec: 08/20/22 16:47 [facility] [id number]) PT-Bed Mobility Assessment Sit to Supine Sit to Supine Maximum Assistance,1 Person Assistance,2 Person Assistance PT-Transfer Assessment Sit to and From Stand Sit to and from Stand Maximum Assistance,2 Person Assistance,Use of Upper Extremities Equipment Transfer Assistive Device Gait Belt,Front Wheeled Walker Orthotic/Prosthetic Devices or Brace: No Transfers Transfer Destination Bed Transfer Technique Stand Step Pivot Transfer Ability Level of Assist Maximum Assistance,2 Person Assistance,Use of Upper Extremities Comments Mobility Comments Pt sitting in chair agreeable to partiipate with PT. Co treat with OT. Pt instructed to scoot forward in chair but unable. Then instructed to lean back to scoot bottom toward edge of chair but pt unable. Pillows placed in back of pt and able to complete trunk righting x6. Pillows removed pt unable to complete trunk righting. She had no response to the instruction of sitting forward. Pillow placed in back of pt again and she was able to sit up. Each time she used UEs. Pt then instructed to stand from chair . First attempt pt unable to stand fully errect and wouldn' 't put heels on floor. She pushed backwards. Pt intructed to place feet flat on floor but pt unable. Cued to push heels into floor and pt responded positively with cue to squish spider on floor. ROM and stretching performed on pts calves and hamstrings which were very tight in hopes it would allow pts heels to maintain contact with floor and knees to extend further. Next few attempts at S>stand MaxA x2 pt continued to lean backwards. Fifth attempt to stand pt instructed to take steps toward bed next to chair . With MaxA x2 pt took several tiny, quick steps laterally to side of bed. Pt sat down with cues to use bedrails to control descent. Pt then MaxAx1 with second assist minimal assist with lifting LEs. Pt completed several bridges with MaxA to scoot to center of bed. Pt made comfortable and given all needs within reach.Nursing notified of pts performance. Gait Assessment Comments Gait Comments steps during transfers M5 PT-IP Objective Assessments Start: 08/19/22 14:19 Freq: NEEDED Status: Active Protocol: Document 08/19/22 12:25 [facility] (Rec: 08/19/22 14:38 AB [id number]) Orientation Orientation/Cognition Level of Alertness Alert Orientation Name Safety Awareness Decreased Safety Awareness Memory Description Short Term Impaired Gross Range of Motion Lower Extremity ROM Assessment Within Functional Limits Strength Lower Extremity Strength Hip 4-/5 Knee 4-/5 Muscle Tone Muscle Tone WNL Yes M6 PT-IP Treatment Start: 08/19/22 14:19 Freq: NEEDED Status: Active Protocol: Document 08/20/22 16:05 TAO (Rec: 08/20/22 16:47 [id number]) Physical Therapy Treatment Other Treatments Other Treatment Performed AAROM ankles with stretching dorsi/plantar. Limited ROM LE gastroc and hamstring muscle stretching bilateral M7 PT-IP Assessment and Plan Start: 08/19/22 14:19 Freq: NEEDED Status: Active Protocol: Document 08/20/22 16:05 [facility] (Rec: 08/20/22 16:47 [id number]) PT Summary Assessment and Plan Potential Rehabilitation Potential Fair Status of Condition at Evaluation Evolving Summary Impairments Pain,ROM,Strength,Balance, Coordination,Sensation,Tone, Cognition,Bed Mobility, Transfers,Gait,Activity Tolerance Assessment Summary Pt with retropulsion in attempting sit>stand. Unable to maintain heel contact with floor. Delayed responses to instructions and cues. Pt requiring max A x 2 with mobility using FWW and will require SNF rehab at this time to improve overall strength and mobility. pt will require 02/02 care availability at this time. will continue to assess progress. Goals Bed Mobility Goal Moderate Assistance Transfer Goal Moderate Assistance,Front Wheeled Walker Gait Goal Moderate Assistance,Front Wheel Walker Gait Distance 25 Other Goals improve bed mobility, transfers, ambulation using FWW CGA 100 ft up/down 16 steps R rail ascending CGA Days to Meet Goals 10 Frequency of Treatment Frequency Of Treatment Once a Day Treatment Plan Physical Therapy Treatment Plan Bed Mobility Training,Transfer Training,Gait Training, Therapeutic Exercise,Balance Retraining,Post Op Education, Discharge Planning,Hot or Cold Pack,Neuromuscular Re-ed, Coordination Retraining,Manual Therapy Precautions Other Precautions Covid Recommendations To Nursing Amount of Assist Needed 2 Person Assist Discharge Recommendations PT Discharge Recommendations SNF Rehab
[2022-08-20] MEDS: FUROSEMIDE 20 MG/2 ML VIAL IV (17:17)
[2022-08-21 05:54] LABS: Add Manual Diff / Slide Review NO; Basophils Absolute Auto 0 /uL (0-100); Basophils Percent Auto 0.3 % (0-2); Eosinophils Absolute Auto 100 /uL (0-450); Eosinophils Percent Auto 3.7 % (2-4); Hematocrit 32.4 % (36-46); Hemoglobin 11.1 g/dL (12.0-16.0); Lymphocytes Absolute Auto 1000 /uL (1100-4500); Lymphocytes Percent Auto 28.3 % (25-40); Mean Corpuscular HGB Conc 34.4 % (30-36); Mean Corpuscular Hemoglobin 29.7 PG (26-34); Mean Corpuscular Volume 86.5 fL (80-100); Monocytes Absolute Auto 400 /uL (0-900); Monocytes Percent Auto 10.6 % (3-14); Neutrophils Absolute Auto 1900 /uL (1500-7000); Neutrophils Percent Auto 57.1 % (50-75); Platelet Count 124 X10^3/uL (150-400); Red Blood Cell Count 3.75 X10^6/uL (4.0-5.2); Red Cell Distribution Width 12.8 % (11.6-14.8); White Blood Cell Count 3.4 X10^3/uL (4.5-11.0)
[2022-08-21 06:10] LABS: BUN Creatinine Ratio 16.7 (6-22); Blood Urea Nitrogen 9 mg/dL (7-17); Calcium 7.4 mg/dL (8.4-10.2); Carbon Dioxide 26 mmol/L (22-32); Chloride 103 mmol/L (98-107); Estimated Glomerular Filt Rate > 60 mL/min (>60); Glucose 79 mg/dL (80-110); HEMOLYSIS < 15 (0-50); Potassium 3.3 mmol/L (3.4-5.1); Sodium 135 mmol/L (137-145)
--- NOTE | 2022-08-21 08:12 | P.DS_ITS ---
History of Present Illness History of Present Illness Date Patient Seen: 08/15/22 Time Patient Seen: 21:56 Chief complaint: Lethargy Narrative: Per admitting provider: Precious Gtz is a 77 y.o. female undergoing monitoring for a glioblastoma reportedly brought into the ED for evaluation of mental status changes. Per the ED provider's notes, Is reported by EMS that the patient does live by herself.? Unsure how they were contacted today but fairly the patient has not been as active nor answering questions as readily as she has been in the past.? Here in the emergency department patient has no specific complaints although she does not answer all of the HPI or review of systems questions.? She did denied chest pain and shortness of breath.? She denied any pain in her arms or legs.? There is no signs of trauma. Patient is unable to provide a meaningful history or review of systems. She is under the care of Dr. Arreola oncologist, appearing to having seen him last in October of last year. Chest x-ray was negative for any acute cardiopulmonary process. Head CT did not identify any acute findings noted a stable left frontal lobe resection without evidence of recurrent or residual disease. She is febrile with a T-max of 101.3? blood pressure 196/96 heart rate 76 respiratory rate 19 oxygen saturation of 97% on room air she weighs 48 kg with a BMI of 17.7 WBC is actually low at 4.0 platelet count 116 she has lymphopenia sodium was 134 AST 40 ALT 40 UA was negative for UTI and COVID-19 PCR is positive. She was administered a prophylactic dose of IV ceftriaxone in the case that she developed a positive UA which turns out it is negative. Discharge Providers Provider Date of admission: 08/15/22 17:59 Discharge Date: 08/21/22 Primary care physician: Crispin Washington DO Consults: 08/15/22 19:56 Consult to Physician Routine Comment: Consulting Provider: Moises Arreola Reason for consultation: Altered, monitored for glioblastoma Has provider been notified: No 08/16/22 01:08 Consult to Speech Therapy Evaluate & Treat Comment: Physician Instructions: Evaluate and treat 08/18/22 10:26 Consult to Occupational Therapy Evaluate & Treat Comment: Physician Instructions: Evaluate and treat Consult to Physical Therapy Evaluate & Treat Comment: Physician Instructions: Evaluate and Treat 08/21/22 13:57 Consult to Home Health Routine Comment: Reason For Exam: Home health upon discharge Discharge provider: Tab Cleaning MD Summary Hospital Course Discharge Diagnosis: 1. COVID infection 2. Acute encephalopathy 3. History of glioblastoma 4. Hypertension Hospital Course: Ms. Gtz was admitted with weakness and confusion and found to have COVID. She did not require oxygen. She had no indication for steroids. CT head and MRI showed no change from prior imaging which showed stable enhancement seen post- operatively for which she has had glioblastoma resection. Her mental status improved and she was slow to respond but oriented and alert at discharge. She was quite decondtioned and weak and I recommended SNF, but she and family declined and decided to go home and noted she did have 24 hour care. She was ordered for home health PT. Exam Vital Signs (past 8 hours): Oxygen Delivery Method Room Air Oxygen Flow Rate 0 Narrative Exam Narrative: Resp: clear bilaterally Chest: She has a port on the left side of her chest appears to be intact with no signs of infection CV: regular rate and rhythm, no murmurs Neuro: awake, alert, slow verbal response Objective Labs 08/21/22 05:20 08/21/22 05:20 Labs: Laboratory Results - last 24 hr 08/21/22 08/21/22 05:20 05:20 WBC 3.4 L RBC 3.75 L Hgb 11.1 L Hct 32.4 L MCV 86.5 MCH 29.7 MCHC 34.4 RDW 12.8 Plt Count 124 L Neut % (Auto) 57.1 Lymph % (Auto) 28.3 [place] % (Auto) 10.6 Eos % (Auto) 3.7 Baso % (Auto) 0.3 Neut # (Auto) 1900 Lymph # (Auto) 1000 L [place] # (Auto) 400 Eos # (Auto) 100 Baso # (Auto) 0 Sodium 135 L Potassium 3.3 L Chloride 103 Carbon Dioxide 26 BUN 9 Creatinine 0.54 Estimated GFR > 60 BUN/Creatinine Ratio 16.7 Glucose 79 L Calcium 7.4 L [facility] Medical History Abdominal pain Actinic keratosis Asthma Colon polyps (12/2013) Ductal carcinoma in situ (DCIS) of right breast (2000) GERD (gastroesophageal reflux disease) Glioblastoma multiforme of brain Hyperlipidemia (11/11/10) Hypertension Impaired cognition Irritable bowel syndrome with diarrhea 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 Grandfather Stroke Grandmother Cancer Social History household members: none Smoking Status: Never smoker second hand exposure: No alcohol intake: current substance use type: does not use Discharge Plan Discharge Plan Patient Disposition: Home Health Service Discharge orders & Medications Prescriptions: Continued fluticasone propionate 44 mcg/actuation HFA aerosol inhaler 2 puff inhalation DAILY ondansetron HCl 8 mg tablet 8 mg PO Q8HR Dulera 200-5 mcg/actuation HFA aerosol inhaler 1 puff INHALATION BID pantoprazole 40 mg Tablet,Delayed Release (Dr/Ec) 40 mg PO DAILY lisinopril 10 mg Tablet 10 mg PO BEDTIME Follow up/Referrals: Crispin Washington DO [Primary Care Provider] - Diet/Activity/Treatments Diet: Regular Visit Report/Discharge Packet Stand Alone Forms: Congestive Heart Failure, Patient Portal/API, Stroke Signs & Symptoms Discharge Data Primary Care Provider: Crispin Washington Quality VTE Deep Vein Thrombosis/Pulmonary Embolism Present on Admission: No
[2022-08-21 08:38] VITALS: PULSE 77; O2SAT 86
[2022-08-21 08:39] VITALS: BP 170/81; PULSE 77; O2SAT 96
[2022-08-21 08:45] VITALS: BP 170/81; PULSE 77; RESP 16; TEMP 37.4; O2SAT 95
[2022-08-21 09:57] VITALS: BP 170/81; PULSE 77
[2022-08-21] MEDS: lisinopriL 20 MG TABLET PO (09:57)
[2022-08-21] MEDS: HEPARIN 5,000 UNIT/ML VIAL 5000 UNIT SUBCUT (09:57)
[2022-08-21] MEDS: POTASSIUM CHLORIDE IN WATER 10 MEQ/100 ML PIGGYBACK 100 MEQ IV ×2 (10:01→11:47)
[2022-08-21] MEDS: POTASSIUM CHLORIDE 20 MEQ TAB PO (11:46)
[2022-08-21 13:08] VITALS: BP 200/97
[2022-08-21] MEDS: LABETALOL 20 MG/4 ML SYRINGE 10 MG IV (13:08)
--- NOTE | 2022-08-21 15:09 | CM.DPNOTE ---
DC Note Patient medically stable for discharge today, Dr Cleaning recommends discharge to SNF Placed call to patient's sister/DPOA Angle Randhawa P [phone] to review plan. Angle would like patient to discharge home and is coordinating this transition w/seven sisters in home care and with friends. At time of this call, Angle asked what time patient's friends should arrive to transport her home and so suggested arrival within the hour, friends were planning on listening as DC instructions were reviewed by patient's nurse. Updated RN w/plan per sister Discussed [facility] services and Angle remained agreeable to this. [employer] MANAGER/RN/PT requested Recommendations from PRINT SHOP MANAGER re diet and strategies to minimize risk of aspiration were provided to patient and her friends today; patient remains a high aspiration risk per PRINT SHOP MANAGER, sister Angle aware Angle asks how patient can get home infusion of fluids, suggested she discuss this with patient's primary care provider Updated Mel at [facility] that patient was returning home today, faxed completed and signed [facility], order and the last medical prog note, DC Summary not available Updated Kayy at [facility] that patient returning home today Plan: Discharge home w/care givers, friends and coordination by sister Angle via friend's transport, [facility] services JW
== END 2022-08-21 14:04 | disposition home health service (06) | DRG 177 ==
LOC: ED 17:56 → AC 17:59 → ICU 19:21
PROVIDERS: Internal Medicine; Nurse Practitioner Family; Admitting Provider Student in an Organized Health Care Education/Training Program; Emergency Provider Emergency Medicine; PCP Family Medicine; Referring Provider Emergency Medicine; Visit Provider Student in an Organized Health Care Education/Training Program
DX: U07.1 COVID-19 (principal); G93.41 Metabolic encephalopathy; C71.9 Malignant neoplasm of brain, unspecified; I16.0 Hypertensive urgency; I10 Essential (primary) hypertension; J45.909 Unspecified asthma, uncomplicated; E78.5 Hyperlipidemia, unspecified; E16.2 Hypoglycemia, unspecified; J02.9 Acute pharyngitis, unspecified; R13.10 Dysphagia, unspecified; K21.9 Gastro-esophageal reflux disease without esophagitis; D69.6 Thrombocytopenia, unspecified; Z79.899 Other long term (current) drug therapy; Z79.82 Long term (current) use of aspirin; Z88.8 Allergy status to other drugs, medicaments and biological substances
CPT/HCPCS: 36415; 36591; 70450; 70491; 70553; 71045; 80048; 80053; 80305; 80320; 81001; 82550; 82962; 83605; 83690; 83735; 84145; 84484; 85025; 87040; 87635; 87797; 92526; 92610; 93005; 96360; 96365; 97110; 97162; 97166; 97530; 99284; C9803; J0360; J0696; J1642; J1644; J1885; J1940; J2060; J3475; J7050

== ENCOUNTER → 2022-09-16 08:57 | Outpatient (CLI) | payer OTHER, SELFPAY ==
[2022-08-15 20:42] VITALS: BMI 17.7
--- NOTE | 2022-09-16 08:59 | DI.RAD.S_ITS ---
PROCEDURE: XR CERVICAL SPINE 2V OR 3V INDICATIONS: progressive neck pain TECHNIQUE: 3 view(s) of the cervical spine were acquired. COMPARISON: [facility], CR, XR CERVICAL SPINE 2V OR 3V, 12/16/2017, 12:05. FINDINGS: Examination limited by obliquity. Bones: No definite fractures or dislocations to the T1 level. The lateral masses of C1 appear intact on the odontoid view. No suspicious bony lesions. Multilevel disc space narrowing and endplate osteophyte formation. Facet hypertrophy throughout the mid and lower cervical spine. Soft tissues: No prevertebral soft tissue swelling. IMPRESSION: 1. Limited examination demonstrating no definite acute fracture. No osseous lesion. If symptoms and/or clinical suspicion for pathology persist, further assessment with repeat, or advanced imaging (e.g., CT, MRI, or bone scan) may be helpful for further assessment. 2. Multilevel degenerative disc and facet disease. Dictated by: George Caraballo M.D. on 09/16/2022 at 11:28 Transcribed by: ALLEN on 09/16/2022 at 11:29 Approved by: George Caraballo M.D. on 09/16/2022 at 16:21
== END ==
PROVIDERS: PCP Family Medicine; Referring Provider Family Medicine; Visit Provider Family Medicine
DX: S16.1XXA Strain of muscle, fascia and tendon at neck level, initial encounter (principal); M50.30 Other cervical disc degeneration, unspecified cervical region; M47.812 Spondylosis without myelopathy or radiculopathy, cervical region; X58.XXXA Exposure to other specified factors, initial encounter
CPT/HCPCS: 72040

== ENCOUNTER 2022-11-19 12:03 | Emergency (ER) | payer OTHER, SELFPAY ==
[2022-08-15 20:42] VITALS: BMI 17.7
[2022-11-19] VITALS (10 sets, daily range): BP systolic 111–128; BP diastolic 59–75; PULSE 72–85; RESP 22–73; O2SAT 95–98; BMI 16.7
--- NOTE | 2022-11-19 12:19 | DI.RAD.S_ITS ---
PROCEDURE: XR CHEST 1V INDICATIONS: chest pain TECHNIQUE: One view of the chest was acquired. COMPARISON: [facility], CR, XR CHEST 1V, 08/15/2022, 15:06. FINDINGS: Surgical changes and devices: Left-sided Port-A-Cath in place. Tip in the mid SVC Lungs and pleura: There is hyperinflation and chronic interstitial changes without focal infiltrate, pleural effusion or pneumothorax. Mediastinum: Mediastinal contours appear normal. Heart size is normal. Bones and chest wall: No suspicious bony lesions. Overlying soft tissues appear unremarkable. Small radiopaque densities over the left chest and right lung base probably external to the patient IMPRESSION: Hyperinflation and chronic interstitial changes without focal infiltrate or pneumothorax Approved by: Anibal Almaraz M.D. on 11/19/2022 at 11:38
[2022-11-19 12:30] LABS: Prothrombin Time 11.2 SECONDS (10.1-12.7)
[2022-11-19 12:33] LABS: Add Manual Diff / Slide Review NO; Basophils Absolute Auto 0 /uL (0-100); Basophils Percent Auto 0.5 % (0-2); Eosinophils Absolute Auto 200 /uL (0-450); Eosinophils Percent Auto 2.1 % (2-4); Hematocrit 41.1 % (36-46); Lymphocytes Absolute Auto 1900 /uL (1100-4500); Lymphocytes Percent Auto 21.1 % (25-40); Mean Corpuscular Hemoglobin 30.1 PG (26-34); Mean Corpuscular Volume 88.5 fL (80-100); Monocytes Absolute Auto 400 /uL (0-900); Monocytes Percent Auto 4.4 % (3-14); Neutrophils Absolute Auto 6600 /uL (1500-7000); Neutrophils Percent Auto 71.9 % (50-75); PTT Partial Thromboplastin Tim 25 SECONDS (26-36); Platelet Count 235 X10^3/uL (150-400); Red Blood Cell Count 4.64 X10^6/uL (4.0-5.2); Red Cell Distribution Width 13.6 % (11.6-14.8); White Blood Cell Count 9.1 X10^3/uL (4.5-11.0)
[2022-11-19 12:36] LABS: Alanine Aminotransferase 69 IU/L (<35); Albumin 4.4 g/dL (3.5-5.0); Albumin Globulin Ratio 1.6 (1.0-2.8); Alkaline Phosphatase 67 U/L (38-126); Aspartate Aminotransferase 69 IU/L (14-36); BUN Creatinine Ratio 42.1 (6-22); Blood Urea Nitrogen 32 mg/dL (7-17); Calcium 10.2 mg/dL (8.4-10.2); Carbon Dioxide 28 mmol/L (22-32); Chloride 105 mmol/L (98-107); Creatine Kinase 32 U/L (30-135); Estimated Glomerular Filt Rate > 60 mL/min (>60); Globulin 2.7 g/dL (1.7-4.1); Glucose 100 mg/dL (80-110); HEMOLYSIS < 15 (0-50); Lipase 215 U/L (23-300); Magnesium 2.2 mg/dL (1.6-2.3); Potassium 4.1 mmol/L (3.4-5.1); Sodium 139 mmol/L (137-145); Total Protein 7.1 g/dL (6.3-8.2)
[2022-11-19 12:46] LABS: Troponin I < 0.012 ng/mL (0.01-0.034)
--- NOTE | 2022-11-19 13:18 | ED.SYNCOPE ---
HPI - Syncope <Isma Clarke PA-C - Last Filed: 11/19/22 15:00> General Chief Complaint: Syncope Stated Complaint: Vasovagal Syncope Time Seen by Provider: 11/19/22 13:00 Source: patient, family and EMS Mode of arrival: EMS Limitations: no limitations History of Present Illness HPI narrative: This is a 77-year-old female presents to the emergency department due to an episode of vomiting leading to her feeling ?woozy? and falling to the ground next to the commode. Patient states that she ate some [place] food last night causing her have a little bit of a ?upset stomach? and led to 1 episode of vomiting while sitting on the commode. She would not know any blood in the vomit. She is also reporting some mild epigastric pain. 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 Her friend who is at bedside does not report any new weakness, slurred speech, facial drooping, or any other abnormal symptoms. Denies any chest pain, shortness of breath, or any other concerning signs or symptoms. Related Data Home Medications Medication Instructions Recorded Confirmed mometasone-formoterol HFA 200 1 puff inhalation BID 06/11/20 09/16/22 mcg-5 mcg/actuation aerosol inhaler (Dulera) ondansetron HCl 8 mg tablet 8 mg PO Q8HR 11/06/20 09/16/22 pantoprazole 40 mg tablet,delayed 40 mg PO DAILY 08/15/22 09/16/22 release Previous Rx's Medication Instructions Recorded nifedipine 30 mg tablet,extended 30 mg PO BEDTIME #30 tabs 09/16/22 release lisinopril 10 mg tablet See Rx Instructions .Route 10/20/22 .COMPLEX #90 tabs Allergies Allergy/AdvReac Type Severity Reaction Status Date / Time estradiol [ESTRADIOL] AdvReac Severe blood clots Verified 09/16/22 08:14 fluoxetine [FLUOXETINE] AdvReac Severe Nausea, Verified 09/16/22 08:14 vomiting, blurry vision, made IBS worse citalopram AdvReac Intermediate Nausea Verified 09/16/22 08:14 Review of Systems <Isma Clarke PA-C - Last Filed: 11/19/22 15:00> Review of Systems Narrative: GENERAL: Denies chills, fatigue, malaise, fever, sweats. HEENT: Denies sinus pain, ear pain, sore throat, difficulty swallowing, dizziness. RESPIRATORY: Denies dyspnea, cough, wheezing, hemoptysis, sputum. CARDIOVASCULAR: Denies chest pain, palpitations, orthopnea, edema, GASTROINTESTINAL: Reports vomiting, Denies nausea, , abdominal pain, diarrhea, constipation, melena. : Denies dysuria, frequency, incontinence, hematuria, urinary retention. MUSCULOSKELETAL: denies weakness, joint pain, or bony pain SKIN: Denies rash, skin lesions, or other NEUROLOGIC: Denies weakness, headache, numbness, change in speech, confusion, seizures, incoordination. PSYCHIATRIC: No concerning psychosocial issues. 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 Grandfather Stroke Grandmother Cancer Social History (System 08/27/22 @ 09:23 by Khurram Bal) household members: none Smoking Status: Never smoker second hand exposure: No alcohol intake: current substance use type: does not use Smoking Status: Never smoker alcohol intake frequency: holidays/special occasions only Substance Use Type: does not use Exam <Isma Clarke PA-C - Last Filed: 11/19/22 15:00> Narrative Exam Narrative: GENERAL: Well-developed patient, in mild distress. Frail HEAD: Atraumatic. Normocephalic. EYES: Pupils equal round and reactive. Extraocular motions intact. No scleral icterus. No injection or drainage. ENT: Nose without bleeding, purulent drainage. Throat without erythema, tonsillar hypertrophy or exudate. Airway patent. NECK: Trachea midline. Non tender CARDIOVASCULAR: Regular rate and rhythm without murmurs, gallops, or rubs. RESPIRATORY: Clear to auscultation. Breath sounds equal bilaterally. No wheezes, rales, or rhonchi. GASTROINTESTINAL: Abdomen soft, mild epigastric tenderness to palpation, nondistended. EXTREMITIES: No edema or joint tenderness. BACK: Nontender without deformity or crepitance. No flank tenderness. NEURO: AOx3. Cranial nerves 2-12 intact, no focal weakness noted on exam. SKIN: No rash or erythema of visible areas Initial Vital Signs Initial Vital Signs: Vital Signs Pulse Rate 82 11/19/22 12:09 Pulse Oximetry 95 11/19/22 12:09 <Mat Bone MD - Last Filed: 11/27/22 03:21> Initial Vital Signs Initial Vital Signs: Vital Signs Pulse Rate 82 11/19/22 12:09 Pulse Oximetry 95 11/19/22 12:09 Course <Isma Clarke PA-C - Last Filed: 11/19/22 15:00> Orders Ordered: Discontinued Medications Aspirin (Aspirin 81 Mg Chew Tab) 324 mg PO NOW ONE Stop: 11/19/22 12:20 Last Admin: 11/19/22 13:08 Dose: Not Given Documented By: NR Sodium Chloride (Normal Saline 0.9%) 1,000 mls @ 1,000 mls/hr IV BOLUS ONE Stop: 11/19/22 14:31 Last Infusion: 11/19/22 15:24 Dose: 0 mls/hr Documented By: Admin: 11/19/22 14:23 Dose: 1,000 mls/hr Documented By: AMU Vital Signs Vital signs: Vital Signs - 8 hr 11/19/22 12:12 11/19/22 12:09 11/19/22 12:30 Pulse Rate 82 82 Respiratory Rate 22 Blood Pressure 111/62 113/74 Pulse Oximetry 95 95 Oxygen Delivery Method Room Air 11/19/22 12:30 11/19/22 13:00 11/19/22 13:00 Pulse Rate 85 73 Respiratory Rate 27 H 29 H Blood Pressure 112/59 L Pulse Oximetry 96 96 Oxygen Delivery Method 11/19/22 13:30 11/19/22 13:30 Pulse Rate 77 Respiratory Rate 40 H Blood Pressure 113/75 Pulse Oximetry 96 Oxygen Delivery Method <Mat Bone MD - Last Filed: 11/27/22 03:21> Orders Ordered: Discontinued Medications Aspirin (Aspirin 81 Mg Chew Tab) 324 mg PO NOW ONE Stop: 11/19/22 12:20 Last Admin: 11/19/22 13:08 Dose: Not Given Documented By: NR Sodium Chloride (Normal Saline 0.9%) 1,000 mls @ 1,000 mls/hr IV BOLUS ONE Stop: 11/19/22 14:31 Last Infusion: 11/19/22 15:24 Dose: 0 mls/hr Documented By: Admin: 11/19/22 14:23 Dose: 1,000 mls/hr Documented By: AMU Vital Signs Vital signs: Vital Signs - 8 hr 11/19/22 12:12 11/19/22 12:09 11/19/22 12:30 Pulse Rate 82 82 Respiratory Rate 22 Blood Pressure 111/62 113/74 Pulse Oximetry 95 95 Oxygen Delivery Method Room Air 11/19/22 12:30 11/19/22 13:00 11/19/22 13:00 Pulse Rate 85 73 Respiratory Rate 27 H 29 H Blood Pressure 112/59 L Pulse Oximetry 96 96 Oxygen Delivery Method 11/19/22 13:30 11/19/22 13:30 Pulse Rate 77 Respiratory Rate 40 H Blood Pressure 113/75 Pulse Oximetry 96 Oxygen Delivery Method MDM - Syncope <Isma Clarke PA-C - Last Filed: 11/19/22 15:00> Lab Data 11/19/22 12:10 11/19/22 12:10 Labs: Lab Results 11/19/22 11/19/22 11/19/22 Range/Units 12:10 12:10 12:10 WBC 9.1 (4.5-11.0) X10^3/uL RBC 4.64 (4.0-5.2) X10^6/uL Hgb 14.0 (12.0-16.0) g/dL Hct 41.1 (36-46) % MCV 88.5 (80-100) fL MCH 30.1 (26-34) PG MCHC 34.0 (30-36) % RDW 13.6 (11.6-14.8) % Plt Count 235 (150-400) X10^3/uL Neut % (Auto) 71.9 (50-75) % Lymph % (Auto) 21.1 L (25-40) % [place] % (Auto) 4.4 (3-14) % Eos % (Auto) 2.1 (2-4) % Baso % (Auto) 0.5 (0-2) % Neut # (Auto) 6600 (6812-8083) /uL Lymph # (Auto) 1900 (3850-7141) /uL [place] # (Auto) 400 (0-900) /uL Eos # (Auto) 200 (0-450) /uL Baso # (Auto) 0 (0-100) /uL PT 11.2 (10.1-12.7) SECONDS INR 1.0 (0.9-1.3) APTT 25 L (26-36) SECONDS Sodium 139 (137-145) mmol/L Potassium 4.1 (3.4-5.1) mmol/L Chloride 105 (98-107) mmol/L Carbon Dioxide 28 (22-32) mmol/L BUN 32 H (7-17) mg/dL Creatinine 0.76 (0.52-1.04) mg/dL Estimated GFR > 60 (>60) mL/min BUN/Creatinine Ratio 42.1 H (6-22) Glucose 100 (80-110) mg/dL Calcium 10.2 (8.4-10.2) mg/dL Magnesium 2.2 (1.6-2.3) mg/dL Total Bilirubin 1.0 (0.2-1.3) mg/dL AST 69 H (14-36) IU/L ALT 69 H (<35) IU/L Alkaline Phosphatase 67 (38-126) U/L Total Creatine Kinase 32 (30-135) U/L CK-MB (CK-2) TNP CK-MB (CK-2) Rel Index TNP Troponin I < 0.012 (0.01-0.034) ng/mL Total Protein 7.1 (6.3-8.2) g/dL Albumin 4.4 (3.5-5.0) g/dL Globulin 2.7 (1.7-4.1) g/dL Albumin/Globulin Ratio 1.6 (1.0-2.8) Lipase 215 (23-300) U/L Imaging Data Chest x-ray: Radiologist's Impression: [address] [address] XRay Report Signed Patient: Precious Gtz MR#: [id number] : 1945 Acct:[id number] Age/Sex: 77 / F Date of Service: 11/19/22 Loc: ED Accession Number: [id number] ?? Procedure: XR chest 1V Ordering Provider: Mat Bone MD PROCEDURE:? XR CHEST 1V ? INDICATIONS:? chest pain ? TECHNIQUE:? One view of the chest was acquired.? ? COMPARISON:? [facility], , XR CHEST 1V, 08/15/2022, 15:06. ? FINDINGS:? ? Surgical changes and devices:? Left-sided Port-A-Cath in place.? Tip in the mid SVC ? Lungs and pleura:? There is hyperinflation and chronic interstitial changes without focal infiltrate, pleural effusion or pneumothorax. ? Mediastinum:? Mediastinal contours appear normal.? Heart size is normal.? ? Bones and chest wall:? No suspicious bony lesions.? Overlying soft tissues appear unremarkable.? Small radiopaque densities over the left chest and right lung base probably external to the patient ? IMPRESSION:? ? Hyperinflation and chronic interstitial changes without focal infiltrate or pneumothorax ? ? ? Approved by: Anibal Almaraz M.D. on 11/19/2022 at 11:38? CT scan - abdomen/pelvis: Radiologist's Impression: [address] [address] [address] Scan Report Signed Patient: Precious Gtz MR#: [id number] : 1945 Acct:[id number] Age/Sex: 77 / F Date of Service: 11/19/22 Loc: ED Accession Number: [id number] ?? Procedure: CT abdomen pelvis w con Ordering Provider: Isma Clarke P.A-C PROCEDURE:? CT ABDOMEN PELVIS W CON ? INDICATIONS:? Vomiting, epigastric TTP ? TECHNIQUE:? After the administration of intravenous contrast, axial sections acquired from the lung bases to the pubic symphysis.? Coronal and sagittal reformats were performed.? For radiation dose reduction, the following was used:? automated exposure control, adjustment of mA and/or kV according to patient size.? ? COMPARISON:? [facility], CT, CT ABDOMEN PELVIS W CON, 01/23/2021, 10:49. ? FINDINGS:? Image quality:? Excellent.? ? Lung bases:? Stable 2 mm solid nodule, right lower lobe, statistically benign (series 5, image 15). Heart:? No significant findings. ? ABDOMEN: Liver:? Unremarkable.? ? Gallbladder:? Cholecystectomy. Biliary ducts:? Within normal limits, status post cholecystectomy. Pancreas:? Unremarkable.? ? Spleen:? Unremarkable.? ? Adrenal Glands:? Stable 1 cm left adrenal nodule since 2020, statistically benign. Kidneys and Ureters:? Punctate, nonobstructing right-sided stone..? ? ? Stomach and Bowel:? Wall thickening of the sigmoid colon.? Fluid within the large bowel.? Normal appendix. Peritoneum:? No abnormal intraperitoneal fluid.? No free air.? ? Ventral Wall: ? No hernias.? Abdominal Nodes:? No retroperitoneal or mesenteric adenopathy by size criteria.? Vessels:? Aorta and inferior vena cava are normal in size.? ? PELVIS: Pelvic Organs:? Unremarkable.? ? Bladder:? Unremarkable.? ? Pelvic Nodes: No enlarged lymph nodes.? Miscellaneous: No hernias are seen. ? ? ? Bones:? Grade 1 anterolisthesis of L4 on L5 secondary to facet arthrosis. ? ? IMPRESSION:? Wall thickening of the sigmoid colon, with fluid stool within the large bowel.? Findings likely represent colitis with diarrheal illness.? ? ? Dictated by: Easton Aleman M.D. on 11/19/2022 at 14:17 ? ? Approved by: Easton Aleman M.D. on 11/19/2022 at 14:21 ? CT scan - head: Radiologist's Impression: [address] [address] [address] Scan Report Signed Patient: Precious Gtz MR#: [id number] : 1945 Acct:[id number] Age/Sex: 77 / F Date of Service: 11/19/22 Loc: ED Accession Number: [id number] ?? Procedure: CT head/brain wo con Ordering Provider: Isma Clarke P.A-C PROCEDURE:? CT HEAD/BRAIN WO CON ? INDICATIONS:? Possible LOC, hx of glioblastoma ? TECHNIQUE:? Noncontrast 4.5 mm thick angled axial sections acquired from the foramen magnum to the vertex, with coronal and sagittal reformats.? For radiation dose reduction, the following was used:? automated exposure control, adjustment of mA and/or kV according to patient size.? ? COMPARISON:? [facility], CT, CT HEAD/BRAIN WO CON, 08/15/2022, 15:12. ? FINDINGS:? Image quality:? Excellent.? ? CSF spaces:? Basal cisterns are patent.? No extra-axial fluid collections.? The ventricles are symmetric in size and shape.? ? Brain:? Prior left frontal resection No intracranial bleeds or masses.? There is cerebral volume loss for age, with resultant ventricular and sulcal prominence.? There are periventricular and deep white matter chronic small vessel ischemic changes.? There is intracranial internal carotid artery atherosclerosis.? ? Skull and face:? Calvarium and visualized facial bones appear intact, without suspicious lesions.? Left-sided craniotomy. ? Sinuses:? Visualized sinuses and mastoids are clear.? ? IMPRESSION:? No acute intracranial pathology.? ? Left anterior frontal resection. ? ? Dictated by: Easton Aleman M.D. on 11/19/2022 at 14:15 ? ? Approved by: Easton Aleman M.D. on 11/19/2022 at 14:16 ? ECG Data Interpretation: EKG is normal sinus rhythm rate 81 beats per minute and free of any signs of ischemia or ectopy. No ST segmental elevation or depression. No T wave inversions MDM Narrative Medical decision making narrative: MDM * differential diagnosis includes but not limited to viral gastroenteritis, acute CVA, STEMI, NSTEMI, dehydration * Prior records reviewed: Patient was seen here about 3 months ago due to altered mental status. History of glioblastoma. Brought in by EMS for evaluation of mental status changes. History hypertension. Chest x-ray showed hyperinflation without acute collar and pulmonary findings. CT head showed no acute findings. Did show a stable left frontal lobe resection without evidence of recurrent or residual disease. Was also noted to be COVID positive. Patient was given Rocephin. Patient was eventually admitted due to the weakness and confusion.. Patient sees Dr. Arreola, oncologist. MRI was taken which showed no change from prior imaging. Patient's mental status eventually improved and she was discharged home although recommended sniff. * My lab interpretation: Labwork showed no remarkable abnormalities. No leukocytosis and low concern for acute infection. CMP within normal limits, no JOEY. Elevated liver enzymes which are chronic for the patient. * My imgaing interpretation: Chest x-ray showed hyperinflation no change from prior and patient is not having respiratory symptoms. CT head shows the noted left frontal resection. No acute changes. CT abdomen and pelvis showed colitis likely suspected to be secondary to diarrhea. No other findings. * Clinical Decision Rules/Scores evaluated: None * Independent discussions with: None ED Course: This is a 77-year-old female presents emergency department due to an episode of near-syncope as well as an episode of vomiting. Patient's lab work was completely unremarkable and low concern for any kind of acute infection. For CT head as the patient has a history of glioblastoma and no changes were found on that. CT abdomen and pelvis was ordered due to the epigastric tenderness on palpation. There were no acute findings although did state that there was evidence of colitis with diarrheal illness. Patient stated that she had some [place] food last night which may be causing her GI symptoms. Patient was given bag of fluids and recommended to follow up with her primary care provider and oncologist for her routine visits. Shared Decision Making: Discussed plan with the patient who is comfortable with the plan. Social Considerations: None Disposition: Discharged to home <Mat Bone MD - Last Filed: 11/27/22 03:21> Lab Data Labs: Lab Results 11/19/22 11/19/22 11/19/22 Range/Units 12:10 12:10 12:10 WBC 9.1 (4.5-11.0) X10^3/uL RBC 4.64 (4.0-5.2) X10^6/uL Hgb 14.0 (12.0-16.0) g/dL Hct 41.1 (36-46) % MCV 88.5 (80-100) fL MCH 30.1 (26-34) PG MCHC 34.0 (30-36) % RDW 13.6 (11.6-14.8) % Plt Count 235 (150-400) X10^3/uL Neut % (Auto) 71.9 (50-75) % Lymph % (Auto) 21.1 L (25-40) % Flagler % (Auto) 4.4 (3-14) % Eos % (Auto) 2.1 (2-4) % Baso % (Auto) 0.5 (0-2) % Neut # (Auto) 6600 (7637-4200) /uL Lymph # (Auto) 1900 (2067-7080) /uL [place]ler # (Auto) 400 (0-900) /uL Eos # (Auto) 200 (0-450) /uL Baso # (Auto) 0 (0-100) /uL PT 11.2 (10.1-12.7) SECONDS INR 1.0 (0.9-1.3) APTT 25 L (26-36) SECONDS Sodium 139 (137-145) mmol/L Potassium 4.1 (3.4-5.1) mmol/L Chloride 105 (98-107) mmol/L Carbon Dioxide 28 (22-32) mmol/L BUN 32 H (7-17) mg/dL Creatinine 0.76 (0.52-1.04) mg/dL Estimated GFR > 60 (>60) mL/min BUN/Creatinine Ratio 42.1 H (6-22) Glucose 100 (80-110) mg/dL Calcium 10.2 (8.4-10.2) mg/dL Magnesium 2.2 (1.6-2.3) mg/dL Total Bilirubin 1.0 (0.2-1.3) mg/dL AST 69 H (14-36) IU/L ALT 69 H (<35) IU/L Alkaline Phosphatase 67 (38-126) U/L Total Creatine Kinase 32 (30-135) U/L CK-MB (CK-2) TNP CK-MB (CK-2) Rel Index TNP Troponin I < 0.012 (0.01-0.034) ng/mL Total Protein 7.1 (6.3-8.2) g/dL Albumin 4.4 (3.5-5.0) g/dL Globulin 2.7 (1.7-4.1) g/dL Albumin/Globulin Ratio 1.6 (1.0-2.8) Lipase 215 (23-300) U/L Discharge Plan Departure Patient Disposition: Home Clinical Impression: Gastroenteritis Instructions: DI for Viral Gastroenteritis -- Adult Activity Restrictions/Additional Instructions: Thank you for coming to the [facility] Emergency Department today. As we discussed the CT findings were not concerning. The CT head showed no changes in no findings of any kind of acute bleed. The CT abdomen and pelvis showed inflammation of your colon with likely suspected diarrhea. I suspect the thigh for you 8 caused some GI distress causing the diarrhea and vomiting. The stressors may have been enough to cause you feel woozy and nearly passed out. The bag of fluids that we gave you should help. Please do your best to stay hydrated with oral Gatorade and other electrolyte drinks. Also rhythmic commands bland liquid diet until your GI symptoms improve. The lab work showed no evidence of infection or other abnormalities. I hope you feel better soon. Prescriptions: No Action lisinopril 10 mg tablet See Rx Instructions .ROUTE .COMPLEX Qty: 90 0RF Dose Instruction: take 1 tablet by mouth once daily Rx Instructions: take 1 tablet by mouth once daily ondansetron HCl 8 mg tablet 8 mg PO Q8HR nifedipine 30 mg tablet extended release 30 mg PO BEDTIME Qty: 30 3RF Dulera 200-5 mcg/actuation HFA aerosol inhaler 1 puff INHALATION BID pantoprazole 40 mg Tablet,Delayed Release (Dr/Ec) 40 mg PO DAILY Referrals: Crispin Washington DO [Primary Care Provider] - Stand Alone Forms: Patient Portal/API <Mat Bone MD - Last Filed: 11/27/22 03:21> Cosign ED Attending Coswoodature Attestation: I was immediately available in the department for consultation. ?This documentation has been reviewed and I agree with assessment and plan. Supervised by Mat Bone MD
--- NOTE | 2022-11-19 13:32 | DI.CT.S_ITS ---
PROCEDURE: CT ABDOMEN PELVIS W CON INDICATIONS: Vomiting, epigastric TTP TECHNIQUE: After the administration of intravenous contrast, axial sections acquired from the lung bases to the pubic symphysis. Coronal and sagittal reformats were performed. For radiation dose reduction, the following was used: automated exposure control, adjustment of mA and/or kV according to patient size. COMPARISON: [facility], CT, CT ABDOMEN PELVIS W CON, 01/23/2021, 10:49. FINDINGS: Image quality: Excellent. Lung bases: Stable 2 mm solid nodule, right lower lobe, statistically benign (series 5, image 15). Heart: No significant findings. ABDOMEN: Liver: Unremarkable. Gallbladder: Cholecystectomy. Biliary ducts: Within normal limits, status post cholecystectomy. Pancreas: Unremarkable. Spleen: Unremarkable. Adrenal Glands: Stable 1 cm left adrenal nodule since 2020, statistically benign. Kidneys and Ureters: Punctate, nonobstructing right-sided stone.. Stomach and Bowel: Wall thickening of the sigmoid colon. Fluid within the large bowel. Normal appendix. Peritoneum: No abnormal intraperitoneal fluid. No free air. Ventral Wall: No hernias. Abdominal Nodes: No retroperitoneal or mesenteric adenopathy by size criteria. Vessels: Aorta and inferior vena cava are normal in size. PELVIS: Pelvic Organs: Unremarkable. Bladder: Unremarkable. Pelvic Nodes: No enlarged lymph nodes. Miscellaneous: No hernias are seen. Bones: Grade 1 anterolisthesis of L4 on L5 secondary to facet arthrosis. IMPRESSION: Wall thickening of the sigmoid colon, with fluid stool within the large bowel. Findings likely represent colitis with diarrheal illness. Dictated by: Easton Aleman M.D. on 11/19/2022 at 14:17 Approved by: Easton Aleman M.D. on 11/19/2022 at 14:21
--- NOTE | 2022-11-19 13:32 | DI.CT.S_ITS ---
PROCEDURE: CT HEAD/BRAIN WO CON INDICATIONS: Possible LOC, hx of glioblastoma TECHNIQUE: Noncontrast 4.5 mm thick angled axial sections acquired from the foramen magnum to the vertex, with coronal and sagittal reformats. For radiation dose reduction, the following was used: automated exposure control, adjustment of mA and/or kV according to patient size. COMPARISON: [facility], CT, CT HEAD/BRAIN WO CON, 08/15/2022, 15:12. FINDINGS: Image quality: Excellent. CSF spaces: Basal cisterns are patent. No extra-axial fluid collections. The ventricles are symmetric in size and shape. Brain: Prior left frontal resection No intracranial bleeds or masses. There is cerebral volume loss for age, with resultant ventricular and sulcal prominence. There are periventricular and deep white matter chronic small vessel ischemic changes. There is intracranial internal carotid artery atherosclerosis. Skull and face: Calvarium and visualized facial bones appear intact, without suspicious lesions. Left-sided craniotomy. Sinuses: Visualized sinuses and mastoids are clear. IMPRESSION: No acute intracranial pathology. Left anterior frontal resection. Dictated by: Easton Aleman M.D. on 11/19/2022 at 14:15 Approved by: Easton Aleman M.D. on 11/19/2022 at 14:16
[2022-11-19] MEDS: SODIUM CHLORIDE 0.9% 1,000 ML 1000 ML IV (14:23)
== END 2022-11-19 16:03 | disposition home or self-care (01) ==
PROVIDERS: Emergency Medicine; Emergency Provider Physician Assistant Medical; PCP Family Medicine
DX: K52.9 Noninfective gastroenteritis and colitis, unspecified (principal); R11.10 Vomiting, unspecified; R07.9 Chest pain, unspecified
CPT/HCPCS: 36415; 70450; 71045; 74177; 80053; 82550; 83690; 83735; 84484; 85025; 85610; 85730; 93005; 99284; Q9967

== ENCOUNTER → 2022-12-04 15:20 | Outpatient (CLI) | payer OTHER, SELFPAY ==
[2022-08-15 20:42] VITALS: BMI 17.7
--- NOTE | 2022-12-04 | DI.MRI.S_ITS ---
PROCEDURE: MR HEAD/BRAIN WO/W CON INDICATIONS: Malignant neoplasm of frontal lobe TECHNIQUE: Noncontrast axial T1 spin echo, axial T2 fast spin echo, sagittal and axial FLAIR, coronal T2 fast spin echo, axial gradient echo, axial diffusion and ADC through the brain. After the administration of contrast, axial and coronal and sagittal T1 spin echo with fat saturation through the brain. COMPARISON: [facility], MR, MR HEAD/BRAIN WO/W CON, 07/29/2022, 12:39. [facility], MR, MR HEAD/BRAIN WO/W CON, 03/31/2022, 9:05. [facility], MR, MR HEAD/BRAIN WO/W CON, 08/19/2022, 14:37. [facility], CT, CT HEAD/BRAIN WO CON, 11/19/2022, 13:45. FINDINGS: Image quality: Diagnostic. CSF spaces: Basal cisterns are patent. No extra-axial fluid collections. Ventricles are normal in size and shape. Brain: Left frontal lobe resection change can be seen, with volume loss and encephalomalacia. No abnormal parenchymal enhancement can be seen. There is mild enhancement seen along the dura. There is a 3 minimal amount of enhancement seen along the deep aspect of the resection cavity just anterior to the left lateral ventricle, as on series 13, image 93. There is also hemosiderin deposition seen along the margins of the resection cavity. These findings are similar to the prior examination and regarded to be within postoperative limits. No midline shift. There is cerebral volume loss for age. There is periventricular white matter chronic small vessel ischemic change. The brainstem appears normal. Diffusion-weighted images demonstrate no acute ischemic insults. Normal intravascular flow voids are present. Skull and face: Left-sided craniotomy changes are seen anteriorly. Calvarial marrow is normal in signal. Orbits appear normal. Note is made of bilateral lens replacements. The globes appear abnormal, which are elongated in AP dimension. Sinuses: Sinuses and mastoids appear clear. IMPRESSION: Stable left frontal lobe resection change, with a small amount of parenchymal enhancement seen adjacent to the resection cavity, which may represent residual tumor/recurrence. Additional short-term follow-up is recommended. Dictated by: Chai bOando M.D. on 12/04/2022 at 16:11 Approved by: Chai Obando M.D. on 12/04/2022 at 16:15
== END ==
PROVIDERS: PCP Family Medicine; Referring Provider Internal Medicine Hematology & Oncology; Visit Provider Internal Medicine Hematology & Oncology
DX: C71.1 Malignant neoplasm of frontal lobe (principal)
CPT/HCPCS: 70553; A9579

== ENCOUNTER → 2022-12-22 12:35 | Outpatient (CLI) | payer OTHER, SELFPAY ==
[2022-08-15 20:42] VITALS: BMI 17.7
[2022-12-22 13:20] LABS: Appearance Urine UA CLEAR; Bilirubin Urine UA NEGATIVE (NEGATIVE); Color Urine UA YELLOW; Glucose Urine UA NEGATIVE (Negative); Ketones Urine UA NEGATIVE (NEGATIVE); Leukocyte Esterase Urine UA NEGATIVE (NEGATIVE); Nitrite Urine UA NEGATIVE (Negative); Occult Blood Urine UA NEGATIVE (Negative); Protein Urine UA NEGATIVE (Negative); Specific Gravity Urine UA 1.025 (1.000-1.035); Urobilinogen Urine UA 0.2 E.U./dL (0.2)
[2022-12-22 13:32] LABS: Bacteria Urine None Seen; Culture Indicated Urine Cult Not Indicated; Mucus Urine 1+ (Negative); RBC Urine None Seen (0-5/HPF); Squamous Epithelial Cell Urine 0-1 /HPF (0-5/HPF); WBC Urine 0-1/HPF (0-5/HPF)
== END ==
PROVIDERS: PCP Family Medicine; Referring Provider Family Medicine; Visit Provider Family Medicine
DX: N39.0 Urinary tract infection, site not specified (principal)
CPT/HCPCS: 81001

== ENCOUNTER → 2023-01-15 11:06 | Outpatient (CLI) | payer OTHER, SELFPAY ==
[2022-08-15 20:42] VITALS: BMI 17.7
--- NOTE | 2023-01-15 | DI.MRI.S_ITS ---
PROCEDURE: MR HEAD/BRAIN WO/W CON INDICATIONS: Malignant neoplasm of frontal lobe TECHNIQUE: Noncontrast axial T1 spin echo, axial T2 fast spin echo, sagittal and axial FLAIR, coronal T2 fast spin echo, axial gradient echo, axial diffusion and ADC through the brain. After the administration of contrast, axial and coronal and sagittal 3D VIBE or T1 spin echo with fat saturation through the brain. COMPARISON: [facility], MR, MR BRAIN WITH/WITHOUT CONTRAST, 03/28/2021, 12:46. [facility], MR, MR HEAD/BRAIN WO/W CON, 12/04/2022, 15:36. FINDINGS: Image quality: Excellent. CSF Spaces: Basal cisterns are patent. No extra-axial fluid collections. Ventricles are normal in size and shape. Brain: Left frontal resection cavity with associated bifrontal gliosis remains unchanged from the prior. Linear and nodular left frontal dural enhancement remains stable from 04/01/2021. There is at least 2 separate foci of parenchymal enhancement adjacent to the left frontal horn on image and which are stable from the most recent prior exam but and nevertheless new from 2020 para otherwise, there is moderate atrophy and matter chronic ischemic change. No evidence of acute infarct or acute hemorrhage. No midline shift. Skull and face: Left frontal craniotomy. Bilateral intraocular lens replacements noted. Sinuses: Sinuses and mastoids appear clear. IMPRESSION: Left frontal resection cavity associated with bifrontal white matter change, consistent with cancer therapy. Mild ill-defined foci of enhancement adjacent to the resection cavity is stable from 11/2022 but nevertheless new from 03/2021. Continued surveillance is warranted. Approved by: Anibal Almaraz M.D. on 01/15/2023 at 18:01
== END ==
PROVIDERS: PCP Family Medicine; Referring Provider Internal Medicine Hematology & Oncology; Visit Provider Internal Medicine Hematology & Oncology
DX: C71.1 Malignant neoplasm of frontal lobe (principal); G93.89 Other specified disorders of brain
CPT/HCPCS: 70553; A9579

== ENCOUNTER 2023-01-21 08:29 | Inpatient (IN) | payer OTHER, SELFPAY ==
[2022-08-15 20:42] VITALS: BMI 17.7
[2023-01-21] VITALS (18 sets, daily range): BP systolic 123–170; BP diastolic 61–77; PULSE 71–89; RESP 15–65; TEMP 36.2–38.3; O2SAT 93–97; BMI 16.8
--- NOTE | 2023-01-21 09:08 | DI.RAD.S_ITS ---
PROCEDURE: XR CHEST 1V INDICATIONS: suspected sepsis TECHNIQUE: One view of the chest was acquired. COMPARISON: [facility], CR, XR CHEST 1V, 11/19/2022, 12:19. FINDINGS: Surgical changes and devices: Left chest wall Port-A-Cath tip is in SVC. Lungs and pleura: Blunting of left costophrenic angle is seen suggestive of trace left pleural effusion. Bilateral hyperinflation is seen. No focal infiltrate. No pneumothorax. Mediastinum: Mediastinal contours appear normal. Heart size is normal. Bones and chest wall: No suspicious bony lesions. Overlying soft tissues appear unremarkable. IMPRESSION: COPD and trace left pleural effusion. No focal infiltrate, or pneumothorax. Dictated by: Fredrick Batres M.D. on 01/21/2023 at 9:27 Approved by: Fredrick Batres M.D. on 01/21/2023 at 9:27
[2023-01-21 09:21] LABS: Add Manual Diff / Slide Review NO; Basophils Absolute Auto 0 /uL (0-100); Basophils Percent Auto 0.4 % (0-2); Eosinophils Absolute Auto 400 /uL (0-450); Eosinophils Percent Auto 4.7 % (2-4); Hematocrit 33.5 % (36-46); Hemoglobin 11.5 g/dL (12.0-16.0); Lymphocytes Absolute Auto 900 /uL (1100-4500); Lymphocytes Percent Auto 12.2 % (25-40); Mean Corpuscular HGB Conc 34.3 % (30-36); Mean Corpuscular Hemoglobin 30.7 PG (26-34); Mean Corpuscular Volume 89.4 fL (80-100); Monocytes Absolute Auto 400 /uL (0-900); Monocytes Percent Auto 5.6 % (3-14); Neutrophils Absolute Auto 5800 /uL (1500-7000); Neutrophils Percent Auto 77.1 % (50-75); Platelet Count 198 X10^3/uL (150-400); Red Blood Cell Count 3.75 X10^6/uL (4.0-5.2); Red Cell Distribution Width 14.1 % (11.6-14.8); White Blood Cell Count 7.6 X10^3/uL (4.5-11.0)
[2023-01-21 09:28] LABS: INR 1.2 (0.9-1.3); Prothrombin Time 13.2 SECONDS (10.1-12.7)
[2023-01-21 09:30] LABS: PTT Partial Thromboplastin Tim 26 SECONDS (26-36)
[2023-01-21] MEDS: ACETAMINOPHEN SUSP 160 MG/5 ML UDC 685 MG PO (09:31)
[2023-01-21] MEDS: SODIUM CHLORIDE 0.9% 1,000 ML 1000 ML IV (09:31)
--- NOTE | 2023-01-21 09:32 | ED.FEVER ---
HPI - Fever General Chief Complaint: Weakness Stated Complaint: Listing to Left Time Seen by Provider: 01/21/23 09:09 Source: patient and EMS Mode of arrival: EMS Limitations: no limitations History of Present Illness HPI Narrative: This is a 77-year-old female with known glioblastoma which has been stable not currently under treatment, hypertension and asthma history with complaint of fever, increased weakness and productive cough with yellow sputum. Patient has a known glioblastoma, they note that when she is feeling unwell she will often sort of list more to the left, and have increasing weakness. Patient has still been alert she is been communicative but less talkative. They state this is also typical of when she is tired. Patient developed fever here today. She is had no headaches, she denies any headache, no chest pain, no shortness of breath. No abdominal back or flank pain. She is not had any nausea or vomiting she is had normal bowel movements and urination. Patient has had some generalized weakness but nothing localized. She has an office visit 2 days ago she was seen for a few seconds and discharged with Mucinex. They do note that she was hospitalized for COVID secondary to weakness in the ICU but did not require any intubation back in August. Patient denies any tightness of wheezing. No swelling in her extremities. Patient has had hysterectomy remotely, she had some sounds like lumpectomies in the past in her breasts. She did have surgery for glioblastoma in the past. Nothing recent. Allergic to fluoxetine, citalopram estradiol. No tobacco, alcohol or illicit. She has a caregiver who states she is been a little bit weaker the last few days but just could not weightbear on was generalized weak today and leaning more to the left which does normally happen when she is ill or tired. Related Data Home Medications Medication Instructions Recorded Confirmed mometasone-formoterol HFA 200 1 puff inhalation BID 06/11/20 01/21/23 mcg-5 mcg/actuation aerosol inhaler (Dulera) Previous Rx's Medication Instructions Recorded lisinopril 10 mg tablet See Rx Instructions .Route 01/14/23 .COMPLEX #90 tabs nifedipine 30 mg tablet,extended See Rx Instructions .Route 01/21/23 release .COMPLEX #30 tabs Allergies Allergy/AdvReac Type Severity Reaction Status Date / Time estradiol [ESTRADIOL] AdvReac Severe blood clots Verified 12/22/22 11:43 fluoxetine [FLUOXETINE] AdvReac Severe Nausea, Verified 12/22/22 11:43 vomiting, blurry vision, made IBS worse citalopram AdvReac Intermediate Nausea Verified 12/22/22 11:43 Review of Systems Review of Systems ROS Unobtainable: All systems reviewed & are unremarkable except as noted in HPI and below Patient History Medical History Abdominal pain Actinic keratosis Asthma Cervical pain (neck) Cervical strain Colon polyps (12/2013) Ductal carcinoma in situ (DCIS) of right breast (2000) GERD (gastroesophageal reflux disease) Glioblastoma multiforme of brain Hyperlipidemia (11/11/10) Hypertension Impaired cognition Irritable bowel syndrome with diarrhea Mixed anxiety depressive 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) Osteopenia of multiple sites Perineal discomfort in female Rosacea Skin lesion UTI (urinary tract infection) Vision changes Surgical History History of tonsillectomy and adenoidectomy (1949) Hx of colonoscopy with polypectomy (12/2013) Hx of left breast biopsy (12/2010) Hx of surgical procedure (2006) Status post breast lumpectomy (2000) Status post cholecystectomy (2004) Status post hysterectomy (1993) Status post knee surgery (1992) Family History Mother Asthma Sister Age: 73 Diabetes mellitus Hypertension Thyroid disease Sister Age: 72 Asthma Glaucoma Sister Age: 70 Asthma Father No problems noted. Grandfather Stroke Grandmother Cancer Social History household members: none Smoking Status: Never smoker second hand exposure: No alcohol intake: current substance use type: does not use Smoking Status: Never smoker alcohol intake frequency: holidays/special occasions only Substance Use Type: does not use Exam Narrative Exam Narrative: GEN: Thin female, alert and oriented, patient is not very talkative but does answer questions yes no minimal verbal interaction, patient appears to be in mild distress. HEENT: Atraumatic, pupils are equal round reactive to light, extraocular movements are intact, nares are clear, there is no conjunctival pallor. Throat is clear without any exudates, erythema, tonsillar enlargement or uvular deviation, no facial droop appreciated. Patient tends to turn her head to the left but does straighten out. HEART: Regular rate and rhythm without murmur, clicks, rubs. No swelling bilateral lower extremities. Patient has a port anterior chest pain or and intact without any erythema or signs of infection. LUNGS:Lungs clear to auscultation, no wheezes, rales, crackles, chest moves symmetrically, no tachypnea or accessory muscle use ABD:bowel sounds normal, soft, non-tender, no guarding, rebound, rigidity, no masses noted, no hepatosplenomegaly :No CVA tenderness MSCL: Non-tender, no muscle atrophy, muscles strength 5/5 upper and lower extremities, full range of motion NEURO:CN 2-12 intact, sensation normal SKIN: No rash, erythema or other skin changes noted Initial Vital Signs Initial Vital Signs: Vital Signs Pulse Rate 89 01/21/23 08:38 Blood Pressure 143/68 H 01/21/23 08:38 Pulse Oximetry 95 01/21/23 08:38 Course Orders Ordered: ED Orders 01/21/23 11:03 UA Complete [Urinalysis and Microscopic] Stat Urine Culture Stat Acetaminophen (Acetaminophen 325 Mg Tablet) 650 mg PO Q6H PRN PRN Reason: Fever/Mild Pain (1-3) Enoxaparin Sodium (Enoxaparin 40 Mg/0.4 Ml Syringe) 40 mg SUBCUT DAILY [facility] Heparin Sodium (Porcine) (Heparin 500 Unit/5 Ml Port Flush) 500 unit IV PRN PRN PRN Reason: Flush Naloxone HCl (Naloxone 0.4 Mg/Ml Vial) 0.2 mg IV Q2MIN PRN PRN Reason: Opiate Reversal Ondansetron HCl (Ondansetron 4 Mg/2 Ml Inj) 4 mg IV Q8HR PRN PRN Reason: Nausea And Vomiting Sodium Chloride (Sodium Chloride 0.9% Flush) 10 ml IV PRN PRN PRN Reason: Flush Sodium Chloride (Sodium Chloride 0.9% Flush) 10 ml IV BID MARE Discontinued Medications Acetaminophen (Acetaminophen 325 Mg Tablet) 975 mg PO NOW ONE Stop: 01/21/23 09:21 Last Admin: 01/21/23 10:18 Dose: Not Given Documented By: [facility] Acetaminophen (Acetaminophen Susp 160 Mg/5 Ml Udc) 685 mg 15 mg/kg (685 mg) PO NOW ONE Stop: 01/21/23 09:24 Last Admin: 01/21/23 09:31 Dose: 685 mg Documented By: MARYLOU Sodium Chloride (Normal Saline 0.9%) 1,000 mls @ 1,000 mls/hr IV BOLUS ONE Stop: 01/21/23 10:07 Last Infusion: 01/21/23 10:37 Dose: 0 mls/hr Documented By: Admin: 01/21/23 09:31 Dose: 1,000 mls/hr Documented By: MARYLOU Ceftriaxone Sodium 1,000 mg/ (Sodium Chloride) 100 mls @ 200 mls/hr IV NOW ONE Stop: 01/21/23 12:17 Last Admin: 01/21/23 13:36 Dose: 200 mls/hr Documented By: ELENA Azithromycin 500 mg/ Dextrose 250 mls @ 250 mls/hr IV NOW ONE Stop: 01/21/23 12:17 Last Infusion: 01/21/23 13:36 Dose: 250 mls/hr Documented By: Infusion: 01/21/23 12:52 Dose: 250 mls/hr Documented By: Admin: 01/21/23 12:29 Dose: 250 mls/hr Documented By: MARYLOU Ondansetron HCl (Ondansetron 4 Mg/2 Ml Inj) 4 mg IV NOW PRN PRN Reason: Nausea And Vomiting Ondansetron HCl (Ondansetron 4 Mg Odt) 4 mg SL NOW PRN PRN Reason: Nausea And Vomiting Vital Signs Vital signs: Vital Signs - 8 hr 01/21/23 10:57 01/21/23 10:57 01/21/23 11:11 Temperature 98.8 F Pulse Rate 79 Respiratory Rate Blood Pressure 159/73 H Pulse Oximetry 95 01/21/23 11:00 01/21/23 11:00 01/21/23 11:30 Temperature Pulse Rate 80 Respiratory Rate 65 H Blood Pressure 155/71 H 165/72 H Pulse Oximetry 94 01/21/23 11:30 01/21/23 12:00 01/21/23 12:01 Temperature Pulse Rate 80 80 80 Respiratory Rate 40 H 38 H Blood Pressure Pulse Oximetry 93 94 94 01/21/23 12:01 Temperature Pulse Rate Respiratory Rate Blood Pressure 141/63 H Pulse Oximetry MDM - Fever Lab Data 01/21/23 09:00 01/21/23 09:00 Labs: Lab Results 01/21/23 01/21/23 01/21/23 Range/Units 09:00 09:00 09:00 WBC 7.6 (4.5-11.0) X10^3/uL RBC 3.75 L (4.0-5.2) X10^6/uL Hgb 11.5 L (12.0-16.0) g/dL Hct 33.5 L (36-46) % MCV 89.4 (80-100) fL MCH 30.7 (26-34) PG MCHC 34.3 (30-36) % RDW 14.1 (11.6-14.8) % Plt Count 198 (150-400) X10^3/uL Neut % (Auto) 77.1 H (50-75) % Lymph % (Auto) 12.2 L (25-40) % [place] % (Auto) 5.6 (3-14) % Eos % (Auto) 4.7 H (2-4) % Baso % (Auto) 0.4 (0-2) % Neut # (Auto) 5800 (0411-4741) /uL Lymph # (Auto) 900 L (6373-8108) /uL Columbia # (Auto) 400 (0-900) /uL Eos # (Auto) 400 (0-450) /uL Baso # (Auto) 0 (0-100) /uL PT 13.2 H (10.1-12.7) SECONDS INR 1.2 (0.9-1.3) APTT 26 (26-36) SECONDS Sodium 135 L (137-145) mmol/L Potassium 3.8 (3.4-5.1) mmol/L Chloride 103 (98-107) mmol/L Carbon Dioxide 28 (22-32) mmol/L BUN 13 (7-17) mg/dL Creatinine 0.44 L (0.52-1.04) mg/dL Estimated GFR > 60 (>60) mL/min BUN/Creatinine Ratio 29.5 H (6-22) Glucose 101 (80-110) mg/dL Lactate (0.7-2.1) mmol/L Calcium 8.6 (8.4-10.2) mg/dL Total Bilirubin 0.8 (0.2-1.3) mg/dL AST 29 (14-36) IU/L ALT 33 (<35) IU/L Alkaline Phosphatase 70 (38-126) U/L Total Creatine Kinase (30-135) U/L Troponin I (0.01-0.034) ng/mL NT-Pro-B Natriuret Pep (<450) pg/mL Total Protein 5.9 L (6.3-8.2) g/dL Albumin 3.4 L (3.5-5.0) g/dL Globulin 2.5 (1.7-4.1) g/dL Albumin/Globulin Ratio 1.4 (1.0-2.8) Lipase 41 (23-300) U/L Procalcitonin 0.06 (<0.5) ng/mL Urine Color Urine Appearance Urine pH (4.5-8.0) Ur Specific Vincent (1.000-1.035) Urine Protein (Negative) Urine Glucose (UA) (Negative) g/dL Urine Ketones (NEGATIVE) Urine Occult Blood (Negative) Urine Nitrate (Negative) Urine Bilirubin (NEGATIVE) Urine Urobilinogen (0.2) E.U./dL Ur Leukocyte Esterase (NEGATIVE) Urine RBC (0-5/HPF) Urine WBC (0-5/HPF) Ur Squamous Epith Cells (0-5/HPF) Ur Renal Epithelial Cell (0-1/HPF) Amorphous Sediment Urine Bacteria (None) Ur Culture Indicated? Chlamy pneumoniae PCR (Not Detect) Adenovirus (PCR) (Not Detect) B. pertussis DNA (PCR) (Not Detecte) B.parapertussis DNA PCR (Not Detecte) Coronavirus OC43 (PCR) (Not Detect) Coronavirus HKU1 (PCR) (Not Detect) Coronavirus 229E (PCR) (Not Detect) SARS-CoV-2 (PCR) (Not Detecte) Coronavirus NL63 (PCR) (Not Detect) Human Metapneumovir PCR (Not Detect) Influenza Type A (PCR) (Not Detect) Influenza Type B (PCR) (Not Detect) M. pneumoniae (PCR) (Not Detect) Parainfluenza 1 (PCR) (Not Detect) Parainfluenza 2 (PCR) (Not Detect) Parainfluenza 3 (PCR) (Not Detect) Parainfluenza 4 (PCR) (Not Detect) RSV (PCR) (Not Detect) Entero/Rhino (PCR) (Not Detect) 01/21/23 01/21/23 01/21/23 Range/Units 09:00 09:00 09:07 WBC (4.5-11.0) X10^3/uL RBC (4.0-5.2) X10^6/uL Hgb (12.0-16.0) g/dL Hct (36-46) % MCV (80-100) fL MCH (26-34) PG MCHC (30-36) % RDW (11.6-14.8) % Plt Count (150-400) X10^3/uL Neut % (Auto) (50-75) % Lymph % (Auto) (25-40) % Columbia % (Auto) (3-14) % Eos % (Auto) (2-4) % Baso % (Auto) (0-2) % Neut # (Auto) (0462-9625) /uL Lymph # (Auto) (3815-4500) /uL Columbia # (Auto) (0-900) /uL Eos # (Auto) (0-450) /uL Baso # (Auto) (0-100) /uL PT (10.1-12.7) SECONDS INR (0.9-1.3) APTT (26-36) SECONDS Sodium (137-145) mmol/L Potassium (3.4-5.1) mmol/L Chloride (98-107) mmol/L Carbon Dioxide (22-32) mmol/L BUN (7-17) mg/dL Creatinine (0.52-1.04) mg/dL Estimated GFR (>60) mL/min BUN/Creatinine Ratio (6-22) Glucose (80-110) mg/dL Lactate 0.6 L (0.7-2.1) mmol/L Calcium (8.4-10.2) mg/dL Total Bilirubin (0.2-1.3) mg/dL AST (14-36) IU/L ALT (<35) IU/L Alkaline Phosphatase (38-126) U/L Total Creatine Kinase < 20 L (30-135) U/L Troponin I < 0.012 (0.01-0.034) ng/mL NT-Pro-B Natriuret Pep 129 (<450) pg/mL Total Protein (6.3-8.2) g/dL Albumin (3.5-5.0) g/dL Globulin (1.7-4.1) g/dL Albumin/Globulin Ratio (1.0-2.8) Lipase (23-300) U/L Procalcitonin (<0.5) ng/mL Urine Color Urine Appearance Urine pH (4.5-8.0) Ur Specific Vincent (1.000-1.035) Urine Protein (Negative) Urine Glucose (UA) (Negative) g/dL Urine Ketones (NEGATIVE) Urine Occult Blood (Negative) Urine Nitrate (Negative) Urine Bilirubin (NEGATIVE) Urine Urobilinogen (0.2) E.U./dL Ur Leukocyte Esterase (NEGATIVE) Urine RBC (0-5/HPF) Urine WBC (0-5/HPF) Ur Squamous Epith Cells (0-5/HPF) Ur Renal Epithelial Cell (0-1/HPF) Amorphous Sediment Urine Bacteria (None) Ur Culture Indicated? Chlamy pneumoniae PCR Not detected (Not Detect) Adenovirus (PCR) Not detected (Not Detect) B. pertussis DNA (PCR) Not detected (Not Detecte) B.parapertussis DNA PCR Not detected (Not Detecte) Coronavirus OC43 (PCR) Not detected (Not Detect) Coronavirus HKU1 (PCR) Not detected (Not Detect) Coronavirus 229E (PCR) Not detected (Not Detect) SARS-CoV-2 (PCR) Not detected (Not Detecte) Coronavirus NL63 (PCR) Not detected (Not Detect) Human Metapneumovir PCR Not detected (Not Detect) Influenza Type A (PCR) Not detected (Not Detect) Influenza Type B (PCR) Not detected (Not Detect) M. pneumoniae (PCR) Not detected (Not Detect) Parainfluenza 1 (PCR) Not detected (Not Detect) Parainfluenza 2 (PCR) Not detected (Not Detect) Parainfluenza 3 (PCR) Not detected (Not Detect) Parainfluenza 4 (PCR) Not detected (Not Detect) RSV (PCR) Not detected (Not Detect) Entero/Rhino (PCR) Detected H (Not Detect) 01/21/23 Range/Units 11:03 WBC (4.5-11.0) X10^3/uL RBC (4.0-5.2) X10^6/uL Hgb (12.0-16.0) g/dL Hct (36-46) % MCV (80-100) fL MCH (26-34) PG MCHC (30-36) % RDW (11.6-14.8) % Plt Count (150-400) X10^3/uL Neut % (Auto) (50-75) % Lymph % (Auto) (25-40) % Columbia % (Auto) (3-14) % Eos % (Auto) (2-4) % Baso % (Auto) (0-2) % Neut # (Auto) (0392-0767) /uL Lymph # (Auto) (5452-5789) /uL Columbia # (Auto) (0-900) /uL Eos # (Auto) (0-450) /uL Baso # (Auto) (0-100) /uL PT (10.1-12.7) SECONDS INR (0.9-1.3) APTT (26-36) SECONDS Sodium (137-145) mmol/L Potassium (3.4-5.1) mmol/L Chloride (98-107) mmol/L Carbon Dioxide (22-32) mmol/L BUN (7-17) mg/dL Creatinine (0.52-1.04) mg/dL Estimated GFR (>60) mL/min BUN/Creatinine Ratio (6-22) Glucose (80-110) mg/dL Lactate (0.7-2.1) mmol/L Calcium (8.4-10.2) mg/dL Total Bilirubin (0.2-1.3) mg/dL AST (14-36) IU/L ALT (<35) IU/L Alkaline Phosphatase (38-126) U/L Total Creatine Kinase (30-135) U/L Troponin I (0.01-0.034) ng/mL NT-Pro-B Natriuret Pep (<450) pg/mL Total Protein (6.3-8.2) g/dL Albumin (3.5-5.0) g/dL Globulin (1.7-4.1) g/dL Albumin/Globulin Ratio (1.0-2.8) Lipase (23-300) U/L Procalcitonin (<0.5) ng/mL Urine Color Yellow Urine Appearance Clear Urine pH 7.0 (4.5-8.0) Ur Specific Vincent 1.020 (1.000-1.035) Urine Protein Trace H (Negative) Urine Glucose (UA) Negative (Negative) g/dL Urine Ketones Negative (NEGATIVE) Urine Occult Blood Trace-intact (Negative) Urine Nitrate Negative (Negative) Urine Bilirubin Negative (NEGATIVE) Urine Urobilinogen 2.0 H (0.2) E.U./dL Ur Leukocyte Esterase Negative (NEGATIVE) Urine RBC 1-5/hpf (0-5/HPF) Urine WBC 5-10/hpf H (0-5/HPF) Ur Squamous Epith Cells 5-10 /hpf H (0-5/HPF) Ur Renal Epithelial Cell 1-5/hpf H (0-1/HPF) Amorphous Sediment 2+ Urine Bacteria Few (2-10) H (None) Ur Culture Indicated? Specimen cultured Chlamy pneumoniae PCR (Not Detect) Adenovirus (PCR) (Not Detect) B. pertussis DNA (PCR) (Not Detecte) B.parapertussis DNA PCR (Not Detecte) Coronavirus OC43 (PCR) (Not Detect) Coronavirus HKU1 (PCR) (Not Detect) Coronavirus 229E (PCR) (Not Detect) SARS-CoV-2 (PCR) (Not Detecte) Coronavirus NL63 (PCR) (Not Detect) Human Metapneumovir PCR (Not Detect) Influenza Type A (PCR) (Not Detect) Influenza Type B (PCR) (Not Detect) M. pneumoniae (PCR) (Not Detect) Parainfluenza 1 (PCR) (Not Detect) Parainfluenza 2 (PCR) (Not Detect) Parainfluenza 3 (PCR) (Not Detect) Parainfluenza 4 (PCR) (Not Detect) RSV (PCR) (Not Detect) Entero/Rhino (PCR) (Not Detect) Urine Dip Bedside Urine Glucose Negative Bedside Urine Bilirubin - Negative Bedside Urine Ketone - Negative Urine Specific Vincent 1.015 Bedside Urine Occult Blood +/- Bedside Urine pH 7.0 Bedside Urine Protein - Negative Bedside Urine Urobilinogen - Negative Bedside Urine Nitrite - Negative Bedside Urine Leukocytes - Negative Esterase Imaging Data Chest x-ray: Radiologist's Impression: [address] [address] XRay Report Signed Patient: Precious Gtz MR#: [id number] : 1945 Acct:[id number] Age/Sex: 77 / F Date of Service: 01/21/23 Loc: ED Accession Number: [id number] ?? Procedure: XR chest 1V Ordering Provider: Marva Leary D.O. PROCEDURE:? XR CHEST 1V ? INDICATIONS:? suspected sepsis ? TECHNIQUE:? One view of the chest was acquired.? ? COMPARISON:? [facility], , XR CHEST 1V, 11/19/2022, 12:19. ? FINDINGS:? ? Surgical changes and devices:? Left chest wall Port-A-Cath tip is in SVC. ? Lungs and pleura:? Blunting of left costophrenic angle is seen suggestive of trace left pleural effusion.? Bilateral hyperinflation is seen.? No focal infiltrate.? No pneumothorax. ? Mediastinum:? Mediastinal contours appear normal.? Heart size is normal.? ? Bones and chest wall:? No suspicious bony lesions.? Overlying soft tissues appear unremarkable.? ? IMPRESSION:? COPD and trace left pleural effusion.? No focal infiltrate, or pneumothorax. ? ? ? Dictated by: Fredrick Batres M.D. on 01/21/2023 at 9:27 ? ? Approved by: Fredrick Batres M.D. on 01/21/2023 at 9:27?? [facility] Narrative Medical decision making narrative: 77-year-old female with fever, generally feeling unwell patient has had cough with some productive sputum. Chest x-ray shows some left trace pleural effusion COPD no focal infiltrate or pneumothorax. Patient has a productive cough. She did have an MRI which is reviewed from 01/15/2023 left frontal resection bifrontal white matter change consistent with cancer therapy mild ill-defined foci and has been adjacent in the resection stable from 11/29/2022. New from 2020. Patient's labs show hemoglobin of 11, no bandemia, leftward shift, INR negative, sodium 135, lactate negative, protocol is negative, belly labs do not show any acute change. Respiratory panel is positive for entero/rhinovirus. Urine shows no nitrates or leuks, 5-10 wbc's also 5-10 squamous epithelials few bacteria was cultured but seems less likely source. Patient's chest x-ray had a little bit of fluid. Spoke with Dr. Edward who asked for troponin and BNP to be added on these are both negative. Dr. Edward accepts for inpatient will treat or cover for pneumonias patient is little bit higher risk with her glioblastoma and chronic debility. Plan for coverage with Rocephin and azithromycin. Discharge Plan Departure Patient Disposition: Admitted As Inpatient Clinical Impression: Enterovirus infection, Weakness Admit Date/Time: 01/21/23 12:20 Admit Provider: Sadiq Edward
[2023-01-21 09:33] LABS: Lactate (Lactic Acid) 0.6 mmol/L (0.7-2.1)
[2023-01-21 09:34] LABS: Alanine Aminotransferase 33 IU/L (<35); Albumin 3.4 g/dL (3.5-5.0); Albumin Globulin Ratio 1.4 (1.0-2.8); Alkaline Phosphatase 70 U/L (38-126); Aspartate Aminotransferase 29 IU/L (14-36); BUN Creatinine Ratio 29.5 (6-22); Bilirubin Total 0.8 mg/dL (0.2-1.3); Blood Urea Nitrogen 13 mg/dL (7-17); Calcium 8.6 mg/dL (8.4-10.2); Carbon Dioxide 28 mmol/L (22-32); Chloride 103 mmol/L (98-107); Estimated Glomerular Filt Rate > 60 mL/min (>60); Globulin 2.5 g/dL (1.7-4.1); Glucose 101 mg/dL (80-110); HEMOLYSIS < 15 (0-50); Lipase 41 U/L (23-300); Potassium 3.8 mmol/L (3.4-5.1); Sodium 135 mmol/L (137-145); Total Protein 5.9 g/dL (6.3-8.2)
[2023-01-21 09:51] LABS: Procalcitonin 0.06 ng/mL (<0.5)
[2023-01-21 10:22] LABS: Adenovirus Not Detected (Not Detect); B. parapertussis Not Detected (Not Detecte); Bordetella pertussis Not Detected (Not Detecte); Chlamydophila pneumoniae Not Detected (Not Detect); Coronavirus 229E Not Detected (Not Detect); Coronavirus HKU1 Not Detected (Not Detect); Coronavirus NL 63 Not Detected (Not Detect); Coronavirus OC43 Not Detected (Not Detect); Human Metapneumovirus Not Detected (Not Detect); Human Rhinovirus/Enterovirus Detected (Not Detect); Influenza A Not Detected (Not Detect); Influenza B Not Detected (Not Detect); Mycoplasma pneumoniae Not Detected (Not Detect); Parainfluenza Virus 1 Not Detected (Not Detect); Parainfluenza Virus 2 Not Detected (Not Detect); Parainfluenza Virus 3 Not Detected (Not Detect); Parainfluenza Virus 4 Not Detected (Not Detect); Respiratory Syncytial Virus Not Detected (Not Detect); SARS- CoV-2 Not Detected (Not Detecte)
[2023-01-21 11:21] LABS: Appearance Urine UA CLEAR; Bilirubin Urine UA NEGATIVE (NEGATIVE); Color Urine UA YELLOW; Glucose Urine UA NEGATIVE (Negative); Ketones Urine UA NEGATIVE (NEGATIVE); Leukocyte Esterase Urine UA NEGATIVE (NEGATIVE); Nitrite Urine UA NEGATIVE (Negative); Occult Blood Urine UA TRACE-INTACT (Negative); Protein Urine UA TRACE (Negative)
--- NOTE | 2023-01-21 11:22 | PC.NURSE ---
beau assistance to bedside commode, patient very weak
[2023-01-21 11:30] LABS: Amorphous Sediment Urine 2+; Bacteria Urine Few (2-10); Culture Indicated Urine Specimen Cultured; RBC Urine 1-5/HPF (0-5/HPF); Renal Epithelial Cells Urine 1-5/HPF (0-1/HPF); Squamous Epithelial Cell Urine 5-10 /HPF (0-5/HPF); WBC Urine 5-10/HPF (0-5/HPF)
[2023-01-21 11:50] LABS: Creatine Kinase < 20 U/L (30-135)
--- NOTE | 2023-01-21 11:51 | PC.NURSE ---
patient set up with suction to assist with clearing sputum
[2023-01-21 12:03] LABS: NT-proBNP (BNP-Adult 18+) 129 pg/mL (<450); Troponin I < 0.012 ng/mL (0.01-0.034)
[2023-01-21] MEDS: AZITHROMYCIN 500 MG in DEXTROSE 5% IN WATER 250 ML 250 MG IV (12:29)
[2023-01-21] MEDS: cefTRIAXone 1,000 MG in SODIUM CHLORIDE 0.9% 100 ML 200 MG IV (13:36)
--- NOTE | 2023-01-21 16:54 | PM.HP.1 ---
History of Present Illness History of Present Illness Date Patient Seen: 01/21/23 Time Patient Seen: 16:54 Chief complaint: Listing to Left Narrative: 77 F with PMH of asthma, HTN, Glioblastoma multiforme, prior CVA and prior seizures who presented with worsening lethargy and weakness over the past 2 days. She also reports cough, fever, malaise. She states cough was productive, with rhinorrhea as well but denies sore throat or neck pain. She is usually a bit weaker on her R from her glioblastoma and prior resection and has not noted any new focal weakness or tingling. She denies any urinary frequency or dysuria. She denies abdominal pain, nausea, vomiting, or diarrhea. in the emergency room, she was mildly hypertensive, and febrile with Temp of 100.9, saturating at 96% on room air. CXR showed a left sided pleural effusion, though trace but no obvious focal infiltrates. Respiratory panel was positive for entero/rhino virus. Labs showed no leukocytosis, Hg 11.5 (within the range of her usual testing). Given elevated PSI/PORT scoring (class IV risk), patient was admitted for further management of community acquired pneumonia as an inpatient. [facility] Medical History Abdominal pain Actinic keratosis Asthma Cervical pain (neck) Cervical strain Colon polyps (12/2013) Ductal carcinoma in situ (DCIS) of right breast (2000) GERD (gastroesophageal reflux disease) Glioblastoma multiforme of brain Hyperlipidemia (11/11/10) Hypertension Impaired cognition Irritable bowel syndrome with diarrhea Mixed anxiety depressive 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) Osteopenia of multiple sites Perineal discomfort in female Rosacea Skin lesion UTI (urinary tract infection) Vision changes Surgical History History of tonsillectomy and adenoidectomy (1949) Hx of colonoscopy with polypectomy (12/2013) Hx of left breast biopsy (12/2010) Hx of surgical procedure (2006) Status post breast lumpectomy (2000) Status post cholecystectomy (2004) Status post hysterectomy (1993) Status post knee surgery (1992) Family History Mother Asthma Sister Age: 73 Diabetes mellitus Hypertension Thyroid disease Sister Age: 72 Asthma Glaucoma Sister Age: 70 Asthma Father No problems noted. Grandfather Stroke Grandmother Cancer Social History household members: none Smoking Status: Never smoker second hand exposure: No alcohol intake: current substance use type: does not use Meds Home Medications and Allergies Home Medications Medication Instructions Recorded Confirmed Type mometasone-formoterol HFA 200 1 puff inhalation BID 06/11/20 01/21/23 History mcg-5 mcg/actuation aerosol inhaler (Dulera) lisinopril 10 mg tablet See Rx Instructions .Route 01/14/23 01/21/23 Rx .COMPLEX #90 tabs nifedipine 30 mg tablet,extended See Rx Instructions .Route 01/21/23 01/21/23 Rx release .COMPLEX #30 tabs Allergies Allergy/AdvReac Type Severity Reaction Status Date / Time estradiol [ESTRADIOL] AdvReac Severe blood clots Verified 12/22/22 11:43 fluoxetine [FLUOXETINE] AdvReac Severe Nausea, Verified 12/22/22 11:43 vomiting, blurry vision, made IBS worse citalopram AdvReac Intermediate Nausea Verified 12/22/22 11:43 Review of Systems Review of Systems Narrative: All other systems reviewed with the patient and are negative unless otherwise stated. Exam Vital Signs (past 8 hours): - 01/21/23 09:00 01/21/23 09:00 01/21/23 09:30 Temperature Pulse Rate 89 Respiratory Rate Blood Pressure 158/69 H 161/70 H Pulse Oximetry 96 Oxygen Delivery Method Oxygen Flow Rate 01/21/23 09:30 01/21/23 10:00 01/21/23 10:00 Temperature Pulse Rate 85 83 Respiratory Rate Blood Pressure 148/65 H Pulse Oximetry 96 96 Oxygen Delivery Method Oxygen Flow Rate 01/21/23 10:30 01/21/23 10:30 01/21/23 10:57 Temperature Pulse Rate 80 79 Respiratory Rate Blood Pressure 156/69 H Pulse Oximetry 97 95 Oxygen Delivery Method Oxygen Flow Rate 01/21/23 10:57 01/21/23 11:11 01/21/23 11:00 Temperature 98.8 F Pulse Rate Respiratory Rate Blood Pressure 159/73 H 155/71 H Pulse Oximetry Oxygen Delivery Method Oxygen Flow Rate 01/21/23 11:00 01/21/23 11:30 01/21/23 11:30 Temperature Pulse Rate 80 80 Respiratory Rate 65 H 40 H Blood Pressure 165/72 H Pulse Oximetry 94 93 Oxygen Delivery Method Oxygen Flow Rate 01/21/23 12:00 01/21/23 12:01 01/21/23 12:01 Temperature Pulse Rate 80 80 Respiratory Rate 38 H Blood Pressure 141/63 H Pulse Oximetry 94 94 Oxygen Delivery Method Oxygen Flow Rate 01/21/23 12:50 01/21/23 14:06 Temperature 97.2 F L Pulse Rate 74 Respiratory Rate 18 Blood Pressure 123/61 Pulse Oximetry 94 94 Oxygen Delivery Method Room Air Oxygen Flow Rate 0 Oxygen Delivery Method Room Air Oxygen Flow Rate 0 Narrative Exam Narrative: General:?Thin appearing female, no acute distress but appears mildly acutely ill. HEENT:? Normocephalic, atraumatic, extraocular muscles intact, oral pharynx is clear and mucous membranes are dry. Neck: supple and symmetric, trachea is midline, no cervical adenopathy. Negative for JVD Lungs:? CTA b/l no wheezing rhonchi or rales but diminshed breath sounds at L lung base. Cardio:?RRR no m/r/g. Abdomen: S NT ND. Musculoskeletal:? Muscle strength and tone are equal within normal limits, no deformity. Extremities: No edema or joint effusions. No cyanosis or clubbing. Skin:? Pale,? Warm to touch,dry and intact without rashes, ulcerations or petechiae.? Neuro:? R > L weakness, but +5/5 in all extremities, reported chronic. slowed responses with occasional non response to questions. Psych:? Patient has a well-kept appearance, appropriate affect, mental status attitude thought context and judgment are appropriate for age. Objective Labs 01/21/23 09:00 01/21/23 09:00 Labs: Laboratory Results - last 24 hr 01/21/23 01/21/23 01/21/23 09:00 09:00 09:00 WBC 7.6 RBC 3.75 L Hgb 11.5 L Hct 33.5 L MCV 89.4 MCH 30.7 MCHC 34.3 RDW 14.1 Plt Count 198 Neut % (Auto) 77.1 H Lymph % (Auto) 12.2 L [place] % (Auto) 5.6 Eos % (Auto) 4.7 H Baso % (Auto) 0.4 Neut # (Auto) 5800 Lymph # (Auto) 900 L [place] # (Auto) 400 Eos # (Auto) 400 Baso # (Auto) 0 PT 13.2 H INR 1.2 APTT 26 Sodium 135 L Potassium 3.8 Chloride 103 Carbon Dioxide 28 BUN 13 Creatinine 0.44 L Estimated GFR > 60 BUN/Creatinine Ratio 29.5 H Glucose 101 Lactate Calcium 8.6 Total Bilirubin 0.8 AST 29 ALT 33 Alkaline Phosphatase 70 Total Creatine Kinase Troponin I NT-Pro-B Natriuret Pep Total Protein 5.9 L Albumin 3.4 L Globulin 2.5 Albumin/Globulin Ratio 1.4 Lipase 41 Procalcitonin 0.06 Urine Color Urine Appearance Urine pH Ur Specific [place] Urine Protein Urine Glucose (UA) Urine Ketones Urine Occult Blood Urine Nitrate Urine Bilirubin Urine Urobilinogen Ur Leukocyte Esterase Urine RBC Urine WBC Ur Squamous Epith Cells Ur Renal Epithelial Cell Amorphous Sediment Urine Bacteria Ur Culture Indicated? Chlamy pneumoniae PCR Adenovirus (PCR) B. pertussis DNA (PCR) B.parapertussis DNA PCR Coronavirus OC43 (PCR) Coronavirus HKU1 (PCR) Coronavirus 229E (PCR) SARS-CoV-2 (PCR) Coronavirus NL63 (PCR) Human Metapneumovir PCR Influenza Type A (PCR) Influenza Type B (PCR) M. pneumoniae (PCR) Parainfluenza 1 (PCR) Parainfluenza 2 (PCR) Parainfluenza 3 (PCR) Parainfluenza 4 (PCR) RSV (PCR) Entero/Rhino (PCR) 01/21/23 01/21/23 01/21/23 09:00 09:00 09:07 WBC RBC Hgb Hct MCV MCH MCHC RDW Plt Count Neut % (Auto) Lymph % (Auto) [place] % (Auto) Eos % (Auto) Baso % (Auto) Neut # (Auto) Lymph # (Auto) [place] # (Auto) Eos # (Auto) Baso # (Auto) PT INR APTT Sodium Potassium Chloride Carbon Dioxide BUN Creatinine Estimated GFR BUN/Creatinine Ratio Glucose Lactate 0.6 L Calcium Total Bilirubin AST ALT Alkaline Phosphatase Total Creatine Kinase < 20 L Troponin I < 0.012 NT-Pro-B Natriuret Pep 129 Total Protein Albumin Globulin Albumin/Globulin Ratio Lipase Procalcitonin Urine Color Urine Appearance Urine pH Ur Specific [place] Urine Protein Urine Glucose (UA) Urine Ketones Urine Occult Blood Urine Nitrate Urine Bilirubin Urine Urobilinogen Ur Leukocyte Esterase Urine RBC Urine WBC Ur Squamous Epith Cells Ur Renal Epithelial Cell Amorphous Sediment Urine Bacteria Ur Culture Indicated? Chlamy pneumoniae PCR Not detected Adenovirus (PCR) Not detected B. pertussis DNA (PCR) Not detected B.parapertussis DNA PCR Not detected Coronavirus OC43 (PCR) Not detected Coronavirus HKU1 (PCR) Not detected Coronavirus 229E (PCR) Not detected SARS-CoV-2 (PCR) Not detected Coronavirus NL63 (PCR) Not detected Human Metapneumovir PCR Not detected Influenza Type A (PCR) Not detected Influenza Type B (PCR) Not detected M. pneumoniae (PCR) Not detected Parainfluenza 1 (PCR) Not detected Parainfluenza 2 (PCR) Not detected Parainfluenza 3 (PCR) Not detected Parainfluenza 4 (PCR) Not detected RSV (PCR) Not detected Entero/Rhino (PCR) Detected H 01/21/23 11:03 WBC RBC Hgb Hct MCV MCH MCHC RDW Plt Count Neut % (Auto) Lymph % (Auto) [place] % (Auto) Eos % (Auto) Baso % (Auto) Neut # (Auto) Lymph # (Auto) [place] # (Auto) Eos # (Auto) Baso # (Auto) PT INR APTT Sodium Potassium Chloride Carbon Dioxide BUN Creatinine Estimated GFR BUN/Creatinine Ratio Glucose Lactate Calcium Total Bilirubin AST ALT Alkaline Phosphatase Total Creatine Kinase Troponin I NT-Pro-B Natriuret Pep Total Protein Albumin Globulin Albumin/Globulin Ratio Lipase Procalcitonin Urine Color Yellow Urine Appearance Clear Urine pH 7.0 Ur Specific [place] 1.020 Urine Protein Trace H Urine Glucose (UA) Negative Urine Ketones Negative Urine Occult Blood Trace-intact Urine Nitrate Negative Urine Bilirubin Negative Urine Urobilinogen 2.0 H Ur Leukocyte Esterase Negative Urine RBC 1-5/hpf Urine WBC 5-10/hpf H Ur Squamous Epith Cells 5-10 /hpf H Ur Renal Epithelial Cell 1-5/hpf H Amorphous Sediment 2+ Urine Bacteria Few (2-10) H Ur Culture Indicated? Specimen cultured Chlamy pneumoniae PCR Adenovirus (PCR) B. pertussis DNA (PCR) B.parapertussis DNA PCR Coronavirus OC43 (PCR) Coronavirus HKU1 (PCR) Coronavirus 229E (PCR) SARS-CoV-2 (PCR) Coronavirus NL63 (PCR) Human Metapneumovir PCR Influenza Type A (PCR) Influenza Type B (PCR) M. pneumoniae (PCR) Parainfluenza 1 (PCR) Parainfluenza 2 (PCR) Parainfluenza 3 (PCR) Parainfluenza 4 (PCR) RSV (PCR) Entero/Rhino (PCR) Assessment & Plan Assessment & Plan narrative: 1. Community acquired pneumonia, superimposed bacterial pnuemonia on rhinovirus - patient with new pleural effusion, though trace size on the L, with productive cough and fever. SOFA score is 0 currently. - continue ceftriaxone and azithro - class IV risk based on PSI scoring given effusion, neoplastic disease, age. 2. Glioblastoma multiforme - Sees oncology clinic here for monitoring, recent MRI from 6 days ago with ill defined density, stable from this year but new since 2020. Oncology monitoring as outpatient. - other than lethargy appears near baseline function, no need for additional imaging at this time, does have history of seizures as well but no longer on seizure ppx. 3. asthma without exacerbation - replace home inhaler with formular equivalent - albuterol prn 4. HTN - continue home nifedipine and lisinopril 5. Acute cystitis, rule out - urinalysis with 5-10 WBC, but also contaminated with squamous cells, specimen cultured will follow up on cultures, will be adequately covered with antibiotics for pnuemonia. Code: Patient states her wish to be DNR and designates her sister as surrogate decision maker. I have utilized all available immediate resources to obtain, update, or review the patient's current medications. Additional history obtained via ER provider, review of patient's extensive PMH documentation. I have reviewed labs, EKG, imaging personally. Ordered relevant lab studies for tomorrow. Dispo: Admit inpatient given morbidity and mortality risk based on PSI scoring with L lung pneumonia.
[2023-01-21] MEDS: NIFEdipine 30 MG TAB ER PO (22:36)
[2023-01-21] MEDS: ALBUTEROL 2.5 MG/3 ML NEB (ADULT) INH (22:58)
--- NOTE | 2023-01-21 23:27 | PC.NURSE ---
Patient is alert and oriented except identified month as November and did not know the day of the month; responses are delayed. Breath sounds diminished in left LL but CTA with RA sat of 94%. Has dry, non productive cough but is using yankour suction prn. HRR w/BP of 148/77. Denies nausea. BT present and abdomen is soft. Has been continent of urine and denies dysuria. Is needing assistance to reposition q2h. Up to BSC with walker and 2 assists and is very weak. Denies pain. Fall risk score is high and bed alarm is activated. On droplet isolation for rhino virus. Caregiver, Francesca rooming in and assisting with cares.
[2023-01-22] VITALS (10 sets, daily range): BP systolic 123–147; BP diastolic 56–75; PULSE 72–82; RESP 16–18; TEMP 36.2–36.9; O2SAT 95–98
[2023-01-22] MEDS: SODIUM CHLORIDE 0.9% FLUSH 10 ML IV ×3 (05:59→20:53)
[2023-01-22 06:41] LABS: Add Manual Diff / Slide Review NO; Basophils Absolute Auto 0 /uL (0-100); Basophils Percent Auto 0.6 % (0-2); Eosinophils Absolute Auto 800 /uL (0-450); Eosinophils Percent Auto 15.8 % (2-4); Hematocrit 32.2 % (36-46); Hemoglobin 11.1 g/dL (12.0-16.0); Lymphocytes Absolute Auto 1200 /uL (1100-4500); Lymphocytes Percent Auto 24.7 % (25-40); Mean Corpuscular HGB Conc 34.4 % (30-36); Mean Corpuscular Hemoglobin 30.5 PG (26-34); Mean Corpuscular Volume 88.6 fL (80-100); Monocytes Absolute Auto 300 /uL (0-900); Monocytes Percent Auto 5.9 % (3-14); Neutrophils Absolute Auto 2600 /uL (1500-7000); Platelet Count 204 X10^3/uL (150-400); Red Blood Cell Count 3.64 X10^6/uL (4.0-5.2); Red Cell Distribution Width 14.1 % (11.6-14.8); White Blood Cell Count 4.9 X10^3/uL (4.5-11.0)
[2023-01-22 06:54] LABS: Blood Urea Nitrogen 8 mg/dL (7-17); Calcium 8.5 mg/dL (8.4-10.2); Carbon Dioxide 29 mmol/L (22-32); Chloride 104 mmol/L (98-107); Estimated Glomerular Filt Rate > 60 mL/min (>60); Glucose 85 mg/dL (80-110); HEMOLYSIS < 15 (0-50); Magnesium 1.9 mg/dL (1.6-2.3); Potassium 3.7 mmol/L (3.4-5.1); Sodium 137 mmol/L (137-145)
[2023-01-22] MEDS: ALBUTEROL/IPRATROPIUM 3 ML AMPUL INH ×2 (08:20→20:03)
[2023-01-22] MEDS: ENOXAPARIN 40 MG/0.4 ML SYRINGE SUBCUT (09:31)
[2023-01-22] MEDS: ACETAMINOPHEN SUSP 650 MG/20.3 ML UDC PO (09:32)
[2023-01-22] MEDS: cefTRIAXone 1,000 MG in SODIUM CHLORIDE 0.9% 100 ML 200 MG IV (11:28)
[2023-01-22] MEDS: AZITHROMYCIN 500 MG in DEXTROSE 5% IN WATER 250 ML 250 MG IV (13:10)
--- NOTE | 2023-01-22 13:19 | CM.DANOTE ---
DCP Assessment: Patient is a 77yo F here under inpatient status being treated for pneumonia/weakness. Patient has a history of glioblastoma of the brain. PCP: Felix Payer: young and self pay UTILITY SALES AND SERVICE MANAGER reviewed EMR. UTILITY SALES AND SERVICE MANAGER entered room and introduced self and role. Patient was sitting up in bed, eating breakfast, and did not speak throughout the interaction. Patient was accompanied by caregiver Vida. Vida reports she has 24/7 private pay caregivers. Patient has utilized [facility] in past and caregiver is open to it if deemed necessary. Caregiver reports they have all the equipment needed for home care. Caregiver reports her and other caregiver, Shelley, assist patient with her ADLs and drive her where she needs to be. From provider in rounds, patient will likely d/c in a day or two. PT orders for an evaluation are pending for the transportation recommendation. UTILITY SALES AND SERVICE MANAGER called daughter, also Vida ([phone]). Daughter is secondary DPOA and approved emergency contact. DPOA is sister Angle ([phone]). UTILITY SALES AND SERVICE MANAGER updated daughter on d/c plan. Daughter reports being concerned about mental health resources for her mom, she believes she is depressed due to recent passing of and other family. UTILITY SALES AND SERVICE MANAGER will give caregiver Vida Senior Resources booklet and highlighted mental health/counseling information. Daughter Vida appeared appreciative. UTILITY SALES AND SERVICE MANAGER gave caregiver Vida senior resources booklet. Plan: patient will d/c home with private pay caregivers when medically stable. Patient will likely transport in POV, pending PT recommendation. CM team will continue to follow closely. REECE Richey Discharge Planning/Care Management Advanced directive, confirm from FAMILY Start: 01/21/23 13:16 Freq: Q24H Status: Active Protocol: Document 01/21/23 13:16 EM (Rec: 01/21/23 13:19 EM [id number]) Advance Directive, confirm on record Time 13:19 Person contacted Patient and main caregiver Copy received No CM Discharge Assessment Start: 01/22/23 11:22 Freq: Status: Active Protocol: Document 01/22/23 11:22 SL (Rec: 01/22/23 13:19 SL [id number]) Discharge Planning Assessment Assigned Line Locator REECE Aragon DPOA/Assigned Designee Name Vida Mcqueen (daughter) Contact Information [phone] Advance Directives? Yes: DPOA Angle Randhawa Advance Directives on File Yes: Scanned History Provided By Family Member,Medical Record Prior Living Arrangements House Comment home with 24 hour caregivers Household Members none Type of transporation used prior to Relies on Others admit Independent with ADL's No Is patient alert and oriented? No: not oriented to month Needs Assistance With Bathing,Eating,Grooming, Managing Medications,Home Chores / Shopping Comment patient has 24 hour private caregivers DME Already Rented / Owned FWW / Walker,Other Comment Caregivers report they have everything they need for her at home. Patient/Family Preference Home with Home Health Comment opent to HH if needed. used [facility] in past. Comment Anticipate home w/friends, family, caregivers, r/o need for HH Discharge Plan Home with Home Health Transportation Arrangement Friends, family or caregiver Referrals Initiated Home Health Additional Comment hx w/[facility] SNF/HH Preference prefer [facility]. r/o if needed Whiteboard Updated in Patient Room with Yes name and ext. # of Line Locator Review Status In Process Next Review Type Continued Stay Review
--- NOTE | 2023-01-22 13:36 | P.PN_ITS ---
Subjective Subjective Interval history: 77 year old female admitted with pneumonia. Remains quite weak today per senior international tax manager. She feels a bit better today and her responses are a bit quicker. Exam Vital Signs (past 8 hours): - 01/22/23 08:00 01/22/23 08:20 01/22/23 08:00 Temperature 98.4 F Pulse Rate 80 82 Respiratory Rate 16 18 Blood Pressure 145/75 H Pulse Oximetry 96 95 95 Oxygen Delivery Method Room Air Room Air Oxygen Flow Rate 0 0 01/22/23 12:00 01/22/23 12:00 Temperature 97.2 F L Pulse Rate 80 Respiratory Rate 18 Blood Pressure 129/72 Pulse Oximetry 98 95 Oxygen Delivery Method Room Air Oxygen Flow Rate 0 0 Oxygen Delivery Method Room Air Oxygen Flow Rate 0 Narrative Exam Narrative: General:?Thin appearing female, no acute distress but appears mildly acutely ill. HEENT:? Normocephalic, atraumatic, extraocular muscles intact, oral pharynx is clear and mucous membranes are dry. Neck: supple and symmetric, trachea is midline, no cervical adenopathy. Negative for JVD Lungs:? CTA b/l no wheezing rhonchi or rales but diminshed breath sounds at L lung base. Cardio:?RRR no m/r/g. Abdomen: S NT ND. Musculoskeletal:? Muscle strength and tone are equal within normal limits, no deformity. Extremities: No edema or joint effusions. No cyanosis or clubbing. Skin:? Pale,? Warm to touch,dry and intact without rashes, ulcerations or petechiae.? Neuro:? R > L weakness, but +5/5 in all extremities, reported chronic. slowed responses but improved compared to yesterday. Psych:? Patient has a well-kept appearance, appropriate affect, mental status attitude thought context and judgment are appropriate for age. Objective Labs 01/22/23 06:05 01/22/23 06:05 Labs: Laboratory Results - last 24 hr 01/22/23 01/22/23 06:05 06:05 WBC 4.9 RBC 3.64 L Hgb 11.1 L Hct 32.2 L MCV 88.6 MCH 30.5 MCHC 34.4 RDW 14.1 Plt Count 204 Neut % (Auto) 53.0 D Lymph % (Auto) 24.7 L [place] % (Auto) 5.9 Eos % (Auto) 15.8 H Baso % (Auto) 0.6 Neut # (Auto) 2600 Lymph # (Auto) 1200 [place] # (Auto) 300 Eos # (Auto) 800 H Baso # (Auto) 0 Sodium 137 Potassium 3.7 Chloride 104 Carbon Dioxide 29 BUN 8 Creatinine 0.40 L Estimated GFR > 60 BUN/Creatinine Ratio 20.0 Glucose 85 Calcium 8.5 Magnesium 1.9 PFSH Medical History Abdominal pain Actinic keratosis Asthma Cervical pain (neck) Cervical strain Colon polyps (12/2013) Ductal carcinoma in situ (DCIS) of right breast (2000) GERD (gastroesophageal reflux disease) Glioblastoma multiforme of brain Hyperlipidemia (11/11/10) Hypertension Impaired cognition Irritable bowel syndrome with diarrhea Mixed anxiety depressive 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) Osteopenia of multiple sites Perineal discomfort in female Rosacea Skin lesion UTI (urinary tract infection) Vision changes Surgical History History of tonsillectomy and adenoidectomy (1949) Hx of colonoscopy with polypectomy (12/2013) Hx of left breast biopsy (12/2010) Hx of surgical procedure (2006) Status post breast lumpectomy (2000) Status post cholecystectomy (2004) Status post hysterectomy (1993) Status post knee surgery (1992) Family History Mother Asthma Sister Age: 73 Diabetes mellitus Hypertension Thyroid disease Sister Age: 72 Asthma Glaucoma Sister Age: 70 Asthma Father No problems noted. Grandfather Stroke Grandmother Cancer Social History household members: none Smoking Status: Never smoker second hand exposure: No alcohol intake: current substance use type: does not use Assessment & Plan Assessment & Plan narrative: 1. Community acquired pneumonia, superimposed bacterial pnuemonia on rhinovirus - patient with new pleural effusion, though trace size on the L, with productive cough and fever. SOFA score is 0 currently. - continue ceftriaxone and azithro for superimposed bacterial pneumoina. - class IV risk based on PSI scoring given effusion, neoplastic disease, age. - okay for PT to start 2. Glioblastoma multiforme - Sees oncology clinic here for monitoring, recent MRI from 6 days ago with ill defined density, stable from this year but new since 2020. Oncology monitoring as outpatient. - other than lethargy appears near baseline function though she is weak, no need for additional imaging at this time, does have history of seizures as well but no longer on seizure ppx. - will order PT evaluation 3. asthma without exacerbation - replace home inhaler with formulary equivalent - albuterol prn 4. HTN - continue home nifedipine and lisinopril 5. Acute cystitis, probably ruled out - urinalysis with 5-10 WBC, but also contaminated with squamous cells, specimen cultured but was mixed radha. Any cystitis be adequately treated with ceftriaxone noted above for pneumonia. Code: Patient states her wish to be DNR and designates her sister as surrogate decision maker. I have utilized all available immediate resources to obtain, update, or review the patient's current medications. Dispo: Admit inpatient given morbidity and mortality risk based on PSI scoring with L lung pneumonia. Will start PT evaluation, will probably discharge home with home health, continue current caregivers depending on therapy evaluations.
--- NOTE | 2023-01-22 17:38 | PT.IIE ---
Current Diagnoses Pneumonia, unspecified organism (01/21/23) Surgical History (Last Reviewed 01/21/23 @ 18:29 by Sadiq Edward DO) History of tonsillectomy and adenoidectomy (1949) Hx of colonoscopy with polypectomy (12/2013) Hx of left breast biopsy (12/2010) Hx of surgical procedure (2006) Status post breast lumpectomy (2000) Status post cholecystectomy (2004) Status post hysterectomy (1993) Status post knee surgery (1992) Medical History (Last Reviewed 01/21/23 @ 18:29 by Sadiq Edward DO) Abdominal pain Actinic keratosis Asthma Cervical pain (neck) Cervical strain Colon polyps (12/2013) Ductal carcinoma in situ (DCIS) of right breast (2000) GERD (gastroesophageal reflux disease) Glioblastoma multiforme of brain Hyperlipidemia (11/11/10) Hypertension Impaired cognition Irritable bowel syndrome with diarrhea Mixed anxiety depressive 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) Osteopenia of multiple sites Perineal discomfort in female Rosacea Skin lesion UTI (urinary tract infection) Vision changes Physical Therapy Inpatient Evaluation/Re-Eval M1 PT/OT-IP Prior Functional Status Start: 01/22/23 17:01 Freq: NEEDED Status: Active Protocol: Document 01/22/23 17:02 ES (Rec: 01/22/23 17:38 ES [id number]) Medical Review Prior Functional Status Medical History Reviewed Yes Communication Indep, takes extra time to respond Mobility and Gait Ambulates household distances (~50ft) with FWW with caregiver assistance. Uses manual w/c in AM and outside the home with caregiver assist . Stated she can propel self short distances on occasion using UE's. Activities of Daily Living and IADL's Caregivers assist with all ADL 's. Prior Functional Level (Other details) Caregivers provide transportation via [employer]. Social History Household Members caregiver Living Arrangements House Number of Floors (Floors) One Floor Number of Stairs To Enter/Railing? Has stair lift installed to enter home. No stairs inside. Home Equipment Front Wheel Walker,Manual Wheelchair,Hospital Bed,Bed Rails Additional Social History Comment Patient has 24/7 caregivers; is well equipped with adaptive equipment at home. M2 PT-IP Current Condition Start: 01/22/23 17:01 Freq: NEEDED Status: Active Protocol: Document 01/22/23 17:02 ES (Rec: 01/22/23 17:38 ES [id number]) Physical Therapy Current Condition Current Condition Evaluation Date 01/22/23 Treatment Diagnosis Pneumonia, weakness Onset Date 01/21/23 M3 PT-IP Subjective Start: 01/22/23 17:01 Freq: NEEDED Status: Active Protocol: Document 01/22/23 17:02 ES (Rec: 01/22/23 17:38 ES [id number]) Subjective Physical Therapy Visit Type Type Initial Evaluation Visit Start Time 16:14 Visit Stop Time 17:00 Total Visit Minutes 46 Physical Therapy Visit Comments Patient Comments Patient alert in bed, agreeable to work with PT. Stated she has problems with her L shoulder. Is L-handed. Requested to get up to toilet and walk around the room. M4 PT-IP Mobility and Gait Start: 01/22/23 17:01 Freq: NEEDED Status: Active Protocol: Document 01/22/23 17:02 ES (Rec: 01/22/23 17:38 ES [id number]) PT-Bed Mobility Assessment Supine to Sit Supine to Sit Moderate Assistance,Head of Bed Elevated,Bedrails Sit to Supine Sit to Supine Minimal Assistance,Head of Bed Elevated,Bedrails Scooting Scooting to Edge of Bed Minimal Assistance Scooting Up and Down in Bed Minimal Assistance PT-Transfer Assessment Sit to and From Stand Sit to and from Stand Minimal Assistance,Moderate Assistance,Use of Upper Extremities Equipment Transfer Assistive Device Gait Belt,Front Wheeled Walker Transfers Transfer Destination Chair,Toilet Transfer Technique ambulated Transfer Ability Level of Assist Minimal Assistance,Use of Upper Extremities Comments Mobility Comments Patient required assist to move LE's to EOB and to push to sit. Cued for use of rail to assist with bed mobility. She demonstrated decreased anterior weight shift during sit to/from stand requiring mod A, progressing to min A with cues for nose past toes for improved forward weight shift. Gait Assessment Gait Gait Assistance Required: Contact Guard Assist Distance (Feet) 50 Assistive Devices Assistive Device Gait Belt,Front Wheeled Walker Gait Deviations General Gait Pattern Decreased Stride Length, Decreased Feet Clearance, Flexed Trunk Factors Limiting Gait Function Factors Limiting Gait Function Decreased Strength,Limited Range of Motion,Poor Balance Comments Gait Comments Ambulated with slow gait speed , no LOB with multiple turns in room, able to navigate FWW around obstacles. PT-Balance Assessment Sitting Balance and Reactions Static Sitting Balance Ability Good Dynamic Sitting Balance Ability Fair Standing Balance and Reactions Static Standing Balance Ability Fair Dynamic Standing Balance Ability Fair Device Used FWW M5 PT-IP Objective Assessments Start: 01/22/23 17:01 Freq: NEEDED Status: Active Protocol: Document 01/22/23 17:02 ES (Rec: 01/22/23 17:38 ES [id number]) Orientation Orientation/Cognition Level of Alertness Alert Safety Awareness Understands Safety Issues Memory Description No Deficits Noted Comments SLow to respond to questions, answers appropriately. Gross Range of Motion Upper Extremity ROM Assessment Within Functional Limits Lower Extremity ROM Assessment Bilaterally Impaired Impairments B ankle DF lacking ~5 degrees from neutral Strength Upper Extremity Strength Assessment Bilaterally Impaired Shoulder L 4-/5, R 4/5 Elbow L 4-/5, R 4/5 Hand L 4/5, R 4/5 Lower Extremity Strength Assessment Bilaterally Impaired Hip 4-/5 Knee 4-/5 Comments Strength Comments Increased pain with resistance L shoulder, R knee. Difficulty performing SLR R>L. M7 PT-IP Assessment and Plan Start: 01/22/23 17:01 Freq: NEEDED Status: Active Protocol: Document 01/22/23 17:02 ES (Rec: 01/22/23 17:38 ES [id number]) PT Summary Assessment and Plan Potential Rehabilitation Potential Fair Status of Condition at Evaluation Evolving Summary Impairments Pain,ROM,Strength,Balance,Bed Mobility,Transfers,Gait Assessment Summary Patient is a 77 year old female who presents with L shoulder and R knee pain, decreased UE and LE strength, and decreased balance contributing to difficulty with bed mobility, transfers, and gait. She required 1- person min/mod A for bed mobility and transfers, and CGA for gait for 50ft using FWW. She tolerated activity without c/o increased pain or shortness of breath. She demonstrated the ability to transfer from various surfaces with 1-person assist, improved with cues for anterior weight shift. Based on today's performance, she is at safe level to return home with 24/7 caregiver assistance , and is appropriate to use private vehicle for transportation home. Recommend HHPT to work on increasing strength and balance to reduce level of assistance needed at home to decrease caregiver burden. Goals Bed Mobility Goal Minimal Assistance Transfer Goal Contact Guard Assistance,Front Wheeled Walker Gait Goal Standby Assistance,Front Wheel Walker Gait Distance 50 ft Days to Meet Goals 3 Frequency of Treatment Frequency Of Treatment Once a Day Treatment Plan Physical Therapy Treatment Plan Bed Mobility Training,Transfer Training,Gait Training, Therapeutic Exercise,Balance Retraining,Discharge Planning Recommendations To Nursing Amount of Assist Needed 1 Person Assist Discharge Recommendations PT Discharge Recommendations Home with 02/02 Assist Available,Home Health Transportation Needs at Discharge Private Vehicle
[2023-01-22] MEDS: NIFEdipine 30 MG TAB ER PO (20:53)
[2023-01-22] MEDS: lisinopriL 10 MG TABLET PO (20:53)
[2023-01-23] VITALS: BP 123/62; PULSE 81; RESP 18; TEMP 36.3; O2SAT 96
[2023-01-23 06:37] LABS: Add Manual Diff / Slide Review NO; Basophils Absolute Auto 0 /uL (0-100); Basophils Percent Auto 0.5 % (0-2); Eosinophils Absolute Auto 800 /uL (0-450); Eosinophils Percent Auto 15.7 % (2-4); Hematocrit 34.1 % (36-46); Hemoglobin 11.6 g/dL (12.0-16.0); Lymphocytes Absolute Auto 1200 /uL (1100-4500); Lymphocytes Percent Auto 23.8 % (25-40); Mean Corpuscular HGB Conc 34.1 % (30-36); Mean Corpuscular Hemoglobin 30.4 PG (26-34); Mean Corpuscular Volume 89.1 fL (80-100); Monocytes Absolute Auto 300 /uL (0-900); Monocytes Percent Auto 6.9 % (3-14); Neutrophils Absolute Auto 2700 /uL (1500-7000); Neutrophils Percent Auto 53.1 % (50-75); Platelet Count 240 X10^3/uL (150-400); Red Blood Cell Count 3.83 X10^6/uL (4.0-5.2); Red Cell Distribution Width 14.1 % (11.6-14.8)
[2023-01-23 06:45] LABS: BUN Creatinine Ratio 26.1 (6-22); Blood Urea Nitrogen 12 mg/dL (7-17); Calcium 8.8 mg/dL (8.4-10.2); Carbon Dioxide 28 mmol/L (22-32); Chloride 103 mmol/L (98-107); Estimated Glomerular Filt Rate > 60 mL/min (>60); Glucose 93 mg/dL (80-110); HEMOLYSIS < 15 (0-50); Magnesium 1.9 mg/dL (1.6-2.3); Potassium 3.9 mmol/L (3.4-5.1); Sodium 135 mmol/L (137-145)
[2023-01-23 08:00] VITALS: BP 136/67; PULSE 73; RESP 16; TEMP 36.3; O2SAT 97
[2023-01-23] MEDS: SODIUM CHLORIDE 0.9% FLUSH 10 ML IV (08:17)
[2023-01-23] MEDS: ENOXAPARIN 30 MG/0.3 ML SYRINGE SUBCUT (08:17)
--- NOTE | 2023-01-23 09:46 | PM.DS.1 ---
History of Present Illness History of Present Illness Date Patient Seen: 01/23/23 Time Patient Seen: 09:46 Chief complaint: Listing to Left Narrative: 77 F with PMH of asthma, HTN, Glioblastoma multiforme, prior CVA and prior seizures who presented with worsening lethargy and weakness over the past 2 days. She also reports cough, fever, malaise. She states cough was productive, with rhinorrhea as well but denies sore throat or neck pain. She is usually a bit weaker on her R from her glioblastoma and prior resection and has not noted any new focal weakness or tingling. She denies any urinary frequency or dysuria. She denies abdominal pain, nausea, vomiting, or diarrhea. in the emergency room, she was mildly hypertensive, and febrile with Temp of 100.9, saturating at 96% on room air. CXR showed a left sided pleural effusion, though trace but no obvious focal infiltrates. Respiratory panel was positive for entero/rhino virus. Labs showed no leukocytosis, Hg 11.5 (within the range of her usual testing). Given elevated PSI/PORT scoring (class IV risk), patient was admitted for further management of community acquired pneumonia as an inpatient. Discharge Providers Provider Date of admission: 01/21/23 12:20 Discharge Date: 01/23/23 Primary care physician: Crispin Washington DO Consults: 01/21/23 13:16 Consult to Dietitian, Adult Routine Comment: Reason For Exam: weight loss, unintentional 01/22/23 10:47 Consult to Physical Therapy Evaluate & Treat Comment: Physician Instructions: Evaluate and Treat Discharge provider: Sadiq Edward DO Summary Hospital Course Discharge Diagnosis: 1. Community acquired pneumonia, superimposed bacterial pnuemonia on rhinovirus 2. Glioblastoma multiforme 3. asthma with mild exacerbation that was not present on admission. 4. HTN 5. Acute cystitis, probably ruled out Hospital Course: 77 F with PMH of asthma, HTN, Glioblastoma multiforme, prior CVA and prior seizures who presented with worsening lethargy and weakness over the past 2 days as well as subjective fever and cough. She had no focal infiltrate but a trace L pleural effusion on the left. She was admitted for presumed bacterial pneumonia superimposed on rhinoviral infection. Urinalysis showed 5-10 WBC, but also contaminated with squamous cells, specimen cultured but was mixed radha. Any possible acute cystitis will be adequately treated with antibiotics noted above for pneumonia. She improved with antibiotic therapy, and did well with physical therapy prior to discharge home. She was discharged home on oral antibiotics to complete 7 day total course for elevated risk pneumonia (PSI class IV). She complained of mild wheezing on the day of discharge, and was started on steroid course for presumed asthma exacerbation likely due to pneumonia and rhinovirus. No other medication changes are recommended at the time of discharge. Time Spent with Patient Time spent: Greater than 30 minutes Exam Vital Signs (past 8 hours): - 01/23/23 08:00 01/23/23 08:00 Temperature 97.3 F L Pulse Rate 73 Respiratory Rate 16 Blood Pressure 136/67 Pulse Oximetry 97 97 Oxygen Delivery Method Room Air Oxygen Flow Rate 0 Oxygen Delivery Method Room Air Oxygen Flow Rate 0 Narrative Exam Narrative: General:?Thin appearing female, no acute distress but appears mildly acutely ill. HEENT:? Normocephalic, atraumatic, extraocular muscles intact, oral pharynx is clear and mucous membranes are dry. Neck: supple and symmetric, trachea is midline, no cervical adenopathy. Negative for JVD Lungs:? CTA b/l no wheezing rhonchi or rales but diminshed breath sounds at L lung base. Cardio:?RRR no m/r/g. Abdomen: S NT ND. Musculoskeletal:? Muscle strength and tone are equal within normal limits, no deformity. Extremities: No edema or joint effusions. No cyanosis or clubbing. Skin:? Pale,? Warm to touch,dry and intact without rashes, ulcerations or petechiae.? Neuro:? R > L weakness, but +5/5 in all extremities, reported chronic. slowed responses but improved compared to yesterday. Psych:? Patient has a well-kept appearance, appropriate affect, mental status attitude thought context and judgment are appropriate for age. Objective Labs 01/23/23 06:06 01/23/23 06:06 Labs: Laboratory Results - last 24 hr 01/23/23 01/23/23 06:06 06:06 WBC 5.0 RBC 3.83 L Hgb 11.6 L Hct 34.1 L MCV 89.1 MCH 30.4 MCHC 34.1 RDW 14.1 Plt Count 240 Neut % (Auto) 53.1 Lymph % (Auto) 23.8 L Robeson % (Auto) 6.9 Eos % (Auto) 15.7 H Baso % (Auto) 0.5 Neut # (Auto) 2700 Lymph # (Auto) 1200 Robeson # (Auto) 300 Eos # (Auto) 800 H Baso # (Auto) 0 Sodium 135 L Potassium 3.9 Chloride 103 Carbon Dioxide 28 BUN 12 Creatinine 0.46 L Estimated GFR > 60 BUN/Creatinine Ratio 26.1 H Glucose 93 Calcium 8.8 Magnesium 1.9 PFSH Medical History Abdominal pain Actinic keratosis Asthma Cervical pain (neck) Cervical strain Colon polyps (12/2013) Ductal carcinoma in situ (DCIS) of right breast (2000) GERD (gastroesophageal reflux disease) Glioblastoma multiforme of brain Hyperlipidemia (11/11/10) Hypertension Impaired cognition Irritable bowel syndrome with diarrhea Mixed anxiety depressive 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) Osteopenia of multiple sites Perineal discomfort in female Rosacea Skin lesion UTI (urinary tract infection) Vision changes Surgical History History of tonsillectomy and adenoidectomy (1949) Hx of colonoscopy with polypectomy (12/2013) Hx of left breast biopsy (12/2010) Hx of surgical procedure (2006) Status post breast lumpectomy (2000) Status post cholecystectomy (2004) Status post hysterectomy (1993) Status post knee surgery (1992) Family History Mother Asthma Sister Age: 73 Diabetes mellitus Hypertension Thyroid disease Sister Age: 72 Asthma Glaucoma Sister Age: 70 Asthma Father No problems noted. Grandfather Stroke Grandmother Cancer Social History household members: caregiver Smoking Status: Never smoker second hand exposure: No alcohol intake: current substance use type: does not use Discharge Plan Discharge Plan Patient Disposition: Home Discharge orders & Medications Prescriptions: New prednisone 20 mg tablet 40 mg PO DAILY 4 Days Qty: 8 0RF amoxicillin-pot clavulanate 875-125 mg tablet 1 tab PO BID 5 Days Qty: 10 0RF Continued lisinopril 10 mg tablet See Rx Instructions .ROUTE .COMPLEX Qty: 90 0RF Dose Instruction: take 1 tablet by mouth once daily Rx Instructions: take 1 tablet by mouth once daily nifedipine 30 mg tablet extended release See Rx Instructions .ROUTE .COMPLEX Qty: 30 3RF Dose Instruction: take 1 tablet by mouth at bedtime Rx Instructions: take 1 tablet by mouth at bedtime Dulera 200-5 mcg/actuation HFA aerosol inhaler 1 puff INHALATION BID No Action (DME) suction cannister with tubing See Rx Instructions .Route .MEDSUPPLY Qty: 1 2RF Rx Instructions: Use to suction Q2H PRN for shortness of breath Medication counseling provided by Pharmacist: Yes Pharmacist Comment: Counseled by instructor adjunct pharmacy technician Vianey Follow up/Referrals: Crispin Washington, [Primary Care Provider] - Diet/Activity/Treatments Diet: Diet as Tolerated and Regular Activity: As tolerated no restrictions Visit Report/Discharge Packet Instructions: DI for Pneumonia -- Adult, How to Prevent Falls Stand Alone Forms: Patient Portal/API, Stroke Signs & Symptoms Discharge Data Primary Care Provider: Crispin Washington Discharges patient from system. Discharge Date/Time: 01/23/23 11:45
--- NOTE | 2023-01-23 09:58 | DIET.CONS ---
Dietary Consultation Note Admission Date: 01/21/2023 12:20 Assessment: 77y F admitted for community acquired pneumonia referred to nutrition for unintentional weight loss. Pt with hx glioblastoma tumor diagnosed in 2020. Per weight hx, pt was weight stable at 60kg until this time at which point pt started steadily losing weight. Pt continues to lose weight, is 2kg below weight 2mo ago. Pt currently with 24h paid caregiver who helps with ADLs and feeding. Pt with BMI 16.8 (severe) and is 25% below usual body weight. Ht: 165.1 cm Wt: 45.813 kg (-25% in 2y) BMI: 16.8 (severe) UBW: 60kg Last BM: 01/22/23 (01/22/23 17:22) MNA: 8 (malnourished) Jerman Score: 18 Diet: 01/21/23 Lunch General (Regular) Diet Diet Modifications: Nutrition Percent Meal Consumed 50% 01/23/23 08:50 Percent Meal Consumed 50% 01/22/23 17:54 Labs: RBC 3.83 X10^6/uL (4.0-5.2) L 01/23/23 06:06 Hgb 11.6 g/dL (12.0-16.0) L 01/23/23 06:06 Hct 34.1 % (36-46) L 01/23/23 06:06 Creatinine 0.46 mg/dL (0.52-1.04) L 01/23/23 06:06 Lactate 0.6 mmol/L (0.7-2.1) L 01/21/23 09:00 NT-Pro-B Natriuret Pep 129 pg/mL (<450) 01/21/23 09:00 Nutrition Diagnosis: Severe Chronic Malnutrition r/t multiple comorbidities aeb BMI 16.8 (severe), MNA 8 on admission, pt 25% below UBW over 2y with continued weight loss, pt with community acquired pneumonia, ICU stay in August for covid pna and hx glioblastoma. Interventions: 1. Recc daily use high pro high kcal ONS such as Ensure Plus. Will send c meals during hospitalization to test for acceptance and tolerance. EER: 1575 (35kcal/kg per PCM), 65g PRO (1.5g/kg per PCM) Monitoring/Evaluations: POs, ONS tolerance Electronically Signed by: Shea Le 01/23/23 09:58 [facility] [address] [address]
--- NOTE | 2023-01-23 10:33 | PT-IP ANOTE ---
Pt anticipate d/c home soon, refuses PT at this time stating no further needs and would like to rest prior to d/c.
--- NOTE | 2023-01-23 10:35 | PC.NURSE ---
Day shift: Pt A&Ox2. Unaware of month or day, knows year. Pt is slow to respond the any question, but answers appropriately. Port-a-cath dressing not changed due to pt being discharged home and pt requests specific sized port-a-cath needle - she states her home health infusion nurse will change it this afternoon or tomorrow. Primary caregiver at bedside. Went over discharge instructions with caregiver and patient. Answered all questions and patient stated understanding. Per MD Edward, pt ok to discharge prior to this afternoon's IV antibx. PO antibx ordered for home. Pt discharged with primary caregiver via wheelchair. Patient guillermo Khane escorted patient to exit. Pt has all belongings.
[2023-01-23] MEDS: predniSONE 20 MG TABLET 40 MG PO (10:54)
== END 2023-01-23 11:45 | disposition home or self-care (01) | DRG 194 ==
LOC: ED 12:16 → AC 12:21
PROVIDERS: Admitting Provider Internal Medicine; Emergency Provider Emergency Medicine; PCP Family Medicine; Referring Provider Emergency Medicine; Visit Provider Internal Medicine
DX: J18.9 Pneumonia, unspecified organism (principal); C71.9 Malignant neoplasm of brain, unspecified; J45.901 Unspecified asthma with (acute) exacerbation; B97.89 Other viral agents as the cause of diseases classified elsewhere; I10 Essential (primary) hypertension; Z66 Do not resuscitate
CPT/HCPCS: 36415; 36591; 71045; 80048; 80053; 81001; 81003; 82550; 83605; 83690; 83735; 83880; 84145; 84484; 85025; 85610; 85730; 87040; 87086; 87633; 94640; 94760; 96365; 97162; 99285; J0696; J1642; J1650; J7613

== ENCOUNTER → 2023-05-05 08:13 | Outpatient (CLI) | payer OTHER, SELFPAY ==
[2023-01-21 13:09] VITALS: BMI 16.8
--- NOTE | 2023-05-05 | DI.MRI.S_ITS ---
PROCEDURE: MR HEAD/BRAIN WO/W CON INDICATIONS: Malignant neoplasm of frontal lobe TECHNIQUE: Noncontrast axial T1 spin echo, axial T2 fast spin echo, sagittal and axial FLAIR, coronal T2 fast spin echo, axial gradient echo, axial diffusion and ADC through the brain. After the administration of contrast, axial and coronal and sagittal 3D VIBE or T1 spin echo with fat saturation through the brain. COMPARISON: Outside Film, MR, MR BRAIN WITH/WITHOUT CONTRAST, 09/26/2020, 4:04. [facility], MR, MR HEAD/BRAIN WO/W CON, 01/15/2023, 11:52. FINDINGS: Image quality: Excellent. CSF Spaces: Basal cisterns are patent. No extra-axial fluid collections. Ventricles are normal in size and shape. Brain: There is now significant nodular masslike enhancement along the edges of a left frontal resection cavity, consistent with neoplastic recurrence. There is medial ring-enhancing lesion with internal necrosis measuring 1.9 x 1.3 cm which in volumes the corpus callosum and extends across the midline. Lateral nodule measures 1.0 x 1.9 cm, and more inferior and nodule measures 1.7 x 1.7 cm and also crosses the midline through the corpus callosum. Associated cerebral edema is present without significant midline shift. Bifrontal confluent white matter hyperintensity consistent with prior cancer therapy. Underlying atrophy and white matter chronic ischemic change present. Bilateral intraocular lens replacements noted. Old blood products from prior surgery remains stable. Skull and face: Left frontal craniotomy secured with round plates. Sinuses: Sinuses and mastoids appear clear. IMPRESSION: Tumor recurrence. Significant nodules and masses along the edge of the resection capsule is consistent with neoplastic recurrence. No midline shift or hydrocephalus Approved by: Anibal Almaraz M.D. on 05/05/2023 at 16:22
== END ==
PROVIDERS: PCP Family Medicine; Referring Provider Internal Medicine Hematology & Oncology; Visit Provider Internal Medicine Hematology & Oncology
DX: C71.1 Malignant neoplasm of frontal lobe (principal)
CPT/HCPCS: 70553; A9579

== ENCOUNTER → 2023-06-05 13:29 | Outpatient (CLI) | payer OTHER, SELFPAY ==
[2023-01-21 13:09] VITALS: BMI 16.8
--- NOTE | 2023-06-05 | DI.MRI.S_ITS ---
PROCEDURE: MR HEAD/BRAIN WO/W CON INDICATIONS: GLIOBLASTOMA MULTIFORME OF FRONTAL LOBE TECHNIQUE: Noncontrast axial T1 spin echo, axial T2 fast spin echo, sagittal and axial FLAIR, coronal T2 fast spin echo, axial gradient echo, axial diffusion and ADC through the brain. After the administration of contrast, axial and coronal and sagittal 3D VIBE or T1 spin echo with fat saturation through the brain. COMPARISON: [facility], MR, MR HEAD/BRAIN WO/W CON, 05/05/2023, 8:39. FINDINGS: Image quality: Excellent. CSF Spaces: Basal cisterns are patent. No extra-axial fluid collections. There is mass effect upon the anterior temporal horns greater on the left. Brain: A peripherally enhancing mass in the anterior midline along the falx now measures 2.6 x 2.9 cm in axial dimension by 2.7 cm craniocaudal compared to 1.5 x 1.3 cm axial and 1.6 cm craniocaudal on the prior CT on 05/05/2023. An area of enhancement involving the head of the caudate measures 1.9 x 1.5 cm axial compared to 1.5 x 1.1 cm. This demonstrates progressive enlargement compared to the prior CT and is likely due to progression of tumor. No midline shift however there is mass effect upon the anterior horns. A separate area of enhancement at the anterior temporal convexity is relatively unchanged. No intracranial bleeds or masses. No abnormal intracranial enhancement. The brainstem appears normal. Diffusion-weighted images demonstrate no acute ischemic insults. No chronic ischemic insults. Normal intravascular flow voids are present. Skull and face: Calvarial marrow is normal in signal. Orbits appear normal. Sinuses: Sinuses and mastoids appear clear. IMPRESSION: Continued progression in the size of the left frontal and temporal lobe mass with increased mass effect consistent with progressing tumor growth. Dictated by: David Medrano M.D. on 06/05/2023 at 15:18 Approved by: David Medrano M.D. on 06/05/2023 at 15:36
== END ==
PROVIDERS: PCP Family Medicine; Referring Provider Internal Medicine Hematology & Oncology; Visit Provider Internal Medicine Hematology & Oncology
DX: C71.1 Malignant neoplasm of frontal lobe (principal)
CPT/HCPCS: 70553

== ENCOUNTER 2023-06-13 14:11 | Observation (INO) | payer OTHER, SELFPAY ==
[2023-01-21 13:09] VITALS: BMI 16.8
[2023-06-13] VITALS (30 sets, daily range): BP systolic 133–185; BP diastolic 63–88; PULSE 56–77; RESP 14; TEMP 37–38.1; O2SAT 93–98; BMI 16.1
--- NOTE | 2023-06-13 14:49 | ED_ITS ---
HPI - General Adult <Freddie Sanchez DO - Last Filed: 06/14/23 07:19> General Chief complaint: Weakness Stated complaint: lethargy Time Seen by Provider: 06/13/23 14:25 Source: patient and EMS Mode of arrival: EMS History of Present Illness HPI narrative: Patient is a 78-year-old female. Has a history of a glioblastoma. At baseline has issues with speaking in his relatively nonverbal. According to report and with the patient telling me yesterday she started have problems with swallowing. I am unsure whether or not this is an issue with starting the process of swallowing or if things are getting stuck in her throat she has a difficult time expressing this. She is not have any problems breathing. No vomiting. She states she is having some problems with her secretions. Denies any pain. No headache, vision changes, sore throat, abdominal pain, chest pain or shortness of breath. Related Data Home Medications Medication Instructions Recorded Confirmed fluticasone 500 mcg-salmeterol 50 inhalation 06/14/23 mcg/dose blistr powdr for inhalation (Wixela Inhub) melatonin 5 mg tablet 5 mg PO BEDTIME PRN Insomnia 06/14/23 06/14/23 polyethylene glycol 400 1 % eye drp ophthalmic (eye) 06/14/23 drops (Visine Dry Eye Relief) Previous Rx's Medication Instructions Recorded suction cannister with tubing #1 ea 01/23/23 nifedipine 30 mg tablet,extended See Rx Instructions .Route 01/29/23 release .COMPLEX #90 tabs Allergies Allergy/AdvReac Type Severity Reaction Status Date / Time estradiol [ESTRADIOL] AdvReac Severe blood clots Verified 06/13/23 16:54 fluoxetine [FLUOXETINE] AdvReac Severe Nausea, Verified 06/13/23 16:54 vomiting, blurry vision, made IBS worse citalopram AdvReac Intermediate Nausea Verified 06/13/23 16:54 Review of Systems <DO Isaac Dunbar Last Filed: 06/14/23 07:19> Review of Systems ROS Unobtainable: All systems reviewed & are unremarkable except as noted in HPI and below Patient History <DO Isaac Dunbar Last Filed: 06/14/23 07:19> Medical History Chronic cough UTI (urinary tract infection) Vision changes Skin lesion Cervical strain Impaired cognition Abdominal pain Hypertension Glioblastoma multiforme of brain Perineal discomfort in female Asthma Actinic keratosis Rosacea Colon polyps (12/2013) GERD (gastroesophageal reflux disease) Cervical pain (neck) Osteopenia of multiple sites Irritable bowel syndrome with diarrhea 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 Grandfather Stroke Grandmother Cancer Social History household members: caregiver Smoking Status: Never smoker second hand exposure: No alcohol intake: never substance use type: does not use Smoking Status: Never smoker alcohol intake frequency: holidays/special occasions only Substance Use Type: does not use Exam <Freddie Sanchez DO - Last Filed: 06/14/23 07:19> Initial Vital Signs Initial Vital Signs: Vital Signs Pulse Rate 77 06/13/23 14:14 Blood Pressure 183/88 H 06/13/23 14:14 [facility] Head: normal to inspection and normocephalic Mouth: moist mucous membranes Throat: posterior oropharynx normal Neck Lymphatic: No lymphadenopathy Resp Effort & Inspection: normal respiratory effort Auscultation: clear to auscultation bilaterally Cardio Rate: regular rate Skin General: no rashes or lesions noted Neuro General: patient alert, patient awake and moves all extremities Extrem General: normal to inspection <Anahy Storm DO - Last Filed: 06/14/23 01:40> Initial Vital Signs Initial Vital Signs: Vital Signs Pulse Rate 77 06/13/23 14:14 Blood Pressure 183/88 H 06/13/23 14:14 Course <Freddie Sanchez, DO - Last Filed: 06/14/23 07:19> Orders Ordered: ED Orders 06/13/23 22:38 CT head/brain wo con Stat Acetaminophen (Acetaminophen Susp 650 Mg/20.3 Ml Udc) 650 mg PO Q6HR PRN PRN Reason: Fever/Mild Pain (1-3) Dexamethasone (Dexamethasone 4 Mg/Ml Vial) 4 mg IV Q6H [facility] Last Admin: 06/14/23 03:22 Dose: 4 mg Documented By: Admin: 06/13/23 21:57 Dose: 4 mg Documented By: GC Hydralazine HCl (Hydralazine 20 Mg/Ml Vial) 10 mg IV Q6HR PRN PRN Reason: Hypertension Sodium Chloride (Normal Saline 0.45%) 1,000 mls @ 75 mls/hr IV CONT [facility] Last Admin: 06/14/23 01:47 Dose: 75 mls/hr Documented By: SH Melatonin (Melatonin 3 Mg Tablet) 6 mg PO BEDTIME PRN PRN Reason: Insomnia Naloxone HCl (Naloxone 0.4 Mg/Ml Vial) 0.2 mg IV Q2MIN PRN PRN Reason: Opiate Reversal Nifedipine (Nifedipine 30 Mg Tab Er) 30 mg PO DAILY [facility] Discontinued Medications Acetaminophen (Acetaminophen 325 Mg Tablet) 650 mg PO Q6H [facility] Last Admin: 06/14/23 03:35 Dose: Not Given Documented By: SH Sodium Chloride (Normal Saline 0.9%) 1,000 mls @ 125 mls/hr IV CONT [facility] Last Infusion: 06/13/23 18:50 Dose: 125 mls/hr Documented By: Infusion: 06/13/23 17:07 Dose: 0 mls/hr Documented By: Admin: 06/13/23 15:02 Dose: 125 mls/hr Documented By: SPF Acetaminophen (Ofirmev) 1,000 mg in 100 mls @ 400 mls/hr IV NOW ONE Stop: 06/13/23 18:29 Last Infusion: 06/13/23 18:45 Dose: Infused Documented By: Admin: 06/13/23 18:24 Dose: 400 mls/hr Documented By: SPF Piperacillin Sod/Tazobactam (Sod 4.5 gm/ Sodium Chloride) 100 mls @ 200 mls/hr IV NOW ONE Stop: 06/13/23 22:18 Last Infusion: 06/13/23 23:09 Dose: Infused Documented By: Admin: 06/13/23 22:39 Dose: 200 mls/hr Documented By: KENRICK Piperacillin Sod/Tazobactam (Sod 3.375 gm/ Sodium Chloride) 100 mls @ 25 mls/hr IV Q8H [facility] Vital Signs Vital signs: Vital Signs - 8 hr 06/13/23 23:20 06/13/23 23:20 06/13/23 23:30 Temperature 98.6 F 98.8 F Pulse Rate 59 L 62 Blood Pressure 157/72 H Pulse Oximetry 97 96 Oxygen Delivery Method 06/13/23 23:40 06/13/23 23:40 06/14/23 00:00 Temperature 98.8 F 98.8 F Pulse Rate 60 63 Blood Pressure 161/75 H Pulse Oximetry 95 94 Oxygen Delivery Method 06/14/23 00:00 06/14/23 00:00 Temperature Pulse Rate Blood Pressure 151/73 H Pulse Oximetry 97 Oxygen Delivery Method Room Air <Anahy Storm, - Last Filed: 06/14/23 01:40> Orders Ordered: ED Orders 06/13/23 22:38 CT head/brain wo con Stat Acetaminophen (Acetaminophen Susp 650 Mg/20.3 Ml Udc) 650 mg PO Q6HR PRN PRN Reason: Fever/Mild Pain (1-3) Dexamethasone (Dexamethasone 4 Mg/Ml Vial) 4 mg IV Q6H [facility] Last Admin: 06/14/23 03:22 Dose: 4 mg Documented By: Admin: 06/13/23 21:57 Dose: 4 mg Documented By: KENRICK Hydralazine HCl (Hydralazine 20 Mg/Ml Vial) 10 mg IV Q6HR PRN PRN Reason: Hypertension Sodium Chloride (Normal Saline 0.45%) 1,000 mls @ 75 mls/hr IV CONT [facility] Last Admin: 06/14/23 01:47 Dose: 75 mls/hr Documented By: YARA Melatonin (Melatonin 3 Mg Tablet) 6 mg PO BEDTIME PRN PRN Reason: Insomnia Naloxone HCl (Naloxone 0.4 Mg/Ml Vial) 0.2 mg IV Q2MIN PRN PRN Reason: Opiate Reversal Nifedipine (Nifedipine 30 Mg Tab Er) 30 mg PO DAILY [facility] Discontinued Medications Acetaminophen (Acetaminophen 325 Mg Tablet) 650 mg PO Q6H [facility] Last Admin: 06/14/23 03:35 Dose: Not Given Documented By: SH Sodium Chloride (Normal Saline 0.9%) 1,000 mls @ 125 mls/hr IV CONT [facility] Last Infusion: 06/13/23 18:50 Dose: 125 mls/hr Documented By: Infusion: 06/13/23 17:07 Dose: 0 mls/hr Documented By: Admin: 06/13/23 15:02 Dose: 125 mls/hr Documented By: SPF Acetaminophen (Ofirmev) 1,000 mg in 100 mls @ 400 mls/hr IV NOW ONE Stop: 06/13/23 18:29 Last Infusion: 06/13/23 18:45 Dose: Infused Documented By: Admin: 06/13/23 18:24 Dose: 400 mls/hr Documented By: SPF Piperacillin Sod/Tazobactam (Sod 4.5 gm/ Sodium Chloride) 100 mls @ 200 mls/hr IV NOW ONE Stop: 06/13/23 22:18 Last Infusion: 06/13/23 23:09 Dose: Infused Documented By: Admin: 06/13/23 22:39 Dose: 200 mls/hr Documented By: GC Piperacillin Sod/Tazobactam (Sod 3.375 gm/ Sodium Chloride) 100 mls @ 25 mls/hr IV Q8H [facility] Vital Signs Vital signs: Vital Signs - 8 hr 06/13/23 23:20 06/13/23 23:20 06/13/23 23:30 Temperature 98.6 F 98.8 F Pulse Rate 59 L 62 Blood Pressure 157/72 H Pulse Oximetry 97 96 Oxygen Delivery Method 06/13/23 23:40 06/13/23 23:40 06/14/23 00:00 Temperature 98.8 F 98.8 F Pulse Rate 60 63 Blood Pressure 161/75 H Pulse Oximetry 95 94 Oxygen Delivery Method 06/14/23 00:00 06/14/23 00:00 Temperature Pulse Rate Blood Pressure 151/73 H Pulse Oximetry 97 Oxygen Delivery Method Room Air Medical Decision Making <Freddie Sanchez DO - Last Filed: 06/14/23 07:19> Lab Data Lab results reviewed: Yes I reviewed the patient's lab results. 06/13/23 14:50 06/14/23 05:50 Labs: Lab Results 06/13/23 06/13/23 06/13/23 Range/Units 14:50 19:10 19:25 WBC 6.0 (4.5-11.0) X10^3/uL RBC 4.11 (4.0-5.2) X10^6/uL Hgb 12.4 (12.0-16.0) g/dL Hct 37.0 (36-46) % MCV 90.0 (80-100) fL MCH 30.3 (26-34) PG MCHC 33.6 (30-36) % RDW 13.1 (11.6-14.8) % Plt Count 196 (150-400) X10^3/uL Neut % (Auto) 63.0 (50-75) % Lymph % (Auto) 27.9 (25-40) % [place] % (Auto) 7.1 (3-14) % Eos % (Auto) 1.6 L (2-4) % Baso % (Auto) 0.4 (0-2) % Neut # (Auto) 3800 (2939-3942) /uL Lymph # (Auto) 1700 (4942-1085) /uL [place] # (Auto) 400 (0-900) /uL Eos # (Auto) 100 (0-450) /uL Baso # (Auto) 0 (0-100) /uL Sodium 135 L (137-145) mmol/L Potassium 3.8 (3.4-5.1) mmol/L Chloride 106 (98-107) mmol/L Carbon Dioxide 24 (22-32) mmol/L BUN 12 (7-17) mg/dL Creatinine 0.45 L (0.52-1.04) mg/dL Estimated GFR > 60 (>60) mL/min BUN/Creatinine Ratio 26.7 H (6-22) Glucose 88 (80-110) mg/dL Lactate 1.0 0.7 (0.7-2.1) mmol/L Calcium 8.9 (8.4-10.2) mg/dL Total Bilirubin 1.0 (0.2-1.3) mg/dL AST 26 (14-36) IU/L ALT 20 (<35) IU/L Alkaline Phosphatase 55 (38-126) U/L Total Protein 6.3 (6.3-8.2) g/dL Albumin 3.6 (3.5-5.0) g/dL Globulin 2.7 (1.7-4.1) g/dL Albumin/Globulin Ratio 1.3 (1.0-2.8) Lipase 106 (23-300) U/L Procalcitonin 0.04 (<0.5) ng/mL Urine Color Urine Appearance Urine pH (4.5-8.0) Ur Specific [place] (1.000-1.035) Urine Protein (Negative) Urine Glucose (UA) (Negative) g/dL Urine Ketones (NEGATIVE) Urine Occult Blood (Negative) Urine Nitrate (Negative) Urine Bilirubin (NEGATIVE) Urine Urobilinogen (0.2) E.U./dL Ur Leukocyte Esterase (NEGATIVE) Urine RBC (0-5/HPF) Urine WBC (0-5/HPF) Ur Squamous Epith Cells (0-5/HPF) Urine Bacteria (None) Ur Culture Indicated? Chlamy pneumoniae PCR Not detected (Not Detect) Adenovirus (PCR) Not detected (Not Detect) B.parapertussis DNA PCR Not detected (Not Detecte) Coronavirus OC43 (PCR) Not detected (Not Detect) Coronavirus HKU1 (PCR) Not detected (Not Detect) Coronavirus 229E (PCR) Not detected (Not Detect) SARS-CoV-2 (PCR) Not detected (Not Detecte) Coronavirus NL63 (PCR) Not detected (Not Detect) Human Metapneumovir PCR Not detected (Not Detect) Influenza Type A (PCR) Not detected (Not Detect) Influenza Type B (PCR) Not detected (Not Detect) M. pneumoniae (PCR) Not detected (Not Detect) Parainfluenza 1 (PCR) Not detected (Not Detect) Parainfluenza 2 (PCR) Not detected (Not Detect) Parainfluenza 3 (PCR) Not detected (Not Detect) Parainfluenza 4 (PCR) Not detected (Not Detect) RSV (PCR) Not detected (Not Detect) Entero/Rhino (PCR) Not detected (Not Detect) 06/13/23 Range/Units 19:51 WBC (4.5-11.0) X10^3/uL RBC (4.0-5.2) X10^6/uL Hgb (12.0-16.0) g/dL Hct (36-46) % MCV (80-100) fL MCH (26-34) PG MCHC (30-36) % RDW (11.6-14.8) % Plt Count (150-400) X10^3/uL Neut % (Auto) (50-75) % Lymph % (Auto) (25-40) % [place] % (Auto) (3-14) % Eos % (Auto) (2-4) % Baso % (Auto) (0-2) % Neut # (Auto) (1846-1502) /uL Lymph # (Auto) (2735-1522) /uL [place] # (Auto) (0-900) /uL Eos # (Auto) (0-450) /uL Baso # (Auto) (0-100) /uL Sodium (137-145) mmol/L Potassium (3.4-5.1) mmol/L Chloride (98-107) mmol/L Carbon Dioxide (22-32) mmol/L BUN (7-17) mg/dL Creatinine (0.52-1.04) mg/dL Estimated GFR (>60) mL/min BUN/Creatinine Ratio (6-22) Glucose (80-110) mg/dL Lactate (0.7-2.1) mmol/L Calcium (8.4-10.2) mg/dL Total Bilirubin (0.2-1.3) mg/dL AST (14-36) IU/L ALT (<35) IU/L Alkaline Phosphatase (38-126) U/L Total Protein (6.3-8.2) g/dL Albumin (3.5-5.0) g/dL Globulin (1.7-4.1) g/dL Albumin/Globulin Ratio (1.0-2.8) Lipase (23-300) U/L Procalcitonin (<0.5) ng/mL Urine Color Yellow Urine Appearance Clear Urine pH 6.5 (4.5-8.0) Ur Specific [place] 1.020 (1.000-1.035) Urine Protein Negative (Negative) Urine Glucose (UA) Negative (Negative) g/dL Urine Ketones Trace H (NEGATIVE) Urine Occult Blood 1+ H (Negative) Urine Nitrate Negative (Negative) Urine Bilirubin Negative (NEGATIVE) Urine Urobilinogen 0.2 (0.2) E.U./dL Ur Leukocyte Esterase Negative (NEGATIVE) Urine RBC 1-5/hpf (0-5/HPF) Urine WBC 0-1/hpf (0-5/HPF) Ur Squamous Epith Cells 0-1 /hpf (0-5/HPF) Urine Bacteria None seen (None) Ur Culture Indicated? Cult not indicated Chlamy pneumoniae PCR (Not Detect) Adenovirus (PCR) (Not Detect) B.parapertussis DNA PCR (Not Detecte) Coronavirus OC43 (PCR) (Not Detect) Coronavirus HKU1 (PCR) (Not Detect) Coronavirus 229E (PCR) (Not Detect) SARS-CoV-2 (PCR) (Not Detecte) Coronavirus NL63 (PCR) (Not Detect) Human Metapneumovir PCR (Not Detect) Influenza Type A (PCR) (Not Detect) Influenza Type B (PCR) (Not Detect) M. pneumoniae (PCR) (Not Detect) Parainfluenza 1 (PCR) (Not Detect) Parainfluenza 2 (PCR) (Not Detect) Parainfluenza 3 (PCR) (Not Detect) Parainfluenza 4 (PCR) (Not Detect) RSV (PCR) (Not Detect) Entero/Rhino (PCR) (Not Detect) Imaging Data CT soft tissue neck: Radiologist's Impression: PROCEDURE: CT SOFT TISSUE NECK W CON INDICATIONS: History of glioblastoma, no inability to swallow TECHNIQUE: After the administration of intravenous contrast, 3.0 mm axial sections acquired from the sella to the aortic arch. Additional oblique axial 3.0 mm sections acquired through the pharynx. 3 mm thick coronal and sagittal reformats were generated. For radiation dose reduction, the following was used: automated exposure control. COMPARISON: [facility], CT, CT SOFT TISSUE NECK W CON, 08/19/2022, 15:06. FINDINGS: Image quality: Excellent. Lymph nodes: No enlarged lymph nodes seen throughout the neck. Vessels: Visualized vasculature appears patent. Neck spaces: The oropharynx, nasopharynx, and pharynx demonstrate no mucosal lesions. The vocal cords, false vocal cords, pyriform sinuses, epiglottis, vallecula, and tongue base all appear normal. Extramucosal spaces appear unremarkable. Glands: The parotid and submandibular glands appear normal. Thyroid gland is unremarkable. Miscellaneous: Visualized brain and orbits appear normal. Lung apices appear clear. Superficial soft tissues appear normal. Bones: No suspicious bony lesions. Visualized sinuses and mastoids appear unremarkable. IMPRESSION: No functional obstruction identified. CT scan - head: Radiologist's Impression: PROCEDURE: CT HEAD/BRAIN WO CON INDICATIONS: History of glioblastoma now with inability to swallow TECHNIQUE: Noncontrast 4.5 mm thick angled axial sections acquired from the foramen magnum to the vertex, with coronal and sagittal reformats. For radiation dose reduction, the following was used: automated exposure control, adjustment of mA and/or kV according to patient size. COMPARISON: [facility], MR, MR HEAD/BRAIN WO/W CON, 06/05/2023, 14:30. [facility], CT, CT HEAD/BRAIN WO CON, 11/19/2022, 13:45. FINDINGS: Image quality: Excellent. CSF spaces: Basal cisterns are patent. No extra-axial fluid collections. The ventricles are symmetric in size and shape. Brain: Prior left frontal resection. Similar recurrence of malignancy in in the left anterior frontal lobe, crossing midline, as well as the left temporal lobe. No significant midline shift or herniation. Skull and face: Calvarium and visualized facial bones appear intact, without suspicious lesions. Sinuses: Visualized sinuses and mastoids are clear. IMPRESSION: No acute intracranial pathology. Recurrent glioblastoma in the left frontal and temporal lobes, without significant change since MRI dated 06/05/2023 MDM Narrative Medical decision making narrative: Patient had a MRI approximately 1 week ago which showed progression of the tumor compared to the prior MRIs. Patient's linux programmer arrived here in the ER. We also talked with her sister who is the power of workers compensation attorney over the phone. It appears that the issues with swallowing have been something that has happened in the past. The linux programmer states that just this morning the patient had difficulty swallowing and even taking any of her medications. 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 recently. Has been sleeping most of the day. CT scan of the head today shows no acute changes. CT scan of the neck shows no obstructive pathology. I do feel given the progression of the symptoms that a repeat MRI today would be warranted to evaluate for progression and then potential discussions about goals of care afterwards. Care turned over to Dr. Storm to follow-up and disposition <Anahy Storm, - Last Filed: 06/14/23 01:40> Lab Data Labs: Lab Results 06/13/23 06/13/23 06/13/23 Range/Units 14:50 19:10 19:25 WBC 6.0 (4.5-11.0) X10^3/uL RBC 4.11 (4.0-5.2) X10^6/uL Hgb 12.4 (12.0-16.0) g/dL Hct 37.0 (36-46) % MCV 90.0 (80-100) fL MCH 30.3 (26-34) PG MCHC 33.6 (30-36) % RDW 13.1 (11.6-14.8) % Plt Count 196 (150-400) X10^3/uL Neut % (Auto) 63.0 (50-75) % Lymph % (Auto) 27.9 (25-40) % [place] % (Auto) 7.1 (3-14) % Eos % (Auto) 1.6 L (2-4) % Baso % (Auto) 0.4 (0-2) % Neut # (Auto) 3800 (1190-7504) /uL Lymph # (Auto) 1700 (3966-6734) /uL [place] # (Auto) 400 (0-900) /uL Eos # (Auto) 100 (0-450) /uL Baso # (Auto) 0 (0-100) /uL Sodium 135 L (137-145) mmol/L Potassium 3.8 (3.4-5.1) mmol/L Chloride 106 (98-107) mmol/L Carbon Dioxide 24 (22-32) mmol/L BUN 12 (7-17) mg/dL Creatinine 0.45 L (0.52-1.04) mg/dL Estimated GFR > 60 (>60) mL/min BUN/Creatinine Ratio 26.7 H (6-22) Glucose 88 (80-110) mg/dL Lactate 1.0 0.7 (0.7-2.1) mmol/L Calcium 8.9 (8.4-10.2) mg/dL Total Bilirubin 1.0 (0.2-1.3) mg/dL AST 26 (14-36) IU/L ALT 20 (<35) IU/L Alkaline Phosphatase 55 (38-126) U/L Total Protein 6.3 (6.3-8.2) g/dL Albumin 3.6 (3.5-5.0) g/dL Globulin 2.7 (1.7-4.1) g/dL Albumin/Globulin Ratio 1.3 (1.0-2.8) Lipase 106 (23-300) U/L Procalcitonin 0.04 (<0.5) ng/mL Urine Color Urine Appearance Urine pH (4.5-8.0) Ur Specific [place] (1.000-1.035) Urine Protein (Negative) Urine Glucose (UA) (Negative) g/dL Urine Ketones (NEGATIVE) Urine Occult Blood (Negative) Urine Nitrate (Negative) Urine Bilirubin (NEGATIVE) Urine Urobilinogen (0.2) E.U./dL Ur Leukocyte Esterase (NEGATIVE) Urine RBC (0-5/HPF) Urine WBC (0-5/HPF) Ur Squamous Epith Cells (0-5/HPF) Urine Bacteria (None) Ur Culture Indicated? Chlamy pneumoniae PCR Not detected (Not Detect) Adenovirus (PCR) Not detected (Not Detect) B.parapertussis DNA PCR Not detected (Not Detecte) Coronavirus OC43 (PCR) Not detected (Not Detect) Coronavirus HKU1 (PCR) Not detected (Not Detect) Coronavirus 229E (PCR) Not detected (Not Detect) SARS-CoV-2 (PCR) Not detected (Not Detecte) Coronavirus NL63 (PCR) Not detected (Not Detect) Human Metapneumovir PCR Not detected (Not Detect) Influenza Type A (PCR) Not detected (Not Detect) Influenza Type B (PCR) Not detected (Not Detect) M. pneumoniae (PCR) Not detected (Not Detect) Parainfluenza 1 (PCR) Not detected (Not Detect) Parainfluenza 2 (PCR) Not detected (Not Detect) Parainfluenza 3 (PCR) Not detected (Not Detect) Parainfluenza 4 (PCR) Not detected (Not Detect) RSV (PCR) Not detected (Not Detect) Entero/Rhino (PCR) Not detected (Not Detect) 06/13/23 Range/Units 19:51 WBC (4.5-11.0) X10^3/uL RBC (4.0-5.2) X10^6/uL Hgb (12.0-16.0) g/dL Hct (36-46) % MCV (80-100) fL MCH (26-34) PG MCHC (30-36) % RDW (11.6-14.8) % Plt Count (150-400) X10^3/uL Neut % (Auto) (50-75) % Lymph % (Auto) (25-40) % [place] % (Auto) (3-14) % Eos % (Auto) (2-4) % Baso % (Auto) (0-2) % Neut # (Auto) (2513-2855) /uL Lymph # (Auto) (7204-1919) /uL [place] # (Auto) (0-900) /uL Eos # (Auto) (0-450) /uL Baso # (Auto) (0-100) /uL Sodium (137-145) mmol/L Potassium (3.4-5.1) mmol/L Chloride (98-107) mmol/L Carbon Dioxide (22-32) mmol/L BUN (7-17) mg/dL Creatinine (0.52-1.04) mg/dL Estimated GFR (>60) mL/min BUN/Creatinine Ratio (6-22) Glucose (80-110) mg/dL Lactate (0.7-2.1) mmol/L Calcium (8.4-10.2) mg/dL Total Bilirubin (0.2-1.3) mg/dL AST (14-36) IU/L ALT (<35) IU/L Alkaline Phosphatase (38-126) U/L Total Protein (6.3-8.2) g/dL Albumin (3.5-5.0) g/dL Globulin (1.7-4.1) g/dL Albumin/Globulin Ratio (1.0-2.8) Lipase (23-300) U/L Procalcitonin (<0.5) ng/mL Urine Color Yellow Urine Appearance Clear Urine pH 6.5 (4.5-8.0) Ur Specific [place] 1.020 (1.000-1.035) Urine Protein Negative (Negative) Urine Glucose (UA) Negative (Negative) g/dL Urine Ketones Trace H (NEGATIVE) Urine Occult Blood 1+ H (Negative) Urine Nitrate Negative (Negative) Urine Bilirubin Negative (NEGATIVE) Urine Urobilinogen 0.2 (0.2) E.U./dL Ur Leukocyte Esterase Negative (NEGATIVE) Urine RBC 1-5/hpf (0-5/HPF) Urine WBC 0-1/hpf (0-5/HPF) Ur Squamous Epith Cells 0-1 /hpf (0-5/HPF) Urine Bacteria None seen (None) Ur Culture Indicated? Cult not indicated Chlamy pneumoniae PCR (Not Detect) Adenovirus (PCR) (Not Detect) B.parapertussis DNA PCR (Not Detecte) Coronavirus OC43 (PCR) (Not Detect) Coronavirus HKU1 (PCR) (Not Detect) Coronavirus 229E (PCR) (Not Detect) SARS-CoV-2 (PCR) (Not Detecte) Coronavirus NL63 (PCR) (Not Detect) Human Metapneumovir PCR (Not Detect) Influenza Type A (PCR) (Not Detect) Influenza Type B (PCR) (Not Detect) M. pneumoniae (PCR) (Not Detect) Parainfluenza 1 (PCR) (Not Detect) Parainfluenza 2 (PCR) (Not Detect) Parainfluenza 3 (PCR) (Not Detect) Parainfluenza 4 (PCR) (Not Detect) RSV (PCR) (Not Detect) Entero/Rhino (PCR) (Not Detect) MDM Narrative Medical decision making narrative: Patient had a MRI approximately 1 week ago which showed progression of the tumor compared to the prior MRIs. Patient's linux programmer arrived here in the ER. We also talked with her sister who is the power of workers compensation attorney over the phone. It appears that the issues with swallowing have been something that has happened in the past. The linux programmer states that just this morning the patient had difficulty swallowing and even taking any of her medications. 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 recently. Has been sleeping most of the day. CT scan of the head today shows no acute changes. CT scan of the neck shows no obstructive pathology. I do feel given the progression of the symptoms that a repeat MRI today would be warranted to evaluate for progression and then potential discussions about goals of care afterwards. Care turned over to Dr. Storm to follow-up and disposition Dr. Storm-patient signed out to me by Dr. Sanchez I have seen evaluated patient myself. She overall appears very weak she is able to answer yes and no questions. Not able to swallow for at least 24 hours with significant decreased intake. MRI today does suggest a subfalcine herniation caused by the medial mass. There significant vasogenic edema cause by masses. I called and spoke with Radiology who reports that there is no change to this MRI from last week's. Does not explain her difficulty swallowing. However patient developed fever of 100.5 in the ED. She has no leukocytosis. Chest x-ray negative. Urinalysis negative. She was just on Bactrim for a UTI. Chest x-ray negative respiratory panel negative blood cultures pending. Possible she is weak with why she can not swallow. Dr. Arreola oncology updated patient's symptoms test results he is familiar with patient. Recommend starting dexamethasone 4 mg every 6 hours. Does not recommend transferring not much to do. Dr. Russell, neurosurgeon updated on patient's symptoms test results reports that patient is not a surgical candidate masses bilaterally and on Avastin. Unfortunately this is the progression of the disease. Full conversations with patient's sister who is her DPOA. She was able to severely email me some form of advanced direction which confirms no feeding tube but nothing mentioned about CPR or intubation. Long discussion about this is probably the progression of the disease we agree that no aggressive measures should be taken. Initially did talk with patient about this and she said no to intubation and no CPR. Patient re-evaluated seem more lethargic requiring more stimulus to open her eyes. 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 Repeat head CT was does not show any change. At this time family agree with supportive cares IV fluids antibiotics. I did mention hospice. Sister will be driving up from [place] tomorrow. She is well aware of the likely for prognosis. Dr. Mirza accepts patient to observation Critical Care Time <Anahy Storm DO - Last Filed: 06/14/23 01:40> Critical Care Time Critical Care Time: Yes Total Critical Care Time: 45 Attestation: The high probability of a clinically significant, sudden or life threatening deterioration of the [cardiovascular] system(s) required my full and direct attention, intervention and personal management. The aggregate critical care time was [45] minutes. This time is in addition to time spent performing reported procedures but includes the following: [x] Data Review and interpretation [x] Patient assessment and monitoring of vital signs [x] Documentation [x] Medication orders and management Discharge Plan Departure Patient Disposition: Admitted as Observation Clinical Impression: Glioblastoma, Fever, Dysphagia Admit Date/Time: 06/14/23 00:05 Admit Provider: Kena Mirza
--- NOTE | 2023-06-13 14:52 | DI.CT.S_ITS ---
PROCEDURE: CT HEAD/BRAIN WO CON INDICATIONS: History of glioblastoma now with inability to swallow TECHNIQUE: Noncontrast 4.5 mm thick angled axial sections acquired from the foramen magnum to the vertex, with coronal and sagittal reformats. For radiation dose reduction, the following was used: automated exposure control, adjustment of mA and/or kV according to patient size. COMPARISON: [facility], MR, MR HEAD/BRAIN WO/W CON, 06/05/2023, 14:30. [facility], CT, CT HEAD/BRAIN WO CON, 11/19/2022, 13:45. FINDINGS: Image quality: Excellent. CSF spaces: Basal cisterns are patent. No extra-axial fluid collections. The ventricles are symmetric in size and shape. Brain: Prior left frontal resection. Similar recurrence of malignancy in in the left anterior frontal lobe, crossing midline, as well as the left temporal lobe. No significant midline shift or herniation. Skull and face: Calvarium and visualized facial bones appear intact, without suspicious lesions. Sinuses: Visualized sinuses and mastoids are clear. IMPRESSION: No acute intracranial pathology. Recurrent glioblastoma in the left frontal and temporal lobes, without significant change since MRI dated 06/05/2023. Dictated by: Easton Aleman M.D. on 06/13/2023 at 14:46 Approved by: Easton Aleman M.D. on 06/13/2023 at 14:48
--- NOTE | 2023-06-13 14:52 | DI.CT.S_ITS ---
PROCEDURE: CT SOFT TISSUE NECK W CON INDICATIONS: History of glioblastoma, no inability to swallow TECHNIQUE: After the administration of intravenous contrast, 3.0 mm axial sections acquired from the sella to the aortic arch. Additional oblique axial 3.0 mm sections acquired through the pharynx. 3 mm thick coronal and sagittal reformats were generated. For radiation dose reduction, the following was used: automated exposure control. COMPARISON: [facility], CT, CT SOFT TISSUE NECK W CON, 08/19/2022, 15:06. FINDINGS: Image quality: Excellent. Lymph nodes: No enlarged lymph nodes seen throughout the neck. Vessels: Visualized vasculature appears patent. Neck spaces: The oropharynx, nasopharynx, and pharynx demonstrate no mucosal lesions. The vocal cords, false vocal cords, pyriform sinuses, epiglottis, vallecula, and tongue base all appear normal. Extramucosal spaces appear unremarkable. Glands: The parotid and submandibular glands appear normal. Thyroid gland is unremarkable. Miscellaneous: Visualized brain and orbits appear normal. Lung apices appear clear. Superficial soft tissues appear normal. Bones: No suspicious bony lesions. Visualized sinuses and mastoids appear unremarkable. IMPRESSION: No functional obstruction identified. Dictated by: Easton Aleman M.D. on 06/13/2023 at 14:50 Approved by: Eastno Aleman M.D. on 06/13/2023 at 14:51
[2023-06-13 14:58] LABS: Add Manual Diff / Slide Review NO; Basophils Absolute Auto 0 /uL (0-100); Basophils Percent Auto 0.4 % (0-2); Eosinophils Absolute Auto 100 /uL (0-450); Eosinophils Percent Auto 1.6 % (2-4); Hemoglobin 12.4 g/dL (12.0-16.0); Lymphocytes Absolute Auto 1700 /uL (1100-4500); Lymphocytes Percent Auto 27.9 % (25-40); Mean Corpuscular HGB Conc 33.6 % (30-36); Mean Corpuscular Hemoglobin 30.3 PG (26-34); Monocytes Absolute Auto 400 /uL (0-900); Monocytes Percent Auto 7.1 % (3-14); Neutrophils Absolute Auto 3800 /uL (1500-7000); Platelet Count 196 X10^3/uL (150-400); Red Blood Cell Count 4.11 X10^6/uL (4.0-5.2); Red Cell Distribution Width 13.1 % (11.6-14.8)
[2023-06-13] MEDS: SODIUM CHLORIDE 0.9% 1,000 ML 125 ML IV (15:02)
[2023-06-13 15:07] LABS: Alanine Aminotransferase 20 IU/L (<35); Albumin 3.6 g/dL (3.5-5.0); Albumin Globulin Ratio 1.3 (1.0-2.8); Alkaline Phosphatase 55 U/L (38-126); Aspartate Aminotransferase 26 IU/L (14-36); BUN Creatinine Ratio 26.7 (6-22); Blood Urea Nitrogen 12 mg/dL (7-17); Calcium 8.9 mg/dL (8.4-10.2); Carbon Dioxide 24 mmol/L (22-32); Chloride 106 mmol/L (98-107); Estimated Glomerular Filt Rate > 60 mL/min (>60); Globulin 2.7 g/dL (1.7-4.1); Glucose 88 mg/dL (80-110); HEMOLYSIS 32 (0-50); Lipase 106 U/L (23-300); Potassium 3.8 mmol/L (3.4-5.1); Sodium 135 mmol/L (137-145); Total Protein 6.3 g/dL (6.3-8.2)
--- NOTE | 2023-06-13 16:18 | DI.MRI.S_ITS ---
PROCEDURE: MR HEAD/BRAIN WO/W CON INDICATIONS: Known frontal glioblastoma now with inability to swallow TECHNIQUE: Noncontrast axial T1 spin echo, axial T2 fast spin echo, sagittal and axial FLAIR, coronal T2 fast spin echo, axial gradient echo, axial diffusion and ADC through the brain. After the administration of contrast, axial and coronal and sagittal 3D VIBE or T1 spin echo with fat saturation through the brain. COMPARISON: [facility], MR, MR HEAD/BRAIN WO/W CON, 06/05/2023, 14:30. FINDINGS: Image quality: Excellent. CSF Spaces: Basal cisterns are patent. No extra-axial fluid collections. Ventricles are normal in size and shape. Brain: Partial resection of the left frontal lobe. Similar enhancement of the resection cavity. Along the medial resection cavity, there is a heterogeneous mass measuring 2.9 x 3.0 cm, which crosses midline (series 13, image 101). Inferior to the resection cavity, there is a enhancing mass measuring 2.4 x 1.7 cm, causing mass effect along the anterior horn of the left ventral lobe (series 13, image 86).. Along the lateral dissection bed, there is an enhancing region measuring 1.2 x 1.8 cm (series 13, image 100). These regions demonstrate restricted diffusion, and significant vasogenic edema, not significantly changed since 06/05/2023. There is subfalcine herniation caused by the medial mass. Skull and face: Calvarial marrow is normal in signal. Orbits appear normal. Sinuses: Sinuses and mastoids appear clear. IMPRESSION: Left frontal resection, with suspected sites of recurrence along the medial, inferior and lateral margins of the resection bed. Subfalcine herniation caused by the medial mass. Significant vasogenic edema caused by the masses. No acute hydrocephalus. No uncal herniation. Dictated by: Easton Aleman M.D. on 06/13/2023 at 16:51 Approved by: Easton Aleman M.D. on 06/13/2023 at 16:56
[2023-06-13] MEDS: ACETAMINOPHEN IV 1,000 MG/100 ML VIAL 400 MG IV (18:24)
[2023-06-13 19:12] LABS: Procalcitonin 0.04 ng/mL (<0.5)
--- NOTE | 2023-06-13 19:23 | DI.RAD.S_ITS ---
PROCEDURE: XR CHEST 1V INDICATIONS: infection TECHNIQUE: One view of the chest was acquired. COMPARISON: , MR, MR HEAD/BRAIN WO/W CON, 06/13/2023, 16:59. , CR, XR CHEST 1V, 01/21/2023, 9:15. FINDINGS: Surgical changes and devices: Tunneled left port device is in place. Lungs and pleura: Hyperaeration as before. Lungs are otherwise clear. No focal consolidation. No substantial pleural effusion. No pneumothorax. Mediastinum: Mediastinal contours appear normal. Heart size is normal. Bones and chest wall: No suspicious bony lesions. Overlying soft tissues appear unremarkable. IMPRESSION: No acute cardiopulmonary abnormalities. No acute airspace disease identified. Dictated by: Jean Richmond M.D. on 06/13/2023 at 20:08 Approved by: Jean Richmond M.D. on 06/13/2023 at 20:12
[2023-06-13 19:25] LABS: Lactate (Lactic Acid) 0.7 mmol/L (0.7-2.1)
[2023-06-13 19:56] LABS: Appearance Urine UA CLEAR; Bilirubin Urine UA NEGATIVE (NEGATIVE); Color Urine UA YELLOW; Glucose Urine UA NEGATIVE (Negative); Ketones Urine UA TRACE (NEGATIVE); Leukocyte Esterase Urine UA NEGATIVE (NEGATIVE); Nitrite Urine UA NEGATIVE (Negative); Occult Blood Urine UA 1+ (Negative); Protein Urine UA NEGATIVE (Negative); Urobilinogen Urine UA 0.2 E.U./dL (0.2)
[2023-06-13 19:58] LABS: pH Urine UA 6.5 (4.5-8.0)
[2023-06-13 20:15] LABS: Bacteria Urine None Seen; Culture Indicated Urine Cult Not Indicated; RBC Urine 1-5/HPF (0-5/HPF); Squamous Epithelial Cell Urine 0-1 /HPF (0-5/HPF); WBC Urine 0-1/HPF (0-5/HPF)
[2023-06-13 20:18] LABS: Adenovirus Not Detected (Not Detect); B. parapertussis Not Detected (Not Detecte); Bordetella pertussis Not Detected (Not Detect); Chlamydophila pneumoniae Not Detected (Not Detect); Coronavirus 229E Not Detected (Not Detect); Coronavirus HKU1 Not Detected (Not Detect); Coronavirus NL 63 Not Detected (Not Detect); Coronavirus OC43 Not Detected (Not Detect); Human Metapneumovirus Not Detected (Not Detect); Human Rhinovirus/Enterovirus Not Detected (Not Detect); Influenza A Not Detected (Not Detect); Influenza B Not Detected (Not Detect); Mycoplasma pneumoniae Not Detected (Not Detect); Parainfluenza Virus 1 Not Detected (Not Detect); Parainfluenza Virus 2 Not Detected (Not Detect); Parainfluenza Virus 3 Not Detected (Not Detect); Parainfluenza Virus 4 Not Detected (Not Detect); Respiratory Syncytial Virus Not Detected (Not Detect); SARS- CoV-2 Not Detected (Not Detecte)
[2023-06-13] MEDS: DEXAMETHASONE 4 MG/ML VIAL IV (21:57)
--- NOTE | 2023-06-13 22:38 | DI.CT.S_ITS ---
PROCEDURE: CT HEAD/BRAIN WO CON INDICATIONS: new left facial droop TECHNIQUE: Noncontrast 4.5 mm thick angled axial sections acquired from the foramen magnum to the vertex, with coronal and sagittal reformats. For radiation dose reduction, the following was used: automated exposure control, adjustment of mA and/or kV according to patient size. COMPARISON: [facility], MR, MR HEAD/BRAIN WO/W CON, 06/13/2023, 16:59. [facility], CT, CT HEAD/BRAIN WO CON, 06/13/2023, 15:22. [facility], CT, CT HEAD/BRAIN WO CON, 11/19/2022, 13:45. FINDINGS: Image quality: Excellent. CSF spaces: Basal cisterns are patent. No extra-axial fluid collections. The ventricles are symmetric in size and shape. Brain: With reference to the head CT scanning performed earlier same day there is no appreciable change. Specifically, no intracranial hemorrhage. A large midline frontal mass, previously reported as glioblastoma, is again seen. Its boundaries are better visualized by MR scanning. There is cerebral volume loss for age, with resultant ventricular and sulcal prominence. There are periventricular and deep white matter chronic small vessel ischemic changes. There is intracranial internal carotid artery atherosclerosis. Skull and face: Calvarium and visualized facial bones appear intact, without suspicious lesions. Sinuses: Visualized sinuses and mastoids are clear. IMPRESSION: Prior CT and MR scanning has been performed earlier same day. Large frontal mass lesion again noted without source of new reported facial droop. Specifically no acute intracranial hemorrhage is seen. Dictated by: Kole Joseph M.D. on 06/13/2023 at 23:30 Approved by: Kole Joseph M.D. on 06/13/2023 at 23:34
[2023-06-13] MEDS: PIPERACILLIN/TAZO 4.5 GM in SODIUM CHLORIDE 0.9% 100 ML IV (22:39)
[2023-06-14] VITALS (12 sets, daily range): BP systolic 114–163; BP diastolic 41–78; PULSE 63–94; RESP 16–17; TEMP 36.2–37.9; O2SAT 94–97; BMI 15.6
[2023-06-14] MEDS: SODIUM CHLORIDE 0.45% 1,000 ML 75 ML IV ×2 (01:47→14:22)
--- NOTE | 2023-06-14 03:14 | P.HP_ITS ---
History of Present Illness History of Present Illness Date Patient Seen: 06/14/23 Time Patient Seen: 03:15 Date of Onset of Symptoms: 06/07/23 Chief complaint: lethargy Narrative: 78 year old female with history of HTN, Breast Cancer and now glioblastoma multiforme over the last 3+ years here with increased lethargy, difficulty swallowing and slowed speech and movements. She was recently treated for a UTI with Bactrim and there was concern that this may be contributing as she has had a low grade fever. She was just started on Avastin a week ago and the caregiver with her thought maybe this was an issue. The caregiver actually brought her in because her BP was elevated tonight as she has been unable to swallow her BP medications and her BP was 185/80. There is no reported vomiting. The patient herself does speak but requires a minute or so after questions to answer and speaks slowly but understandably. She reported a little back pain only and stated she had trouble swallowing big pills. The caregiver states she has not eaten in several days. The caregiver stated that they thought she would be transferred to [place] but was admitted here. The ED physician spoke with neurosurgery and oncology who stated they had little to offer except decadron 4 mg q6h. Her MRI showed worsening tumor recurrence with vasogenic edema and CT done this evening showed similar findings. Her sister is considering coming and the ED physician was able to establish a DNR with sister. 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 Grandfather Stroke Grandmother Cancer Social History household members: caregiver Smoking Status: Never smoker second hand exposure: No alcohol intake: never substance use type: does not use Meds Home Medications and Allergies Home Medications Medication Instructions Recorded Confirmed Type suction cannister with tubing #1 ea 01/23/23 02/27/23 Rx nifedipine 30 mg tablet,extended See Rx Instructions .Route 01/29/23 06/14/23 Rx release .COMPLEX #90 tabs fluticasone 500 mcg-salmeterol 50 inhalation 06/14/23 History mcg/dose blistr powdr for inhalation (Wixela Inhub) melatonin 5 mg tablet 5 mg PO BEDTIME PRN Insomnia 06/14/23 06/14/23 History polyethylene glycol 400 1 % eye drp ophthalmic (eye) 06/14/23 History drops (Visine Dry Eye Relief) Allergies Allergy/AdvReac Type Severity Reaction Status Date / Time estradiol [ESTRADIOL] AdvReac Severe blood clots Verified 06/13/23 16:54 fluoxetine [FLUOXETINE] AdvReac Severe Nausea, Verified 06/13/23 16:54 vomiting, blurry vision, made IBS worse citalopram AdvReac Intermediate Nausea Verified 06/13/23 16:54 Review of Systems Constitutional Comments: increased lethargy and weakness ENT Comments: poor swallowing Cardiovascular Comments: no chest pain Respiratory Comments: no difficulty breathing Gastrointestinal Comments: no vomiting Genitourinary Comments: recent uti Neurologic Comments: known tumor, increased bradykinesis Psychiatric Comments: pleasant Exam Vital Signs (past 8 hours): - Nadege 06/13/23 19:20 06/13/23 19:20 06/13/23 19:30 Temperature Pulse Rate 70 73 Respiratory Rate Blood Pressure 134/67 Pulse Oximetry 94 94 Oxygen Delivery Method Room Air Oxygen Flow Rate 06/13/23 19:40 06/13/23 19:40 06/13/23 20:00 Temperature Pulse Rate 70 Respiratory Rate Blood Pressure 134/68 144/68 H Pulse Oximetry 94 Oxygen Delivery Method Oxygen Flow Rate 06/13/23 20:00 06/13/23 20:20 06/13/23 20:20 Temperature 100.0 F H 100.0 F H Pulse Rate 65 65 Respiratory Rate Blood Pressure 139/63 Pulse Oximetry 93 95 Oxygen Delivery Method Oxygen Flow Rate 06/13/23 20:30 06/13/23 20:40 06/13/23 20:40 Temperature 99.9 F H 99.7 F H Pulse Rate 66 66 Respiratory Rate Blood Pressure 143/67 H Pulse Oximetry 94 94 Oxygen Delivery Method Oxygen Flow Rate 06/13/23 21:00 06/13/23 21:00 06/13/23 21:20 Temperature 99.1 F 99.0 F Pulse Rate 62 73 Respiratory Rate Blood Pressure 145/76 H Pulse Oximetry 96 95 Oxygen Delivery Method Oxygen Flow Rate 06/13/23 21:20 06/13/23 21:30 06/13/23 21:40 Temperature 98.8 F Pulse Rate 60 Respiratory Rate Blood Pressure 140/67 151/70 H Pulse Oximetry 96 Oxygen Delivery Method Oxygen Flow Rate 06/13/23 21:40 06/13/23 22:00 06/13/23 22:00 Temperature 99.0 F 98.8 F Pulse Rate 61 60 Respiratory Rate Blood Pressure 137/71 Pulse Oximetry 97 95 Oxygen Delivery Method Oxygen Flow Rate 06/13/23 22:20 06/13/23 22:20 06/13/23 22:30 Temperature 98.8 F 98.6 F Pulse Rate 63 61 Respiratory Rate Blood Pressure 133/66 Pulse Oximetry 95 94 Oxygen Delivery Method Oxygen Flow Rate 06/13/23 22:40 06/13/23 22:40 06/13/23 23:07 Temperature 98.6 F Pulse Rate 56 L 65 Respiratory Rate Blood Pressure 183/81 H Pulse Oximetry 96 Oxygen Delivery Method Oxygen Flow Rate 06/13/23 23:10 06/13/23 23:10 06/13/23 23:20 Temperature 98.6 F 98.6 F Pulse Rate 68 59 L Respiratory Rate Blood Pressure 169/76 H Pulse Oximetry 97 97 Oxygen Delivery Method Oxygen Flow Rate 06/13/23 23:20 06/13/23 23:30 06/13/23 23:40 Temperature 98.8 F 98.8 F Pulse Rate 62 60 Respiratory Rate Blood Pressure 157/72 H Pulse Oximetry 96 95 Oxygen Delivery Method Oxygen Flow Rate 06/13/23 23:40 06/14/23 00:00 06/14/23 00:00 Temperature 98.8 F Pulse Rate 63 Respiratory Rate Blood Pressure 161/75 H 151/73 H Pulse Oximetry 94 Oxygen Delivery Method Oxygen Flow Rate 06/14/23 00:20 06/14/23 00:20 06/14/23 00:30 Temperature 98.8 F 98.6 F Pulse Rate 64 65 Respiratory Rate Blood Pressure 158/74 H Pulse Oximetry 95 94 Oxygen Delivery Method Oxygen Flow Rate 06/14/23 00:40 06/14/23 00:40 06/14/23 00:52 Temperature 98.6 F 97.1 F L Pulse Rate 65 66 Respiratory Rate 16 Blood Pressure 159/78 H 153/68 H Pulse Oximetry 94 97 Oxygen Delivery Method Oxygen Flow Rate 0 Oxygen Delivery Method Room Air Oxygen Flow Rate 0 Narrative Exam Narrative: Kena Mirza in [facility] has seen Ms Gtz using all aspects of audio and video telemedicine with nursing assistance Const Nutritional Appearance: thin HENMT Face and sinus: normal facial exam Eyes Pupils: PERRL Neck Neck: normal visual inspection and trachea midline Chest Chest: normal inspection of the chest Resp Effort & Inspection: normal respiratory effort Auscultation: clear to auscultation bilaterally Cardio Rate: regular rate Rhythm: regular rhythm GI Palpation: soft Skin Rashes: no rashes Neuro Cognition: normal cognition (understands questions) Motor: other (moves slowly, no focal weakness) Sensory Exam: no sensory deficits noted Extrem Other: no swelling appreciated Psych Speech and Movement: delayed speech and slowed movement Objective Imaging CT scan - head: Radiologist's impression: glioblastoma with vasogenic edema Labs 06/13/23 14:50 06/13/23 14:50 Labs: Laboratory Results - last 24 hr 06/13/23 06/13/23 06/13/23 14:50 19:10 19:25 WBC 6.0 RBC 4.11 Hgb 12.4 Hct 37.0 MCV 90.0 MCH 30.3 MCHC 33.6 RDW 13.1 Plt Count 196 Neut % (Auto) 63.0 Lymph % (Auto) 27.9 [place] % (Auto) 7.1 Eos % (Auto) 1.6 L Baso % (Auto) 0.4 Neut # (Auto) 3800 Lymph # (Auto) 1700 [place] # (Auto) 400 Eos # (Auto) 100 Baso # (Auto) 0 Sodium 135 L Potassium 3.8 Chloride 106 Carbon Dioxide 24 BUN 12 Creatinine 0.45 L Estimated GFR > 60 BUN/Creatinine Ratio 26.7 H Glucose 88 Lactate 1.0 0.7 Calcium 8.9 Total Bilirubin 1.0 AST 26 ALT 20 Alkaline Phosphatase 55 Total Protein 6.3 Albumin 3.6 Globulin 2.7 Albumin/Globulin Ratio 1.3 Lipase 106 Procalcitonin 0.04 Urine Color Urine Appearance Urine pH Ur Specific [place] Urine Protein Urine Glucose (UA) Urine Ketones Urine Occult Blood Urine Nitrate Urine Bilirubin Urine Urobilinogen Ur Leukocyte Esterase Urine RBC Urine WBC Ur Squamous Epith Cells Urine Bacteria Ur Culture Indicated? Chlamy pneumoniae PCR Not detected Adenovirus (PCR) Not detected B.parapertussis DNA PCR Not detected Coronavirus OC43 (PCR) Not detected Coronavirus HKU1 (PCR) Not detected Coronavirus 229E (PCR) Not detected SARS-CoV-2 (PCR) Not detected Coronavirus NL63 (PCR) Not detected Human Metapneumovir PCR Not detected Influenza Type A (PCR) Not detected Influenza Type B (PCR) Not detected M. pneumoniae (PCR) Not detected Parainfluenza 1 (PCR) Not detected Parainfluenza 2 (PCR) Not detected Parainfluenza 3 (PCR) Not detected Parainfluenza 4 (PCR) Not detected RSV (PCR) Not detected Entero/Rhino (PCR) Not detected 06/13/23 19:51 WBC RBC Hgb Hct MCV MCH MCHC RDW Plt Count Neut % (Auto) Lymph % (Auto) [place] % (Auto) Eos % (Auto) Baso % (Auto) Neut # (Auto) Lymph # (Auto) [place] # (Auto) Eos # (Auto) Baso # (Auto) Sodium Potassium Chloride Carbon Dioxide BUN Creatinine Estimated GFR BUN/Creatinine Ratio Glucose Lactate Calcium Total Bilirubin AST ALT Alkaline Phosphatase Total Protein Albumin Globulin Albumin/Globulin Ratio Lipase Procalcitonin Urine Color Yellow Urine Appearance Clear Urine pH 6.5 Ur Specific [place] 1.020 Urine Protein Negative Urine Glucose (UA) Negative Urine Ketones Trace H Urine Occult Blood 1+ H Urine Nitrate Negative Urine Bilirubin Negative Urine Urobilinogen 0.2 Ur Leukocyte Esterase Negative Urine RBC 1-5/hpf Urine WBC 0-1/hpf Ur Squamous Epith Cells 0-1 /hpf Urine Bacteria None seen Ur Culture Indicated? Cult not indicated Chlamy pneumoniae PCR Adenovirus (PCR) B.parapertussis DNA PCR Coronavirus OC43 (PCR) Coronavirus HKU1 (PCR) Coronavirus 229E (PCR) SARS-CoV-2 (PCR) Coronavirus NL63 (PCR) Human Metapneumovir PCR Influenza Type A (PCR) Influenza Type B (PCR) M. pneumoniae (PCR) Parainfluenza 1 (PCR) Parainfluenza 2 (PCR) Parainfluenza 3 (PCR) Parainfluenza 4 (PCR) RSV (PCR) Entero/Rhino (PCR) Assessment & Plan Assessment and plan (1) Dysphagia: Status: Acute (2) Fever: Status: Acute (3) Glioblastoma: Status: Acute Assessment & Plan narrative: Glioblastoma multiforme recurrence with edema addded decadron 4mg q6h per oncology both oncology and neurosurgery stated they had little to offer to ED physician approached the subject of goals of care and discussed what she might want have consulted palliative care who can hopefully speak with caregiver and sister as well as patient refused pain medications Dysphagia likely central as scan of neck OK/no obstructing lesion NPO for speech evaluation for swallowing I am honestly am inclined to allow the patient to have what she wants at this point Fever no clear source CXR and viral panel negative as well as urine could be partially treated UTI could also be centrally mediated at this point added Zosyn 3.375g IV q8h pending cultures Hypertension ordered usual nifedipine but added hydralazine IV if she could not swallow her medication DVT prophylaxis ordered SCD not willing to start blood thinner at this time
[2023-06-14] MEDS: DEXAMETHASONE 4 MG/ML VIAL IV ×4 (03:22→21:25)
--- NOTE | 2023-06-14 04:32 | PC.ADMIT ---
[email or web address] Admission Note: Patient admitted to ACU at 00:56, transferred from the ED. A/O to self and place, able to answer questions clearly, speech is delayed. Eugenio placed in ED. NS running at 75/hr. She is non-ambulatory at this time. Home caregiver with patient and able to assist with admission. Reports pain to lower back, but declines pain medication. Patient and caregiver oriented to room and call light, bed in low, locked position and call light within reach. The patient,Precious Gtz,78 y/o, was given written information regarding hospital policies, unit procedures and contact persons. Patient's smoking status: Never smoker. Vital Signs - 8 hr 06/13/23 20:40 06/13/23 20:40 06/13/23 21:00 Temperature 99.7 F H 99.1 F Pulse Rate 66 62 Respiratory Rate Blood Pressure 143/67 H Pulse Oximetry 94 96 Oxygen Delivery Method Oxygen Flow Rate 06/13/23 21:00 06/13/23 21:20 06/13/23 21:20 Temperature 99.0 F Pulse Rate 73 Respiratory Rate Blood Pressure 145/76 H 140/67 Pulse Oximetry 95 Oxygen Delivery Method Oxygen Flow Rate 06/13/23 21:30 06/13/23 21:40 06/13/23 21:40 Temperature 98.8 F 99.0 F Pulse Rate 60 61 Respiratory Rate Blood Pressure 151/70 H Pulse Oximetry 96 97 Oxygen Delivery Method Oxygen Flow Rate 06/13/23 22:00 06/13/23 22:00 06/13/23 22:20 Temperature 98.8 F 98.8 F Pulse Rate 60 63 Respiratory Rate Blood Pressure 137/71 Pulse Oximetry 95 95 Oxygen Delivery Method Oxygen Flow Rate 06/13/23 22:20 06/13/23 22:30 06/13/23 22:40 Temperature 98.6 F 98.6 F Pulse Rate 61 56 L Respiratory Rate Blood Pressure 133/66 Pulse Oximetry 94 96 Oxygen Delivery Method Oxygen Flow Rate 06/13/23 22:40 06/13/23 23:07 06/13/23 23:10 Temperature Pulse Rate 65 Respiratory Rate Blood Pressure 183/81 H 169/76 H Pulse Oximetry Oxygen Delivery Method Oxygen Flow Rate 06/13/23 23:10 06/13/23 23:20 06/13/23 23:20 Temperature 98.6 F 98.6 F Pulse Rate 68 59 L Respiratory Rate Blood Pressure 157/72 H Pulse Oximetry 97 97 Oxygen Delivery Method Oxygen Flow Rate 06/13/23 23:30 06/13/23 23:40 06/13/23 23:40 Temperature 98.8 F 98.8 F Pulse Rate 62 60 Respiratory Rate Blood Pressure 161/75 H Pulse Oximetry 96 95 Oxygen Delivery Method Oxygen Flow Rate 06/14/23 00:00 06/14/23 00:00 06/14/23 00:00 Temperature 98.8 F Pulse Rate 63 Respiratory Rate Blood Pressure 151/73 H Pulse Oximetry 94 97 Oxygen Delivery Method Room Air Oxygen Flow Rate 06/14/23 00:20 06/14/23 00:20 06/14/23 00:30 Temperature 98.8 F 98.6 F Pulse Rate 64 65 Respiratory Rate Blood Pressure 158/74 H Pulse Oximetry 95 94 Oxygen Delivery Method Oxygen Flow Rate 06/14/23 00:40 06/14/23 00:40 06/14/23 00:52 Temperature 98.6 F 97.1 F L Pulse Rate 65 66 Respiratory Rate 16 Blood Pressure 159/78 H 153/68 H Pulse Oximetry 94 97 Oxygen Delivery Method Oxygen Flow Rate 0 06/14/23 01:17 Temperature Pulse Rate Respiratory Rate Blood Pressure Pulse Oximetry Oxygen Delivery Method Room Air Oxygen Flow Rate
[2023-06-14 06:16] LABS: BUN Creatinine Ratio 22.2 (6-22); Blood Urea Nitrogen 10 mg/dL (7-17); Calcium 9.4 mg/dL (8.4-10.2); Carbon Dioxide 20 mmol/L (22-32); Chloride 106 mmol/L (98-107); Estimated Glomerular Filt Rate > 60 mL/min (>60); Glucose 111 mg/dL (80-110); HEMOLYSIS 22 (0-50); Potassium 4.2 mmol/L (3.4-5.1); Sodium 134 mmol/L (137-145)
[2023-06-14 06:30] LABS: Procalcitonin 0.04 ng/mL (<0.5)
--- NOTE | 2023-06-14 12:10 | CM.DANOTE ---
Initial DCP Assessment Note Pt is a 78 yo female, resident of [place], per H+P: Breast Cancer and now glioblastoma multiforme over the last 3+ years here with increased lethargy, difficulty swallowing and slowed speech and movements PCP: Crispin Washington Payer: [facility] According to Dr Cleaning, patient has requested to return home with hospice services. Met w/patient and her caregiver Radha, introduced self and role. Patient is currently non-verbal but has reportedly been able to track conversation and nods yes or no Caregiver Radha works for [employer] and shares the caregiver rotation with two other caregivers to make up 02/02 assistance for patient. Unsure from Radha if patient is mostly wheelchair bound (?) Radha referenced patient's ability to self transfer and ambulate with walker short distances up until recently. Reviewed discharge plan and patient nods yes to return home w/her caregivers w/new referral to hospice services. No agency preference. Radha reports patient can typically transport via private vehicle. Placed call to patient's sister/DPOA Angle Randhawa P# [phone] who lives south of [place], [place]. Discussed plans and sister is agreeable to patient's return home w/hospice as long as patient remains agreeable. Angle was planning to travel here until one of her household members came down with COVID. Angle plans to wait a while longer before coming to see patient. Discussed transport, sister would like this reviewed with patient and caregiver. Angle requests this MULTIMEDIA PROGRAMMER contact [employer] inspector assembly and provider Elyse Davis P# [phone] to discuss hospice referral. Placed call to Elyse, had to . Placed call to Ashtyn Zamora w/aircraft inspection record clerk team and faxed new referral. Plan: Anticipate discharge home Thursday as sister Angle suggested caregivers can bring patient home safely on Thursday with or without hospice services starting same day. Private vehicle vs BLS. CM team following closely for hospice referral follow up and determination of safe transport. REECE Olivares Discharge Planning/Care Management CM Discharge Assessment Start: 06/14/23 11:09 Freq: Status: Active Protocol: Document 06/14/23 11:09 LISSETT (Rec: 06/14/23 12:09 LISSETT [id number]) Discharge Planning Assessment Assigned Gun Stock Maker REECE Vides DPOA/Assigned Designee Name Angle Randhawa, sister Contact Information [phone] Advance Directives? Yes: DPOA Angle Randhawa Advance Directives on File Yes: Scanned History Provided By Patient,Family Member,Medical Record Prior Living Arrangements House Household Members caregiver Comment 3 Caregivers from [employer] rotate for 24/ coverage in the home. Type of transporation used prior to Relies on Others admit Comment Patient has been able to transport in private vehicle with wheelchair in tow per caregiver Radha Independent with ADL's No Is patient alert and oriented? Yes: Currently non-verbal Needs Assistance With Bathing,Eating,Grooming,Meal Prep,Toileting,Managing Medications,Home Chores / Shopping Comment Caregivers report they have everything they need for her at home. Patient has a stair lift Comment Home w/hospice Barriers to Discharge No Comment Discharge tomorrow anticipated , with caregivers 02/02. Hospice referral in process Discharge Plan Hospice Transportation Arrangement Caregiver vs BLS Referrals Initiated Other Additional Comment Referral placed to [facility]
[2023-06-14] MEDS: SCOPOLAMINE 1 PATCH TOP (12:45)
--- NOTE | 2023-06-14 13:51 | CM.DPNOTE ---
DCP Note Discharge plan is coming together with assistance from Elyse Davis w/[employer] P# [phone] and sister Angle P# [phone]. [facility] Elyse and patient's request. Discussed this referral, faxed clinical packet. Anita at [facility] anticipates start of care within the next few days although cannot give a definitive schedule today. Placed call to Ambulance, requested transport for 1100. BLS form completed, signed by Dr Cleaning and placed on patient's red chart w/face sheet and the order for DNR status (no updated POLST found on chart). Updated Elyse w/[facility], sister Angle, patient, caregiver at bedside Dr Hermila Garcia and ZEINAB Ramos. Plan: Discharge tomorrow, home w/caregivers (cg will be at the house when patient arrives at home) via BLS scheduled for 1100 continuous pickling line pickler helper time. [facility] to follow closely and communicate w/sister Angle for info visit and update re start of care JW
--- NOTE | 2023-06-14 14:58 | P.PN_ITS ---
Subjective Subjective Date Patient Seen: 06/14/23 Time Patient Seen: 08:00 Interval history: She has difficulty speaking, and is not verbal during the exam. She can nod her head yes and no. She is sleepy. She has difficulty swallowing. She has difficulty with upper extremity coordination and strength. Exam Vital Signs (past 8 hours): - 06/14/23 08:00 06/14/23 12:00 Temperature 97.8 F 97.1 F L Pulse Rate 83 85 Respiratory Rate 16 16 Blood Pressure 158/71 H 149/75 H Pulse Oximetry 97 97 Oxygen Flow Rate 0 0 Oxygen Delivery Method Room Air Oxygen Flow Rate 0 Narrative Exam Narrative: GEN: no acute distress, frail, chronically ill appearing CV: regular rate and rhythm PULM: clear bilaterally ABD: soft, nontender, nondistended EXT: warm and well perfused with no edema NEURO: intermittently nods off during exam, not verbal Objective Labs 06/13/23 14:50 06/14/23 05:50 Labs: Laboratory Results - last 24 hr 06/13/23 06/13/23 06/13/23 14:50 19:10 19:25 WBC 6.0 RBC 4.11 Hgb 12.4 Hct 37.0 MCV 90.0 MCH 30.3 MCHC 33.6 RDW 13.1 Plt Count 196 Neut % (Auto) 63.0 Lymph % (Auto) 27.9 [place] % (Auto) 7.1 Eos % (Auto) 1.6 L Baso % (Auto) 0.4 Neut # (Auto) 3800 Lymph # (Auto) 1700 [place] # (Auto) 400 Eos # (Auto) 100 Baso # (Auto) 0 Sodium 135 L Potassium 3.8 Chloride 106 Carbon Dioxide 24 BUN 12 Creatinine 0.45 L Estimated GFR > 60 BUN/Creatinine Ratio 26.7 H Glucose 88 Lactate 1.0 0.7 Calcium 8.9 Total Bilirubin 1.0 AST 26 ALT 20 Alkaline Phosphatase 55 Total Protein 6.3 Albumin 3.6 Globulin 2.7 Albumin/Globulin Ratio 1.3 Lipase 106 Procalcitonin 0.04 Urine Color Urine Appearance Urine pH Ur Specific Grant Urine Protein Urine Glucose (UA) Urine Ketones Urine Occult Blood Urine Nitrate Urine Bilirubin Urine Urobilinogen Ur Leukocyte Esterase Urine RBC Urine WBC Ur Squamous Epith Cells Urine Bacteria Ur Culture Indicated? Chlamy pneumoniae PCR Not detected Adenovirus (PCR) Not detected B.parapertussis DNA PCR Not detected Coronavirus OC43 (PCR) Not detected Coronavirus HKU1 (PCR) Not detected Coronavirus 229E (PCR) Not detected SARS-CoV-2 (PCR) Not detected Coronavirus NL63 (PCR) Not detected Human Metapneumovir PCR Not detected Influenza Type A (PCR) Not detected Influenza Type B (PCR) Not detected M. pneumoniae (PCR) Not detected Parainfluenza 1 (PCR) Not detected Parainfluenza 2 (PCR) Not detected Parainfluenza 3 (PCR) Not detected Parainfluenza 4 (PCR) Not detected RSV (PCR) Not detected Entero/Rhino (PCR) Not detected 06/13/23 06/14/23 19:51 05:50 WBC RBC Hgb Hct MCV MCH MCHC RDW Plt Count Neut % (Auto) Lymph % (Auto) [place] % (Auto) Eos % (Auto) Baso % (Auto) Neut # (Auto) Lymph # (Auto) [place] # (Auto) Eos # (Auto) Baso # (Auto) Sodium 134 L Potassium 4.2 Chloride 106 Carbon Dioxide 20 L BUN 10 Creatinine 0.45 L Estimated GFR > 60 BUN/Creatinine Ratio 22.2 H Glucose 111 H Lactate Calcium 9.4 Total Bilirubin AST ALT Alkaline Phosphatase Total Protein Albumin Globulin Albumin/Globulin Ratio Lipase Procalcitonin 0.04 Urine Color Yellow Urine Appearance Clear Urine pH 6.5 Ur Specific Grant 1.020 Urine Protein Negative Urine Glucose (UA) Negative Urine Ketones Trace H Urine Occult Blood 1+ H Urine Nitrate Negative Urine Bilirubin Negative Urine Urobilinogen 0.2 Ur Leukocyte Esterase Negative Urine RBC 1-5/hpf Urine WBC 0-1/hpf Ur Squamous Epith Cells 0-1 /hpf Urine Bacteria None seen Ur Culture Indicated? Cult not indicated Chlamy pneumoniae PCR Adenovirus (PCR) B.parapertussis DNA PCR Coronavirus OC43 (PCR) Coronavirus HKU1 (PCR) Coronavirus 229E (PCR) SARS-CoV-2 (PCR) Coronavirus NL63 (PCR) Human Metapneumovir PCR Influenza Type A (PCR) Influenza Type B (PCR) M. pneumoniae (PCR) Parainfluenza 1 (PCR) Parainfluenza 2 (PCR) Parainfluenza 3 (PCR) Parainfluenza 4 (PCR) RSV (PCR) Entero/Rhino (PCR) PFSH Medical History Chronic cough UTI (urinary tract infection) Vision changes Skin lesion Cervical strain Impaired cognition Abdominal pain Hypertension Glioblastoma multiforme of brain Perineal discomfort in female Asthma Actinic keratosis Rosacea Colon polyps (12/2013) GERD (gastroesophageal reflux disease) Cervical pain (neck) Osteopenia of multiple sites Irritable bowel syndrome with diarrhea 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 Grandfather Stroke Grandmother Cancer Social History household members: caregiver Smoking Status: Never smoker second hand exposure: No alcohol intake: never substance use type: does not use Assessment & Plan Assessment and plan (1) Dysphagia: Status: Acute (2) Fever: Status: Acute (3) Glioblastoma: Status: Acute Assessment & Plan narrative: Glioblastoma multiforme with subfalcine herniation and vasogenic edema recurrence with edema decadron 4mg q6h per oncology no further medical or surgical options per discussion in ED with onc/neurosurg hospice consult patient has terminal illness and is actively dying from her progressing cancer and brain herniation, palliative care is appropriate discussed with patient who is interested in going home, discussed hospice with DPOA Dysphagia secondary to malignancy, herniation regular diet ordered due to patient preference Fever no clear source CXR and viral panel negative as well as urine likely central cause Hypertension ordered usual nifedipine but added hydralazine IV if she could not swallow her medicatiom
[2023-06-14] MEDS: NIFEdipine 30 MG TAB ER PO (21:24)
[2023-06-14] MEDS: MORPHINE 4 MG/ML INJ IV (21:25)
[2023-06-14] MEDS: ACETAMINOPHEN 325 MG TABLET 650 MG PO (22:11)
[2023-06-15 00:34] VITALS: BP 129/58; PULSE 71; RESP 17; TEMP 36.7; O2SAT 95
[2023-06-15] MEDS: SODIUM CHLORIDE 0.45% 1,000 ML 75 ML IV (03:34)
[2023-06-15] MEDS: DEXAMETHASONE 4 MG/ML VIAL IV ×2 (04:18→10:24)
[2023-06-15 04:42] VITALS: BP 142/66; PULSE 68; RESP 16; TEMP 36.4; O2SAT 97
[2023-06-15 08:29] VITALS: BP 145/64; PULSE 65; RESP 18; TEMP 38; O2SAT 96
[2023-06-15 09:12] VITALS: TEMP 37.3
[2023-06-15] MEDS: NIFEdipine 30 MG TAB ER PO (09:48)
[2023-06-15] MEDS: ACETAMINOPHEN 325 MG TABLET 650 MG PO (09:53)
--- NOTE | 2023-06-15 10:08 | PM.DS.1 ---
History of Present Illness History of Present Illness Date Patient Seen: 06/15/23 Time Patient Seen: 10:08 Date of Onset of Symptoms: 06/07/23 Chief complaint: lethargy Narrative: 78 year old female with history of HTN, Breast Cancer and now glioblastoma multiforme over the last 3+ years here with increased lethargy, difficulty swallowing and slowed speech and movements. She was recently treated for a UTI with Bactrim and there was concern that this may be contributing as she has had a low grade fever. She was just started on Avastin a week ago and the caregiver with her thought maybe this was an issue. The caregiver actually brought her in because her BP was elevated tonight as she has been unable to swallow her BP medications and her BP was 185/80. There is no reported vomiting. The patient herself does speak but requires a minute or so after questions to answer and speaks slowly but understandably. She reported a little back pain only and stated she had trouble swallowing big pills. The caregiver states she has not eaten in several days. The caregiver stated that they thought she would be transferred to [place] but was admitted here. The ED physician spoke with neurosurgery and oncology who stated they had little to offer except decadron 4 mg q6h. Her MRI showed worsening tumor recurrence with vasogenic edema and CT done this evening showed similar findings. Her sister is considering coming and the ED physician was able to establish a DNR with sister. Discharge Providers Provider Date of admission: 06/14/23 00:05 Discharge Date: 06/15/23 Primary care physician: Crispin Washington DO Consults: 06/14/23 03:09 Consult to Speech Therapy Evaluate & Treat Comment: swallowing Physician Instructions: Evaluate and treat 06/14/23 03:10 Consult to Palliative Care Routine Comment: Consulting Provider: Ernestina Dillon Discharge provider: Sadiq Edward DO Summary Hospital Course Discharge Diagnosis: Glioblastoma multiforme with subfalcine herniation and vasogenic edema Dysphagia Fever Hypertension Hospital Course: This is a 78 year old female with PMH of glioblastoma multiforme who presented with worsening lethargy and dysphagia, found to have recurrence of disease with edema and brain herniation. After discussions with oncology they recommended decadron primarily for possible comfort, but she had no further medical or surgical management options. Palliative care was recommended. Decadron was started, without much improvement. Evaluation of her fever revealed no infectious cause and was likely central in origin. She was discharged home with hospice on 06/15/23. Time Spent with Patient Time spent: Less than 30 minutes Exam Vital Signs (past 8 hours): - 06/15/23 04:42 06/15/23 08:29 06/15/23 09:12 Temperature 97.6 F 100.4 F H 99.2 F Pulse Rate 68 65 Respiratory Rate 16 18 Blood Pressure 142/66 H 145/64 H Pulse Oximetry 97 96 Oxygen Flow Rate 0 0 Oxygen Delivery Method Room Air Oxygen Flow Rate 0 Narrative Exam Narrative: GEN: no acute distress, frail, chronically ill appearing CV: regular rate and rhythm PULM: clear bilaterally ABD: soft, nontender, nondistended EXT: warm and well perfused with no edema NEURO: intermittently nods off during exam, not verbal Objective Labs 06/13/23 14:50 06/14/23 05:50 [facility] Medical History Chronic cough UTI (urinary tract infection) Vision changes Skin lesion Cervical strain Impaired cognition Abdominal pain Hypertension Glioblastoma multiforme of brain Perineal discomfort in female Asthma Actinic keratosis Rosacea Colon polyps (12/2013) GERD (gastroesophageal reflux disease) Cervical pain (neck) Osteopenia of multiple sites Irritable bowel syndrome with diarrhea 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 Grandfather Stroke Grandmother Cancer Social History household members: caregiver Smoking Status: Never smoker second hand exposure: No alcohol intake: never substance use type: does not use Discharge Plan Discharge Plan Patient Disposition: Hospice - Home Provider Discharge Comment: Admitted with worsening disease from glioblastoma, discharging home on hospice. Discharge orders & Medications Discharge Orders: Discharge (Order); Ordered 06/15/23 Ordered By: Sadiq Edward Prescriptions: New morphine concentrate 100 mg/5 mL (20 mg/mL) solution 10 mg PO Q6H PRN (Reason: pain) 30 Days Qty: 120 0RF scopolamine base 1 mg over 3 days patch 3 day 1 patch transdermal Q3D PRN (Reason: secretions) 30 Days Qty: 10 0RF Continued (DME) suction cannister with tubing See Rx Instructions .Route .MEDSUPPLY Qty: 1 2RF Rx Instructions: Use to suction Q2H PRN for shortness of breath nifedipine 30 mg tablet extended release See Rx Instructions .ROUTE .COMPLEX Qty: 90 1RF Dose Instruction: take 1 tablet by mouth at bedtime Rx Instructions: take 1 tablet by mouth at bedtime fluticasone propion-salmeterol [Wixela Inhub] 500-50 mcg/dose blister with device INHALATION Patient Comments: [NO ORIGINAL SIG] melatonin 5 mg Tablet 5 mg PO BEDTIME PRN (Reason: Insomnia) Visine Dry Eye Relief 1 % Drops OPHTHALMIC (EYE) Follow up/Referrals: Crispin Washington, [Primary Care Provider] - Diet/Activity/Treatments Diet: Diet as Tolerated Diet comment: As tolerated, but try to balance risk of aspiration. Activity: As tolerated Catheter: 2-way Olguin Catheter comment: okay to continue olguin for comfort if desired. Visit Report/Discharge Packet Stand Alone Forms: Patient Portal/API, Stroke Signs & Symptoms Discharge Data Primary Care Provider: Crispin Washington Attending Provider: Kena Mirza Admit Date/Time: 06/14/23 00:05
--- NOTE | 2023-06-15 10:13 | CM.DPNOTE ---
DCP Note WAREHOUSE DISTRIBUTION ASSOCIATE reviewed EMR. WAREHOUSE DISTRIBUTION ASSOCIATE spoke with DPOA/sister Angle (p [phone]) to confirm plan. Confirms opening with [facility], acknowledges there may be a bill associated with BLS, and confirms caregiver will be at the house for BLS. Confirms she's on her way from [place]. WAREHOUSE DISTRIBUTION ASSOCIATE spoke with caregiver Elyse Davis (p [phone]) confirms dc plan as well. WAREHOUSE DISTRIBUTION ASSOCIATE spoke with Anita at [facility]. Confirms plan and still attempted to set up intake time. WAREHOUSE DISTRIBUTION ASSOCIATE gave Anita DPSHAHNAZ contact number to schedule start of services. WAREHOUSE DISTRIBUTION ASSOCIATE confirmed BLS form and DNR order in chart (no POLST available) WAREHOUSE DISTRIBUTION ASSOCIATE updated RN. WAREHOUSE DISTRIBUTION ASSOCIATE updated provider. all in agreement. Plan: patient to d/c today at 1100 with BLS home with caregiver support and [facility] to follow. CM team will continue to follow closely. REECE Richey
== END 2023-06-15 11:05 | disposition hospice, home (50) ==
LOC: ED 17:56 → AC 06-14 00:06
PROVIDERS: Emergency Medicine; Admitting Provider Internal Medicine; Emergency Provider Emergency Medicine; PCP Family Medicine; Referring Provider Emergency Medicine; Visit Provider Internal Medicine
DX: R13.10 Dysphagia, unspecified (principal); R50.9 Fever, unspecified; R53.1 Weakness; I10 Essential (primary) hypertension; C71.9 Malignant neoplasm of brain, unspecified
CPT/HCPCS: 36415; 70450; 70491; 70553; 71045; 80048; 80053; 81001; 83605; 83690; 84145; 85025; 87040; 87633; 96365; 96375; 99285; 99291; G0378; A9579; J0131; J1100; J2270; J2543; J7050; Q9967